=== PATIENT | female | born 1965 | race Caucasian/White ===

== ENCOUNTER 2019-10-21 19:45 | Inpatient (IN) ==
[2019-10-21] MEDS ORDERED: ALBUT/IPRATROP 3MG/0.5MG NEB 3 ML VIAL NEB STA (19:54)
[2019-10-21] MEDS ORDERED: methylPREDNISolone 125 MG/2 ML VIAL IV STA (19:54)
--- NOTE | 2019-10-21 20:11 | XRay Report ---
XR chest 1V portable CLINICAL HISTORY: Hypoxia. COMPARISON STUDY: Chest CT October 17, 2018. Chest radiograph September 09, 2019. FINDINGS: There is no pneumothorax or definite pleural effusion. Cardiomediastinal silhouette is stab le. No consolidation is identified. Interstitial thickening has resolved since chest radiograph of No vember 2018. IMPRESSION: No acute cardiopulmonary findings. ACT 112: Negative or not required by law. Electronically signed by: Sung Santana M.D. 10/21/2019 8:09 PM
[2019-10-21 20:16] LABS: Basophils # (auto) 0.04 K/uL (0-0.2); Basophils % (auto) 0.3 %; Eosinophils # (auto) 0.19 K/uL (0-0.5); Eosinophils % (auto) 1.5 %; Hematocrit (blood only) 48.1 % (37-47); Immature Granulocytes # (auto) 0.04 K/uL (0.00-0.02); Immature Granulocytes % (auto) 0.3 %; Lymphocytes # (auto) 2.77 K/uL (1.2-3.4); Lymphocytes % (auto) 21.7 %; Mean Corpuscular Hemoglobin 30.2 pg (25-34); Mean Corpuscular Hgb Conc 31.2 g/dL (32-36); Mean Platelet Volume 10.9 fL (7.4-10.4); Monocytes # (auto) 0.76 K/uL (0.11-0.59); Neutrophils # (auto) 8.95 K/uL (1.4-6.5); Neutrophils % (auto) 70.2 %; Platelet Count 173 K/uL (130-400); RDW Coefficient of Variation 13.9 % (11.5-14.5); Red Blood Count 4.96 M/uL (4.2-5.4); White Blood Count 12.75 K/uL (4.8-10.8)
[2019-10-21 20:18] LABS: Base Excess VBG 5.3 mEq/L; Oxygen Saturation VBG 66.5 %; pH VBG 7.34 (7.36-7.41)
[2019-10-21] MEDS ORDERED: ALBUT/IPRATROP 3MG/0.5MG NEB 3 ML VIAL NEB ONE (20:26)
[2019-10-21 20:31] LABS: Partial Thromboplastin Time 25.9 Seconds (21.0-31.0); Prothrombin Time 10.2 Seconds (9.0-12.0)
[2019-10-21 20:34] LABS: Alanine Aminotransferase 18 U/L (12-78); Albumin Level 3.1 gm/dl (3.4-5.0); Aspartate Aminotransferase 13 U/L (15-37); BUN Creatinine Ratio 18.7 (10-20); Bilirubin Direct < 0.1 mg/dl (0-0.2); Blood Urea Nitrogen 11 mg/dl (7-18); Calcium 8.9 mg/dl (8.5-10.1); Carbon Dioxide 40 mmol/L (21-32); Chloride 97 mmol/L (98-107); Creatinine Clr Calc Pharmacy 131.2 ml/min; Est GFR (African American) 120.8; Est GFR (Non-African American) 104.2; Glucose 97 mg/dl (70-99); Magnesium 1.9 mg/dl (1.8-2.4); Potassium 3.7 mmol/L (3.5-5.1); Sodium 140 mmol/L (136-145)
[2019-10-21 20:36] LABS: Influenza A virus by PCR Neg for Influ A (Neg); Influenza B virus by PCR Neg for Influ B (Neg)
[2019-10-21 20:39] LABS: Alkaline Phosphatase 96 U/L (45-117); Bilirubin,Total 0.2 mg/dl (0.2-1); NT Pro B Type Natriuretic Pept 64 pg/ml (0-900); Total Protein 6.9 gm/dl (6.4-8.2); Troponin I < 0.015 ng/ml (0-0.045)
[2019-10-21 21:01] LABS: Appearance Urine Clear (Clear); Bacteria Urine Automated 2+ (Negative); Bilirubin Urine Negative (Negative); Blood Urine Negative (Negative); Color Urine Dark Yellow; Epithelial Cell Urine Auto >30 /lpf (0-5); Glucose Urine UA Negative (Negative); Ketones Urine Trace (Negative); Leukocyte Esterase Urine Trace (Negative); Nitrite Urine Negative (Negative); Protein Urine Negative (Negative); Specific Gravity Urine 1.021 (1.000-1.030); Urobilinogen Urine Negative (Negative)
[2019-10-21] MEDS ORDERED: ACETAMINOPHEN 325 MG TAB PO PRN (22:03)
[2019-10-21] MEDS ORDERED: ONDANSETRON INJ 2 MG/ML 2 ML VIAL IV PRN (22:03)
[2019-10-21] MEDS ORDERED: FUROSEMIDE 40 MG/4 ML VIAL IV STA (22:03)
[2019-10-21] MEDS ORDERED: ALBUTEROL 0.5% NEB SOLN 2.5 MG/0.5 ML VIAL NEB PRN (22:03)
[2019-10-21] MEDS ORDERED: ENOXAPARIN INJ 40 MG/0.4 ML SYR SQ SCH (22:30)
[2019-10-21] MEDS ORDERED: MAGNESIUM SULFATE / D5W 1 GM/100 ML BAG IV ONE (22:30)
[2019-10-21] MEDS: CIPROFLOXACIN 250 MG TAB PO SCH (22:39)
[2019-10-21] MEDS ORDERED: ACETAMINOPHEN 500 MG TAB PO PRN (22:52)
--- NOTE | 2019-10-21 23:21 | History & Physical Report ---
Date of Service October 21, 2019 Assessment & Plan (1) Acute respiratory failure with hypoxia and hypercapnia: Patient with acute hypoxic respiratory failure most likely secondary to asthma and underlying COPD. Acutely hypoxic with saturations of 50% on arrival. VBG = 7.34/60 2. Rescue BiPAP placed in ER, nebs administered with improvement in patient's respiratory status. She is now speaking in complete sentences requesting that the BiPAP mask be removed Admit to PCU Maintain BiPAP as needed, wean to baseline 3 L nasal cannula as tolerated with goal saturation of 88 to 92% DuoNebs every 4 hours Albuterol every 2 hours as needed -Continue Advair Solu-Medrol 30 mg IV every 8 Magnesium x1 g Present on Admission?: Yes (2) UTI (urinary tract infection): Patient with complaint of dysuria. UA with trace leuk esterase and 10-30 RBCs, contaminated specimen with greater than 30 epithelial cells, 2+ bacteria. Patient has multiple allergies to include penicillin, sulfa, doxycycline. She is afebrile, hemodynamically stable, nontoxic in appearance We will treat with Cipro 250 mg twice daily Present on Admission?: Yes (3) COPD (chronic obstructive pulmonary disease): Patient with COPD. Continues to smoke approximately half a pack a day. Treatment as above with nebs and steroids BiPAP and wean to nasal cannula as tolerated Would ideally administer azithromycin given severity of exacerbation however, patient is allergic to azithromycin. No evidence of pneumonia or infectious process Smoking cessation counseling. Patient does not wish to have a nicotine patch placed at this time (4) Asthma: With acute exacerbation. Treatment with duo nebs and albuterol as above Continue Advair Solu-Medrol as above Magnesium sulfate x1 g Present on Admission?: Yes (5) Chronic diastolic CHF (congestive heart failure): Patient with grade 2 diastolic dysfunction noted on echo in 2018. She does not appear to be acutely volume overloaded at present. She does admit to missing her Lasix dose this morning. We will administer single dose of IV Lasix, 40 mg Continue Lasix 40 mg p.o. every morning and 20 mg p.o. q. afternoon to start tomorrow -Follow electrolytes and renal function Present on Admission?: Yes (6) FLAKO (obstructive sleep apnea): Chronic. Stable. Patient does not wear CPAP at home Encourage home CPAP use F/E/N-Hep-Lock. Monitor electrolytes and replete as needed, heart healthy diet as tolerated ProphylaxisLovenox 40 mg subcu daily Codefull per discussion with patient Dispositionadmit to PCU Present on Admission?: Yes History of Present Illness Chief Complaint: Shortness of breath Primary Care Provider: Mono Chapmanjorge l Poe is a 54-year-old female with history of oxygen dependent asthma/COPD on 3 L of continuous O2 at home presenting with shortness of breath and acute hypoxic respiratory failure. Patient states that she was in her usual state of health this morning when she woke up. She went out and did some shopping. Around 1630 she became acutely short of breath with chest tightness, dry cough. She has some mild chest pain associated with coughing and deep inspiration. Otherwise denies fever/chills/weakness/fatigue. Denies palpitations/abdominal pain/nausea/vomiting/constipation/diarrhea. She has chronic edema in her bilateral lower extremities for at least the last 6 months which has been slowly progressive. She is stable/unchanged orthopnea for years. Denies weight gain. She does admit to some dysuria and increased urinary frequency. Denies recent illness/sick contacts/recent travel On arrival to the ER she was in respiratory distress with a respiratory rate of 26, saturating 50% on 3 L by nasal cannula. Mild perioral cyanosis was noted. She was placed on BiPAP and administered albuterol neb utilizer treatments and Solu-Medrol with improvement in her clinical status. Presently she still complaining of chest tightness and feeling short of breath but feels that she has improved since coming to the ER. No additional complaints at this time ER course: Albuterol 3 mL neb, albuterol 12 mL neb, Solu-Medrol 125 mg IV Allergies Allergy/AdvReac Type Severity Reaction Status Date / Time azithromycin Allergy Severe respiratory Verified 10/21/19 21:23 distress cefaclor Allergy Severe RESPIRATORY Verified 10/21/19 21:23 DISTRESS erythromycin base Allergy Severe RESPIRATORY Verified 10/21/19 21:23 DISTRESS ibuprofen Allergy Severe RESPIRATORY Verified 10/21/19 21:23 DISTRESS Penicillins Allergy Severe RESPIRATORY Verified 10/21/19 21:23 DISTRESS Sulfa (Sulfonamide Allergy Severe RESPIRATORY Verified 10/21/19 21:23 Antibiotics) DISTRESS, RASH doxycycline AdvReac Severe Difficulty Verified 10/21/19 21:23 Breathing morphine AdvReac Intermediate N/V Verified 10/21/19 21:23 Home Medications Home Medications Medication Instructions Recorded Confirmed Type Advair HFA 1 puff INHALATION Q12H 10/09/18 10/21/19 History Spiriva Respimat 2 puff INHALATION DAILY 10/09/18 10/21/19 History albuterol sulfate 2 puff INHALATION Q4 PRN 10/09/18 10/21/19 History furosemide [Lasix] See Rx Instructions .ROUTE .COMPLEX 09/09/19 10/21/19 History acetaminophen [Tylenol Extra 1,000 mg PO Q6H PRN 10/21/19 10/21/19 History Strength] albuterol sulfate 2.5 mg INHALATION DIRECTED PRN 10/21/19 10/21/19 History fluticasone propionate [Flonase 2 spray INTRANASAL DAILY 10/21/19 10/21/19 History Allergy Relief] ibuprofen [Advil] 400 mg PO DIRECTED PRN 10/21/19 10/21/19 History Past Med/Surg History Medical History (Updated 10/21/19 @ 23:19 by Hazel Burt DO) Chronic diastolic CHF (congestive heart failure) Per echocardiogram 10/10/2018. Normal LV function with EF =55 to 60%, no regional wall motion abnormalities, mild concentric LVH with grade 2 diastolic dysfunction COPD (chronic obstructive pulmonary disease) On 3 L of oxygen continuous Morbid obesity Orthopnea TIA (transient ischemic attack) Surgical History (Updated 10/21/19 @ 23:05 by Hazel Burt DO) History of hysterectomy Hx of cholecystectomy Family History (Updated 10/21/19 @ 23:05 by Hazel Burt DO) Other Heart disease Social History Preferred Language: Azeri Communication Ability: Effective Facility Attendant Required: No Beliefs That Will Affect Care: None Current Living Situation: Alone Feels Safe at Home: Yes Smoking Status: Current every day smoker Tobacco Type: cigarettes ; Cigarettes Per Day: 10 ; Second Hand Exposure: Yes ; Tobacco Cessation Education Requested by Patient: No Hx Alcohol Use: No Hx Substance Use: No Review of Systems Review of Systems: All systems reviewed & are unremarkable except as noted in HPI & below Physical Exam Physical Exam: General: patient sitting upright in bed, BiPAP in place, appears comfortable, NAD, non-toxic in appearance, AA&O x 4 Skin: warm, dry, intact, no rashes or lesions HEENT: NC/AT, PERRL, EOMI, anicteric sclera, conjunctiva without injection, external ear normal to inspection and nontender, nares patent, dry mucus membranes, poor dentition, no oropharyngeal lesions, neck supple, trachea midline, no LAD, no thyromegaly, no JVD (exam limited by body habitus) Heart: +S1/S2, regular, no m/r/g Lungs: Markedly diminished breath sounds bilaterally, no rales/rhonchi, soft inspiratory and expiratory wheezing throughout Abd: +BS, soft, NT/ND, no masses/organomegaly/ascites Ext: warm, 2+ pulses in UE/LE bilaterally, no clubbing/cyanosis, + bilateral lower extremity edema 2+ with chronic skin changes/thickening with mild dermatitis on right lower extremity Neuro: nonfocal, patient AA&O x 4, speech intact, no facial droop, moving all extremities on command with equal strength 5/5 Results & Data Vital Signs (Past 12 Hours) Vital Signs Temp Pulse Pulse Resp BP BP Pulse Ox 10/21/19 22:02 82 19 93 10/21/19 21:01 82 108/54 L 93 10/21/19 20:47 82 18 98 10/21/19 20:31 80 112/94 99 10/21/19 20:22 81 21 99 10/21/19 20:15 82 20 99/74 L 97 10/21/19 20:04 99 10/21/19 19:55 99 10/21/19 19:48 36.7 C 97 H 26 H 139/75 50 L Laboratory Results Lab Results 10/21/19 10/21/19 10/21/19 Range/Units 20:00 20:07 20:07 WBC 12.75 H (4.8-10.8) K/uL RBC 4.96 (4.2-5.4) M/uL Hgb 15.0 (12.0-16.0) g/dL Hct 48.1 H (37-47) % MCV 97.0 (80-100) fL MCH 30.2 (25-34) pg MCHC 31.2 L (32-36) g/dL RDW Std Deviation 49.0 H (36.4-46.3) fL RDW Coeff of Darius 13.9 (11.5-14.5) % Plt Count 173 (130-400) K/uL MPV 10.9 H (7.4-10.4) fL Immature Gran % (Auto) 0.3 % Neut % (Auto) 70.2 % Lymph % (Auto) 21.7 % Power % (Auto) 6.0 % Eos % (Auto) 1.5 % Baso % (Auto) 0.3 % Immature Gran # (Auto) 0.04 H (0.00-0.02) K/uL Neut # (Auto) 8.95 H (1.4-6.5) K/uL Lymph # (Auto) 2.77 (1.2-3.4) K/uL Power # (Auto) 0.76 H (0.11-0.59) K/uL Eos # (Auto) 0.19 (0-0.5) K/uL Baso # (Auto) 0.04 (0-0.2) K/uL PT 10.2 (9.0-12.0) Seconds INR 1.0 (0.9-1.1) APTT 25.9 (21.0-31.0) Seconds PTT Ratio 1.0 VBG pH (7.36-7.41) VBG pCO2 (38-50) mmHg VBG pO2 mmHg VBG HCO3 mmol/L VBG O2 Saturation % VBG Base Excess mEq/L Barometric Pressure mm/Hg Sodium (136-145) mmol/L Potassium (3.5-5.1) mmol/L Chloride (98-107) mmol/L Carbon Dioxide (21-32) mmol/L Anion Gap (3-11) BUN (7-18) mg/dl Creatinine (0.6-1.2) mg/dl Est Cr Clr Drug Dosing ml/min Est GFR ( Amer) Est GFR (Non-Af Amer) BUN/Creatinine Ratio (10-20) Glucose (70-99) mg/dl Calcium (8.5-10.1) mg/dl Phosphorus (2.5-4.9) mg/dl Magnesium (1.8-2.4) mg/dl Total Bilirubin (0.2-1) mg/dl Direct Bilirubin (0-0.2) mg/dl AST (15-37) U/L ALT (12-78) U/L Alkaline Phosphatase (45-117) U/L Troponin I (0-0.045) ng/ml NT-Pro-B Natriuret Pep (0-900) pg/ml Total Protein (6.4-8.2) gm/dl Albumin (3.4-5.0) gm/dl Urine Color Urine Appearance (Clear) Urine pH (4.5-7.5) Ur Specific [place] (1.000-1.030) Urine Protein (Negative) Urine Glucose (UA) (Negative) Urine Ketones (Negative) Urine Blood (Negative) Urine Nitrite (Negative) Urine Bilirubin (Negative) Urine Urobilinogen (Negative) Ur Leukocyte Esterase (Negative) Urine WBC (Auto) (0-5) /hpf Urine RBC (Auto) (0-4) /hpf U Hyaline Cast (Auto) (0-5) /lpf U Epithel Cells (Auto) (0-5) /lpf Urine Bacteria (Auto) (Negative) Influenza Type A (PCR) Neg for Influ A (Neg) Influenza Type B (PCR) Neg for Influ B (Neg) 10/21/19 10/21/19 10/21/19 Range/Units 20:07 20:07 20:48 WBC (4.8-10.8) K/uL RBC (4.2-5.4) M/uL Hgb (12.0-16.0) g/dL Hct (37-47) % MCV (80-100) fL MCH (25-34) pg MCHC (32-36) g/dL RDW Std Deviation (36.4-46.3) fL RDW Coeff of Darius (11.5-14.5) % Plt Count (130-400) K/uL MPV (7.4-10.4) fL Immature Gran % (Auto) % Neut % (Auto) % Lymph % (Auto) % Power % (Auto) % Eos % (Auto) % Baso % (Auto) % Immature Gran # (Auto) (0.00-0.02) K/uL Neut # (Auto) (1.4-6.5) K/uL Lymph # (Auto) (1.2-3.4) K/uL Power # (Auto) (0.11-0.59) K/uL Eos # (Auto) (0-0.5) K/uL Baso # (Auto) (0-0.2) K/uL PT (9.0-12.0) Seconds INR (0.9-1.1) APTT (21.0-31.0) Seconds PTT Ratio VBG pH 7.34 L (7.36-7.41) VBG pCO2 62 H (38-50) mmHg VBG pO2 33 mmHg VBG HCO3 33 mmol/L VBG O2 Saturation 66.5 % VBG Base Excess 5.3 mEq/L Barometric Pressure 737.6 mm/Hg Sodium 140 (136-145) mmol/L Potassium 3.7 (3.5-5.1) mmol/L Chloride 97 L (98-107) mmol/L Carbon Dioxide 40 H (21-32) mmol/L Anion Gap 3.0 (3-11) BUN 11 (7-18) mg/dl Creatinine 0.56 L (0.6-1.2) mg/dl Est Cr Clr Drug Dosing 131.2 ml/min Est GFR ( Amer) 120.8 Est GFR (Non-Af Amer) 104.2 BUN/Creatinine Ratio 18.7 (10-20) Glucose 97 (70-99) mg/dl Calcium 8.9 (8.5-10.1) mg/dl Phosphorus 3.0 (2.5-4.9) mg/dl Magnesium 1.9 (1.8-2.4) mg/dl Total Bilirubin 0.2 (0.2-1) mg/dl Direct Bilirubin < 0.1 (0-0.2) mg/dl AST 13 L (15-37) U/L ALT 18 (12-78) U/L Alkaline Phosphatase 96 (45-117) U/L Troponin I < 0.015 (0-0.045) ng/ml NT-Pro-B Natriuret Pep 64 (0-900) pg/ml Total Protein 6.9 (6.4-8.2) gm/dl Albumin 3.1 L (3.4-5.0) gm/dl Urine Color Dark Yellow Urine Appearance Clear (Clear) Urine pH 7.0 (4.5-7.5) Ur Specific [place] 1.021 (1.000-1.030) Urine Protein Negative (Negative) Urine Glucose (UA) Negative (Negative) Urine Ketones Trace H (Negative) Urine Blood Negative (Negative) Urine Nitrite Negative (Negative) Urine Bilirubin Negative (Negative) Urine Urobilinogen Negative (Negative) Ur Leukocyte Esterase Trace H (Negative) Urine WBC (Auto) 1-5 (0-5) /hpf Urine RBC (Auto) 10-30 H (0-4) /hpf U Hyaline Cast (Auto) 1-5 (0-5) /lpf U Epithel Cells (Auto) >30 H (0-5) /lpf Urine Bacteria (Auto) 2+ H (Negative) Influenza Type A (PCR) (Neg) Influenza Type B (PCR) (Neg) Diagnostic Findings XR chest 1V portable CLINICAL HISTORY: Hypoxia. COMPARISON STUDY: Chest CT October 17, 2018. Chest radiograph September 09, 2019. FINDINGS: There is no pneumothorax or definite pleural effusion. Cardiomediastinal silhouette is stable. No consolidation is identified. Interstitial thickening has resolved since chest radiograph of September 09, 2019. IMPRESSION: No acute cardiopulmonary findings. ACT 112: Negative or not required by law. Electronically signed by: Sung Santana M.D. 10/21/2019 8:09 PM Dictated: 10/21/192007 Transcribed: 10/21/192007 ECG Additional Comments: This study shows normal sinus rhythm at 82 bpm, normal axis, [place] = 158 QRS = 98, QTc = 441, no acute ischemic changes Code Status & VTE Plan Code Status Full code VTE Prophylaxis Plan VTE Prophylaxis will be ordered: Yes PG Care Time/CCT Total # of Minutes Spent Total Time Spent with Patient: Total time spent is greater than 50% in coordination of care (as documented) at patient's floor/unit and/or counseling patient: (1) COPD (chronic obstructive pulmonary disease) COPD type: unspecified COPD Qualified Code(s): J44.9 - Chronic obstructive pulmonary disease, unspecified (2) Asthma Asthma severity: unspecified severity Asthma complication type: unspecified Asthma persistence: unspecified Qualified Code(s): J45.909 - Unspecified asthma, uncomplicated (3) UTI (urinary tract infection) Urinary tract infection type: acute cystitis Hematuria presence: with hematuria Qualified Code(s): N30.01 - Acute cystitis with hematuria
--- NOTE | 2019-10-21 23:26 | Emergency Department Note ---
Entered by Catherine Singer acting as a scribe for Arturo Nielsen History of Present Illness General Chief complaint: Shortness of Breath/Dyspnea Stated complaint: TROUBLE BREATHING Time Seen by Provider: 10/21/19 19:54 Source: patient History of Present Illness Onset (ago): hour(s) (today ) Location: chest (SOB) Pain Consistency: + constant Maximum Pain Intensity: 5 Associated symptoms: + denies other symptoms (recent weight gain) and + other (baseline leg swelling); no fever/chills The patient is a 54 year old female with a history of COPD, CHF, chronic respiratory failure, previous intubation (most recent was 10/09/18) and obesity who presents to the Emergency Room with complaints of shortness of breath. The patient began experiencing SOB today and presents with baseline swelling in her bilateral lower extremities which she states that she has everyday. She denies fever and recent weight again. Home Medications Home Medications Medication Instructions Recorded Confirmed Type Advair HFA 1 puff INHALATION Q12H 10/09/18 10/21/19 History Spiriva Respimat 2 puff INHALATION DAILY 10/09/18 10/21/19 History albuterol sulfate 2 puff INHALATION Q4 PRN 10/09/18 10/21/19 History furosemide [Lasix] See Rx Instructions .ROUTE .COMPLEX 09/09/19 10/21/19 History acetaminophen [Tylenol Extra 1,000 mg PO Q6H PRN 10/21/19 10/21/19 History Strength] albuterol sulfate 2.5 mg INHALATION DIRECTED PRN 10/21/19 10/21/19 History fluticasone propionate [Flonase 2 spray INTRANASAL DAILY 10/21/19 10/21/19 History Allergy Relief] ibuprofen [Advil] 400 mg PO DIRECTED PRN 10/21/19 10/21/19 History Allergies Allergy/AdvReac Type Severity Reaction Status Date / Time azithromycin Allergy Severe respiratory Verified 10/21/19 21:23 distress cefaclor Allergy Severe RESPIRATORY Verified 10/21/19 21:23 DISTRESS erythromycin base Allergy Severe RESPIRATORY Verified 10/21/19 21:23 DISTRESS ibuprofen Allergy Severe RESPIRATORY Verified 10/21/19 21:23 DISTRESS Penicillins Allergy Severe RESPIRATORY Verified 10/21/19 21:23 DISTRESS Sulfa (Sulfonamide Allergy Severe RESPIRATORY Verified 10/21/19 21:23 Antibiotics) DISTRESS, RASH doxycycline AdvReac Severe Difficulty Verified 10/21/19 21:23 Breathing morphine AdvReac Intermediate N/V Verified 10/21/19 21:23 Past Med/Surg History Medical History (Updated 10/21/19 @ 23:19 by Hazel Burt DO) Chronic diastolic CHF (congestive heart failure) Per echocardiogram 10/10/2018. Normal LV function with EF =55 to 60%, no re gional wall motion abnormalities, mild concentric LVH with grade 2 diastolic dysfunction COPD (chronic obstructive pulmonary disease) On 3 L of oxygen continuous Morbid obesity Orthopnea TIA (transient ischemic attack) Surgical History (Updated 10/21/19 @ 23:05 by Hazel Burt DO) History of hysterectomy Hx of cholecystectomy Family History (Updated 10/21/19 @ 23:05 by Hazel Burt DO) Other Heart disease Social History Preferred Language: [place] Communication Ability: Effective Web Software Engineer Required: No Beliefs That Will Affect Care: None Current Living Situation: Alone Feels Safe at Home: Yes Smoking Status: Current every day smoker Tobacco Type: cigarettes ; Cigarettes Per Day: 10 ; Second Hand Exposure: Yes ; Tobacco Cessation Education Requested by Patient: No Hx Alcohol Use: No Hx Substance Use: No Review of Systems Unable to obtain due to patient's respiratory distress. Physical Exam Vital Signs Vital Signs - 24 hr 10/21/19 19:48 10/21/19 19:55 10/21/19 20:04 Temperature 36.7 C Temperature Source Oral Pulse Rate 97 H Pulse Rate [Apical] Pulse Rate from SpO2 Sensor Respiratory Rate 26 H Respiratory Effort / Characteristics Respiratory Depth Respiratory Pattern Blood Pressure 139/75 Blood Pressure [Left Arm] Blood Pressure Mean 96 Blood Pressure Mean [Left Arm] Blood Pressure Position Sitting Blood Pressure Position [Left Arm] Pulse Oximetry 50 L 99 99 Oxygen Delivery Method Nasal Cannula Non-rebreather Non-rebreather Oxygen Flow Rate 3 15 15 Fraction of Inspired Oxygen Sepsis Recent Fever Within 48 Hours No Sepsis New/Unexplained Change in Mental Status No Sepsis Action Taken by Nursing No Action Required 10/21/19 20:15 10/21/19 20:22 10/21/19 20:31 Temperature Temperature Source Pulse Rate 81 80 Pulse Rate [Apical] 82 Pulse Rate from SpO2 Sensor 80 Respiratory Rate 20 21 Respiratory Effort / Characteristics Non-Labored Spontaneous Spontaneous Labored Short of Breath SOB on Exertion Respiratory Depth Normal Shallow Respiratory Pattern Tachypnea Blood Pressure 112/94 Blood Pressure [Left Arm] 99/74 L Blood Pressure Mean 97 Blood Pressure Mean [Left Arm] 82 Blood Pressure Position Blood Pressure Position [Left Arm] Sitting Pulse Oximetry 97 99 99 Oxygen Delivery Method BiPAP BiPAP Oxygen Flow Rate Fraction of Inspired Oxygen 40 40 Sepsis Recent Fever Within 48 Hours Sepsis New/Unexplained Change in Mental Status Sepsis Action Taken by Nursing 10/21/19 20:47 10/21/19 21:01 Temperature Temperature Source Pulse Rate 82 82 Pulse Rate [Apical] Pulse Rate from SpO2 Sensor 82 Respiratory Rate 18 Respiratory Effort / Characteristics Non-Labored Spontaneous Respiratory Depth Normal Respiratory Pattern Regular Blood Pressure 108/54 L Blood Pressure [Left Arm] Blood Pressure Mean 61 Blood Pressure Mean [Left Arm] Blood Pressure Position Blood Pressure Position [Left Arm] Pulse Oximetry 98 93 Oxygen Delivery Method BiPAP Oxygen Flow Rate Fraction of Inspired Oxygen 40 40 Sepsis Recent Fever Within 48 Hours Sepsis New/Unexplained Change in Mental Status Sepsis Action Taken by Nursing GENERAL: Patient should not in obvious respiratory distress. Patient is ashen and cyanotic. -Head: Normocephalic and atraumatic. -Right Ear: External ear normal. No mastoid tenderness. -Left Ear: External ear normal. No mastoid tenderness. -Mouth/Throat: The oropharynx is clear and moist. No trismus in the jaw. No dental abscesses or uvula swelling. No oropharyngeal exudate or tonsillar abscesses. EYES: Conjunctivae and EOM are normal. Pupils are equal, round, and reactive to light. Right eye exhibits no discharge. Left eye exhibits no discharge. No scleral icterus. NECK: Normal range of motion. Neck supple. No JVD present. No spinous process tenderness present. No carotid bruit present. No rigidity. No tracheal deviation and normal range of motion present. No Brudzinski's sign and no Kernig's sign noted. CV: Normal rate, regular rhythm, normal heart sounds and intact distal pulses. 2+ pitting edema in bilateral lower extremities. Palpable radial pulses bue. PULM/CHEST: respiratory distress. No stridor. Inspiratory rales and expiratory wheezes bilaterally. Chest Wall: She exhibits no tenderness. ABD: The abdomen is soft. Bowel sounds are normal. She has no distension. No mass is present. There is no tenderness. There is no rebound, no guarding, no Ryan's sign and no tenderness at McBurney's point. Rovsig negative MUSC/SKEL: Normal range of motion. There is no tenderness or deformity. 2+ pitting edema in bilateral lower extremities. LYMPH: No cervical adenopathy. NEURO: Motor and sensation grossly intact. SKIN: Ashen and cyanotic Course Course 1952: Past medical records reviewed. The patient was evaluated in room A01. A complete history and physical exam was performed. The patient is hypoxic at baseline with 3L of O2 50%. Large bor IV access was immediately obtained and the patient was placed on a acid wash operator. She is currently on a [id number] and quickly transitioned to Bipap 10/04. She will receive a 1 hour duoneb treatment though bipap. 2002: Patient's oxygen saturation is improved on BiPAP, her pallor has also improved. Cyanosis has resolved. 2016: I reassessed the patient and she is breathing more comfortable on bipap. She is getting a continuous duoneb treatment. 2050:The patient's vitals are stable and she continues bipap. Her leukocytosis is 12.7 on labs. Negative flu swab, negative troponin, pro BNP is 64. Her chest x-ray shows no pneumonia. She is admitted to medicine. I spoke to Dr. Dulce Burt who accepts the patient for admission. Administered Medications Ciprofloxacin (Cipro) 250 mg PO BID TIERA Stop: 10/26/19 22:29 Last Admin: 10/21/19 22:39 Dose: 250 mg Documented by: [id number] Enoxaparin Sodium (Lovenox) 40 mg SQ HS TIERA Stop: 11/20/19 22:29 Last Admin: 10/21/19 22:40 Dose: 40 mg Documented by: [id number] Magnesium Sulfate/Dextrose (Magnesium Sulfate / D5w) 1 gm in 100 mls @ 100 mls/hr IV ONE ONE Stop: 10/21/19 23:29 Last Admin: 10/21/19 22:39 Dose: 100 mls/hr Documented by: [id number] Discontinued Medications Albuterol (Duoneb) 3 ml NEB NOW STA Stop: 10/21/19 19:55 Last Admin: 10/21/19 20:27 Dose: Not Given Documented by: [id number] Albuterol (Duoneb) 12 ml NEB ONE ONE Stop: 12/22/19 20:27 Last Admin: 10/21/19 20:31 Dose: 12 ml Documented by: [id number] Furosemide (Lasix) 40 mg IV NOW STA Stop: 10/21/19 22:04 Last Admin: 10/21/19 23:10 Dose: 40 mg Documented by: [id number] Methylprednisolone (Solumedrol) 125 mg IV NOW STA Stop: 10/21/19 19:55 Last Admin: 10/21/19 20:08 Dose: 125 mg Documented by: [id number] Critical Care Time Critical Care Time: Yes Total Critical Care Time: 56 I have personally spent 56 minutes of critical care time in the direct management of this patient. This includes bedside care, interpretation of diagnostic studies, and testing, discussion with consultants, patient, and family members, and other required patient management activities. This 56 minutes is in excess of all separately billable procedures. Medical Decision Making Medical Records Attestation: I reviewed the patient's medical records. Home Medications Current Medication List: was personally reviewed by me Laboratory Data Attestation: I reviewed the patient's lab results. Result diagrams: 10/21/19 20:07 10/21/19 20:07 Lab Results 10/21/19 10/21/19 10/21/19 Range/Units 20:00 20:07 20:07 WBC 12.75 H (4.8-10.8) K/uL RBC 4.96 (4.2-5.4) M/uL Hgb 15.0 (12.0-16.0) g/dL Hct 48.1 H (37-47) % MCV 97.0 (80-100) fL MCH 30.2 (25-34) pg MCHC 31.2 L (32-36) g/dL RDW Std Deviation 49.0 H (36.4-46.3) fL RDW Coeff of Darius 13.9 (11.5-14.5) % Plt Count 173 (130-400) K/uL MPV 10.9 H (7.4-10.4) fL Immature Gran % (Auto) 0.3 % Neut % (Auto) 70.2 % Lymph % (Auto) 21.7 % [place] % (Auto) 6.0 % Eos % (Auto) 1.5 % Baso % (Auto) 0.3 % Immature Gran # (Auto) 0.04 H (0.00-0.02) K/uL Neut # (Auto) 8.95 H (1.4-6.5) K/uL Lymph # (Auto) 2.77 (1.2-3.4) K/uL [place] # (Auto) 0.76 H (0.11-0.59) K/uL Eos # (Auto) 0.19 (0-0.5) K/uL Baso # (Auto) 0.04 (0-0.2) K/uL PT 10.2 (9.0-12.0) Seconds INR 1.0 (0.9-1.1) APTT 25.9 (21.0-31.0) Seconds PTT Ratio 1.0 VBG pH (7.36-7.41) VBG pCO2 (38-50) mmHg VBG pO2 mmHg VBG HCO3 mmol/L VBG O2 Saturation % VBG Base Excess mEq/L Barometric Pressure mm/Hg Sodium (136-145) mmol/L Potassium (3.5-5.1) mmol/L Chloride (98-107) mmol/L Carbon Dioxide (21-32) mmol/L Anion Gap (3-11) BUN (7-18) mg/dl Creatinine (0.6-1.2) mg/dl Est Cr Clr Drug Dosing ml/min Est GFR ( Amer) Est GFR (Non-Af Amer) BUN/Creatinine Ratio (10-20) Glucose (70-99) mg/dl Calcium (8.5-10.1) mg/dl Phosphorus (2.5-4.9) mg/dl Magnesium (1.8-2.4) mg/dl Total Bilirubin (0.2-1) mg/dl Direct Bilirubin (0-0.2) mg/dl AST (15-37) U/L ALT (12-78) U/L Alkaline Phosphatase (45-117) U/L Troponin I (0-0.045) ng/ml NT-Pro-B Natriuret Pep (0-900) pg/ml Total Protein (6.4-8.2) gm/dl Albumin (3.4-5.0) gm/dl Urine Color Urine Appearance (Clear) Urine pH (4.5-7.5) Ur Specific [place] (1.000-1.030) Urine Protein (Negative) Urine Glucose (UA) (Negative) Urine Ketones (Negative) Urine Blood (Negative) Urine Nitrite (Negative) Urine Bilirubin (Negative) Urine Urobilinogen (Negative) Ur Leukocyte Esterase (Negative) Urine WBC (Auto) (0-5) /hpf Urine RBC (Auto) (0-4) /hpf U Hyaline Cast (Auto) (0-5) /lpf U Epithel Cells (Auto) (0-5) /lpf Urine Bacteria (Auto) (Negative) Influenza Type A (PCR) Neg for Influ A (Neg) Influenza Type B (PCR) Neg for Influ B (Neg) 10/21/19 10/21/19 10/21/19 Range/Units 20:07 20:07 20:48 WBC (4.8-10.8) K/uL RBC (4.2-5.4) M/uL Hgb (12.0-16.0) g/dL Hct (37-47) % MCV (80-100) fL MCH (25-34) pg MCHC (32-36) g/dL RDW Std Deviation (36.4-46.3) fL RDW Coeff of Darius (11.5-14.5) % Plt Count (130-400) K/uL MPV (7.4-10.4) fL Immature Gran % (Auto) % Neut % (Auto) % Lymph % (Auto) % [place] % (Auto) % Eos % (Auto) % Baso % (Auto) % Immature Gran # (Auto) (0.00-0.02) K/uL Neut # (Auto) (1.4-6.5) K/uL Lymph # (Auto) (1.2-3.4) K/uL [place] # (Auto) (0.11-0.59) K/uL Eos # (Auto) (0-0.5) K/uL Baso # (Auto) (0-0.2) K/uL PT (9.0-12.0) Seconds INR (0.9-1.1) APTT (21.0-31.0) Seconds PTT Ratio VBG pH 7.34 L (7.36-7.41) VBG pCO2 62 H (38-50) mmHg VBG pO2 33 mmHg VBG HCO3 33 mmol/L VBG O2 Saturation 66.5 % VBG Base Excess 5.3 mEq/L Barometric Pressure 737.6 mm/Hg Sodium 140 (136-145) mmol/L Potassium 3.7 (3.5-5.1) mmol/L Chloride 97 L (98-107) mmol/L Carbon Dioxide 40 H (21-32) mmol/L Anion Gap 3.0 (3-11) BUN 11 (7-18) mg/dl Creatinine 0.56 L (0.6-1.2) mg/dl Est Cr Clr Drug Dosing 131.2 ml/min Est GFR ( Amer) 120.8 Est GFR (Non-Af Amer) 104.2 BUN/Creatinine Ratio 18.7 (10-20) Glucose 97 (70-99) mg/dl Calcium 8.9 (8.5-10.1) mg/dl Phosphorus 3.0 (2.5-4.9) mg/dl Magnesium 1.9 (1.8-2.4) mg/dl Total Bilirubin 0.2 (0.2-1) mg/dl Direct Bilirubin < 0.1 (0-0.2) mg/dl AST 13 L (15-37) U/L ALT 18 (12-78) U/L Alkaline Phosphatase 96 (45-117) U/L Troponin I < 0.015 (0-0.045) ng/ml NT-Pro-B Natriuret Pep 64 (0-900) pg/ml Total Protein 6.9 (6.4-8.2) gm/dl Albumin 3.1 L (3.4-5.0) gm/dl Urine Color Dark Yellow Urine Appearance Clear (Clear) Urine pH 7.0 (4.5-7.5) Ur Specific [place] 1.021 (1.000-1.030) Urine Protein Negative (Negative) Urine Glucose (UA) Negative (Negative) Urine Ketones Trace H (Negative) Urine Blood Negative (Negative) Urine Nitrite Negative (Negative) Urine Bilirubin Negative (Negative) Urine Urobilinogen Negative (Negative) Ur Leukocyte Esterase Trace H (Negative) Urine WBC (Auto) 1-5 (0-5) /hpf Urine RBC (Auto) 10-30 H (0-4) /hpf U Hyaline Cast (Auto) 1-5 (0-5) /lpf U Epithel Cells (Auto) >30 H (0-5) /lpf Urine Bacteria (Auto) 2+ H (Negative) Influenza Type A (PCR) (Neg) Influenza Type B (PCR) (Neg) Imaging Data Attestation: I personally reviewed and interpreted this imaging study as follows: My Impression: CHEST X-RAY Interpreted by me * No pneumothorax * No cardiomegaly * No encephalization Radiologist's Impression: Radiology results as stated below per my review and the radiologist's interpretation: XR chest 1V portable CLINICAL HISTORY: Hypoxia. COMPARISON STUDY: Chest CT October 17, 2018. Chest radiograph September 09, 2019. FINDINGS: There is no pneumothorax or definite pleural effusion. Cardiomediastinal silhouette is stable. No consolidation is identified. Interstitial thickening has resolved since chest radiograph of September 09, 2019. IMPRESSION: No acute cardiopulmonary findings. ACT 112: Negative or not required by law. Electronically signed by: Sung Santana M.D. 10/21/2019 8:09 PM ECG Data Attestation: I personally reviewed and interpreted this ECG as follows: Indication: + SOB/dyspnea Rate (beats per minute): 82 Rhythm: + sinus rhythm ECG Intervals/blocks: + Normal QRS, + Normal WA and + Normal QT-c ECG ST segments: no ST depression and no ST elevation Blood Pressure Blood Pressure Findings: Low blood pressure Blood Pressure Disposition: further management by hospitalist MICHELLE Hummel 1954: Past medical records reviewed. The patient was evaluated in room A01. A complete history and physical exam was performed. The patient is hypoxic at baseline with 3L of O2 50%. Large bor IV access was immediately obtained and the patient was placed on a acid wash operator. She is currently on a [id number] and quickly transitioned to Bipap 10/04. She will receive a 1 hour duoneb treat ment though bipap. 2002: Patient's oxygen saturation is improved on BiPAP, her pallor has also imp roved. Cyanosis has resolved. 2016: I reassessed the patient and she is breathing more comfortable on bipap. She is getting a continuous duoneb treatment. 2050:The patient's vitals are stable and she continues bipap. Her leukocytosis is 12.7 on labs. Negative flu swab, negative troponin, pro BNP is 64. Her chest x-ray shows no pneumonia. She is admitted to medicine. I spoke to Dr. Dulce Burt who accepts the patient for admission. Impression & Plan Hypoxia, Status asthmaticus Discharge Plan Visit Data *Final* Discharge Date/Time: 10/21/19 21:44 Chief Complaint: Shortness of Breath/Dyspnea Stated Complaint: TROUBLE BREATHING ED Provider: Arturo Nielsen Discharge Problem: Hypoxia, Status asthmaticus Patient Disposition: Admitted As Inpatient Discharge Instructions Interventions: ED Discharge Assessment Last Done: 10/21/19 21:44 Discharge Problem: Status asthmaticus Qualifiers: Asthma severity: unspecified severity Asthma persistence: unspecified Qualified Code(s): J45.902 - Unspecified asthma with status asthmaticus The scribe's documentation has been prepared under my direction and personally reviewed by me in its entirety. I confirm that the note above accurately re flects all work, treatment, procedures, and medical decision making performed by me.
[2019-10-21] MEDS: ALBUT/IPRATROP 3MG/0.5MG NEB 3 ML VIAL NEB SCH (23:38)
[2019-10-21] MEDS: ADVAIR~ORDER AWAITING ACTION SCH (23:58)
[2019-10-22] MEDS: ALBUT/IPRATROP 3MG/0.5MG NEB 3 ML VIAL NEB SCH ×3 (03:26→11:04)
[2019-10-22] MEDS: methylPREDNISolone 30 MG in SYRINGE 0 ML IV SCH ×2 (03:39→11:44)
[2019-10-22 05:44] LABS: Hematocrit (blood only) 46.1 % (37-47); Hemoglobin 14.5 g/dL (12.0-16.0); Immature Granulocytes # (auto) 0.03 K/uL (0.00-0.02); Immature Granulocytes % (auto) 0.4 %; Lymphocytes # (auto) 0.65 K/uL (1.2-3.4); Lymphocytes % (auto) 9.3 %; Mean Corpuscular Hgb Conc 31.5 g/dL (32-36); Mean Corpuscular Volume 95.2 fL (80-100); Mean Platelet Volume 11.4 fL (7.4-10.4); Monocytes # (auto) 0.01 K/uL (0.11-0.59); Monocytes % (auto) 0.1 %; Neutrophils # (auto) 6.32 K/uL (1.4-6.5); Neutrophils % (auto) 90.2 %; Platelet Count 155 K/uL (130-400); RDW Coefficient of Variation 13.8 % (11.5-14.5); RDW Standard Deviation 48.3 fL (36.4-46.3); Red Blood Count 4.84 M/uL (4.2-5.4); White Blood Count 7.01 K/uL (4.8-10.8)
[2019-10-22 06:18] LABS: BUN Creatinine Ratio 24.3 (10-20); Calcium 8.6 mg/dl (8.5-10.1); Creatinine Clr Calc Pharmacy 136.4 ml/min; Est GFR (Non-African American) 106.1; Potassium 4.2 mmol/L (3.5-5.1)
[2019-10-22] MEDS: ADVAIR~ORDER AWAITING ACTION SCH (08:27)
[2019-10-22] MEDS: CIPROFLOXACIN 250 MG TAB PO SCH (08:27)
[2019-10-22] MEDS ORDERED: FUROSEMIDE 40 MG TAB PO SCH (09:00)
[2019-10-22] MEDS ORDERED: FLUTICASONE PROPIONATE NA SPR 16 GM BTL SCH (09:00)
[2019-10-22 10:59] VITALS: BP 95/60; TEMP 97.7
[2019-10-22 11:05] VITALS: PULSE 79; O2SAT 89
--- NOTE | 2019-10-22 11:12 | Discharge Summary ---
Date of Service October 22, 2019 Admission HPI Per Admitting Provider Gabriela Poe is a 54-year-old female with history of oxygen dependent asthma/COPD on 3 L of continuous O2 at home presenting with shortness of breath and acute hypoxic respiratory failure. Patient states that she was in her usual state of health this morning when she woke up. She went out and did some shopping. Around 1630 she became acutely short of breath with chest tightness, dry cough. She has some mild chest pain associated with coughing and deep inspiration. Otherwise denies fever/chills/weakness/fatigue. Denies palpitations/abdominal pain/nausea/vomiting/constipation/diarrhea. She has c hronic edema in her bilateral lower extremities for at least the last 6 months which has been slowly progressive. She is stable/unchanged orthopnea for years. Denies weight gain. She does admit to some dysuria and increased urinary frequency. Denies recent illness/sick contacts/recent travel On arrival to the ER she was in respiratory distress with a respiratory rate of 26, saturating 50% on 3 L by nasal cannula. Mild perioral cyanosis was noted. She was placed on BiPAP and administered albuterol neb utilizer treatments and Solu-Medrol with improvement in her clinical status. Presently she still complaining of chest tightness and feeling short of breath but feels that she has improved since coming to the ER. No additional complaints at this time ER course: Albuterol 3 mL neb, albuterol 12 mL neb, Solu-Medrol 125 mg IV Principal Diagnosis COPD exacerbation Discharge Exam Constitutional WD/WN, vitals as above Respiratory normal respiratory effort; no respiratory distress and no labored breathing Auscultation: + diminished lung sounds Cardiovascular RRR, no murmur, no edema Gastrointestinal (Abdomen) Inspection/Auscultation: abdomen normal to inspection and normal bowel sounds; abdomen not distended Percussion/Palpation: abdomen soft; abdomen nontender Musculoskeletal no cyanosis or clubbing, extremities motor strength 5/5 Skin no rashes, warm and dry Neurologic moves all extremities and awake Psychiatric A+Ox3, euthymic affect Discharge Data Allergies Allergy/AdvReac Type Severity Reaction Status Date / Time azithromycin Allergy Severe respiratory Verified 10/21/19 21:23 distress cefaclor Allergy Severe RESPIRATORY Verified 10/21/19 21:23 DISTRESS erythromycin base Allergy Severe RESPIRATORY Verified 10/21/19 21:23 DISTRESS ibuprofen Allergy Severe RESPIRATORY Verified 10/21/19 21:23 DISTRESS Penicillins Allergy Severe RESPIRATORY Verified 10/21/19 21:23 DISTRESS Sulfa (Sulfonamide Allergy Severe RESPIRATORY Verified 10/21/19 21:23 Antibiotics) DISTRESS, RASH doxycycline AdvReac Severe Difficulty Verified 10/21/19 21:23 Breathing morphine AdvReac Intermediate N/V Verified 10/21/19 21:23 Consultations 10/21/19 20:46 ED Decision to Admit Stat Hospital Course (1) Acute respiratory failure with hypoxia and hypercapnia: Patient with acute hypoxic respiratory failure most likely secondary to asthma and underlying COPD. Acutely hypoxic with saturations of 50% on arrival. VBG = 7.34/60 . Rescue BiPAP placed in ER, nebs administered with improvement in patient's respiratory status. She is now speaking in complete sentences requesting that the BiPAP mask be removed Weaned to 4L NC DuoNebs every 4 hours provided - will continue home inhalers at discharge and steroid taper - I did discuss with patient that she is not optimized and I would recommend she stay tonight. Unfortunately, her brother this morning and she feels she has to go home and does not intend to stay in the hospital tonight. She also thinks she's about at her baseline. We discussed when to return to the ED and that she needs to see her pcp later this week. (2) UTI (urinary tract infection): Patient with complaint of dysuria. UA with trace leuk esterase and 10-30 RBCs, contaminated specimen with greater than 30 epithelial cells, 2+ bacteria. Patient has multiple allergies to include penicillin, sulfa, doxycycline. She is afebrile, hemodynamically stable, nontoxic in appearance We will treat with Cipro 250 mg twice daily x 3 days - UC pending (3) COPD (chronic obstructive pulmonary disease): Patient with COPD. Continues to smoke approximately half a pack a day. Would ideally administer azithromycin given severity of exacerbation however, patient is allergic to azithromycin. No evidence of pneumonia or infectious process Smoking cessation counseling - patient has decreased her cigarette intake from 3 packs to 0.5 daily (4) Asthma: With acute exacerbation. as above (5) Chronic diastolic CHF (congestive heart failure): Patient with grade 2 diastolic dysfunction noted on echo in 2018. She does not appear to be acutely volume overloaded at present. She feels her lower extremity edema is improved single dose of IV Lasix, 40 mg on admission Continue Lasix 40 mg p.o. every morning and 20 mg p.o. q. afternoon (6) FLAKO (obstructive sleep apnea): Chronic. Stable. Patient does not wear CPAP at home Encourage home CPAP use Total Time Total Time Spent Total Time Spent (In Minutes): greater than 30 minutes Discharge Plan Discharge Items Patient Disposition: Home - Self-Care Reason For Visit: HYPOXIC RESPIRATORY FAILURE Discharge Diagnosis: COPD exacerbation Activity: Resume your previous activity Activity Comment: gradually as tolerated Non-emergency contact: Primary Care Provider Call non-emergency contact if: you have any medication questions, your symptoms worsen and you have a fever Follow-up/Referrals: Mono Edmonds [Primary Care Provider] - Diet: Carb Consistent or DM2 Addtl Attending Provider Instructions: Please follow up with your primary care provider later this week. (1) Acute respiratory failure, COPD exacerbation: -Continue Advair, Spiriva, home oxygen and rescue inhaler you will continue oral steroids for home in the following taper: 40mg x 2days, 30mg x 2days, 20mg x 2days, 10mg x 2days (2) UTI (urinary tract infection): 250 mg twice daily x 3 days - urine culture is still pending. We will call you if the culture reveals that a different antibiotic should be used (2) Chronic diastolic CHF (congestive heart failure): - your Lasix has been increased to 40 mg daily - please follow up with your primary care provider concerning any follow up lab work he may want to do. Pending Studies at Discharge: No Stand-Alone Forms: My [employer], Smoking Cessation Medications and DC Order Prescriptions: New prednisone 10 mg tablet 10 mg PO DAILY Qty: 20 RF: 0 furosemide 40 mg Tablet 40 mg PO DAILY Qty: 30 RF: 0 ciprofloxacin HCl 250 mg Tablet 250 mg PO BID Qty: 4 RF: 0 furosemide 20 mg Tablet 20 mg PO DAILY@1600 Qty: 30 RF: 0 Continued albuterol sulfate 90 mcg/actuation Hfa Aerosol Inhaler 2 puff INHALATION Q4 PRN (Reason: Shortness Of Breath Or Wheezing) RF: 0 Advair HFA 230-21 mcg/actuation Hfa Aerosol Inhaler 1 puff INHALATION Q12H RF: 0 Spiriva Respimat 2.5 mcg/actuation Mist 2 puff INHALATION DAILY RF: 0 albuterol sulfate 2.5 mg /3 mL (0.083 %) Solution For Nebulization 2.5 mg INHALATION DIRECTED PRN (Reason: Shortness Of Breath Or Wheezing) RF: 0 acetaminophen [Tylenol Extra Strength] 500 mg Tablet 1,000 mg PO Q6H PRN (Reason: Pain) RF: 0 fluticasone propionate [Flonase Allergy Relief] 50 mcg/actuation [place],Suspension 2 spray INTRANASAL DAILY RF: 0 Discontinued furosemide [Lasix] 20 mg Tablet See Rx Instructions .ROUTE .COMPLEX RF: 0 ibuprofen [Advil] 200 mg Tablet 400 mg PO DIRECTED PRN (Reason: Pain) RF: 0 Discharge Orders: Discharge Order (Routine); Ordered 10/22/19 Ordered By: Amarilis Orr Admission Data Admit Date/Time: 10/21/19 21:25 Attending Provider: Shin Vogel Admit Provider: Hazel Burt Primary Care Provider: oMno Edmonds Other Providers: Shin Vogel
[2019-10-22] MEDS ORDERED: FUROSEMIDE 20 MG TAB PO SCH (16:00)
== END 2019-10-22 13:42 | disposition home or self-care (01) | DRG 189 ==
LOC: ED 19:45 → 2E 21:25 → SUATTDRO 21:25 → 2E 21:44

== ENCOUNTER 2021-07-07 20:41 | Inpatient (IN) ==
[2021-07-07 23:05] LABS: Partial Thromboplastin Time 27.2 Seconds (21.0-31.0); Prothrombin Time 9.8 Seconds (9.0-12.0)
[2021-07-07 23:15] LABS: Basophils # (auto) 0.02 K/uL (0-0.2); Basophils % (auto) 0.2 %; Eosinophils # (auto) 0.36 K/uL (0-0.5); Eosinophils % (auto) 3.5 %; Hematocrit (blood only) 45.5 % (37-47); Hemoglobin 14.2 g/dL (12.0-16.0); Immature Granulocytes # (auto) 0.02 K/uL (0.00-0.02); Immature Granulocytes % (auto) 0.2 %; Lymphocytes # (auto) 2.79 K/uL (1.2-3.4); Lymphocytes % (auto) 26.8 %; Mean Corpuscular Hgb Conc 31.2 g/dL (32-36); Mean Corpuscular Volume 96.2 fL (80-100); Mean Platelet Volume 11.8 fL (7.4-10.4); Monocytes # (auto) 0.57 K/uL (0.11-0.59); Monocytes % (auto) 5.5 %; Neutrophils # (auto) 6.64 K/uL (1.4-6.5); Neutrophils % (auto) 63.8 %; Platelet Count 170 K/uL (130-400); RDW Coefficient of Variation 13.4 % (11.5-14.5); RDW Standard Deviation 47.6 fL (36.4-46.3); Red Blood Count 4.73 M/uL (4.2-5.4)
[2021-07-07 23:36] LABS: Alanine Aminotransferase 12 U/L (12-78); Albumin Globulin Ratio 0.8 (0.9-2); Albumin Level 3.1 gm/dl (3.4-5.0); Alkaline Phosphatase 81 U/L (45-117); Aspartate Aminotransferase 12 U/L (15-37); BUN Creatinine Ratio 28.9 (10-20); Bilirubin,Total 0.2 mg/dl (0.2-1); Blood Urea Nitrogen 15 mg/dl (7-18); Calcium 8.8 mg/dl (8.5-10.1); Carbon Dioxide 38 mmol/L (21-32); Chloride 99 mmol/L (98-107); Creatinine Clr Calc Pharmacy 124.8 ml/min; Est GFR (African American) 122.1 ml/min; Est GFR (Non-African American) 105.3 ml/min; Globulin 3.8 gm/dl (2.5-4.0); Glucose 98 mg/dl (70-99); Magnesium 1.9 mg/dl (1.8-2.4); Potassium 4.3 mmol/L (3.5-5.1); Sodium 140 mmol/L (136-145); Total Protein 6.9 gm/dl (6.4-8.2); Troponin I < 0.015 ng/ml (0-0.045)
[2021-07-08 00:25] LABS: NT Pro B Type Natriuretic Pept 33 pg/ml (0-900)
[2021-07-08] MEDS: SODIUM CHLORIDE 0.9% 500 ML IV SCH ×2 (00:42→10:16)
[2021-07-08] MEDS ORDERED: ALBUT/IPRATROP 3MG/0.5MG NEB 3 ML VIAL NEB STA (01:11)
--- NOTE | 2021-07-08 02:09 | Emergency Department Note ---
History of Present Illness General Chief complaint: Shortness of Breath/Dyspnea Stated complaint: Shortness of Breath Time Seen by Provider: 07/07/21 23:42 Source: patient Mode of arrival: ambulatory Limitations: no limitations History of Present Illness Provider complaint: Shortness of breath, chest pain Onset (ago): day(s) Location: chest Radiation: non-radiation Severity: moderate Pain Consistency: + constant Exacerbated By: + none Associated symptoms: + cough and + shortness of breath; no chest pain, no fever/chills or no nausea/vomiting Treatments prior to arrival: none This is a 48-year-old female presents emergency department complaining of shortness of breath and chest pain. Patient states she does have a history of COPD and is on home oxygen chronically at 3 L/min. Patient states she does use inhalers. Patient states that she is felt slightly more short of breath than usual and had accompanying left-sided chest pain. Patient does have a history of congestive heart failure and takes diuretics daily, she also noticed today that she had increased lower extremity edema. Patient denies fevers, chills, or recent URI symptoms. No known sick contacts. Patient states she is vaccinated against coronavirus. Patient states she has previously been admitted for shortness of breath. Patient states she does have a history of pneumonia, although is not convinced that her symptoms this evening are related to evolving pneumonia. No other recent change in medications. Patient denies any nausea, vomiting, lightheadedness, change in bowel or bladder function. No recent trauma or change in activity. Nursing staff noted pt at 89% on her usual 3 lpm, pt increased to 4 lpm. Pt seen during a time of high acuity and national emergency pandemic while wearing PPE. Home Medications Medication Instructions Recorded Confirmed Type albuterol sulfate 90 mcg/actuation 2 puff INHALATION Q6H PRN 10/09/18 07/07/21 History aerosol inhaler fluticasone propionate 230 1 puff INHALATION Q12H 10/09/18 07/07/21 History mcg-salmeterol 21 mcg/actuation HFA inhaler (Advair HFA) tiotropium bromide 2.5 2 puff INHALATION [facility]HS 10/09/18 07/07/21 History mcg/actuation mist for inhalation (Spiriva Respimat) acetaminophen 500 mg tablet 1,000 mg PO Q6H PRN 10/21/19 07/07/21 History (Tylenol Extra Strength) albuterol sulfate 2.5 mg INHALATION Q4H PRN 10/21/19 07/07/21 History fluticasone propionate 50 2 spray INTRANASAL BID 10/21/19 07/07/21 History mcg/actuation nasal spray,suspension (Flonase Allergy Relief) potassium chloride 20 mEq 20 meq PO QAM 11/09/20 07/07/21 History tablet,extended release(part/cryst) (Klor-Con M) furosemide 40 mg tablet 40 mg PO BID 07/07/21 07/07/21 History Allergies Allergy/AdvReac Type Severity Reaction Status Date / Time azithromycin Allergy Severe respiratory Verified 07/07/21 21:40 distress cefaclor Allergy Severe RESPIRATORY Verified 07/07/21 21:40 DISTRESS erythromycin base Allergy Severe RESPIRATORY Verified 07/07/21 21:40 DISTRESS ibuprofen Allergy Severe RESPIRATORY Verified 07/07/21 21:40 DISTRESS Penicillins Allergy Severe RESPIRATORY Verified 07/07/21 21:40 DISTRESS Sulfa (Sulfonamide Allergy Severe RESPIRATORY Verified 07/07/21 21:40 Antibiotics) DISTRESS, RASH doxycycline AdvReac Severe Difficulty Verified 07/07/21 21:40 Breathing morphine AdvReac Intermediate N/V Verified 07/07/21 21:40 Past Med/Surg History Medical History (Updated 07/09/21 @ 07:35 by Abbi Pacheco DO) Chest pain COPD (chronic obstructive pulmonary disease) On 3 L of oxygen continuous Morbid obesity Orthopnea Status asthmaticus TIA (transient ischemic attack) Surgical History History of hysterectomy Hx of cholecystectomy Family History Other Heart disease Social History Smoking Status: Current every day smoker Tobacco Type: Cigarettes Cigarettes Per Day: 10; Second Hand Exposure: No; Do You Dip or Chew Tobacco: No; Tobacco Cessation Education Requested by Patient: No Hx Alcohol Use: No Hx Substance Use: No Preferred Language: [place] Communication Ability: Effective Administrative Services Coordinator Required: No Beliefs That Will Affect Care: None Current Living Situation: Family Other Information That Helps Us Care for You: No Feels Safe at Home: Yes Safety Concerns: Feels Safe At This Time Assistive Devices: Glasses and Oxygen - Continuous Review of Systems A total of 10 systems reviewed and were otherwise negative All systems reviewed & are unremarkable except as noted in HPI & below Physical Exam Vital Signs Vital Signs - 24 hr 07/07/21 20:52 07/07/21 21:10 07/07/21 22:27 Temperature 37 C Temperature Source Oral Pulse Rate 76 Pulse Rate [Right Finger] Pulse Rhythm Regular Pulse Strength Normal Respiratory Rate 20 Respiratory Effort / Characteristics Non-Labored Respiratory Depth Normal Respiratory Pattern Regular Blood Pressure 145/51 H Blood Pressure [Right Arm] Blood Pressure Mean 82 Blood Pressure Mean [Right Arm] Blood Pressure Position Sitting Pulse Oximetry 97 94 91 Oxygen Delivery Method Nasal Cannula Nasal Cannula Nasal Cannula Oxygen Flow Rate 3 3 3 Sepsis Recent Fever Within 48 Hours No Sepsis New/Unexplained Change in Mental Status No Sepsis Action Taken by Nursing No Action Required 07/07/21 22:28 07/08/21 00:00 07/08/21 01:34 Temperature Temperature Source Pulse Rate Pulse Rate [Right Finger] 76 78 Pulse Rhythm Pulse Strength Respiratory Rate 22 18 Respiratory Effort / Characteristics Non-Labored Spontaneous SOB on Exertion Respiratory Depth Respiratory Pattern Blood Pressure Blood Pressure [Right Arm] 145/51 H Blood Pressure Mean Blood Pressure Mean [Right Arm] 82 Blood Pressure Position Pulse Oximetry 98 94 Oxygen Delivery Method Nasal Cannula Nasal Cannula Oxygen Flow Rate 3 4 Sepsis Recent Fever Within 48 Hours Sepsis New/Unexplained Change in Mental Status Sepsis Action Taken by Nursing 07/08/21 02:00 07/08/21 04:00 07/08/21 04:33 Temperature Temperature Source Pulse Rate Pulse Rate [Right Finger] 86 88 95 H Pulse Rhythm Pulse Strength Respiratory Rate 20 22 22 Respiratory Effort / Characteristics Non-Labored Non-Labored Non-Labored Respiratory Depth Normal Normal Normal Respiratory Pattern Blood Pressure Blood Pressure [Right Arm] 138/42 L 91/61 L 123/61 Blood Pressure Mean Blood Pressure Mean [Right Arm] 74 71 81 Blood Pressure Position Pulse Oximetry 98 94 96 Oxygen Delivery Method Nasal Cannula Nasal Cannula Nasal Cannula Oxygen Flow Rate 4 4 4 Sepsis Recent Fever Within 48 Hours Sepsis New/Unexplained Change in Mental Status Sepsis Action Taken by Nursing GENERAL: alert, well appearing, well nourished, no distress, non-toxic, nasal cannula in place EYE EXAM: normal conjunctiva, PERRL and EOM's grossly intact OROPHARYNX: no exudate, no erythema, lips, buccal mucosa, and tongue normal and mucous membranes are moist NECK: supple, no nuchal rigidity, no adenopathy, non-tender LUNGS: Diminished bilaterally to auscultation. Normal chest wall mechanics, no w/r/r HEART: no murmurs, S1 normal and S2 normal, no reproducible chest wall tenderness ABDOMEN: abdomen soft, non-tender, normo-active bowel sounds, no masses, no rebound or guarding. BACK: Back is symmetrical on inspection and there is no deformity, no midline tenderness, no CVA tenderness. SKIN: no rashes and no bruising UPPER EXTREMITIES: upper extremities are grossly normal. FROM, nml pulses b/l. LOWER EXTREMITIES: No pitting edema. FROM, nml pulses b/l. NEURO EXAM: Normal sensorium, cranial nerves II-XII grossly intact, normal speech, no gross weakness of arms, no gross weakness of legs. Gross sensation intact. Course Administered Medications Acetaminophen (Acetaminophen 325 Mg Tab) 650 mg PO Q4H PRN PRN Reason: Pain or Fever Stop: 08/07/21 08:21 Last Admin: 07/08/21 22:29 Dose: 650 mg Documented by: [id number] Albuterol (Albut/Ipratrop 3mg/0.5mg Neb 3 Ml Vial) 3 ml NEB Q4R [facility] Stop: 08/07/21 10:59 Last Admin: 07/09/21 07:19 Dose: 3 ml Documented by: [id number] Admin: 07/09/21 04:54 Dose: Not Given Documented by: [id number] Admin: 07/08/21 22:58 Dose: Not Given Documented by: [id number] Admin: 07/08/21 19:10 Dose: 3 ml Documented by: [id number] Admin: 07/08/21 15:36 Dose: 3 ml Documented by: [id number] Admin: 07/08/21 10:43 Dose: 3 ml Documented by: [id number] Albuterol (Albut/Ipratrop 3mg/0.5mg Neb 3 Ml Vial) 3 ml NEB Q2H PRN PRN Reason: shortness of breath Stop: 08/07/21 08:21 Last Admin: 07/08/21 13:15 Dose: 3 ml Documented by: [id number] Diclofenac Sodium (Diclofenac Sod 1% Gel 100 Gm Tube) 4 gm EXT QID TIERA Stop: 08/07/21 12:59 Last Admin: 07/08/21 20:10 Dose: Not Given Documented by: [id number] Admin: 07/08/21 17:06 Dose: Not Given Documented by: [id number] Admin: 07/08/21 13:29 Dose: 4 gm Documented by: [id number] Enoxaparin Sodium (Enoxaparin Inj 60 Mg/0.6 Ml Syr) 50 mg SQ DAILY TIERA Stop: 08/07/21 08:59 Last Admin: 07/08/21 10:19 Dose: 50 mg Documented by: [id number] Fluticasone/Vilanterol (Fluticasone/Vilanterol 100/25mcg 14 Puffs/Inhaler) 1 puffs INH DAILY TIERA Stop: 08/07/21 09:29 Last Admin: 07/08/21 10:20 Dose: 1 puffs Documented by: [id number] Furosemide (Furosemide 40 Mg Tab) 40 mg PO [id number] TIERA Stop: 08/07/21 08:59 Last Admin: 07/08/21 10:18 Dose: 40 mg Documented by: [id number] Guaifenesin (Guaifenesin 600 Mg Tabcr) 1,200 mg PO Q12 TIERA Stop: 08/07/21 08:59 Last Admin: 07/08/21 20:09 Dose: Not Given Documented by: [id number] Admin: 07/08/21 10:18 Dose: 1,200 mg Documented by: [id number] Methylprednisolone 40 mg/ (Syringe) 0.64 mls @ 1.5 mls/min IV Q6H TIERA Stop: 08/07/21 17:59 Last Admin: 07/09/21 05:43 Dose: 1.5 mls/min Documented by: [id number] Admin: 07/08/21 23:07 Dose: 1.5 mls/min Documented by: [id number] Admin: 07/08/21 17:06 Dose: 1.5 mls/min Documented by: [id number] Umeclidinium [place] (Umeclidinium [place] 62.5mcg/Blister 7 Puffs/Inhaler) 1 puffs INH DAILY TIERA Stop: 08/07/21 08:59 Last Admin: 07/08/21 10:19 Dose: 1 puffs Documented by: [id number] Discontinued Medications Albuterol (Albut/Ipratrop 3mg/0.5mg Neb 3 Ml Vial) 3 ml NEB NOW STA Stop: 07/08/21 01:12 Last Admin: 07/08/21 01:34 Dose: 3 ml Documented by: [id number] Albuterol (Albut/Ipratrop 3mg/0.5mg Neb 3 Ml Vial) 12 ml NEB ONE ONE Stop: 07/08/21 06:10 Last Admin: 07/08/21 06:29 Dose: 12 ml Documented by: [id number] Albuterol (Albut/Ipratrop 3mg/0.5mg Neb 3 Ml Vial) Confirm Administered Dose 12 ml .ROUTE .STK-MED ONE Stop: 07/08/21 06:22 Last Admin: 07/08/21 08:22 Dose: Not Given Documented by: [id number] Famotidine (Famotidine 20mg/5ml Iv Push) 20 mg IV ONE STA Stop: 07/08/21 04:19 Last Admin: 07/08/21 04:58 Dose: 20 mg Documented by: [id number] Sodium Chloride (Nss) 500 mls @ 80 mls/hr IV .Q6H15M TIERA Stop: 08/07/21 00:14 Last Admin: 07/08/21 10:16 Dose: Not Given Documented by: [id number] Infusion: 07/08/21 10:15 Dose: 0 mls/hr Documented by: [id number] Admin: 07/08/21 00:42 Dose: 80 mls/hr Documented by: [id number] Acetaminophen (Ofirmev) 1,000 mg in 100 mls @ 400 mls/hr IV NOW STA Stop: 07/08/21 04:32 Last Infusion: 07/08/21 05:33 Dose: 400 mls/hr Documented by: [id number] Admin: 07/08/21 04:56 Dose: 400 mls/hr Documented by: [id number] Sodium Chloride (Nss) 500 mls @ 999 mls/hr IV .Q31M ONE Stop: 07/08/21 04:48 Last Admin: 07/08/21 05:06 Dose: Not Given Documented by: [id number] Methylprednisolone 60 mg/ (Syringe) 0.96 mls @ 1.5 mls/min IV Q4 TIERA Stop: 08/07/21 11:59 Last Admin: 07/08/21 11:50 Dose: 1.5 mls/min Documented by: [id number] Furosemide 40 mg/ Syringe 4 mls @ 4 mls/min IV ONE ONE Stop: 07/08/21 12:35 Last Admin: 07/08/21 13:29 Dose: 4 mls/min Documented by: [id number] Ioversol (Optiray 320 125ml) 125 ml IV ONCE ONE Stop: 07/08/21 02:18 Last Admin: 07/08/21 02:18 Dose: 101 ml Documented by: [id number] Methylprednisolone (Methylprednisolone 125 Mg/2 Ml Vial) 60 mg IV NOW STA Stop: 07/08/21 05:16 Last Admin: 07/08/21 05:29 Dose: 60 mg Documented by: [id number] Methylprednisolone (Methylprednisolone 125 Mg/2 Ml Vial) 60 mg IV Q4H TIERA Stop: 08/07/21 06:16 Last Admin: 07/08/21 06:39 Dose: Not Given Documented by: [id number] Medical Decision Making Differential Diagnosis Differential diagnoses includes but is not limited to pneumonia, bronchitis, COPD/Asthma exacerbation, pneumothorax, pulmonary embolism, congestive heart failure, acute coronary syndrome Medical Records Attestation: I reviewed the patient's medical records. Home Medications Current Medication List: was personally reviewed by me Laboratory Data Attestation: I reviewed the patient's lab results. Result diagrams: 07/08/21 08:54 07/08/21 08:54 Lab Results 07/07/21 07/07/21 07/07/21 Range/Units 22:23 22:40 22:40 WBC 10.40 (4.8-10.8) K/uL RBC 4.73 (4.2-5.4) M/uL Hgb 14.2 (12.0-16.0) g/dL Hct 45.5 (37-47) % MCV 96.2 (80-100) fL MCH 30.0 (25-34) pg MCHC 31.2 L (32-36) g/dL RDW Std Deviation 47.6 H (36.4-46.3) fL RDW Coeff of Darius 13.4 (11.5-14.5) % Plt Count 170 (130-400) K/uL MPV 11.8 H (7.4-10.4) fL Immature Gran % (Auto) 0.2 % Neut % (Auto) 63.8 % Lymph % (Auto) 26.8 % Gar[place] % (Auto) 5.5 % Eos % (Auto) 3.5 % Baso % (Auto) 0.2 % Neut # (Auto) 6.64 H (1.4-6.5) K/uL Lymph # (Auto) 2.79 (1.2-3.4) K/uL [place] # (Auto) 0.57 (0.11-0.59) K/uL Eos # (Auto) 0.36 (0-0.5) K/uL Baso # (Auto) 0.02 (0-0.2) K/uL Immature Gran # (Auto) 0.02 (0.00-0.02) K/uL PT 9.8 (9.0-12.0) Seconds INR 1.0 (0.9-1.1) APTT 27.2 (21.0-31.0) Seconds PTT Ratio 1.0 Sodium 140 (136-145) mmol/L Potassium 4.3 (3.5-5.1) mmol/L Chloride 99 (98-107) mmol/L Carbon Dioxide 38 H (21-32) mmol/L Anion Gap 4.0 (3-11) BUN 15 (7-18) mg/dl Creatinine 0.52 L (0.6-1.2) mg/dl Est Cr Clr Drug Dosing 124.8 ml/min Est GFR ( Amer) 122.1 ml/min Est GFR (Non-Af Amer) 105.3 ml/min BUN/Creatinine Ratio 28.9 H (10-20) Glucose 98 (70-99) mg/dl Calcium 8.8 (8.5-10.1) mg/dl Magnesium 1.9 (1.8-2.4) mg/dl Total Bilirubin 0.2 (0.2-1) mg/dl AST 12 L (15-37) U/L ALT 12 (12-78) U/L Alkaline Phosphatase 81 (45-117) U/L Troponin I < 0.015 (0-0.045) ng/ml NT-Pro-B Natriuret Pep 33 (0-900) pg/ml Total Protein 6.9 (6.4-8.2) gm/dl Albumin 3.1 L (3.4-5.0) gm/dl Globulin 3.8 (2.5-4.0) gm/dl Albumin/Globulin Ratio 0.8 L (0.9-2) COVID-19 Eval Order SARS-CoV-2 (PCR) (Negative) 07/08/21 07/08/21 Range/Units 05:30 05:30 WBC (4.8-10.8) K/uL RBC (4.2-5.4) M/uL Hgb (12.0-16.0) g/dL Hct (37-47) % MCV (80-100) fL MCH (25-34) pg MCHC (32-36) g/dL RDW Std Deviation (36.4-46.3) fL RDW Coeff of Darius (11.5-14.5) % Plt Count (130-400) K/uL MPV (7.4-10.4) fL Immature Gran % (Auto) % Neut % (Auto) % Lymph % (Auto) % [place] % (Auto) % Eos % (Auto) % Baso % (Auto) % Neut # (Auto) (1.4-6.5) K/uL Lymph # (Auto) (1.2-3.4) K/uL [place] # (Auto) (0.11-0.59) K/uL Eos # (Auto) (0-0.5) K/uL Baso # (Auto) (0-0.2) K/uL Immature Gran # (Auto) (0.00-0.02) K/uL PT (9.0-12.0) Seconds INR (0.9-1.1) APTT (21.0-31.0) Seconds PTT Ratio Sodium (136-145) mmol/L Potassium (3.5-5.1) mmol/L Chloride (98-107) mmol/L Carbon Dioxide (21-32) mmol/L Anion Gap (3-11) BUN (7-18) mg/dl Creatinine (0.6-1.2) mg/dl Est Cr Clr Drug Dosing ml/min Est GFR ( Amer) ml/min Est GFR (Non-Af Amer) ml/min BUN/Creatinine Ratio (10-20) Glucose (70-99) mg/dl Calcium (8.5-10.1) mg/dl Magnesium (1.8-2.4) mg/dl Total Bilirubin (0.2-1) mg/dl AST (15-37) U/L ALT (12-78) U/L Alkaline Phosphatase (45-117) U/L Troponin I (0-0.045) ng/ml NT-Pro-B Natriuret Pep (0-900) pg/ml Total Protein (6.4-8.2) gm/dl Albumin (3.4-5.0) gm/dl Globulin (2.5-4.0) gm/dl Albumin/Globulin Ratio (0.9-2) COVID-19 Eval Order Covid19 at [facility] SARS-CoV-2 (PCR) NEGATIVE (Negative) Imaging Data Radiologist's Impression: CTA chest: Moderate emphysematous changes. Mild lingular atelectatic changes and mild right lung scarring. No infiltrate, effusion or pneumothorax. The mediastinum is intact. The heart is moderately enlarged. Aorta normal caliber. Atherosclerosis including coronary artery calcifications. No dissection. No PE. No acute findings in the upper abdomen. DJD. Impression: No PE. Radiologist: You Mathew MD ECG Data Attestation: I personally reviewed and interpreted this ECG as follows: Indication: + chest pain Rate (beats per minute): 76 Rhythm: + normal sinus ECG Intervals/blocks: + Normal QRS and + Normal QT ECG [place]: + Normal ECG ST segments: + Normal ST segments MDM Narrative This is a 56-year-old female with multiple chronic comorbidities who presents due to concern for chest pain and increased shortness of breath. Patient does chronically wear oxygen and felt the need to turn it up at home. On arrival here she was still 89% on her usual 3 L and was bumped up to 4 L with improvement in her symptoms. Patient did complain of shortness of breath, for greater than 6 hours. Patient did have a negative troponin although had ongoing symptoms. Given patient's risk factors and history patient was sent for CT angiography. No PE, pneumonia, CHF, pleural effusion, pericardial effusion, thoracic aneurysm was noted. I have a lower suspicion for evolving ACS. Patient does note increased lower extremity edema although does not otherwise examine like CHF or volume overload. Patient was given a DuoNeb treatment here, was given a dose of Solu-Medrol for possible COPD exacerbation. Patient had no fever or leukocytosis. No change in her sputum production and no known sick contacts. I deferred addition of antibiotics to the hospitalist team as Covid test was pending. If Covid positive, could likely explain patient symptoms in addition. An order was placed for continuous cardiac monitoring. The monitor shows a rate of _78__ with __normal sinus__ rhythm. Impression & Plan Chest pain, COPD (chronic obstructive pulmonary disease), Obesity, Dyspnea Discharge Plan Visit Data Chief Complaint: Shortness of Breath/Dyspnea Stated Complaint: Shortness of Breath ED Provider: Abbi Pacheco Discharge Problem: Chest pain, COPD (chronic obstructive pulmonary disease), Obesity, Dyspnea Patient Disposition: Admitted As Inpatient Condition: Good Discharge Instructions Interventions: ED Discharge Assessment Last Done: 07/08/21 07:40 Discharge Problem: Chest pain Qualifiers: Chest pain type: unspecified Qualified Code(s): R07.9 - Chest pain, unspecified COPD (chronic obstructive pulmonary disease) Qualifiers: COPD type: unspecified COPD Qualified Code(s): J44.9 - Chronic obstructive pulmonary disease, unspecified Obesity Qualifiers: Obesity type: unspecified obesity type Obesity classification: unspecified obesity classification Serious obesity comorbidity presence: unspecified whether serious comorbidity present Qualified Code(s): E66.9 - Obesity, unspecified Dyspnea Qualifiers: Dyspnea type: shortness of breath Qualified Code(s): R06.02 - Shortness of breath
[2021-07-08] MEDS ORDERED: OPTIRAY 320 125ml IV ONE (02:17)
[2021-07-08] MEDS ORDERED: SODIUM CHLORIDE 0.9% 500 ML IV ONE (04:18)
[2021-07-08] MEDS ORDERED: ACETAMINOPHEN 1,000 MG/100 ML VIAL IV STA (04:18)
[2021-07-08] MEDS ORDERED: FAMOTIDINE 20MG/5ML IV PUSH IV STA (04:18)
[2021-07-08] MEDS ORDERED: methylPREDNISolone 125 MG/2 ML VIAL IV STA (05:15)
[2021-07-08] MEDS ORDERED: ALBUT/IPRATROP 3MG/0.5MG NEB 3 ML VIAL NEB ONE (06:09)
[2021-07-08] MEDS ORDERED: methylPREDNISolone 125 MG/2 ML VIAL IV SCH (06:17)
[2021-07-08] MEDS ORDERED: ALBUT/IPRATROP 3MG/0.5MG NEB 3 ML VIAL ONE (06:21)
--- NOTE | 2021-07-08 06:31 | History & Physical Report ---
Date of Service July 08, 2021 Assessment & Plan (1) COPD exacerbation: Plan: Patient s a 56 year old female with PMHx COPD, CHF, FLAKO who presents with worsening dyspnea requiring increased titration of her oxygen from 3L at baseline in addition to chest pain that started the day prior which is somewhat sharp and stems from the lower left sternum to lower L chest wall. COPD Exacerbation -Patient presenting with suspected COPD exacerbation -CTA chest stat read without PE, infiltrate, or effusions -BNP not elevated and crackles not present on current physical exam -Will give a duoneb treatment now due to wheezing on exam -Received Methylpred 60 in ED, will continue Methylpred 60mg q6h IV -Will hold on any antibiotics - dyspnea, but no change in sputum amount or purulency -Duoneb q4h sched and q2h PRN -Mucinex BID -Continue home Advair -Continue home Spiriva -PRN O2 titrate to 89-92% Hx CHF -Does not appear to be in overload at this time -Continue home Lasix 40mg PO -monitor i/o's -daily weights FLAKO -CPAP qhs Dispo: FEN: HH, Low salt diet DVT: Lovenox Code: Full History of Present Illness Chief Complaint: SOB Primary Care Provider: Crystal Vasquez Patient s a 56 year old female with PMHx COPD, CHF, FLAKO who presents with worsening dyspnea requiring increased titration of her oxygen from 3L at baseline in addition to chest pain that started the day prior which is somewhat sharp and stems from the lower left sternum to lower L chest wall. Patient notes that she has been having increased shortness of breath while at home in addition to feeling as tough her legs have been swelling more. She note that it does not feel like her typical pneumonia. She also states that she was having on and off L sided and lower sternum chest pain that will last a few minutes of a time. She notes the chest pain comes on while she is sitting there and does not seem to worsen with activity. She notes that she has been watching her diet intake to keep from eating to much salt in addition to utilizing her medications as prescribed. She does note she still smokes 1/2 PPD. Denies any fever, chills, current chest pain, abdominal pain, dysuria, hematuria. Does note shortness of breath and is requesting a neb treatment. Med Hx: COPD, CHF, FLAKO Surg Hx: Hysterectomy, Appendectomy Soc Hx: Smokes 1/2 PPD, denies current alcohol use, denies illicit drug use Allergies Allergy/AdvReac Type Severity Reaction Status Date / Time azithromycin Allergy Severe respiratory Verified 07/07/21 21:40 distress cefaclor Allergy Severe RESPIRATORY Verified 07/07/21 21:40 DISTRESS erythromycin base Allergy Severe RESPIRATORY Verified 07/07/21 21:40 DISTRESS ibuprofen Allergy Severe RESPIRATORY Verified 07/07/21 21:40 DISTRESS Penicillins Allergy Severe RESPIRATORY Verified 07/07/21 21:40 DISTRESS Sulfa (Sulfonamide Allergy Severe RESPIRATORY Verified 07/07/21 21:40 Antibiotics) DISTRESS, RASH doxycycline AdvReac Severe Difficulty Verified 07/07/21 21:40 Breathing morphine AdvReac Intermediate N/V Verified 07/07/21 21:40 Home Medications Medication Instructions Recorded Confirmed Type albuterol sulfate 90 mcg/actuation 2 puff INHALATION Q6H PRN 10/09/18 07/07/21 History aerosol inhaler fluticasone propionate 230 1 puff INHALATION Q12H 10/09/18 07/07/21 History mcg-salmeterol 21 mcg/actuation HFA inhaler (Advair HFA) tiotropium bromide 2.5 2 puff INHALATION AMHS 10/09/18 07/07/21 History mcg/actuation mist for inhalation (Spiriva Respimat) acetaminophen 500 mg tablet 1,000 mg PO Q6H PRN 10/21/19 07/07/21 History (Tylenol Extra Strength) albuterol sulfate 2.5 mg INHALATION Q4H PRN 10/21/19 07/07/21 History fluticasone propionate 50 2 spray INTRANASAL BID 10/21/19 07/07/21 History mcg/actuation nasal spray,suspension (Flonase Allergy Relief) potassium chloride 20 mEq 20 meq PO QAM 11/09/20 07/07/21 History tablet,extended release(part/cryst) (Klor-Con M) furosemide 40 mg tablet 40 mg PO BID 07/07/21 07/07/21 History Past Med/Surg History Medical History Chest pain COPD (chronic obstructive pulmonary disease) On 3 L of oxygen continuous Morbid obesity Orthopnea Status asthmaticus TIA (transient ischemic attack) Surgical History History of hysterectomy Hx of cholecystectomy Family History Other Heart disease Social History Smoking Status: Current every day smoker Tobacco Type: Cigarettes Cigarettes Per Day: 10; Second Hand Exposure: No; Do You Dip or Chew Tobacco: No; Tobacco Cessation Education Requested by Patient: No Hx Alcohol Use: No Hx Substance Use: No Preferred Language: Faroese Communication Ability: Effective Insurance Sales Representative Required: No Beliefs That Will Affect Care: None Current Living Situation: Family Other Information That Helps Us Care for You: No Feels Safe at Home: Yes Safety Concerns: Feels Safe At This Time Assistive Devices: Glasses and Oxygen - Continuous Review of Systems Review of Systems: All systems reviewed & are unremarkable except as noted in Subjective Physical Exam Constitutional: well developed and well nourished; no acute distress and not diaphoretic Eyes: PERRL, conjunctivae normal, anicteric sclerae ENMT: external ear and nose normal, oropharynx normal Mallampati Class: III Neck: trachea midline, no thyromegaly Respiratory: normal respiratory effort; no respiratory distress and no labored breathing Auscultation: + diminished lung sounds and + wheezes (b/l, worse in the R upper lobes); no crackles and no rales Moderate air movement in lungs Cardiovascular: Rate/Rhythm: regular rate and regular rhythm Heart Sounds: normal S1 and normal S2; no murmur Extremities: + edema (1-2+ to the mid tibia ); no calf tenderness Gastrointestinal (Abdomen): normal bowel sounds, soft, nontender, no hepatosplenomegaly Musculoskeletal: no cyanosis or clubbing, extremities motor strength 5/5 Skin: no rashes, warm and dry Neurologic: PERRL, EOMI, accommodation nl, no face palsy, no dysarthria Psychiatric: A+Ox3, euthymic affect Results & Data Results & Data ([facility]) Vital Signs (Past 12 Hours) Vital Signs Temp Pulse Pulse Resp BP BP Pulse Ox 07/08/21 06:28 83 20 92 07/08/21 06:00 85 22 127/58 L 92 07/08/21 04:33 95 H 22 123/61 96 07/08/21 04:00 88 22 91/61 L 94 07/08/21 02:00 86 20 138/42 L 98 07/08/21 01:34 78 18 94 07/08/21 00:00 76 22 145/51 H 98 07/07/21 22:27 91 07/07/21 21:10 94 07/07/21 20:52 37 C 76 20 145/51 H 97 Laboratory Results Laboratory Results - last 24 hr 07/07/21 07/07/21 07/07/21 22:23 22:40 22:40 WBC 10.40 RBC 4.73 Hgb 14.2 Hct 45.5 MCV 96.2 MCH 30.0 MCHC 31.2 L RDW Std Deviation 47.6 H RDW Coeff of Darius 13.4 Plt Count 170 MPV 11.8 H Immature Gran % (Auto) 0.2 Neut % (Auto) 63.8 Lymph % (Auto) 26.8 Wilcox % (Auto) 5.5 Eos % (Auto) 3.5 Baso % (Auto) 0.2 Neut # (Auto) 6.64 H Lymph # (Auto) 2.79 Wilcox # (Auto) 0.57 Eos # (Auto) 0.36 Baso # (Auto) 0.02 Immature Gran # (Auto) 0.02 PT 9.8 INR 1.0 APTT 27.2 PTT Ratio 1.0 Sodium 140 Potassium 4.3 Chloride 99 Carbon Dioxide 38 H Anion Gap 4.0 BUN 15 Creatinine 0.52 L Est Cr Clr Drug Dosing 124.8 Est GFR ( Amer) 122.1 Est GFR (Non-Af Amer) 105.3 BUN/Creatinine Ratio 28.9 H Glucose 98 Calcium 8.8 Magnesium 1.9 Total Bilirubin 0.2 AST 12 L ALT 12 Alkaline Phosphatase 81 Troponin I < 0.015 NT-Pro-B Natriuret Pep 33 Total Protein 6.9 Albumin 3.1 L Globulin 3.8 Albumin/Globulin Ratio 0.8 L COVID-19 Eval Order SARS-CoV-2 (PCR) 07/08/21 07/08/21 05:30 05:30 WBC RBC Hgb Hct MCV MCH MCHC RDW Std Deviation RDW Coeff of Darius Plt Count MPV Immature Gran % (Auto) Neut % (Auto) Lymph % (Auto) Wilcox % (Auto) Eos % (Auto) Baso % (Auto) Neut # (Auto) Lymph # (Auto) Wilcox # (Auto) Eos # (Auto) Baso # (Auto) Immature Gran # (Auto) PT INR APTT PTT Ratio Sodium Potassium Chloride Carbon Dioxide Anion Gap BUN Creatinine Est Cr Clr Drug Dosing Est GFR ( Amer) Est GFR (Non-Af Amer) BUN/Creatinine Ratio Glucose Calcium Magnesium Total Bilirubin AST ALT Alkaline Phosphatase Troponin I NT-Pro-B Natriuret Pep Total Protein Albumin Globulin Albumin/Globulin Ratio COVID-19 Eval Order Covid19 at [facility] SARS-CoV-2 (PCR) Pending Diagnostic Findings CTA CHEST: Moderate emphysematous changes. Mild lingular atelectatic changes and mild right lung scarring. No infiltrate, effusion or pneumothorax. The mediastinum is intact. The heart is moderately enlarged. Aorta normal caliber. Atherosclerosis including coronary artery calcifications. No dissection. No PE. No acute findings in the upper abdomen. DJD. Impression: No PE. Radiologist: You Mathew M.D. Study ready at 02:24 and initial results transmitted at 03:25 Code Status & VTE Plan VTE Prophylaxis Plan VTE Prophylaxis will be ordered: Yes Resident Activity Tracking Resident Involvement: Resident Care Provided Care Provided: Adult Hospital Medicine
--- NOTE | 2021-07-08 08:06 | CT Scan Report ---
CT ANGIOGRAM OF THE CHEST CLINICAL HISTORY: Dyspnea. COMPARISON STUDY: Chest x-ray dated 07/07/2021. Chest CT dated 11/10/2020. TECHNIQUE: Following the IV administration of 101 cc of Optiray 320, CT angiogram of the chest was pe rformed from the upper abdomen to the thoracic inlet utilizing the pulmonary embolus protocol. Images are reviewed in the axial, sagittal, and coronal planes. 3-D MIPS images are created and assessed. I V contrast was administered without complication. A dose lowering technique was utilized adhering to the principles of ALARA. The examination is compromised by motion artifact. CT DOSE: 650.47 mGy.cm FINDINGS: Thyroid: Imaged portions of the thyroid gland are normal in size and attenuation. Thoracic aorta: There is atherosclerotic calcification of the thoracic aorta, which is normal in demetri aiden and demonstrates standard 3-vessel arch anatomy. No dissection is seen. There is at least moderat e stenosis of the left subclavian artery below the thoracic outlet is seen on image #242. Pulmonary vasculature: The pulmonary trunk is dilated, measuring 4 cm diameter. This suggests pulmona ry artery hypertension. There are no filling defects identified in main, lobar, or proximal segmental pulmonary branches to suggest pulmonary embolus. Evaluation of the peripheral branches is compromise d by motion artifact. Heart: The heart is enlarged and without pericardial effusion. Lungs and pleural spaces: Evaluation of the lung parenchyma is compromised by motion artifact. Emphys ematous change is identified. The trachea and central airways appear clear. Diffuse peribronchial thi ckening is observed. There is no lobar consolidation or pleural effusion. There is bibasilar scarring /atelectasis. There are numerous groundglass/cystic pulmonary lesions. A 2 cm lesion in the right low er lobe seen on image #148 shows an increasing solid/nodular component as seen on image #142. An ill- defined 2.3 cm lesion is again seen in the right upper lobe on image #185. This is unchanged from pre vious. Additional ill-defined right upper lobe lesions are seen on image #188 and #194. A similar-aguilar earing subcentimeter lesion in the left lower lobe is suggested on image #133. There is mild diffuse intralobular septal thickening. Mediastinum: There is no mediastinal lymphadenopathy. Jazmin: Mildly enlarged hilar nodes measure up to 13 mm in short axis. Axillae: There is no axillary lymphadenopathy. Upper abdomen: Partially visualized upper abdominal viscera is within normal limits. Skeletal structures: The skeletal structures are osteopenic. Degenerative change and kyphoscoliosis i s noted in the thoracic spine. No lytic or blastic bony lesions are seen. IMPRESSION: 1. Motion compromised examination. 2. There is no evidence of pulmonary embolus in the main, lobar, or proximal segmental pulmonary femi alfredo. Evaluation of the peripheral branches is degraded by motion artifact. 3. Cardiomegaly and emphysema with evidence of pulmonary artery hypertension. 4. There is no lobar consolidation or pleural effusion. 5. Again seen are numerous ill-defined groundglass/cystic pulmonary lesions as detailed above. A lesi on in the right lower lobe shows an increasing solid/nodular component as compared to 11/10/2020, and these lesions are suspicious for low-grade pulmonary neoplasms. Pulmonology follow-up is recommended. 6. Mildly enlarged hilar lymph nodes are nonspecific. 7. Intralobular septal thickening is nonspecific and could represent acute versus chronic congestive change. Correlate clinically. 8. Mild diffuse peribronchial thickening suggests bronchitis/active air disease. ACT 112: Positive. There are findings on this exam that require communication between the performing entity and the patient following Patient Test Result Information Act ([place] Act 112) guidelines. Electronically signed by: Lupillo Bond M.D. 07/08/2021 8:05 AM
[2021-07-08] MEDS ORDERED: ENOXAPARIN 0.5 MG/KG SQ SCH (08:22)
[2021-07-08] MEDS ORDERED: ALBUT/IPRATROP 3MG/0.5MG NEB 3 ML VIAL NEB PRN (08:22)
[2021-07-08] MEDS ORDERED: FUROSEMIDE 40 MG TAB PO SCH (09:00)
[2021-07-08 09:03] LABS: Basophils # (auto) 0.01 K/uL (0-0.2); Basophils % (auto) 0.1 %; Eosinophils # (auto) 0.01 K/uL (0-0.5); Eosinophils % (auto) 0.1 %; Hemoglobin 14.1 g/dL (12.0-16.0); Immature Granulocytes # (auto) 0.01 K/uL (0.00-0.02); Immature Granulocytes % (auto) 0.1 %; Lymphocytes # (auto) 0.62 K/uL (1.2-3.4); Lymphocytes % (auto) 6.4 %; Mean Corpuscular Hemoglobin 29.3 pg (25-34); Mean Corpuscular Volume 97.7 fL (80-100); Mean Platelet Volume 11.3 fL (7.4-10.4); Neutrophils # (auto) 8.99 K/uL (1.4-6.5); Neutrophils % (auto) 92.3 %; Platelet Count 153 K/uL (130-400); RDW Coefficient of Variation 13.4 % (11.5-14.5); Red Blood Count 4.81 M/uL (4.2-5.4); White Blood Count 9.74 K/uL (4.8-10.8)
--- NOTE | 2021-07-08 09:07 | XRay Report ---
XR chest 1V portable HISTORY: Shortness of breath. COMPARISON: Chest 11/09/2020. FINDINGS: No pneumothorax. No pleural effusions. The heart is top normal in size. There is mild diffu se interstitial thickening, unchanged. This is likely chronic. Bibasilar linear densities favor subse gmental atelectasis. IMPRESSION: Bibasilar linear densities favor subsegmental atelectasis. ACT 112: Negative or not required by law. Electronically signed by: Siva Perez M.D. 07/08/2021 9:06 AM
[2021-07-08 09:22] LABS: Albumin Level 3.2 gm/dl (3.4-5.0); BUN Creatinine Ratio 18.4 (10-20); Calcium 8.5 mg/dl (8.5-10.1); Creatinine Clr Calc Pharmacy 113.9 ml/min; Est GFR (African American) 118.4 ml/min; Est GFR (Non-African American) 102.2 ml/min; Potassium 4.3 mmol/L (3.5-5.1)
[2021-07-08 09:25] LABS: Albumin Globulin Ratio 0.9 (0.9-2); Bilirubin,Total 0.2 mg/dl (0.2-1); Globulin 3.7 gm/dl (2.5-4.0); Total Protein 6.9 gm/dl (6.4-8.2)
[2021-07-08] MEDS: guaiFENesin 600 MG TABCR PO SCH ×2 (10:18→20:09)
[2021-07-08] MEDS: ENOXAPARIN INJ 60 MG/0.6 ML SYR SQ SCH (10:19)
[2021-07-08] MEDS: UMECLIDINIUM BROMIDE 62.5MCG/BLISTER 7 PUFFS/INHALER INH SCH (10:19)
[2021-07-08] MEDS: FLUTICASONE/VILANTEROL 100/25MCG 14 PUFFS/INHALER INH SCH (10:20)
[2021-07-08] MEDS: ALBUT/IPRATROP 3MG/0.5MG NEB 3 ML VIAL NEB SCH ×4 (10:43→22:58)
[2021-07-08] MEDS ORDERED: methylPREDNISolone 60 MG in SYRINGE 0 ML IV SCH (12:00)
[2021-07-08] MEDS ORDERED: FUROSEMIDE 40 MG in SYRINGE 0 ML IV ONE (12:34)
--- NOTE | 2021-07-08 12:38 | Communication Note ---
Date of Service: July 08, 2021 Called urgently by nursing staff that patient was having lower sternal pain that radiated to underneath the left costal margin. EKG obtained. Patient had been on CPAP most of the morning but requested its removal. Now on 6 L NC O2 to maintain O2 sats 88-90%. Patient denies cough. Denies left breast pain or substernal pain. Taking deep breaths provokes the chest / upper abdominal discomforts. She also c/o pain in her left ear. No prior h/o CAD. She does feel she is retaining fluid in her legs. I reviewed the pt's EKG - NSR, no ST changes; unchanged from prior EKG. Exam - gen - no increased work of breathing, able to speak in full sentences; morbid obesity mouth - MMM neck - no obvious JVD heart - RRR, s1 s2 lungs - decreased BS bases, wheezes b/l, faint rales bases abd - soft NT ND BS+ chest - mildly reproducible chest wall pain lower sternal region and left costal margin ext - 1-2+ edema b/l skin - stasis changes b/l legs A/P: acute/chronic hypoxic respiratory failure COPD exacerbation ?acute/chronic diastolic CHF pulmonary lesions on CTA chest concerning for possible malignancy chest pain/subcostal pain - favor musculoskeletal etiology lasix 40mg IV x 1 now serial trops procal crp voltaren gel 4gm QID to chest wall for chest wall pain lower steroids to 40mg IV q6h cont nebs keep O2 sats 88-92% Francis Buckner MD
[2021-07-08] MEDS: DICLOFENAC SOD 1% GEL 100 GM TUBE EXT SCH ×3 (13:29→20:10)
[2021-07-08 13:32] LABS: C Reactive Protein 1.34 mg/dl (0-0.29); Troponin I < 0.015 ng/ml (0-0.045)
[2021-07-08] MEDS: methylPREDNISolone 40 MG in SYRINGE 0 ML IV SCH ×2 (17:06→23:07)
--- NOTE | 2021-07-08 19:01 | Electrocardiogram Report ---
Test Reason : Blood Pressure : / mmHG Vent. Rate : 076 BPM Atrial Rate : 076 BPM P-R Int : 162 ms QRS Dur : 086 ms QT Int : 382 ms P-R-T Axes : 056 047 048 degrees QTc Int : 429 ms Normal sinus rhythm Normal ECG When compared with ECG of 09-NOV-2020 22:31, No significant change was found Confirmed by Francisco Denise ([id number]) on 07/08/2021 7:00:50 PM Referred By: REFERRED SELF Confirmed By:Denis Denise
--- NOTE | 2021-07-08 19:03 | Electrocardiogram Report ---
Test Reason : Blood Pressure : / mmHG Vent. Rate : 084 BPM Atrial Rate : 084 BPM P-R Int : 160 ms QRS Dur : 092 ms QT Int : 358 ms P-R-T Axes : 049 022 041 degrees QTc Int : 423 ms Normal sinus rhythm Normal ECG When compared with ECG of 07-JUL-2021 23:24, (unconfirmed) No significant change was found Confirmed by Francisco Denise ([id number]) on 07/08/2021 7:02:50 PM Referred By: REFERRED SELF Confirmed By:Denis Denise
[2021-07-08] MEDS: ACETAMINOPHEN 325 MG TAB PO PRN (22:29)
--- NOTE | 2021-07-09 04:20 | Billing Data ---
Date of Service July 09, 2021 Coding Level of Care Code 60534 Initial Inpt Care Lvl 2
[2021-07-09] MEDS: ALBUT/IPRATROP 3MG/0.5MG NEB 3 ML VIAL NEB SCH ×6 (04:54→23:36)
[2021-07-09] MEDS: methylPREDNISolone 40 MG in SYRINGE 0 ML IV SCH ×3 (05:43→20:25)
[2021-07-09] MEDS: guaiFENesin 600 MG TABCR PO SCH ×2 (08:01→20:25)
[2021-07-09] MEDS: PANTOprazole 40 MG TAB PO SCH (08:01)
[2021-07-09] MEDS: ENOXAPARIN INJ 60 MG/0.6 ML SYR SQ SCH (08:02)
[2021-07-09] MEDS: UMECLIDINIUM BROMIDE 62.5MCG/BLISTER 7 PUFFS/INHALER INH SCH (08:02)
[2021-07-09] MEDS: FLUTICASONE/VILANTEROL 100/25MCG 14 PUFFS/INHALER INH SCH (08:02)
[2021-07-09] MEDS: DICLOFENAC SOD 1% GEL 100 GM TUBE EXT SCH ×4 (08:03→20:25)
[2021-07-09 08:34] LABS: Calcium 8.9 mg/dl (8.5-10.1); Creatinine Clr Calc Pharmacy 144.1 ml/min; Est GFR (Non-African American) 111.3 ml/min; Potassium 4.4 mmol/L (3.5-5.1)
[2021-07-09] MEDS ORDERED: FLUTICASONE/VILANTEROL 100/25MCG 14 PUFFS/INHALER INH SCH (09:00)
[2021-07-09] MEDS ORDERED: FEXOFENADINE 60 MG TAB PO ONE (12:35)
[2021-07-09] MEDS ORDERED: SODIUM CHLORIDE 0.65% NA SOLN 45 ML (OCEAN) PRN (12:35)
--- NOTE | 2021-07-09 12:39 | Hospitalist Progress Note ---
Date of Service July 09, 2021 Assessment & Plan (1) Acute on chronic respiratory failure with hypoxia and hypercapnia: Plan: likely combination of decompensated diastolic CHF and COPD exacerbation. both improved today. O2 requirement is less than yesterday. continue to wean back to her usual amount of 3L NC O2 continuously. (2) Acute on chronic diastolic (congestive) heart failure: Plan: improved. copious UOP overnight with stable BMP. patient reports she previously took 40mg BID of lasix. dose reduced to 20mg BID several months ago. may need to increase lasix back to prior dosing. in meantime continue IV lasix. daily labs. daily weights. (3) COPD exacerbation: Plan: improved. wean IV steroids. cont bronchodilators. pulmonary toilet. wean NC O2. (4) Chest pain: Plan: musculoskeletal. improved w/ voltaren. trops neg. EKG w/o ischemic changes. (5) Tobacco use disorder: Plan: encouraged to quit (6) Pulmonary hypertension: Plan: 2nd COPD likely contributes to chronic hypoxia (7) Morbid obesity: Plan: BMI about 40 (8) FLAKO (obstructive sleep apnea): Plan: CPAP (9) Eustachian tube dysfunction: Plan: ear complaints likely due to such start antihistamine start flonase nasal spray (she takes this at home) nasal saline discussed with patient what causes this, Rx, etc (10) TMJ crepitus: Plan: ear pain could also be from TMJ syndrome crepitus of b/l TMJs is significant (11) DVT prophylaxis: Plan: lovenox Plan: updated pt's son by phone this evening Admission and Anticipated Discharge Date Admission Date: July 08, 2021 Subjective patient reports feeling better today less dyspnea less ALEX no cough pain lower sternal region and left costal margin improved with voltaren gel good UOP with IV lasix eating well c/o left ear pain/left jaw (angle) pain feels "full" in the left ear no right ear issues tele overnight wnl Review of Systems Review of Systems: gen - no fevers or chills CV - pain better; see HPI ENT - nasal congestion Pulm - improving dyspnea and wheezing GI - no N/V Physical Exam Physical Exam: gen - obese, NAD, no respiratory distress HEENT - b/l TMJs with crepitus/clunking with active opening/closing of jaw; b/l TMs with normal landmarks but TMs retracted; nose - swollen turbinates mouth - MMM, no thrush Heart - RRR, s1 s2 lungs - wheezes b/l improved today; no rales; decreased BS bases but airation improved today abd - soft NT BS+ ext - improved edema, now <1+ b/l; pulses 2+ b/l skin - stasis changes b/l shins chest - no reproducible chest wall tenderness today Results & Data Results & Data ([facility]) Vital Signs (Past 12 Hours) Vital Signs Temp Pulse Pulse Resp BP Pulse Ox 07/09/21 12:09 86 18 91 07/09/21 10:41 36.5 C 80 22 106/66 93 07/09/21 07:23 80 18 98 07/09/21 07:00 36.2 C L 82 20 108/52 L 98 07/09/21 03:00 36.1 C L 76 20 103/53 L 98 07/09/21 02:10 75 20 96 07/09/21 01:10 79 19 93 Laboratory Results Laboratory Results - last 24 hr 07/08/21 07/08/21 07/09/21 12:52 12:52 07:37 Sodium 136 Potassium 4.4 Chloride 97 L Carbon Dioxide 38 H Anion Gap 1.0 L BUN 17 D Creatinine 0.44 L Est Cr Clr Drug Dosing 144.1 Est GFR ( Amer) 129.0 Est GFR (Non-Af Amer) 111.3 BUN/Creatinine Ratio 38.0 H Glucose 119 H Calcium 8.9 Troponin I < 0.015 C-Reactive Protein 1.34 H Procalcitonin < 0.05 PG Care Time/CCT Total # of Minutes Spent Total Time Spent with Patient: Total time spent is greater than 50% in coordination of care (as documented) at patient's floor/unit and/or counseling patient: Coding Level of Care Code 91671 Subseq Hosp Care Lvl 3 Diagnoses Acute on chronic respiratory failure with hypoxia and hypercapnia J96.21; J96.22 Chest pain R07.9 Chest pain type: unspecified Tobacco use disorder F17.200 COPD exacerbation J44.1 Pulmonary hypertension I27.20 Morbid obesity E66.01 FLAKO (obstructive sleep apnea) G47.33 Eustachian tube dysfunction H69.80 TMJ crepitus M26.69 Acute on chronic diastolic (congestive) heart failure I50.33 DVT prophylaxis Z29.9 (1) Chest pain Chest pain type: unspecified Qualified Code(s): R07.9 - Chest pain, unspecified
[2021-07-09] MEDS ORDERED: FUROSEMIDE 40 MG in SYRINGE 0 ML IV ONE (13:00)
[2021-07-09] MEDS: FLUTICASONE PROPIONATE NA SPR 16 GM BTL SCH (13:14)
[2021-07-09] MEDS: FEXOFENADINE 60 MG TAB PO SCH (20:24)
[2021-07-09] MEDS: ACETAMINOPHEN 325 MG TAB PO PRN (23:31)
[2021-07-10] MEDS: ALBUT/IPRATROP 3MG/0.5MG NEB 3 ML VIAL NEB SCH ×4 (02:48→15:21)
[2021-07-10] MEDS: guaiFENesin 600 MG TABCR PO SCH (08:07)
[2021-07-10] MEDS: UMECLIDINIUM BROMIDE 62.5MCG/BLISTER 7 PUFFS/INHALER INH SCH (08:07)
[2021-07-10] MEDS: PANTOprazole 40 MG TAB PO SCH (08:07)
[2021-07-10] MEDS: ENOXAPARIN INJ 60 MG/0.6 ML SYR SQ SCH (08:08)
[2021-07-10] MEDS: FEXOFENADINE 60 MG TAB PO SCH (08:08)
[2021-07-10] MEDS: methylPREDNISolone 40 MG in SYRINGE 0 ML IV SCH (08:09)
[2021-07-10] MEDS: FLUTICASONE PROPIONATE NA SPR 16 GM BTL SCH (08:10)
[2021-07-10] MEDS: FLUTICASONE/VILANTEROL 100/25MCG 14 PUFFS/INHALER INH SCH (08:10)
[2021-07-10] MEDS: DICLOFENAC SOD 1% GEL 100 GM TUBE EXT SCH ×3 (08:10→16:12)
[2021-07-10 08:56] LABS: BUN Creatinine Ratio 39.8 (10-20); Creatinine Clr Calc Pharmacy 108.8 ml/min; Est GFR (African American) 117.8 ml/min; Est GFR (Non-African American) 101.6 ml/min; Magnesium 2.4 mg/dl (1.8-2.4); Potassium 4.9 mmol/L (3.5-5.1)
[2021-07-10] MEDS ORDERED: FUROSEMIDE 40 MG in SYRINGE 0 ML IV ONE (10:30)
[2021-07-10] MEDS: ACETAMINOPHEN 325 MG TAB PO PRN (14:05)
--- NOTE | 2021-07-10 15:45 | Discharge Summary ---
Date of Service July 10, 2021 Admission HPI Per Admitting Provider Patient s a 56 year old female with PMHx COPD, CHF, FLAKO who presents with worsening dyspnea requiring increased titration of her oxygen from 3L at baseline in addition to chest pain that started the day prior which is somewhat sharp and stems from the lower left sternum to lower L chest wall. Patient notes that she has been having increased shortness of breath while at home in addition to feeling as tough her legs have been swelling more. She note that it does not feel like her typical pneumonia. She also states that she was having on and off L sided and lower sternum chest pain that will last a few minutes of a time. She notes the chest pain comes on while she is sitting there and does not seem to worsen with activity. She notes that she has been watching her diet intake to keep from eating to much salt in addition to utilizing her medications as prescribed. She does note she still smokes 1/2 PPD. Denies any fever, chills, current chest pain, abdominal pain, dysuria, hematuria. Does note shortness of breath and is requesting a neb treatment. Med Hx: COPD, CHF, FLAKO Surg Hx: Hysterectomy, Appendectomy Soc Hx: Smokes 1/2 PPD, denies current alcohol use, denies illicit drug use Discharge Data Allergies Allergy/AdvReac Type Severity Reaction Status Date / Time azithromycin Allergy Severe respiratory Verified 07/07/21 21:40 distress cefaclor Allergy Severe RESPIRATORY Verified 07/07/21 21:40 DISTRESS erythromycin base Allergy Severe RESPIRATORY Verified 07/07/21 21:40 DISTRESS ibuprofen Allergy Severe RESPIRATORY Verified 07/07/21 21:40 DISTRESS Penicillins Allergy Severe RESPIRATORY Verified 07/07/21 21:40 DISTRESS Sulfa (Sulfonamide Allergy Severe RESPIRATORY Verified 07/07/21 21:40 Antibiotics) DISTRESS, RASH doxycycline AdvReac Severe Difficulty Verified 07/07/21 21:40 Breathing morphine AdvReac Intermediate N/V Verified 07/07/21 21:40 Consultations 07/08/21 05:54 ED Decision to Admit Stat Ordered Studies 07/08/21 00:03 CT angio chest PE protocol Urgent Home Health Attestation I certify that this patient is under my care and that I, or a physicians captain's assistant working with me, had a face to-face encounter that meets the [id number] encounter requirements with this patient. The encounter with the patient was in whole, or in part, for the following medical condition, which is the primary reason for home health care (list medical condition): COPD I certify that, based on my findings, the following services are medically necessary home health services: My clinical findings support the need for the above services because: OT Assess ADL Status and Restore Function w ADLs PT Gait and Balance Training, Strengthening and Safety Further, I certify that my clinical findings support that this patient is homebound (i.e. absences from home require considerable and taxing effort and are for medical reasons or jehovah's witness services or infrequently or of short duration when for other reasons) because: Poor Endurance; SOB Minimal Exertion Transportation Assistance/Unable to Leave Home Unassisted Certification for Home Health Services: Based on the above findings, I certify that this patient is confined to the home and needs intermittent group home care, physical therapy and/or speech therapy or continues to need occupational therapy. The patient is under my care, and I have initiated the establishment of the plan of care. This patient will be followed by a physician who will periodically review the plan of care. Discharge Plan Discharge Items Patient Disposition: Home - Home Health Services Reason For Visit: COPD EXACERBATION Discharge Diagnosis: 1. COPD exacerbation - improving 2. Water retention in the lungs from a form of congestive heart failure - much improved Condition on Discharge: Good Activity: As commented below Activity Comment: gradually increase your activities over the next week Non-emergency contact: Primary Care Provider Call non-emergency contact if: you have any medication questions, your symptoms worsen and you have a fever Follow-up/Referrals: Crystal Vasquez PA-C [Primary Care Provider] - (see Ms Vasquez on 07/20 as scheduled) Diet: Heart Healthy Fluids: 1800ml (7 cups) Ambulatory Orders: Basic Metabolic Panel (Routine) Timeframe: 3 Days Location: Determined by Patient Ordered By: Francis Buckner Magnesium (Routine) Timeframe: 3 Days Location: Determined by Patient Ordered By: Francis Buckner Addtl Attending Provider Instructions: Mrs Poe, You were admitted to [facility] due to shortness of breath and chest discomfort. The shortness of breath was likely due to a combination of your COPD and a form of congestive heart failure leading to water retention. You lost a significant amount of fluid weight while at [facility] with diuretics. Your type of congestive heart failure is due to your COPD. Your COPD was treated with steroids and nebulizer treatments. The chest discomfort seemed to be musculoskeletal. Your blood work for the heart was normal; thus, no heart attack. The chest pain improved with voltaren (diclofenac) gel. Recommendations - 1. For COPD - take prednisone x 6 days; start TOMORROW; take with food. 2. For fluid retention/congestive heart failure take lasix (furosemide) as follows - RESTART your furosemide TOMORROW morning - * 40mg every morning * 20mg every afternoon * check your weight EVERY morning - see instructions below * you may need the afternoon dose increased if water retention continues to be a problem 3. Please limit total fluid intake each day to about 1800cc. 4. Please use your albuterol nebulizer treatments 3-4x's each day for the next 5-7 days for your breathing, then go back to using as needed. 5. May use the diclofenac gel - 4 grams up to 4x's each day to a joint such as the knee or shoulder, or it can be applied to the chest wall where your discomforts have been. 6. Continue your oxygen as previous. 7. In the next 4-6 weeks please try to get a flu shot. 8. Please have a blood draw early this coming week to ensure your kidney function and electrolytes are normal. I have printed 2 lab scripts for you. You can go to Ms Vasquez's office to have these labs done. Follow-up - See Crystal Vasquez within the next 1-2 weeks in [place] Return to [facility] if - * you have fevers over 100 degrees * you have worsening shortness of breath despite your breathing treatments, etc * you have to increase your oxygen to gain relief of your symptoms * any other concerns Continue to feel better! -Dr Dudley Matostl Plate Washer Provider Instructions: Congestive heart failure instructions -- Call 911 and go to the Emergency Room if: * You have tightness or pain in your chest that does not go away with rest or Nitroglycerin * You are very short of breath even with rest Call your doctor if any of the following symptoms or problems start or get worse: * Shortness of breath or difficulty breathing * Wake up at night short of breath * Chest pain * Cough * Swelling of your hands, fee, or legs * More fatigued or tired with your normal activity * Palpitations - sudden fast heart beats WEIGHT * Weigh yourself every morning after using the bathroom. * Use the same scale. * Wear the same amount of clothing. * Write your weight down on your chart. * Call your doctor if you gain more than 2-3 pounds in 1-2 days. This is typically a sign of fluid weight gain. Do not wait; call your doctor right away. MEDICATIONS * Use this discharge instruction sheet for instructions. * Take your medications at the time your doctor ordered. * Do not skip a dose of your medicines. * If you miss a dose of medicine, take as soon as possible, but DO NOT DOUBLE A DOSE. * Read your medicine information when you get home. * Know all of the side effects of your medicine. * Call your doctor's office if you have any side effects. * Be sure all of your doctors know what medicine and herbs you take (including cold, flu, and herbal medicine). * Pain Medicine: If you do not get relief from your pain, please call your doctor for help. Take the following with you to your follow-up doctor appointments: * Weight Chart * Medication List * List of questions Do not drink excessive alcohol, beer or wine. Pending Studies at Discharge: No Stand-Alone Forms: My [facility] [employer], Smoking Cessation Medications and DC Order Prescriptions: New diclofenac sodium [Voltaren Arthritis Pain] 1 % Gel 4 g EXT QID Qty: 100 RF: 0 prednisone 10 mg tablet 10 mg PO .daily as directed Qty: 12 RF: 0 (DME) Oxygen Home Liters Per Minute See Rx Instructions .ROUTE .MEDSUPPLY Qty: 1 RF: 0 Continued potassium chloride [Klor-Con M20] 20 mEq tablet,ER particles/crystals 20 meq PO QAM RF: 0 albuterol sulfate 90 mcg/actuation Hfa Aerosol Inhaler 2 puff INHALATION Q6H PRN (Reason: Shortness Of Breath Or Wheezing) RF: 0 Advair HFA 230-21 mcg/actuation Hfa Aerosol Inhaler 1 puff INHALATION Q12H RF: 0 Spiriva Respimat 2.5 mcg/actuation Mist 2 puff INHALATION AMHS RF: 0 albuterol sulfate 2.5 mg /3 mL (0.083 %) Solution For Nebulization 2.5 mg INHALATION Q4H PRN (Reason: Shortness Of Breath Or Wheezing) RF: 0 acetaminophen [Tylenol Extra Strength] 500 mg Tablet 1,000 mg PO Q6H PRN (Reason: Pain) RF: 0 fluticasone propionate [Flonase Allergy Relief] 50 mcg/actuation [place],Suspension 2 spray INTRANASAL BID RF: 0 Changed furosemide 40 mg tablet 40 mg PO DIRECTED Qty: 0 RF: 0 Discharge Orders: Discharge Order (Routine); Ordered 07/10/21 Ordered By: Francis Buckner Admission Data Admit Date/Time: 07/08/21 06:17 Attending Provider: Francis Buckner Admit Provider: Mario Ellis Primary Care Provider: Crystal Vasquez Other Providers: Hazel Burt
== END 2021-07-10 16:55 | disposition home health service (06) | DRG 190 ==
LOC: ED 20:41 → 2W 07-08 06:17 → SUATTDRO 07-08 06:17 → 2W 07-08 07:40

== ENCOUNTER 2021-08-03 14:17 | Inpatient (IN) ==
[2021-08-03] MEDS ORDERED: methylPREDNISolone 125 MG/2 ML VIAL IV STA (14:26)
[2021-08-03] MEDS ORDERED: ALBUT/IPRATROP 3MG/0.5MG NEB 3 ML VIAL INH STA (14:26)
--- NOTE | 2021-08-03 14:26 | Emergency Department Note ---
Impression & Plan Acute and chronic respiratory failure, Acute exacerbation of chronic obstructive pulmonary disease (COPD) ED Provider Note NAME: HUMPHREY COLUNGA AGE: 56 SEX: F : 1965 ARRIVES VIA: Ambulance INFORMANT: Patient, ED PROVIDER(S): Howard Aguilar MD Chief Complaint: Shortness of breath HPI: Patient does present with acute on chronic shortness of breath. The patient does have some chronic shortness of breath COPD is a smoker unvaccinated for COVID-19 who presents with worsening shortness of breath that began yesterday but did not improve by today. The patient has been using her inhalers without relief. The patient denies productive cough. The patient does have exertional dyspnea and is on chronic 3 L nasal cannula at all times. The patient does have some lower extremity edema which she believes is relatively unchanged. No recent changes in medications or diet. The patient states that she is compliant with her medications. Patient has any fevers or chills. Patient denies any abdominal pain chest pain nausea or vomiting. ROS: See HPI for pertinent positives and negatives. A total of 10 systems were reviewed and otherwise negative. Past medical history: See below Surgical history: See below Social history: See below Physical Exam: GENERAL: Chronically ill in appearance, wearing glasses. Cannula in place. EYE EXAM: Normal conjunctiva. PERRL, no anisocoria and EOM's grossly intact w/o pain. OROPHARYNX: Dry mucus membranes. Edentulous. NECK: Supple, no nuchal rigidity, no adenopathy, non-tender. No signs of meningismus. LUNGS: Decreased breath sounds throughout. Normal chest wall mechanics. HEART: NSR, no MRG. ABDOMEN: Abdomen soft, non-tender, normo-active bowel sounds, no masses, no rebound or guarding. BACK: No CVA TTP. SKIN: No rashes and no bruising. UPPER EXTREMITIES: Upper extremities are grossly normal. LOWER EXTREMITIES: Grossly normal without obvious deformity. Scant edema noted. NEURO EXAM: A&O x3, cranial nerves II-XII grossly intact, normal speech, moves all 4 extremities on command w/o issue. Differential diagnoses: Reactive airway disease, pneumonia, pneumothorax, COPD, CHF, infections, cardiac ischemia, pulmonary embolism, musculoskeletal, nanci rointestinal, as well as other pathologies. Course: Patient was seen and evaluated the bedside. Full history physical exam was performed. EKG interpreted by me Normal sinus rhythm, rate of 79, normal intervals, normal axis, no ST changes, T wave inversion in V2. No significant change from comparison EKG July 08, 2021. Imaging Studies: See Below Cardiac monitoring: An order was placed for continuous cardiac monitoring. The monitor shows a rate of 88 with sinus rhythm. MDM: Patient did present with shortness of breath and was treated with steroids duo nebs was placed on BiPAP. Patient did have softer blood pressure and was given a small fluid below bolus and taken off the BiPAP. Patient was requiring initially 6 L but improved to 3 L after being taken off the BiPAP. The patient does have pleural effusions seen on her chest x-ray. The patient seem to improve with regard to the patient's oxygen use with the patient was requiring 4 to 5 L. She was satting in the high 80s. I did speak the on-call hospitalist MICHAEL Back. We will continue to monitor but patient team does not want high flow nasal cannula or BiPAP at this time. Patient was admitted by Dr. Serrano. Critical Care: I have personally spent 47 minutes of critical care time in direct management of this patient. This includes bedside care, interpretation of diagnostic studies, and testing, discussion with consultants, patient, and family members, and other require inpatient management activities. This 47 minutes is in excess of all separately billable procedures. Past Med/Surg History Medical History (Updated 08/04/21 @ 08:50 by Howard Aguilar MD) Chest pain COPD (chronic obstructive pulmonary disease) On 3 L of oxygen continuous Morbid obesity Orthopnea Status asthmaticus TIA (transient ischemic attack) Surgical History History of hysterectomy Hx of cholecystectomy Family History Other Heart disease Social History Smoking Status: Current every day smoker Tobacco Type: Cigarettes Cigarettes Per Day: 10; Second Hand Exposure: No; Do You Dip or Chew Tobacco: No; Hx Alcohol Use: No Hx Substance Use: No Preferred Language: Divehi Communication Ability: Effective Electric Distribution Checker Required: No Beliefs That Will Affect Care: None marital status: Current Living Situation: Family Current Living Situation Comment: lives in mobile home with son Other Information That Helps Us Care for You: No Feels Safe at Home: Yes Safety Concerns: Feels Safe At This Time Assistive Devices: Oxygen - Continuous Allergies Allergies Allergy/AdvReac Type Severity Reaction Status Date / Time azithromycin Allergy Severe respiratory Verified 08/03/21 16:15 distress cefaclor Allergy Severe RESPIRATORY Verified 08/03/21 16:15 DISTRESS erythromycin base Allergy Severe RESPIRATORY Verified 08/03/21 16:15 DISTRESS ibuprofen Allergy Severe RESPIRATORY Verified 08/03/21 16:15 DISTRESS Penicillins Allergy Severe RESPIRATORY Verified 08/03/21 16:15 DISTRESS Sulfa (Sulfonamide Allergy Severe RESPIRATORY Verified 08/03/21 16:15 Antibiotics) DISTRESS, RASH doxycycline AdvReac Severe Difficulty Verified 08/03/21 16:15 Breathing morphine AdvReac Intermediate N/V Verified 08/03/21 16:15 Home Meds Home Medications Medication Instructions Recorded Confirmed albuterol sulfate 90 mcg/actuation 2 puff INHALATION Q6H PRN 10/09/18 08/03/21 aerosol inhaler fluticasone propionate 230 1 puff INHALATION Q12H 10/09/18 08/03/21 mcg-salmeterol 21 mcg/actuation HFA inhaler (Advair HFA) tiotropium bromide 2.5 2 puff INHALATION AMHS 10/09/18 08/03/21 mcg/actuation mist for inhalation (Spiriva Respimat) acetaminophen 500 mg tablet 1,000 mg PO Q6H PRN 10/21/19 08/03/21 (Tylenol Extra Strength) albuterol sulfate 2.5 mg INHALATION Q4H PRN 10/21/19 08/03/21 fluticasone propionate 50 2 spray INTRANASAL BID 10/21/19 08/03/21 mcg/actuation nasal spray,suspension (Flonase Allergy Relief) potassium chloride 20 mEq 20 meq PO QAM 11/09/20 08/03/21 tablet,extended release(part/cryst) (Klor-Con M) diclofenac sodium 1 % topical gel 4 g EXT QID PRN 08/03/21 08/03/21 (Voltaren Arthritis Pain) Previous Rx's Medication Instructions Recorded Oxygen Home #1 ea 07/10/21 furosemide 40 mg tablet 40 mg PO DIRECTED #0 tab 07/10/21 Results & Data (ED) Vital Signs Vital Signs - 24 hr 08/03/21 14:10 08/03/21 14:27 08/03/21 14:47 Temperature 36.7 C Temperature Source Oral Pulse Rate 88 80 Pulse Rate [Right Radial] Pulse Rate from SpO2 Sensor Pulse Rhythm Regular Pulse Strength Normal Respiratory Rate 24 20 Respiratory Effort / Characteristics Labored Respiratory Depth Deep Blood Pressure 90/66 L Blood Pressure Mean 74 Blood Pressure Position Sitting Pulse Oximetry 90 100 95 Oxygen Delivery Method Nasal Cannula BiPAP Oxygen Flow Rate 6 Fraction of Inspired Oxygen 45 Sepsis Recent Fever Within 48 Hours No Sepsis New/Unexplained Change in Mental Status No Sepsis Action Taken by Nursing No Action Required 08/03/21 14:48 08/03/21 15:00 08/03/21 15:16 Temperature Temperature Source Pulse Rate 71 72 Pulse Rate [Right Radial] 87 Pulse Rate from SpO2 Sensor 72 71 Pulse Rhythm Pulse Strength Respiratory Rate 20 14 17 Respiratory Effort / Characteristics Spontaneous Respiratory Depth Blood Pressure 86/63 L 92/61 L Blood Pressure Mean 70 71 Blood Pressure Position Pulse Oximetry 95 100 99 Oxygen Delivery Method BiPAP Oxygen Flow Rate Fraction of Inspired Oxygen 45 Sepsis Recent Fever Within 48 Hours Sepsis New/Unexplained Change in Mental Status Sepsis Action Taken by Nursing 08/03/21 15:30 08/03/21 16:20 08/03/21 16:22 Temperature Temperature Source Pulse Rate 73 82 Pulse Rate [Right Radial] Pulse Rate from SpO2 Sensor 73 81 Pulse Rhythm Pulse Strength Respiratory Rate 17 13 Respiratory Effort / Characteristics Respiratory Depth Blood Pressure 87/55 L 88/56 L Blood Pressure Mean 65 66 Blood Pressure Position Pulse Oximetry 98 91 91 Oxygen Delivery Method Nasal Cannula Room Air Oxygen Flow Rate 4 4 Fraction of Inspired Oxygen Sepsis Recent Fever Within 48 Hours Sepsis New/Unexplained Change in Mental Status Sepsis Action Taken by Nursing 08/03/21 16:31 Temperature Temperature Source Pulse Rate 75 Pulse Rate [Right Radial] Pulse Rate from SpO2 Sensor 74 Pulse Rhythm Pulse Strength Respiratory Rate 19 Respiratory Effort / Characteristics Respiratory Depth Blood Pressure 99/54 L Blood Pressure Mean 69 Blood Pressure Position Pulse Oximetry 93 Oxygen Delivery Method Nasal Cannula Oxygen Flow Rate 4 Fraction of Inspired Oxygen Sepsis Recent Fever Within 48 Hours Sepsis New/Unexplained Change in Mental Status Sepsis Action Taken by Care Home Medications Current Medication List: was personally reviewed by me Laboratory Data Attestation: I reviewed the patient's lab results. Result diagrams: 08/04/21 05:33 08/04/21 05:33 Lab Results 08/03/21 08/03/21 08/03/21 Range/Units 14:28 14:28 14:42 WBC (4.8-10.8) K/uL RBC (4.2-5.4) M/uL Hgb (12.0-16.0) g/dL Hct (37-47) % MCV (80-100) fL MCH (25-34) pg MCHC (32-36) g/dL RDW Std Deviation (36.4-46.3) fL RDW Coeff of Darius (11.5-14.5) % Plt Count (130-400) K/uL MPV (7.4-10.4) fL Immature Gran % (Auto) % Neut % (Auto) % Lymph % (Auto) % [place] % (Auto) % Eos % (Auto) % Baso % (Auto) % Neut # (Auto) (1.4-6.5) K/uL Lymph # (Auto) (1.2-3.4) K/uL [place] # (Auto) (0.11-0.59) K/uL Eos # (Auto) (0-0.5) K/uL Baso # (Auto) (0-0.2) K/uL Immature Gran # (Auto) (0.00-0.02) K/uL VBG pH (7.36-7.41) VBG pCO2 (38-50) mmHg VBG pO2 mmHg VBG HCO3 mmol/L VBG O2 Saturation % VBG Base Excess mEq/L Barometric Pressure mm/Hg Sodium 141 (136-145) mmol/L Potassium 4.2 (3.5-5.1) mmol/L Chloride 99 (98-107) mmol/L Carbon Dioxide 36 H (21-32) mmol/L Anion Gap 6.0 (3-11) BUN 10 (7-18) mg/dl Creatinine 0.49 L (0.6-1.2) mg/dl Est Cr Clr Drug Dosing 129.8 ml/min Est GFR ( Amer) 124.5 ml/min Est GFR (Non-Af Amer) 107.4 ml/min BUN/Creatinine Ratio 20.5 H (10-20) Glucose 90 (70-99) mg/dl Calcium 9.5 (8.5-10.1) mg/dl Magnesium 2.0 (1.8-2.4) mg/dl Total Bilirubin 0.4 (0.2-1) mg/dl AST 15 (15-37) U/L ALT 13 (12-78) U/L Alkaline Phosphatase 82 (45-117) U/L Troponin I < 0.015 (0-0.045) ng/ml NT-Pro-B Natriuret Pep 40 (0-900) pg/ml Total Protein 7.0 (6.4-8.2) gm/dl Albumin 3.0 L (3.4-5.0) gm/dl Globulin 4.0 (2.5-4.0) gm/dl Albumin/Globulin Ratio 0.7 L (0.9-2) COVID-19 Eval Order Covid19 at [facility] SARS-CoV-2 (PCR) NEGATIVE (Negative) 08/03/21 08/03/21 Range/Units 14:42 14:59 WBC 8.53 (4.8-10.8) K/uL RBC 4.97 (4.2-5.4) M/uL Hgb 14.6 (12.0-16.0) g/dL Hct 46.5 (37-47) % MCV 93.6 (80-100) fL MCH 29.4 (25-34) pg MCHC 31.4 L (32-36) g/dL RDW Std Deviation 47.4 H (36.4-46.3) fL RDW Coeff of Darius 13.9 (11.5-14.5) % Plt Count 154 (130-400) K/uL MPV 11.6 H (7.4-10.4) fL Immature Gran % (Auto) 0.1 % Neut % (Auto) 66.3 % Lymph % (Auto) 26.0 % [place] % (Auto) 4.8 % Eos % (Auto) 2.3 % Baso % (Auto) 0.5 % Neut # (Auto) 5.65 (1.4-6.5) K/uL Lymph # (Auto) 2.22 (1.2-3.4) K/uL [place] # (Auto) 0.41 (0.11-0.59) K/uL Eos # (Auto) 0.20 (0-0.5) K/uL Baso # (Auto) 0.04 (0-0.2) K/uL Immature Gran # (Auto) 0.01 (0.00-0.02) K/uL VBG pH 7.31 L (7.36-7.41) VBG pCO2 81 H (38-50) mmHg VBG pO2 26 mmHg VBG HCO3 39 mmol/L VBG O2 Saturation < 60.0 % VBG Base Excess 9.7 mEq/L Barometric Pressure 730.7 mm/Hg Sodium (136-145) mmol/L Potassium (3.5-5.1) mmol/L Chloride (98-107) mmol/L Carbon Dioxide (21-32) mmol/L Anion Gap (3-11) BUN (7-18) mg/dl Creatinine (0.6-1.2) mg/dl Est Cr Clr Drug Dosing ml/min Est GFR ( Amer) ml/min Est GFR (Non-Af Amer) ml/min BUN/Creatinine Ratio (10-20) Glucose (70-99) mg/dl Calcium (8.5-10.1) mg/dl Magnesium (1.8-2.4) mg/dl Total Bilirubin (0.2-1) mg/dl AST (15-37) U/L ALT (12-78) U/L Alkaline Phosphatase (45-117) U/L Troponin I (0-0.045) ng/ml NT-Pro-B Natriuret Pep (0-900) pg/ml Total Protein (6.4-8.2) gm/dl Albumin (3.4-5.0) gm/dl Globulin (2.5-4.0) gm/dl Albumin/Globulin Ratio (0.9-2) COVID-19 Eval Order SARS-CoV-2 (PCR) (Negative) Administered Medications Albuterol (Albut/Ipratrop 3mg/0.5mg Neb 3 Ml Vial) 3 ml INH Q6R TIERA Stop: 09/02/21 20:17 Last Admin: 08/04/21 07:42 Dose: 3 ml Documented by: [id number] Admin: 08/04/21 00:03 Dose: 3 ml Documented by: [id number] Admin: 08/03/21 20:48 Dose: 3 ml Documented by: [id number] Fluticasone/Vilanterol (Fluticasone/Vilanterol 100/25mcg 14 Puffs/Inhaler) 1 puffs INH DAILY TIERA Stop: 09/03/21 08:59 Last Admin: 08/04/21 08:03 Dose: 1 puffs Documented by: [id number] Furosemide (Furosemide 40 Mg Tab) 40 mg PO QAM TIERA Stop: 09/03/21 08:59 Last Admin: 08/04/21 08:03 Dose: 40 mg Documented by: [id number] Guaifenesin (Guaifenesin 600 Mg Tabcr) 1,200 mg PO BID TIERA Stop: 09/02/21 20:59 Last Admin: 08/04/21 08:03 Dose: 600 mg Documented by: [id number] Admin: 08/03/21 21:44 Dose: 600 mg Documented by: [id number] Methylprednisolone 40 mg/ (Syringe) 0.64 mls @ 1.5 mls/min IV Q8H TIERA Stop: 09/02/21 21:59 Last Admin: 08/04/21 06:05 Dose: 1.5 mls/min Documented by: [id number] Admin: 08/03/21 21:43 Dose: 1.5 mls/min Documented by: [id number] Discontinued Medications Albuterol (Albut/Ipratrop 3mg/0.5mg Neb 3 Ml Vial) 6 ml INH NOW STA Stop: 08/03/21 14:27 Last Admin: 08/03/21 14:46 Dose: 6 ml Documented by: [id number] Heparin Sodium (Porcine) (Heparin 100 Unit/Ml 5ml Flush) Confirm Administered Dose 5 ml .ROUTE .STK-MED ONE Stop: 08/03/21 19:34 Last Admin: 08/03/21 21:44 Dose: Not Given Documented by: [id number] Magnesium Sulfate/Dextrose (Magnesium Sulfate / D5w) 1 gm in 100 mls @ 100 mls/hr IV Q1H TIERA Stop: 08/03/21 16:29 Last Infusion: 08/03/21 17:26 Dose: 0 mls/hr Documented by: [id number] Admin: 08/03/21 16:16 Dose: 100 mls/hr Documented by: [id number] Infusion: 08/03/21 16:10 Dose: 100 mls/hr Documented by: [id number] Admin: 08/03/21 15:10 Dose: 100 mls/hr Documented by: [id number] Sodium Chloride (Nss) 250 mls @ 999 mls/hr IV .Q16M ONE Stop: 08/03/21 15:40 Last Infusion: 08/03/21 16:09 Dose: 0 mls/hr Documented by: [id number] Admin: 08/03/21 15:52 Dose: 999 mls/hr Documented by: [id number] Ioversol (Optiray 320 100ml) 91 ml IV ONCE ONE Stop: 08/03/21 22:08 Last Admin: 08/03/21 22:08 Dose: 91 ml Documented by: [id number] Methylprednisolone (Methylprednisolone 125 Mg/2 Ml Vial) 60 mg IV NOW STA Stop: 08/03/21 14:27 Last Admin: 08/03/21 15:10 Dose: 60 mg Documented by: [id number] Imaging Data Radiologist's Impression: Chest X-Ray 08/03/21 14:27 XR chest 1V portable INDICATION: MN ^Y ^Dyspnea . TECHNIQUE: Single frontal radiograph of the chest was obtained. Comparison: Comparison is made to chest one view 07/07/2021 FINDINGS: No lines and tubes are seen. The cardiomediastinal silhouette is stable. Calcified aortic knob is again seen. No evidence of pneumothorax. Possible bilateral pleural effusions. Airspace opacity is seen in the left lower lung. IMPRESSION: Possible bilateral pleural effusions. Airspace opacity at the left lung base may represent aspiration, atelectasis, and/or pneumonia. ACT 112: Negative or not required by law. Electronically signed by: Joss Hollins M.D. 08/03/2021 2:48 PM Discharge Plan Visit Data Chief Complaint: Respiratory Distress ED Provider: Howard Aguilar Discharge Problem: Acute and chronic respiratory failure, Acute exacerbation of chronic obstructive pulmonary disease (COPD) Patient Disposition: Admitted As Inpatient Discharge Instructions Interventions: ED Discharge Assessment Last Done: 08/03/21 19:20
--- NOTE | 2021-08-03 14:49 | XRay Report ---
XR chest 1V portable INDICATION: MN ^Y ^Dyspnea . TECHNIQUE: Single frontal radiograph of the chest was obtained. Comparison: Comparison is made to chest one view 07/07/2021 FINDINGS: No lines and tubes are seen. The cardiomediastinal silhouette is stable. Calcified aortic knob is aga in seen. No evidence of pneumothorax. Possible bilateral pleural effusions. Airspace opacity is seen in the left lower lung. IMPRESSION: Possible bilateral pleural effusions. Airspace opacity at the left lung base may represent aspiration , atelectasis, and/or pneumonia. ACT 112: Negative or not required by law. Electronically signed by: Joss Hollins M.D. 08/03/2021 2:48 PM
[2021-08-03 14:53] LABS: Basophils # (auto) 0.04 K/uL (0-0.2); Basophils % (auto) 0.5 %; Eosinophils % (auto) 2.3 %; Hematocrit (blood only) 46.5 % (37-47); Hemoglobin 14.6 g/dL (12.0-16.0); Immature Granulocytes # (auto) 0.01 K/uL (0.00-0.02); Immature Granulocytes % (auto) 0.1 %; Lymphocytes # (auto) 2.22 K/uL (1.2-3.4); Mean Corpuscular Hemoglobin 29.4 pg (25-34); Mean Corpuscular Hgb Conc 31.4 g/dL (32-36); Mean Corpuscular Volume 93.6 fL (80-100); Mean Platelet Volume 11.6 fL (7.4-10.4); Monocytes # (auto) 0.41 K/uL (0.11-0.59); Monocytes % (auto) 4.8 %; Neutrophils # (auto) 5.65 K/uL (1.4-6.5); Neutrophils % (auto) 66.3 %; Platelet Count 154 K/uL (130-400); RDW Coefficient of Variation 13.9 % (11.5-14.5); RDW Standard Deviation 47.4 fL (36.4-46.3); Red Blood Count 4.97 M/uL (4.2-5.4); White Blood Count 8.53 K/uL (4.8-10.8)
[2021-08-03 15:07] LABS: Base Excess VBG 9.7 mEq/L; HCO3 VBG 39 mmol/L; Oxygen Saturation VBG < 60.0 %; PCO2 VBG 81 mmHg (38-50); PO2 VBG 26 mmHg; pH VBG 7.31 (7.36-7.41)
[2021-08-03] MEDS: MAGNESIUM SULFATE / D5W 1 GM/100 ML BAG IV SCH ×2 (15:10→16:16)
[2021-08-03 15:12] LABS: Alanine Aminotransferase 13 U/L (12-78); Aspartate Aminotransferase 15 U/L (15-37); BUN Creatinine Ratio 20.5 (10-20); Blood Urea Nitrogen 10 mg/dl (7-18); Calcium 9.5 mg/dl (8.5-10.1); Carbon Dioxide 36 mmol/L (21-32); Chloride 99 mmol/L (98-107); Creatinine Clr Calc Pharmacy 129.8 ml/min; Est GFR (African American) 124.5 ml/min; Est GFR (Non-African American) 107.4 ml/min; Glucose 90 mg/dl (70-99); Potassium 4.2 mmol/L (3.5-5.1); Sodium 141 mmol/L (136-145)
[2021-08-03 15:17] LABS: Albumin Globulin Ratio 0.7 (0.9-2); Alkaline Phosphatase 82 U/L (45-117); Bilirubin,Total 0.4 mg/dl (0.2-1); NT Pro B Type Natriuretic Pept 40 pg/ml (0-900); Troponin I < 0.015 ng/ml (0-0.045)
[2021-08-03] MEDS ORDERED: SODIUM CHLORIDE 0.9% 250 ML IV ONE (15:25)
--- NOTE | 2021-08-03 17:45 | History & Physical Report ---
Date of Service August 03, 2021 Assessment & Plan (1) Dyspnea: Plan: Patient is a 56 year old female with PMHx HFpEF, CHF, FLAKO who presents with worsening dyspnea overnight despite increase in her oxygen from 3L to 4L and use of her nebulizer, and albuterol inhaler. COPD Exacerbation -Patient compliant with home meds, suspect due to environmental irritations and continued tobacco use -Received duoneb, 2g magnesium, 60mg methylpred IV, and 250L nss in the ED -Will schedule patient for Duoneb q6h in addition to Duoneb q2h PRN worsening SOB/wheeze -Hold Spiriva with scheduled duoneb -Continue home Advair BID -Methylprednisolone 40mg IV q8h -Mucinex BID -Incentive Spirometry and Flutter valve -Titrate O2 PRN for 89% Pulmonary Nodules -On prior CT 07/08/21 noting numerous ill-defined groundglass/cystic pulmonary lesions in addition to lesion in the RLL with increasing solid/nodular component suspicious for low-grade pulmonary neoplasms. -Patient has not had outpatient follow up with pulmonology at this time - will consult at this time while in house -Will repeat CT scan today HFpEF -Last echo 11/10/20 with EF 55-60% -At this time suspect patient is euvolemic -Continue home Lasix dosing 40mg in AM and 20mg in PM -Strict I/O -Daily weights -BNP on admission at 40 FLAKO -CPAP qHS Nicotine Use -Patient smokes 1/2 PPD -If needed, consider nicotine patch/gum Dispo: Med/Surg Telemetry for close cardiac monitoring and symptomatic management FEN: HH diet DVT: SCDs Code: Full (2) COPD exacerbation: (3) Pulmonary nodules: (4) FLAKO (obstructive sleep apnea): (5) (HFpEF) heart failure with preserved ejection fraction: History of Present Illness Chief Complaint: Shortness of breath Primary Care Provider: Crystal Vasquez Patient is a 56 year old female with PMHx HFpEF, CHF, FLAKO who presents with worsening dyspnea overnight despite increase in her oxygen from 3L to 4L and use of her nebulizer, and albuterol inhaler. Patient notes that since her discharge on 07/10/21 for similar shortness of breath she does not feel as though much has changed in way of her medical history. She states that the only changes that could have worsened her breathing include work being done on her kitchen where she is getting new linoleum and countertops, to which she feels the adhesive they are using irritates her breathing. She notes that last night she was having worsening SOB and required increasing her O2 from 3L to 4L and using her albuterol inhalers and nebulizers to no improvement. She went to sleep hoping that her breathing would improve in the morning to no avail. She states that she has not had a chance to follow up with pulmonology yet in regards to her pulmona ry nodules noted on her CT chest scan at last visit. She currently notes that her breathing has improved after treatments in the ED. She denies any fever, chills, chest pain, chest pressure, abdominal pain, nausea, vomiting, diarrhea, headache, visual changes, worsening LE edema. Med Hx: HFpEF, CHF, FLAKO Surg Hx: Hysterectomy, Appendectomy Soc Hx: Smokes 1/2 PPD, denies current alcohol use, denies illicit drug use Fam Hx: Maternal aunt and grandmother diabetes Allergies Allergy/AdvReac Type Severity Reaction Status Date / Time azithromycin Allergy Severe respiratory Verified 08/03/21 16:15 distress cefaclor Allergy Severe RESPIRATORY Verified 08/03/21 16:15 DISTRESS erythromycin base Allergy Severe RESPIRATORY Verified 08/03/21 16:15 DISTRESS ibuprofen Allergy Severe RESPIRATORY Verified 08/03/21 16:15 DISTRESS Penicillins Allergy Severe RESPIRATORY Verified 08/03/21 16:15 DISTRESS Sulfa (Sulfonamide Allergy Severe RESPIRATORY Verified 08/03/21 16:15 Antibiotics) DISTRESS, RASH doxycycline AdvReac Severe Difficulty Verified 08/03/21 16:15 Breathing morphine AdvReac Intermediate N/V Verified 08/03/21 16:15 Home Medications Medication Instructions Recorded Confirmed Type albuterol sulfate 90 mcg/actuation 2 puff INHALATION Q6H PRN 10/09/18 08/03/21 History aerosol inhaler fluticasone propionate 230 1 puff INHALATION Q12H 10/09/18 08/03/21 History mcg-salmeterol 21 mcg/actuation HFA inhaler (Advair HFA) tiotropium bromide 2.5 2 puff INHALATION AMHS 10/09/18 08/03/21 History mcg/actuation mist for inhalation (Spiriva Respimat) acetaminophen 500 mg tablet 1,000 mg PO Q6H PRN 10/21/19 08/03/21 History (Tylenol Extra Strength) albuterol sulfate 2.5 mg INHALATION Q4H PRN 10/21/19 08/03/21 History fluticasone propionate 50 2 spray INTRANASAL BID 10/21/19 08/03/21 History mcg/actuation nasal spray,suspension (Flonase Allergy Relief) potassium chloride 20 mEq 20 meq PO QAM 11/09/20 08/03/21 History tablet,extended release(part/cryst) (Klor-Con M) Oxygen Home #1 ea 07/10/21 08/03/21 Rx furosemide 40 mg tablet 40 mg PO DIRECTED #0 tab 07/10/21 08/03/21 Rx diclofenac sodium 1 % topical gel 4 g EXT QID PRN 08/03/21 08/03/21 History (Voltaren Arthritis Pain) Past Med/Surg History Medical History (Updated 08/03/21 @ 18:09 by Mario Ellis DO) Chest pain COPD (chronic obstructive pulmonary disease) On 3 L of oxygen continuous Morbid obesity Orthopnea Status asthmaticus TIA (transient ischemic attack) Surgical History History of hysterectomy Hx of cholecystectomy Family History Other Heart disease Social History Smoking Status: Current every day smoker Tobacco Type: Cigarettes Cigarettes Per Day: 10; Second Hand Exposure: No; Hx Alcohol Use: No Hx Substance Use: No Preferred Language: Yakut Communication Ability: Effective Cloth Framer Required: No Beliefs That Will Affect Care: None marital status: Current Living Situation: Family Feels Safe at Home: Yes Assistive Devices: Oxygen - Continuous Review of Systems Review of Systems: All systems reviewed & are unremarkable except as noted in Subjective Physical Exam Constitutional: well developed and well nourished; no acute distress Eyes: PERRL, conjunctivae normal, anicteric sclerae ENMT: external ear and nose normal, oropharynx normal Neck: trachea midline, no thyromegaly Respiratory: normal respiratory effort; no respiratory distress, no labored breathing, does not use accessory muscles, no nasal flaring and no stridor Auscultation: + diminished lung sounds (distant throughout ) and + wheezes (b/l, worse in upper lobes ); no crackles, no rales and no rhonchi Cardiovascular: Rate/Rhythm: regular rate and regular rhythm Heart Sounds: normal S1 and normal S2; no murmur Vessels: no JVD Extremities: + edema (+1 to mid navarrete ); no calf tenderness Gastrointestinal (Abdomen): normal bowel sounds, soft, nontender, no hepatosplenomegaly Musculoskeletal: Head/Neck/Chest: normocephalic and head atraumatic Skin: no rashes, warm and dry Neurologic: PERRL, EOMI, accommodation nl, no face palsy, no dysarthria Psychiatric: A+Ox3, euthymic affect Results & Data Results & Data ([facility]) Vital Signs (Past 12 Hours) Vital Signs Temp Pulse Pulse Resp BP Pulse Ox 08/03/21 16:31 75 19 99/54 L 93 08/03/21 16:22 91 08/03/21 16:20 82 13 88/56 L 91 08/03/21 15:30 73 17 87/55 L 98 08/03/21 15:16 72 17 92/61 L 99 08/03/21 15:00 71 14 86/63 L 100 08/03/21 14:48 87 20 95 08/03/21 14:47 80 20 95 08/03/21 14:27 100 08/03/21 14:10 36.7 C 88 24 90/66 L 90 Code Status & VTE Plan VTE Prophylaxis Plan VTE Prophylaxis will be ordered: Yes Supervising Physician Co-Signing Physician Notes Attending attestation Pt seen and examined in concert with Dr. Ellis. In agreement with the documented findings as noted in the resident documentation with any exceptions or additions as noted here. Resting comfortably in bed with improved SOB on 4LNC (over 2LNC baseline) following duonebs. Reports this feels similar to her last COPD exacerbation, including SOB, wheezing, no increased cough or sputum production, and the persistence of pleuritic appearing chest pain (central, lower chest radiating to the left with inspiration) without improvement on increased O2 or home management. Still smoking 1/2 PPD, now also exposed to glue/solvent while her floors are being done. On examination, S1/S2 nl RRR no MCG. Diffusely decreased breath sounds with scattered wheeze. Abd NT/ND BS+ve Acute on chronic hypoxic respiratory failure in the setting of COPD - O2 per protocol, continue erin ingram. Add methylprednisolone 40mg q8h. HRrEF - stable, without apparent acute exacerbation. Fluids with caution, contiue home diuresis. Pulmonary nodules - pulmonology consultation, imaging as noted Tobacco use disorder - still 10 PPD "I will know what it will take to get me to quit when I see it". I reviewed that this is the second smoking connected admission in as many months and she will consider decreasing from 10 to 8 cig/day Else see resident documentation as noted. Resident Activity Tracking Resident Involvement: Resident Care Provided Care Provided: Adult Hospital Medicine (1) Dyspnea Dyspnea type: shortness of breath Qualified Code(s): R06.02 - Shortness of breath
[2021-08-03] MEDS ORDERED: HEPARIN 100 UNIT/ML 5ML FLUSH ONE (19:33)
[2021-08-03] MEDS ORDERED: ALBUT/IPRATROP 3MG/0.5MG NEB 3 ML VIAL NEB PRN (20:18)
[2021-08-03] MEDS ORDERED: ONDANSETRON INJ 2 MG/ML 2 ML VIAL IV PRN (20:18)
[2021-08-03] MEDS: ALBUT/IPRATROP 3MG/0.5MG NEB 3 ML VIAL INH SCH (20:48)
--- NOTE | 2021-08-03 21:29 | XRay Report ---
XR chest 2V PA/lateral INDICATION: MN ^COPD EXACERBATION ^CALLED TO BRING DOWN AT 21:05. TECHNIQUE: AP and lateral frontal radiograph of the chest was obtained. Comparison: Comparison is made to chest one view 08/03/2021 at 1436 hours FINDINGS: No lines and tubes are seen. The cardiomediastinal silhouette is normal. Emphysematous changes are se en in the lungs. Compared to prior exam, there is increased opacity in the bilateral lower lungs. No evidence of pleural effusion or pneumothorax. IMPRESSION: 1. Increased opacities in the bilateral lower lungs which may reflect atelectasis, pneumonia, and/or aspiration. 2. Emphysema and flattening of the diaphragms in this patient with history of COPD. ACT 112: Negative or not required by law. Electronically signed by: Joss Hollins M.D. 08/03/2021 9:28 PM
[2021-08-03] MEDS: methylPREDNISolone 40 MG in SYRINGE 0 ML IV SCH (21:43)
[2021-08-03] MEDS: guaiFENesin 600 MG TABCR PO SCH (21:44)
[2021-08-03] MEDS ORDERED: OPTIRAY 320 100ml IV ONE (22:07)
--- NOTE | 2021-08-03 22:17 | CT Scan Report ---
CT chest diagnostic w con INDICATION: MN ^B2 CTR ^copd exac, pulmonary lesions RLL. TECHNIQUE: Multidetector row helical CT of the chest was performed. Coronal and sagittal reformations were obtained. Automated dose lowering techniques and/or adjustment according to patient size were u tilized for this exam. Comparison: None available at the time of this dictation. FINDINGS: Lungs and pleura: Multiple cystic lesions are again seen, largest in the right lower lobe measuring 1 9 mm in diameter. Additional lesions are seen in the right upper lobe. No significant increase in thi ckness or nodularity is seen. Diffuse emphysematous changes are seen in the lungs. Heart and pericardium: Heart size is normal. No pericardial effusion. Vessels: Moderate atherosclerotic changes in the aorta and coronary arteries. The pulmonary trunk is dilated measuring 39 mm. Mediastinum and reema: Enlarged mediastinal lymph nodes are seen measuring up to 12 mm in the left low er paratracheal station. Chest wall and lower neck: Unremarkable. Abdomen: Unremarkable. Bones: Degenerative changes in the thoracic spine. IMPRESSION: 1. Multiple cystic lesions in the bilateral lungs. These are essentially unchanged from the prior ex am, and in particular no nodular thickening is noted. 2. Redemonstration of emphysematous changes and pulmonary hypertension. 3. Stable mediastinal lymphadenopathy. ACT 112: Negative or not required by law. Electronically signed by: Joss Hollins M.D. 08/03/2021 10:16 PM
[2021-08-04] MEDS: ALBUT/IPRATROP 3MG/0.5MG NEB 3 ML VIAL INH SCH ×4 (00:03→20:06)
[2021-08-04] MEDS: methylPREDNISolone 40 MG in SYRINGE 0 ML IV SCH ×3 (06:05→21:37)
[2021-08-04 06:24] LABS: Hematocrit (blood only) 43.6 % (37-47); Immature Granulocytes # (auto) 0.01 K/uL (0.00-0.02); Immature Granulocytes % (auto) 0.2 %; Lymphocytes # (auto) 0.81 K/uL (1.2-3.4); Lymphocytes % (auto) 14.5 %; Mean Corpuscular Hemoglobin 29.4 pg (25-34); Mean Corpuscular Hgb Conc 32.1 g/dL (32-36); Mean Corpuscular Volume 91.6 fL (80-100); Mean Platelet Volume 11.7 fL (7.4-10.4); Monocytes # (auto) 0.04 K/uL (0.11-0.59); Monocytes % (auto) 0.7 %; Neutrophils # (auto) 4.71 K/uL (1.4-6.5); Neutrophils % (auto) 84.6 %; Platelet Count 157 K/uL (130-400); RDW Coefficient of Variation 13.5 % (11.5-14.5); RDW Standard Deviation 45.5 fL (36.4-46.3); Red Blood Count 4.76 M/uL (4.2-5.4); White Blood Count 5.57 K/uL (4.8-10.8)
[2021-08-04 07:09] LABS: Calcium 9.1 mg/dl (8.5-10.1); Creatinine Clr Calc Pharmacy 155.1 ml/min; Est GFR (Non-African American) 113.9 ml/min; Potassium 4.7 mmol/L (3.5-5.1)
[2021-08-04] MEDS: FUROSEMIDE 40 MG TAB PO SCH (08:03)
[2021-08-04] MEDS: FLUTICASONE/VILANTEROL 100/25MCG 14 PUFFS/INHALER INH SCH (08:03)
[2021-08-04] MEDS: guaiFENesin 600 MG TABCR PO SCH ×2 (08:03→20:33)
--- NOTE | 2021-08-04 08:41 | Electrocardiogram Report ---
Test Reason : Blood Pressure : / mmHG Vent. Rate : 079 BPM Atrial Rate : 079 BPM P-R Int : 152 ms QRS Dur : 096 ms QT Int : 366 ms P-R-T Axes : 047 052 049 degrees QTc Int : 419 ms Normal sinus rhythm Normal ECG When compared with ECG of 08-JUL-2021 11:31, No significant change was found Confirmed by Francisco Denise ([id number]) on 08/04/2021 8:40:32 AM Referred By: REFERRED SELF Confirmed By:Denis Denise
[2021-08-04] MEDS: UMECLIDINIUM BROMIDE 62.5MCG/BLISTER 7 PUFFS/INHALER INH SCH (09:52)
--- NOTE | 2021-08-04 10:05 | Pulmonary Consultation ---
Date of Consultation August 04, 2021 Assessment & Plan (1) Acute and chronic respiratory failure: Respiratory failure complication: hypoxia and hypercapnia Qualified Code(s): J96.21 - Acute and chronic respiratory failure with hypoxia; J96.22 - Acute and chronic respiratory failure with hypercapnia (2) Acute exacerbation of chronic obstructive pulmonary disease (COPD): (3) Pulmonary nodules: (4) Tobacco use disorder: 56-year-old female with a history of COPD, chronic hypoxemic respiratory failure and obstructive sleep apnea presenting to the hospital due to an acute COPD exacerbation. Acute COPD exacerbation: Recommend decreasing her Solu-Medrol to prednisone tomorrow. She could be on 40 mg of prednisone which can be continued for 7 days total. I have added Incruse Ellipta to her inpatient regimen of Breo Ellipta. She can be discharged home on her Advair and Spiriva when she is ready. There are no signs of infection at this time. Unfortunately, she has allergies to both azithromycin and doxycycline which apparently cause difficulty with her breathing. She has frequent hospital readmissions and would be a good candidate for trilogy noninvasive ventilator. She is chronically on CPAP. Trilogy can be arranged by her outpatient police inspector in [facility]. She would also benefit from updated PFTs. Tobacco abuse disorder: I strongly encourage complete smoking cessation. She notes that she is not ready to quit smoking. She continues to smoke half a pack per day. Multifocal groundglass nodules: Etiology of these findings are unclear and may be related to smoking-related lung disease, multifocal adenocarcinoma in situ versus other. Recommend follow-up CT in 3 to 6 months. Biopsying these lesions would prove very difficult at this time given the location and morphology. Thank you for the consult. Pulmonary will continue to follow along with you. History of Present Illness Reason for Consultation: COPD exacerbation and chronic lung nodules Attending Physician: Jurgen Kramer MD History of Present Illness 56-year-old female with a longstanding history of chronic hypoxemic respiratory failure, COPD, FLAKO and CHF presenting to the hospital due to increasing shortness of breath since Tuesday. She uses 2 to 3 L of oxygen at baseline. She noted chest pain on the left chest wall. She does have chronic shoulder pain. She continues to smoke half a pack per day. She has smoked for over 40 years. She notes that she smoked 2 to 3 packs a day for 15 to 20 years. She has frequent hospitalizations for COPD exacerbations. She is currently on a Medrol 40 mg 3 times a day as ordered by the hospitalist service. Of she is normally on Advair and Spiriva at home. She follows with [facility] pulmonology group. She notes that she had PFTs many years ago but was told that she has had COPD for the past 15 years. Her mobility is limited/due to hypoxemia. She notes that she rarely leaves her house due to concerns of getting exposed to infection. She has not vaccinated against the flu or Covid 19. Allergies Allergy/AdvReac Type Severity Reaction Status Date / Time azithromycin Allergy Severe respiratory Verified 08/03/21 16:15 distress cefaclor Allergy Severe RESPIRATORY Verified 08/03/21 16:15 DISTRESS erythromycin base Allergy Severe RESPIRATORY Verified 08/03/21 16:15 DISTRESS ibuprofen Allergy Severe RESPIRATORY Verified 08/03/21 16:15 DISTRESS Penicillins Allergy Severe RESPIRATORY Verified 08/03/21 16:15 DISTRESS Sulfa (Sulfonamide Allergy Severe RESPIRATORY Verified 08/03/21 16:15 Antibiotics) DISTRESS, RASH doxycycline AdvReac Severe Difficulty Verified 08/03/21 16:15 Breathing morphine AdvReac Intermediate N/V Verified 08/03/21 16:15 Home Medications Medication Instructions Recorded Confirmed Type albuterol sulfate 90 mcg/actuation 2 puff INHALATION Q6H PRN 10/09/18 08/03/21 History aerosol inhaler fluticasone propionate 230 1 puff INHALATION Q12H 10/09/18 08/03/21 History mcg-salmeterol 21 mcg/actuation HFA inhaler (Advair HFA) tiotropium bromide 2.5 2 puff INHALATION AMHS 10/09/18 08/03/21 History mcg/actuation mist for inhalation (Spiriva Respimat) acetaminophen 500 mg tablet 1,000 mg PO Q6H PRN 10/21/19 08/03/21 History (Tylenol Extra Strength) albuterol sulfate 2.5 mg INHALATION Q4H PRN 10/21/19 08/03/21 History fluticasone propionate 50 2 spray INTRANASAL BID 10/21/19 08/03/21 History mcg/actuation nasal spray,suspension (Flonase Allergy Relief) potassium chloride 20 mEq 20 meq PO QAM 11/09/20 08/03/21 History tablet,extended release(part/cryst) (Klor-Con M) Oxygen Home #1 ea 07/10/21 08/03/21 Rx furosemide 40 mg tablet 40 mg PO DIRECTED #0 tab 07/10/21 08/03/21 Rx diclofenac sodium 1 % topical gel 4 g EXT QID PRN 08/03/21 08/03/21 History (Voltaren Arthritis Pain) Patient History Medical History (Updated 08/04/21 @ 08:50 by Howard Aguilar MD) Chest pain COPD (chronic obstructive pulmonary disease) On 3 L of oxygen continuous Morbid obesity Orthopnea Status asthmaticus TIA (transient ischemic attack) Surgical History History of hysterectomy Hx of cholecystectomy Family History Other Heart disease Social History Smoking Status: Current every day smoker Tobacco Type: Cigarettes Cigarettes Per Day: 10; Second Hand Exposure: No; Do You Dip or Chew Tobacco: No; Hx Alcohol Use: No Hx Substance Use: No Preferred Language: Mongolian Communication Ability: Effective Nutrition Coordinator Required: No Beliefs That Will Affect Care: None marital status: Current Living Situation: Family Current Living Situation Comment: lives in mobile home with son Other Information That Helps Us Care for You: No Feels Safe at Home: Yes Safety Concerns: Feels Safe At This Time Assistive Devices: Oxygen - Continuous Review of Systems Review of Systems: All systems reviewed & are unremarkable except as noted in HPI & below Physical Exam Physical Exam: Constitutional: Chronically ill-appearing female in no apparent distress. She is sitting up in bed. Nasal cannula is in place. Eyes: Pupils are equal round and reactive to light. Conjunctivae are normal. Anicteric sclera. Ears nose, mouth and throat: No obvious facial deformities. Neck: Trachea is midline. Visual inspection is normal. Respiratory: Diminished bilaterally with prolonged phase of exhalation. No wheeze. Cardiovascular: Regular rate and rhythm. No murmurs. 1+ pitting edema in the lower extremities bilaterally. Gastrointestinal: Normal bowel sounds, soft, nontender and nondistended. No hepatosplenomegaly noted. Musculoskeletal: No cyanosis. Patient is able to move all extremities. Strength is 5 out of 5 in the upper and lower extremities. Skin: No rashes, warm dry and intact. Neurologic: No obvious focal neurological deficits seen. Psychiatric: Alert and oriented x3 with a euthymic affect. Results & Data Results & Data ([facility]) Vital Signs (Past 12 Hours) Vital Signs Temp Pulse Pulse Pulse Resp BP BP 08/04/21 07:35 97.7 F 83 20 97/62 L 08/04/21 03:18 80 20 106/66 08/04/21 02:49 85 21 08/04/21 01:08 96 H 08/04/21 00:09 91 H 24 08/04/21 00:05 91 H 24 08/03/21 23:25 97.9 F 69 20 92/63 L 08/03/21 22:40 92 H 08/03/21 22:27 98.2 F 93 H 20 126/66 Pulse Ox 08/04/21 07:35 88 L 08/04/21 03:18 91 08/04/21 02:49 91 08/04/21 01:08 08/04/21 00:09 90 08/04/21 00:05 90 08/03/21 23:25 98 08/03/21 22:40 08/03/21 22:27 89 L Laboratory Results Chest CT personally reviewed and completed yesterday. Multiple cystic lesions were noted bilaterally in her lungs. Largest lesion is measuring 1.9 cm in the right lower lobe with a small subsolid component. PG Care Time/CCT Total # of Minutes Spent Total Time Spent with Patient: Total time spent is greater than 50% in coordination of care (as documented) at patient's floor/unit and/or counseling patient: Coding Level of Care Code 97885 Inpt Consult Level 4 Diagnoses Acute and chronic respiratory failure J96.21; J96.22 Respiratory failure complication: hypoxia and hypercapnia Acute exacerbation of chronic obstructive pulmonary disease (COPD) J44.1 Pulmonary nodules R91.8 Tobacco use disorder F17.200
--- NOTE | 2021-08-04 11:14 | Hospitalist Progress Note ---
Date of Service August 04, 2021 Assessment & Plan (1) Dyspnea: Plan: Patient is a 56 year old female with PMHx HFpEF, CHF, FLAKO who presents with worsening dyspnea overnight despite increase in her oxygen from 3L to 4L and use of her nebulizer, and albuterol inhaler. COPD Exacerbation -Patient compliant with home meds, suspect due to environmental irritations and continued tobacco use -Received duoneb, 2g magnesium, 60mg methylpred IV, and 250L nss in the ED -Now on scheduled Duoneb q6h in addition to Duoneb q2h PRN worsening SOB/wheeze -Hold Spiriva with scheduled duoneb -Continue home Advair BID -Methylprednisolone 40mg IV q8h --> will switch to prednisone 40mg PO daily x7 days beginning tomorrow -Mucinex BID -Incentive Spirometry and Flutter valve -Titrate O2 PRN for 89% -Pulm consulted: advised switch from methylprednisone to prednisone PO, +incruse ellipta to inpatient regimen of breo ellipta, on discharge can go back on advair and spiriva; also recommends she f/u outpatient pulm to get updated PFTs and discuss possibility of getting trilogu noninvasive ventilator due to her frequent hospitilizations -she has a outpatient pulm appt scheduled on 09/15. Pulmonary Nodules -On prior CT 07/08/21 noting numerous ill-defined groundglass/cystic pulmonary lesions in addition to lesion in the RLL with increasing solid/nodular component suspicious for low-grade pulmonary neoplasms. -Repeat CT showed no changes from previous CT. -Recommend f/u imaging in 3-6 months. HFpEF -Last echo 11/10/20 with EF 55-60% -At this time suspect patient is euvolemic -Continue home Lasix dosing 40mg in AM and 20mg in PM -Strict I/O -Daily weights -BNP on admission at 40 FLAKO -CPAP qHS Nicotine Use -Patient smokes 1/2 PPD -If needed, consider nicotine patch/gum Dispo: Med/Surg Telemetry for close cardiac monitoring and symptomatic management FEN: HH diet DVT: SCDs Code: Full Admission and Anticipated Discharge Date Admission Date: August 03, 2021 Supervising Physician Co-Signing Physician Notes Attending attestation Pt seen and examined in concert with Dr. Thacker. In agreement with the documented findings as noted in the resident documentation with any exceptions or additions as noted here. Improvement in SOB on current therapy, still short of baseline per patient. h/o pt reported hypoxia on BIPAP units in the past On examination, diffusely decreased breath sounds throughout without wheezing at present. S1/S2 nl RRR no MCG. Abd NT/ND bs+. Trace b/l LE edema Acute on chronic hypoxic respiratory failure with COPD with exacerbation - pulmonology consultation - agree w/ taper to PO pred in the AM with continued improvement. Add Incruse for respiratory support. Consider Trelegy after discharge. d/w respiratory re: BIPAP settings to support qHS use HFpEF - without exacerbation, fluid with caution, continue baseline diuretic use, low sodium diet Pulmonary nodules - has outpt f/u with pulm in 2 wks, pulm c/s here rec'd repeat CT in 3-6 months for stability as bx would be difficult based on these images. 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 Else see resident documentation as noted. Subjective Doing much better this morning than yesterday. Says she is no longer wheezing. She is now coughing which is good she says. Mentioned her O2 saturation does not do well on bipap. Review of Systems Review of Systems: All systems reviewed & are unremarkable except as noted in HPI & below Constitutional: no fever, no chills and no fatigue Respiratory: + cough; no dyspnea Cardiovascular: no chest pain and no palpitations Gastrointestinal: no abdominal pain, no nausea and no vomiting Physical Exam Constitutional: well developed and well nourished; no acute distress Eyes: PERRL, conjunctivae normal, anicteric sclerae ENMT: external ear and nose normal, oropharynx normal Neck: trachea midline, no thyromegaly Respiratory: normal respiratory effort; no respiratory distress, no labored breathing, does not use accessory muscles, no nasal flaring and no stridor Auscultation: + diminished lung sounds (distant throughout ); no crackles, no rales, no rhonchi and no wheezes (b/l, worse in upper lobes ) Cardiovascular: Rate/Rhythm: regular rate and regular rhythm Heart Sounds: normal S1 and normal S2; no murmur Vessels: no JVD Extremities: + edema (+1 to mid navarrete ); no calf tenderness Gastrointestinal (Abdomen): normal bowel sounds, soft, nontender, no hepatosplenomegaly Musculoskeletal: Head/Neck/Chest: normocephalic and head atraumatic Skin: no rashes, warm and dry Neurologic: PERRL, EOMI, accommodation nl, no face palsy, no dysarthria Psychiatric: A+Ox3, euthymic affect Results & Data Results & Data ([facility]) Vital Signs (Past 12 Hours) Vital Signs Temp Pulse Pulse Resp BP BP Pulse Ox 08/04/21 07:35 36.5 C 83 20 97/62 L 88 L 08/04/21 03:18 80 20 106/66 91 08/04/21 02:49 85 21 91 08/04/21 01:08 96 H 08/04/21 00:09 91 H 24 90 08/04/21 00:05 91 H 24 90 08/03/21 23:25 36.6 C 69 20 92/63 L 98 Resident Activity Tracking Resident Involvement: Resident Care Provided Care Provided: Adult Hospital Medicine (1) Dyspnea Dyspnea type: shortness of breath Qualified Code(s): R06.02 - Shortness of breath
[2021-08-04] MEDS ORDERED: FUROSEMIDE 20 MG TAB PO SCH (14:00)
[2021-08-04] MEDS: ACETAMINOPHEN 325 MG TAB PO PRN (20:37)
[2021-08-05] MEDS: ALBUT/IPRATROP 3MG/0.5MG NEB 3 ML VIAL INH SCH ×3 (00:28→13:14)
[2021-08-05] MEDS: ACETAMINOPHEN 325 MG TAB PO PRN (03:05)
[2021-08-05] MEDS: UMECLIDINIUM BROMIDE 62.5MCG/BLISTER 7 PUFFS/INHALER INH SCH (08:14)
[2021-08-05] MEDS: FLUTICASONE/VILANTEROL 100/25MCG 14 PUFFS/INHALER INH SCH (08:15)
[2021-08-05] MEDS: guaiFENesin 600 MG TABCR PO SCH (08:16)
[2021-08-05] MEDS: FUROSEMIDE 40 MG TAB PO SCH (08:16)
[2021-08-05] MEDS ORDERED: predniSONE 20 MG TAB PO SCH (09:00)
--- NOTE | 2021-08-05 12:10 | Discharge Summary ---
Date of Service August 05, 2021 Admission HPI Per Admitting Provider Patient is a 56 year old female with PMHx HFpEF, CHF, FLAKO who presents with worsening dyspnea overnight despite increase in her oxygen from 3L to 4L and use of her nebulizer, and albuterol inhaler. Patient notes that since her discharge on 07/10/21 for similar shortness of breath she does not feel as though much has changed in way of her medical history. She states that the only changes that could have worsened her breathing include work being done on her kitchen where she is getting new linoleum and countertops, to which she feels the adhesive they are using irritates her breathing. She notes that last night she was having worsening SOB and required increasing her O2 from 3L to 4L and using her albuterol inhalers and nebulizers to no improvement. She went to sleep hoping that her breathing would improve in the morning to no avail. She states that she has not had a chance to follow up with pulmonology yet in regards to her pulmonary nodules noted on her CT chest scan at last visit. She currently notes that her breathing has improved after treatments in the ED. She denies any fever, chills, chest pain, chest pressure, abdominal pain, nausea, vomiting, diarrhea, headache, visual changes, worsening LE edema. Med Hx: HFpEF, CHF, FLAKO Surg Hx: Hysterectomy, Appendectomy Soc Hx: Smokes 1/2 PPD, denies current alcohol use, denies illicit drug use Fam Hx: Maternal aunt and grandmother diabetes Principal Diagnosis COPD Exacerbation Discharge Exam Constitutional well developed and well nourished; no acute distress Eyes PERRL, conjunctivae normal, anicteric sclerae ENMT external ear and nose normal, oropharynx normal Neck trachea midline, no thyromegaly Respiratory normal respiratory effort; no respiratory distress, no labored breathing, does not use accessory muscles, no nasal flaring and no stridor Auscultation: + diminished lung sounds (distant throughout ); no crackles, no rales, no rhonchi and no wheezes (b/l, worse in upper lobes ) Cardiovascular Rate/Rhythm: regular rate and regular rhythm Heart Sounds: normal S1 and normal S2; no murmur Vessels: no JVD Extremities: + edema (+1 to mid navarrete ); no calf tenderness Gastrointestinal (Abdomen) normal bowel sounds, soft, nontender, no hepatosplenomegaly Musculoskeletal Head/Neck/Chest: normocephalic and head atraumatic Skin no rashes, warm and dry Neurologic PERRL, EOMI, accommodation nl, no face palsy, no dysarthria Psychiatric A+Ox3, euthymic affect Discharge Data Allergies Allergy/AdvReac Type Severity Reaction Status Date / Time azithromycin Allergy Severe respiratory Verified 08/03/21 16:15 distress cefaclor Allergy Severe RESPIRATORY Verified 08/03/21 16:15 DISTRESS erythromycin base Allergy Severe RESPIRATORY Verified 08/03/21 16:15 DISTRESS ibuprofen Allergy Severe RESPIRATORY Verified 08/03/21 16:15 DISTRESS Penicillins Allergy Severe RESPIRATORY Verified 08/03/21 16:15 DISTRESS Sulfa (Sulfonamide Allergy Severe RESPIRATORY Verified 08/03/21 16:15 Antibiotics) DISTRESS, RASH doxycycline AdvReac Severe Difficulty Verified 08/03/21 16:15 Breathing morphine AdvReac Intermediate N/V Verified 08/03/21 16:15 Consultations 08/03/21 16:13 ED Decision to Admit Stat 08/03/21 20:18 Consult Pulmonology Routine Ordered Studies 08/03/21 17:44 CT chest diagnostic w con Urgent Hospital Course (1) Dyspnea: Patient is a 56 year old female with PMHx HFpEF, CHF, FLAKO who presents with worsening dyspnea overnight despite increase in her oxygen from 3L to 4L and use of her nebulizer, and albuterol inhaler. 1. Acute on Chronic COPD Exacerbation -Patient compliant with home meds, suspect due to environmental irritations and continued tobacco use -Received duoneb, 2g magnesium, 60mg methylpred IV, and 250L nss in the ED -Now on scheduled Duoneb q6h in addition to Duoneb q2h PRN worsening SOB/wheeze -Hold Spiriva with scheduled duoneb -Continue home Advair BID -Methylprednisolone 40mg IV q8h --> will switch to prednisone 40mg PO daily x7 days beginning tomorrow -Mucinex BID -Incentive Spirometry and Flutter valve -Titrate O2 PRN for 89% -Pulm consulted: advised switch from methylprednisone to prednisone PO, +incruse ellipta to inpatient regimen of breo ellipta, on discharge can go back on advair and spiriva; also recommends she f/u outpatient pulm to get updated PFTs and discuss possibility of getting trilogu noninvasive ventilator due to her frequent hospitilizations -She has a outpatient pulm appt scheduled on 09/15. -Patient doing well and ready to go home. Will send home on Prednisone taper and mucinex. Continue home meds. -F/u with pulmonology outpatient. Update PFTs. Discuss trilogy noninvasive ventilator, as she will be a good candidate for this treatment. 2. Pulmonary Nodules -On prior CT 07/08/21 noting numerous ill-defined groundglass/cystic pulmonary lesions in addition to lesion in the RLL with increasing solid/nodular component suspicious for low-grade pulmonary neoplasms. -Repeat CT showed no changes from previous CT. -Recommend f/u imaging in 3-6 months. 3. HFpEF -Last echo 11/10/20 with EF 55-60% -At this time suspect patient is euvolemic -Continued home Lasix dosing 40mg in AM and 20mg in PM -Strict I/Om Daily weights 4. FLAKO -CPAP qHS 5. Nicotine Use -Patient smokes 1/2 PPD -If needed, considered nicotine patch/gum -Discussed smoking cessation with patient Total Time Total Time Spent Total Time Spent (In Minutes): 30 Discharge Plan Discharge Items Patient Disposition: Home - Home Health Services Reason For Visit: COPD EXACERBATION Discharge Diagnosis: COPD Exacrbation Activity: Per Instructions section Non-emergency contact: Primary Care Provider Call non-emergency contact if: you have any medication questions, your symptoms worsen and you have a fever Follow-up/Referrals: Crystal Vasquez PA-C [Primary Care Provider] - 08/10/21 8:00 am () Diet: Heart Healthy Addtl Attending Provider Instructions: Gabriela Poe, you were admitted to the hospital for an acute COPD exacerbation episode. We managed your symptoms with oxygen, steroids, inhalers, and mucinex which provided you relief and stabilized your breathing. While in the hospital we also got a repeat CT imaging of your chest because your previous CT showed pulmonary nodules that were not followed up on. Our CT scan showed no new changes to these nodules. We recommend you get repeat imaging for this in 3- 6months. As for your COPD, continue your home medications. Please make attempts to stop smoking. Also continue to use incentive spirometer. Medications: -Continue home medications -Prescribed mucinex 600mg to take 2x/day daily -Prescribed steroids to be taken as follows: 40mg x3 days, then 30mg x3 days, then 20mg x2days, then 10mg x1day. In the outpatient setting, please follow up with your senior software qa analyst. Things to discuss: -Updated pulmonary function testing -trilogy noninvasive ventilator which you would be a good candidate for Pending Studies at Discharge: No Stand-Alone Forms: My [facility], Smoking Cessation Medications and DC Order Prescriptions: New prednisone 20 mg Tablet 10 mg PO QAM 12 Days Qty: 30 RF: 0 guaifenesin [Mucinex] 600 mg tablet extended release 12hr 600 mg PO BID Qty: 60 RF: 0 Continued potassium chloride [Klor-Con M20] 20 mEq tablet,ER particles/crystals 20 meq PO QAM RF: 0 albuterol sulfate 90 mcg/actuation Hfa Aerosol Inhaler 2 puff INHALATION Q6H PRN (Reason: Shortness Of Breath Or Wheezing) RF: 0 Advair HFA 230-21 mcg/actuation Hfa Aerosol Inhaler 1 puff INHALATION Q12H RF: 0 Spiriva Respimat 2.5 mcg/actuation Mist 2 puff INHALATION AMHS RF: 0 albuterol sulfate 2.5 mg /3 mL (0.083 %) Solution For Nebulization 2.5 mg INHALATION Q4H PRN (Reason: Shortness Of Breath Or Wheezing) RF: 0 acetaminophen [Tylenol Extra Strength] 500 mg Tablet 1,000 mg PO Q6H PRN (Reason: Pain) RF: 0 fluticasone propionate [Flonase Allergy Relief] 50 mcg/actuation [place],Suspension 2 spray INTRANASAL BID RF: 0 furosemide 40 mg tablet 40 mg PO DIRECTED Qty: 0 RF: 0 (DME) Oxygen Home Liters Per Minute See Rx Instructions .ROUTE .MEDSUPPLY Qty: 1 RF: 0 diclofenac sodium [Voltaren Arthritis Pain] 1 % gel 4 g EXT QID PRN (Reason: Pain) RF: 0 Discharge Orders: Discharge Order (Routine); Ordered 08/05/21 Ordered By: Leo Thacker Admission Data Admit Date/Time: 08/03/21 17:44 Attending Provider: Jurgen Kramer Admit Provider: Mario Ellis Primary Care Provider: Crystal Vasquez Other Providers: Roberto Serrano Vyacheslav Other Interventions: Discharge Summary Assessment (RN) Last Done: 08/05/21 13:29 Supervising Physician Co-Signing Physician Notes Attending attestation Pt seen and examined in concert with Dr. Thacker. In agreement with the documented findings as noted in the resident documentation with any exceptions or additions as noted here. SOB continues to improve, tolerating 3LNC, essentially at baseline. On examination, diffusely decreased breath sounds throughout with faint wheezing at present. S1/S2 nl RRR no MCG. Abd NT/ND bs+. Trace b/l LE edema Acute on chronic hypoxic respiratory failure with COPD with exacerbation - pulmonology consultation - resume home medication regimen. Prednisone taper from 40mg after discharge. HFpEF - without exacerbation - low sodium diet, home diuretics Pulmonary nodules - has outpt f/u with pulm in 2 wks, pulm c/s here rec'd repeat CT in 3-6 months for stability as bx would be difficult based on these images. Tobacco use disorder - revisited, periprecontemplative re: further cessation, continue to senior vice president & general counsel. Else see resident documentation as noted. Total attending time spent on this case on the day of discharge: 45 minutes. Resident Activity Tracking Resident Involvement: Resident Care Provided Care Provided: Adult Hospital Medicine
== END 2021-08-05 15:17 | disposition home health service (06) | DRG 190 ==
LOC: ED 14:17 → 2N 17:44

== ENCOUNTER 2021-09-10 22:26 | Inpatient (IN) ==
[2021-09-10] MEDS ORDERED: ALBUT/IPRATROP 3MG/0.5MG NEB 3 ML VIAL INH STA (22:41)
[2021-09-10] MEDS ORDERED: SODIUM CHLORIDE 0.9% 500 ML IV STA (22:41)
[2021-09-10] MEDS ORDERED: MAGNESIUM SULFATE / D5W 1 GM/100 ML BAG IV STA (22:41)
[2021-09-10] MEDS ORDERED: methylPREDNISolone 125 MG/2 ML VIAL IV STA (22:41)
--- NOTE | 2021-09-10 22:42 | Emergency Department Note ---
Impression & Plan Acute exacerbation of chronic obstructive pulmonary disease (COPD), Shortness of breath, Hypercarbia ED Provider Note NAME: HUMPHREY COLUNGA AGE: 56 SEX: F : 1965 ARRIVES VIA: Ambulance INFORMANT: Patient, ED PROVIDER(S): Howard Aguilar MD Chief Complaint: Shortness of breath HPI: Patient does present with shortness of breath which is been ongoing for several days but acutely worse within the last 12 hours or so. The patient does have a dog at home but states that she typically does not have issues. The patient does wear chronic oxygen at all times does have a known history of COPD. The patient is not vaccinated for COVID-19 and does smoke. The patient denies any fevers or chills. The patient also does complain of some mild lower abdominal discomfort but denies any recent falls or trauma. Patient is not had any nausea or vomiting. The patient did use a nebulizer breathing treatment at home but without significant improvement in symptoms. The patient states that she went when she was walking with a typical 3 L of oxygen the patient would desat to the low 70s. ROS: See HPI for pertinent positives and negatives. A total of 10 systems were reviewed and otherwise negative. Past medical history: See below Surgical history: See below Social history: See below Physical Exam: GENERAL: Chronically ill in appearance, wearing glasses. Nasal cannula in place. EYE EXAM: Normal conjunctiva. PERRL, no anisocoria and EOM's grossly intact w/o pain. OROPHARYNX: Edentulous. NECK: Supple, no nuchal rigidity, no adenopathy, non-tender. No signs of meningismus. LUNGS: Decreased breath sounds throughout. Occasional wheezes. HEART: NSR, no MRG. ABDOMEN: Abdomen soft, mild suprapubic discomfort without peritonitis, no pain to be deep palpation, normo-active bowel sounds, no masses, no rebound or guarding. BACK: No CVA TTP. SKIN: No rashes and no bruising. UPPER EXTREMITIES: Upper extremities are grossly normal. LOWER EXTREMITIES: Grossly normal, no edema. NEURO EXAM: A&O x3, cranial nerves II-XII grossly intact, normal speech, moves all 4 extremities on command w/o issue. Differential diagnoses: Reactive airway disease, pneumonia, pneumothorax, COPD, CHF, infections, cardiac ischemia, pulmonary embolism, musculoskeletal, gastrointestinal, as well as other pathologies. Course: Patient was seen and evaluated the bedside. Full history physical exam was performed. EKG interpreted by me Imaging Studies: 1 view chest x-ray Blunting of bilateral costophrenic angles with no obvious consolidation or pneumothorax. Cardiac monitoring: An order was placed for continuous cardiac monitoring. The monitor shows a rate of 88 with sinus rhythm. MDM: Patient did present with concern for shortness of breath. Blood work was obtained along with a VBG chest x-ray. Chest x-ray by my read shows slight blunting of the costophrenic angles. Patient is a white count of 12. Patient has a relatively normal hemoglobin. Patient does have elevated bicarb troponin and BNP are not elevated. The patient was ordered breathing treatments. Urinalysis is pending at the time of admission. I did speak with Dr. Smith and the patient was to be admitted. I did do the VBG results which showed that the patient had a PCO2 of 96 with a pH of 7.25. Patient was ordered BiPAP with minimal FiO2. Patient did complain of some abdominal discomfort but the patient does not have pain or a surgical abdomen. Patient did relate that it does feel similar to when she had a prior UTI. Urinalysis was pending at the time of admission. Do not believe she requires advanced imaging of the abdomen pelvis at this time. Critical Care: I have personally spent 35 minutes of critical care time in direct management of this patient. This includes bedside care, interpretation of diagnostic studies, and testing, discussion with consultants, patient, and family members, and other require inpatient management activities. This 35 minutes is in excess of all separately billable procedures. 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 Beliefs That Will Affect Care: None marital status: Current Living Situation: Family Current Living Situation Comment: lives in mobile home with son Feels Safe at Home: Yes Assistive Devices: Glasses Allergies Allergies Allergy/AdvReac Type Severity Reaction Status Date / Time azithromycin Allergy Severe respiratory Verified 09/10/21 23:40 distress cefaclor Allergy Severe RESPIRATORY Verified 09/10/21 23:40 DISTRESS erythromycin base Allergy Severe RESPIRATORY Verified 09/10/21 23:40 DISTRESS ibuprofen Allergy Severe RESPIRATORY Verified 09/10/21 23:40 DISTRESS Penicillins Allergy Severe RESPIRATORY Verified 09/10/21 23:40 DISTRESS Sulfa (Sulfonamide Allergy Severe RESPIRATORY Verified 09/10/21 23:40 Antibiotics) DISTRESS, RASH doxycycline AdvReac Severe Difficulty Verified 09/10/21 23:40 Breathing morphine AdvReac Intermediate N/V Verified 09/10/21 23:40 Home Meds Home Medications Medication Instructions Recorded Confirmed albuterol sulfate 90 mcg/actuation 2 puff INHALATION Q6H PRN 10/09/18 09/10/21 aerosol inhaler fluticasone propionate 230 1 puff INHALATION Q12H 10/09/18 09/10/21 mcg-salmeterol 21 mcg/actuation HFA inhaler (Advair HFA) tiotropium bromide 2.5 2 puff INHALATION AMHS 10/09/18 09/10/21 mcg/actuation mist for inhalation (Spiriva Respimat) acetaminophen 500 mg tablet 1,000 mg PO Q6H PRN 10/21/19 09/10/21 (Tylenol Extra Strength) albuterol sulfate 2.5 mg INHALATION Q4H PRN 10/21/19 09/10/21 fluticasone propionate 50 2 spray INTRANASAL BID 10/21/19 09/10/21 mcg/actuation nasal spray,suspension (Flonase Allergy Relief) potassium chloride 20 mEq 20 meq PO QAM 11/09/20 09/10/21 tablet,extended release(part/cryst) (Klor-Con M) diclofenac sodium 1 % topical gel 4 g EXT QID PRN 08/03/21 09/10/21 (Voltaren Arthritis Pain) furosemide 40 mg tablet See Rx Instructions .ROUTE .COMPLEX 09/10/21 09/10/21 Previous Rx's Medication Instructions Recorded Oxygen Home #1 ea 07/10/21 Results & Data (ED) Vital Signs Vital Signs - 24 hr 09/10/21 22:38 09/10/21 22:54 09/10/21 23:17 Temperature 37.0 C Temperature Source Oral Pulse Rate 100 H 90 Pulse Rate [Apical] 90 85 Pulse Rhythm Regular Pulse Rhythm [Apical] Regular Pulse Strength Normal Pulse Strength [Apical] Normal Respiratory Rate 22 14 20 Respiratory Effort / Characteristics Non-Labored Spontaneous Pursed Lip Short of Breath Respiratory Depth Normal Respiratory Pattern Regular Blood Pressure 115/60 Blood Pressure [Right Arm] 88/59 L Blood Pressure Mean 78 Blood Pressure Mean [Right Arm] 68 Blood Pressure Position Lying Blood Pressure Position [Right Arm] Lying Pulse Oximetry 91 91 94 Oxygen Delivery Method Nasal Cannula Nasal Cannula Nasal Cannula Oxygen Flow Rate 4 4 4 Sepsis New/Unexplained Change in Mental Status No Sepsis Action Taken by Nursing No Action Required Home Medications Current Medication List: was personally reviewed by me Laboratory Data Attestation: I reviewed the patient's lab results. Result diagrams: 09/10/21 22:43 09/10/21 22:43 Lab Results 09/10/21 09/10/21 09/10/21 Range/Units 22:43 22:43 23:16 WBC 12.87 H (4.8-10.8) K/uL RBC 5.05 (4.2-5.4) M/uL Hgb 15.1 (12.0-16.0) g/dL Hct 48.2 H (37-47) % MCV 95.4 (80-100) fL MCH 29.9 (25-34) pg MCHC 31.3 L (32-36) g/dL RDW Std Deviation 50.1 H (36.4-46.3) fL RDW Coeff of Darius 14.2 (11.5-14.5) % Plt Count 190 (130-400) K/uL MPV 11.7 H (7.4-10.4) fL Immature Gran % (Auto) 0.4 % Neut % (Auto) 79.4 % Lymph % (Auto) 13.8 % [place]alf[place] % (Auto) 5.0 % Eos % (Auto) 1.2 % Baso % (Auto) 0.2 % Neut # (Auto) 10.23 H (1.4-6.5) K/uL Lymph # (Auto) 1.77 (1.2-3.4) K/uL [place] # (Auto) 0.64 H (0.11-0.59) K/uL Eos # (Auto) 0.15 (0-0.5) K/uL Baso # (Auto) 0.03 (0-0.2) K/uL Immature Gran # (Auto) 0.05 H (0.00-0.02) K/uL VBG pH 7.25 L (7.36-7.41) VBG pCO2 96 H (38-50) mmHg VBG pO2 28 mmHg VBG HCO3 41 mmol/L VBG O2 Saturation < 60.0 % VBG Base Excess 9.4 mEq/L Barometric Pressure 730.0 mm/Hg Sodium 139 (136-145) mmol/L Potassium 4.3 (3.5-5.1) mmol/L Chloride 99 (98-107) mmol/L Carbon Dioxide 36 H (21-32) mmol/L Anion Gap 3.0 (3-11) BUN 11 (7-18) mg/dl Creatinine 0.49 L (0.6-1.2) mg/dl Est Cr Clr Drug Dosing 131.0 ml/min Est GFR ( Amer) 124.5 ml/min Est GFR (Non-Af Amer) 107.4 ml/min BUN/Creatinine Ratio 21.6 H (10-20) Glucose 124 H (70-99) mg/dl Calcium 8.9 (8.5-10.1) mg/dl Total Bilirubin 0.2 (0.2-1) mg/dl AST 11 L (15-37) U/L ALT 18 (12-78) U/L Alkaline Phosphatase 100 (45-117) U/L Troponin I < 0.015 (0-0.045) ng/ml NT-Pro-B Natriuret Pep 32 (0-900) pg/ml Total Protein 7.5 (6.4-8.2) gm/dl Albumin 3.1 L (3.4-5.0) gm/dl Globulin 4.4 H (2.5-4.0) gm/dl Albumin/Globulin Ratio 0.7 L (0.9-2) Urine Color Urine Appearance (Clear) Urine pH (4.5-7.5) Ur Specific [place] (1.000-1.030) Urine Protein (Negative) Urine Glucose (UA) (Negative) Urine Ketones (Negative) Urine Blood (Negative) Urine Nitrite (Negative) Urine Bilirubin (Negative) Urine Urobilinogen (Negative) Ur Leukocyte Esterase (Negative) Urine WBC (Auto) (0-5) /hpf Urine RBC (Auto) (0-4) /hpf U Hyaline Cast (Auto) (0-5) /lpf U Epithel Cells (Auto) (0-5) /lpf Urine Bacteria (Auto) (Negative) Urine Yeast COVID-19 Eval Order SARS-CoV-2 (PCR) (Negative) 09/10/21 09/10/21 09/11/21 Range/Units 23:53 23:53 00:15 WBC (4.8-10.8) K/uL RBC (4.2-5.4) M/uL Hgb (12.0-16.0) g/dL Hct (37-47) % MCV (80-100) fL MCH (25-34) pg MCHC (32-36) g/dL RDW Std Deviation (36.4-46.3) fL RDW Coeff of Darius (11.5-14.5) % Plt Count (130-400) K/uL MPV (7.4-10.4) fL Immature Gran % (Auto) % Neut % (Auto) % Lymph % (Auto) % [place] % (Auto) % Eos % (Auto) % Baso % (Auto) % Neut # (Auto) (1.4-6.5) K/uL Lymph # (Auto) (1.2-3.4) K/uL [place] # (Auto) (0.11-0.59) K/uL Eos # (Auto) (0-0.5) K/uL Baso # (Auto) (0-0.2) K/uL Immature Gran # (Auto) (0.00-0.02) K/uL VBG pH (7.36-7.41) VBG pCO2 (38-50) mmHg VBG pO2 mmHg VBG HCO3 mmol/L VBG O2 Saturation % VBG Base Excess mEq/L Barometric Pressure mm/Hg Sodium (136-145) mmol/L Potassium (3.5-5.1) mmol/L Chloride (98-107) mmol/L Carbon Dioxide (21-32) mmol/L Anion Gap (3-11) BUN (7-18) mg/dl Creatinine (0.6-1.2) mg/dl Est Cr Clr Drug Dosing ml/min Est GFR ( Amer) ml/min Est GFR (Non-Af Amer) ml/min BUN/Creatinine Ratio (10-20) Glucose (70-99) mg/dl Calcium (8.5-10.1) mg/dl Total Bilirubin (0.2-1) mg/dl AST (15-37) U/L ALT (12-78) U/L Alkaline Phosphatase (45-117) U/L Troponin I (0-0.045) ng/ml NT-Pro-B Natriuret Pep (0-900) pg/ml Total Protein (6.4-8.2) gm/dl Albumin (3.4-5.0) gm/dl Globulin (2.5-4.0) gm/dl Albumin/Globulin Ratio (0.9-2) Urine Color Yellow Urine Appearance Clear (Clear) Urine pH 5.0 (4.5-7.5) Ur Specific [place] 1.013 (1.000-1.030) Urine Protein Negative (Negative) Urine Glucose (UA) Negative (Negative) Urine Ketones Negative (Negative) Urine Blood Trace H (Negative) Urine Nitrite Negative (Negative) Urine Bilirubin Negative (Negative) Urine Urobilinogen Negative (Negative) Ur Leukocyte Esterase Negative (Negative) Urine WBC (Auto) 1-5 (0-5) /hpf Urine RBC (Auto) 0-4 (0-4) /hpf U Hyaline Cast (Auto) 1-5 (0-5) /lpf U Epithel Cells (Auto) >30 H (0-5) /lpf Urine Bacteria (Auto) 1+ H (Negative) Urine Yeast Not Reportable COVID-19 Eval Order Covid19 at [facility] SARS-CoV-2 (PCR) NEGATIVE (Negative) Administered Medications Discontinued Medications Albuterol (Albut/Ipratrop 3mg/0.5mg Neb 3 Ml Vial) 6 ml INH NOW STA Stop: 09/10/21 22:42 Last Admin: 09/10/21 22:54 Dose: 6 ml Documented by: [id number] Sodium Chloride (Nss) 500 mls @ 999 mls/hr IV .Q31M STA Stop: 09/10/21 23:11 Last Admin: 09/10/21 23:38 Dose: 999 mls/hr Documented by: [id number] Magnesium Sulfate/Dextrose (Magnesium Sulfate / D5w) 1 gm in 100 mls @ 100 mls/hr IV NOW STA Stop: 09/10/21 23:40 Last Admin: 09/10/21 23:35 Dose: 100 mls/hr Documented by: [id number] Methylprednisolone (Methylprednisolone 125 Mg/2 Ml Vial) 60 mg IV NOW STA Stop: 09/10/21 22:42 Last Admin: 09/10/21 23:35 Dose: 60 mg Documented by: [id number] Discharge Plan Visit Data Chief Complaint: Shortness of Breath/Dyspnea Stated Complaint: SOB ED Provider: Howard Aguilar Discharge Problem: Acute exacerbation of chronic obstructive pulmonary disease (COPD), Shortness of breath, Hypercarbia Patient Disposition: Admitted As Inpatient Forms Stand Alone Forms: [facility] Prescriptions Prescriptions: No Action potassium chloride [Klor-Con M20] 20 mEq tablet,ER particles/crystals 20 meq PO QAM RF: 0 albuterol sulfate 90 mcg/actuation Hfa Aerosol Inhaler 2 puff INHALATION Q6H PRN (Reason: Shortness Of Breath Or Wheezing) RF: 0 Advair HFA 230-21 mcg/actuation Hfa Aerosol Inhaler 1 puff INHALATION Q12H RF: 0 Spiriva Respimat 2.5 mcg/actuation Mist 2 puff INHALATION AMHS RF: 0 albuterol sulfate 2.5 mg /3 mL (0.083 %) Solution For Nebulization 2.5 mg INHALATION Q4H PRN (Reason: Shortness Of Breath Or Wheezing) RF: 0 acetaminophen [Tylenol Extra Strength] 500 mg Tablet 1,000 mg PO Q6H PRN (Reason: Pain) RF: 0 fluticasone propionate [Flonase Allergy Relief] 50 mcg/actuation [place],Suspension 2 spray INTRANASAL BID RF: 0 (DME) Oxygen Home Liters Per Minute See Rx Instructions .ROUTE .MEDSUPPLY Qty: 1 RF: 0 furosemide 40 mg tablet See Rx Instructions .ROUTE .COMPLEX RF: 0 diclofenac sodium [Voltaren Arthritis Pain] 1 % gel 4 g EXT QID PRN (Reason: Pain) RF: 0 Referrals Referrals: Crystal Vasquez PA-C [Primary Care Provider] -
[2021-09-10 22:52] LABS: Basophils # (auto) 0.03 K/uL (0-0.2); Basophils % (auto) 0.2 %; Eosinophils # (auto) 0.15 K/uL (0-0.5); Eosinophils % (auto) 1.2 %; Hematocrit (blood only) 48.2 % (37-47); Hemoglobin 15.1 g/dL (12.0-16.0); Immature Granulocytes # (auto) 0.05 K/uL (0.00-0.02); Immature Granulocytes % (auto) 0.4 %; Lymphocytes # (auto) 1.77 K/uL (1.2-3.4); Lymphocytes % (auto) 13.8 %; Mean Corpuscular Hemoglobin 29.9 pg (25-34); Mean Corpuscular Hgb Conc 31.3 g/dL (32-36); Mean Corpuscular Volume 95.4 fL (80-100); Mean Platelet Volume 11.7 fL (7.4-10.4); Monocytes # (auto) 0.64 K/uL (0.11-0.59); Neutrophils # (auto) 10.23 K/uL (1.4-6.5); Neutrophils % (auto) 79.4 %; Platelet Count 190 K/uL (130-400); RDW Coefficient of Variation 14.2 % (11.5-14.5); RDW Standard Deviation 50.1 fL (36.4-46.3); Red Blood Count 5.05 M/uL (4.2-5.4); White Blood Count 12.87 K/uL (4.8-10.8)
[2021-09-10 23:11] LABS: Albumin Level 3.1 gm/dl (3.4-5.0); BUN Creatinine Ratio 21.6 (10-20); Blood Urea Nitrogen 11 mg/dl (7-18); Calcium 8.9 mg/dl (8.5-10.1); Carbon Dioxide 36 mmol/L (21-32); Chloride 99 mmol/L (98-107); Est GFR (African American) 124.5 ml/min; Est GFR (Non-African American) 107.4 ml/min; Glucose 124 mg/dl (70-99); Potassium 4.3 mmol/L (3.5-5.1); Sodium 139 mmol/L (136-145)
[2021-09-10 23:17] LABS: Alanine Aminotransferase 18 U/L (12-78); Albumin Globulin Ratio 0.7 (0.9-2); Alkaline Phosphatase 100 U/L (45-117); Aspartate Aminotransferase 11 U/L (15-37); Bilirubin,Total 0.2 mg/dl (0.2-1); Globulin 4.4 gm/dl (2.5-4.0); NT Pro B Type Natriuretic Pept 32 pg/ml (0-900); Total Protein 7.5 gm/dl (6.4-8.2); Troponin I < 0.015 ng/ml (0-0.045)
[2021-09-10 23:33] LABS: Base Excess VBG 9.4 mEq/L; HCO3 VBG 41 mmol/L; PCO2 VBG 96 mmHg (38-50); PO2 VBG 28 mmHg; pH VBG 7.25 (7.36-7.41)
[2021-09-10 23:46] LABS: Oxygen Saturation VBG < 60.0 %
--- NOTE | 2021-09-11 00:01 | History & Physical Report ---
Date of Service September 11, 2021 Assessment & Plan (1) Acute on chronic respiratory failure with hypoxia and hypercapnia: Plan: Acute on chronic respiratory failure with hypoxia and hypercapnia/COPD exacerbation/CHF- Patient was COVID-19 negative in the ED She did receive methylprednisolone 60 mg IV in the ED Methylprednisolone 40 mg IV every 8 hours Duonebs every 4 hours while awake and every 2 hours when necessary. Guaifenesin extended release 1200 mg p.o. twice daily Levofloxacin 500 mg IV daily (2) Acute exacerbation of chronic obstructive pulmonary disease (COPD): Plan: Hold Advair, albuterol sulfate HFA and Spiriva for now (3) (HFpEF) heart failure with preserved ejection fraction: Plan: Presently on Lasix 40 in the morning 20 in the evening, which will be increased to 40 mg twice daily Continue potassium chloride 20 mEq daily (4) Tobacco use disorder: Plan: Tobacco cessation counseling (5) FLAKO (obstructive sleep apnea): Plan: CPAP at bedtime as needed History of Present Illness Chief Complaint: The patient presents to the emergency department with complaint of shortness of breath and dyspnea on exertion that began earlier in the day today. Primary Care Provider: Crystal Vasquez The patient is a 56-year-old female with a past medical history including chronic respiratory failure, COPD, HFpEF, pulmonary nodules, CHF, tobacco use disorder, pulmonary hypertension, morbid obesity, obesity, glucose intolerance and osteoarthritis. The patient presents with symptoms as noted above, similar to symptoms that precipitated her previous admissions from 07/08-07/10, and 08/03- 08/05. The patient is chronically on 3 L nasal cannula oxygen at home. Allergies Allergy/AdvReac Type Severity Reaction Status Date / Time azithromycin Allergy Severe respiratory Verified 09/10/21 23:40 distress cefaclor Allergy Severe RESPIRATORY Verified 09/10/21 23:40 DISTRESS erythromycin base Allergy Severe RESPIRATORY Verified 09/10/21 23:40 DISTRESS ibuprofen Allergy Severe RESPIRATORY Verified 09/10/21 23:40 DISTRESS Penicillins Allergy Severe RESPIRATORY Verified 09/10/21 23:40 DISTRESS Sulfa (Sulfonamide Allergy Severe RESPIRATORY Verified 09/10/21 23:40 Antibiotics) DISTRESS, RASH doxycycline AdvReac Severe Difficulty Verified 09/10/21 23:40 Breathing morphine AdvReac Intermediate N/V Verified 09/10/21 23:40 Home Medications Medication Instructions Recorded Confirmed Type albuterol sulfate 90 mcg/actuation 2 puff INHALATION Q6H PRN 10/09/18 09/10/21 History aerosol inhaler fluticasone propionate 230 1 puff INHALATION Q12H 10/09/18 09/10/21 History mcg-salmeterol 21 mcg/actuation HFA inhaler (Advair HFA) tiotropium bromide 2.5 2 puff INHALATION AMHS 10/09/18 09/10/21 History mcg/actuation mist for inhalation (Spiriva Respimat) acetaminophen 500 mg tablet 1,000 mg PO Q6H PRN 10/21/19 09/10/21 History (Tylenol Extra Strength) albuterol sulfate 2.5 mg INHALATION Q4H PRN 10/21/19 09/10/21 History fluticasone propionate 50 2 spray INTRANASAL BID 10/21/19 09/10/21 History mcg/actuation nasal spray,suspension (Flonase Allergy Relief) potassium chloride 20 mEq 20 meq PO QAM 11/09/20 09/10/21 History tablet,extended release(part/cryst) (Klor-Con M) Oxygen Home #1 ea 07/10/21 08/03/21 Rx diclofenac sodium 1 % topical gel 4 g EXT QID PRN 08/03/21 09/10/21 History (Voltaren Arthritis Pain) furosemide 40 mg tablet See Rx Instructions .ROUTE .COMPLEX 09/10/21 09/10/21 History Past Med/Surg History Medical History (Updated 08/10/21 @ 00:08 by Dana Wylie) Chest pain COPD (chronic obstructive pulmonary disease) On 3 L of oxygen continuous Dyspnea Morbid obesity Orthopnea Status asthmaticus TIA (transient ischemic attack) Surgical History History of hysterectomy Hx of cholecystectomy Family History Other Heart disease Social History Smoking Status: Current every day smoker Tobacco Type: Cigarettes Cigarettes Per Day: 10; Second Hand Exposure: No; Hx Alcohol Use: No Hx Substance Use: No Preferred Language: Divehi Communication Ability: Effective Finisher [employer] Required: No Beliefs That Will Affect Care: None marital status: Current Living Situation: Family Current Living Situation Comment: lives in mobile home with son Feels Safe at Home: Yes Assistive Devices: Glasses Review of Systems Review of Systems: The patient denies chest pain, palpitations, cough, lower extremity swelling, sore throat, fevers, chills, sweats, nausea, vomiting, diarrhea , constipation, abdominal pain, pelvic pain, blood in urine or stool, dysuria, urinary frequency or urgency, lightheadedness, dizziness, headache, memory loss, loss of consciousness, rash, abnormal bruising or bleeding, imbalance, focal weakness, numbness or tingling in arms or legs, generalized arthralgias or myalgias, back or neck pain, or night sweats. The review of systems is otherwise negative other than for that already noted above, and at least 10 systems have been reviewed. Physical Exam Physical Exam: The patient is awake, alert and oriented 3, well developed and well nourished, normocephalic and atraumatic, lying in bed and in no acute distress. HEENT--PERRL, EOMI, mucous membranes and oropharynx normal. Neck--supple. No JVD. No bruits. Thyroid normal, trachea midline, no adenopathy. Heart--normal S1 and S2. No murmurs, rubs or gallops. Lungs--significantly decreased breath sounds throughout. Mild respiratory distress, no accessory muscle use. Abdomen--normal bowel sounds and soft. Nontender. Nondistended. Morbidly obese Extremities--no cyanosis or clubbing. 1+ bilateral pretibial pitting edema Dermatologic--normal skin turgor, normal color, no abnormal lymph nodes, no rash. Neurologic--cranial nerves II through XII grossly intact. Rheumatologic--limited range of motion due to body habitus Psychiatric--normal affect. Results & Data Results & Data ([facility]) Vital Signs (Past 12 Hours) Vital Signs Temp Pulse Pulse Resp BP Pulse Ox 09/10/21 23:17 90 20 94 09/10/21 22:54 85 14 91 09/10/21 22:38 98.6 F 100 H 20 115/60 90 Laboratory Results Laboratory Results WBC 12.87 K/uL (4.8-10.8) H 09/10/21 22:43 RBC 5.05 M/uL (4.2-5.4) 09/10/21 22:43 Hgb 15.1 g/dL (12.0-16.0) 09/10/21 22:43 Hct 48.2 % (37-47) H 09/10/21 22:43 MCV 95.4 fL (80-100) 09/10/21 22:43 MCH 29.9 pg (25-34) 09/10/21 22:43 MCHC 31.3 g/dL (32-36) L 09/10/21 22:43 RDW Std Deviation 50.1 fL (36.4-46.3) H 09/10/21 22:43 RDW Coeff of Darius 14.2 % (11.5-14.5) 09/10/21 22:43 Plt Count 190 K/uL (130-400) 09/10/21 22:43 MPV 11.7 fL (7.4-10.4) H 09/10/21 22:43 Immature Gran % (Auto) 0.4 % 09/10/21 22:43 Neut % (Auto) 79.4 % 09/10/21 22:43 Lymph % (Auto) 13.8 % 09/10/21 22:43 [place] % (Auto) 5.0 % 09/10/21 22:43 Eos % (Auto) 1.2 % 09/10/21 22:43 Baso % (Auto) 0.2 % 09/10/21 22:43 Neut # (Auto) 10.23 K/uL (1.4-6.5) H 09/10/21 22:43 Lymph # (Auto) 1.77 K/uL (1.2-3.4) 09/10/21 22:43 [place] # (Auto) 0.64 K/uL (0.11-0.59) H 09/10/21 22:43 Eos # (Auto) 0.15 K/uL (0-0.5) 09/10/21 22:43 Baso # (Auto) 0.03 K/uL (0-0.2) 09/10/21 22:43 Immature Gran # (Auto) 0.05 K/uL (0.00-0.02) H 09/10/21 22:43 VBG pH 7.25 (7.36-7.41) L 09/10/21 23:16 VBG pCO2 96 mmHg (38-50) H 09/10/21 23:16 VBG pO2 28 mmHg 09/10/21 23:16 VBG HCO3 41 mmol/L 09/10/21 23:16 VBG O2 Saturation < 60.0 % 09/10/21 23:16 VBG Base Excess 9.4 mEq/L 09/10/21 23:16 Barometric Pressure 730.0 mm/Hg 09/10/21 23:16 Sodium 139 mmol/L (136-145) 09/10/21 22:43 Potassium 4.3 mmol/L (3.5-5.1) 09/10/21 22:43 Chloride 99 mmol/L (98-107) 09/10/21 22:43 Carbon Dioxide 36 mmol/L (21-32) H 09/10/21 22:43 Anion Gap 3.0 (3-11) 09/10/21 22:43 BUN 11 mg/dl (7-18) 09/10/21 22:43 Creatinine 0.49 mg/dl (0.6-1.2) L 09/10/21 22:43 Est Cr Clr Drug Dosing 131.0 ml/min 09/10/21 22:43 Est GFR ( Amer) 124.5 ml/min 09/10/21 22:43 Est GFR (Non-Af Amer) 107.4 ml/min 09/10/21 22:43 BUN/Creatinine Ratio 21.6 (10-20) H 09/10/21 22:43 Glucose 124 mg/dl (70-99) H 09/10/21 22:43 Calcium 8.9 mg/dl (8.5-10.1) 09/10/21 22:43 Total Bilirubin 0.2 mg/dl (0.2-1) 09/10/21 22:43 AST 11 U/L (15-37) L 09/10/21 22:43 ALT 18 U/L (12-78) 09/10/21 22:43 Alkaline Phosphatase 100 U/L (45-117) 09/10/21 22:43 Troponin I < 0.015 ng/ml (0-0.045) 09/10/21 22:43 NT-Pro-B Natriuret Pep 32 pg/ml (0-900) 09/10/21 22:43 Total Protein 7.5 gm/dl (6.4-8.2) 09/10/21 22:43 Albumin 3.1 gm/dl (3.4-5.0) L 09/10/21 22:43 Globulin 4.4 gm/dl (2.5-4.0) H 09/10/21 22:43 Albumin/Globulin Ratio 0.7 (0.9-2) L 09/10/21 22:43 Urine Color Yellow 09/11/21 00:15 Urine Appearance Clear (Clear) 09/11/21 00:15 Urine pH 5.0 (4.5-7.5) 09/11/21 00:15 Ur Specific [place] 1.013 (1.000-1.030) 09/11/21 00:15 Urine Protein Negative (Negative) 09/11/21 00:15 Urine Glucose (UA) Negative (Negative) 09/11/21 00:15 Urine Ketones Negative (Negative) 09/11/21 00:15 Urine Blood Trace (Negative) H 09/11/21 00:15 Urine Nitrite Negative (Negative) 09/11/21 00:15 Urine Bilirubin Negative (Negative) 09/11/21 00:15 Urine Urobilinogen Negative (Negative) 09/11/21 00:15 Ur Leukocyte Esterase Negative (Negative) 09/11/21 00:15 COVID-19 Eval [address]19 at [facility] 09/10/21 23:53 SARS-CoV-2 (PCR) NEGATIVE (Negative) 09/10/21 23:53 Code Status & VTE Plan Code Status Full code VTE Prophylaxis Plan VTE Prophylaxis will be ordered: Yes PG Care Time/CCT Total # of Minutes Spent Total Time Spent with Patient: Total time spent is greater than 50% in coordination of care (as documented) at patient's floor/unit and/or counseling patient: Coding Level of Care Code 76558 Initial Inpt Care Lvl 3 Diagnoses Acute exacerbation of chronic obstructive pulmonary disease (COPD) J44.1 (HFpEF) heart failure with preserved ejection fraction I50.30 Acute on chronic respiratory failure with hypoxia and hypercapnia J96.21; J96.22 Tobacco use disorder F17.200 FLAKO (obstructive sleep apnea) G47.33
[2021-09-11 00:38] LABS: Appearance Urine Clear (Clear); Bacteria Urine Automated 1+ (Negative); Bilirubin Urine Negative (Negative); Blood Urine Trace (Negative); Color Urine Yellow; Epithelial Cell Urine Auto >30 /lpf (0-5); Glucose Urine UA Negative (Negative); Ketones Urine Negative (Negative); Leukocyte Esterase Urine Negative (Negative); Nitrite Urine Negative (Negative); Protein Urine Negative (Negative); Specific Gravity Urine 1.013 (1.000-1.030); Urobilinogen Urine Negative (Negative)
[2021-09-11 01:14] LABS: RBC Urine Automated 0-4 /hpf (0-4)
[2021-09-11] MEDS ORDERED: levoFLOXacin/D5W 500 MG/100 ML BAG IV SCH ×2 (02:00→12:00)
[2021-09-11] MEDS ORDERED: ONDANSETRON INJ 2 MG/ML 2 ML VIAL IV PRN (02:53)
[2021-09-11] MEDS ORDERED: ALBUTEROL 0.083% NEBU SOLN 3 ML VIAL INH PRN (02:53)
[2021-09-11] MEDS ORDERED: ACETAMINOPHEN 325 MG TAB PO PRN (02:53)
[2021-09-11] MEDS: FUROSEMIDE 40 MG TAB PO SCH ×3 (04:29→09:39)
--- NOTE | 2021-09-11 06:38 | XRay Report ---
XR chest 1V portable HISTORY: 56 years-old Female Dyspnea acute shortness of breath COMPARISON: Chest CT and chest radiographs 08/03/2021 TECHNIQUE: Portable AP view of the chest FINDINGS: Cardiac silhouette is enlarged. Calcified plaque of the thoracic aorta. Emphysema with chronic inters titial coarsening. No pneumothorax, large pleural effusion or overt pulmonary edema. Unchanged mild l inear bibasilar scarring/atelectasis. Degenerative changes of the shoulders and spine. IMPRESSION: Emphysema without acute process. ACT 112: Negative or not required by law. The above report was generated using voice recognition software. It may contain grammatical, syntax o r spelling errors. Electronically signed by: Scottie Cabrera M.D. 09/11/2021 6:37 AM
[2021-09-11] MEDS: ALBUT/IPRATROP 3MG/0.5MG NEB 3 ML VIAL NEB SCH ×5 (08:02→22:38)
--- NOTE | 2021-09-11 08:19 | Hospitalist Progress Note ---
Date of Service September 11, 2021 Assessment & Plan (1) COPD exacerbation: Plan: 56yo unvaccinated smoker with COPD and frequent readmission for COPD exacerbations presents a few-day history of worsening SOB. COPD exacerbation Few days of worsening SOB, desaturations at home to the 70s with exertion On admission, hemodynamically stable, hypoxic, with mild leukocytosis (12.9) Of note, patient is unvaccinated for covid-19 (PCR on admission negative) and is an active smoker Received solumedrol 60mg IV in ED, continue with solumedrol 40mg IV q8h Duonebs q4h while awake, q2h prn Continue home spiriva and advair Continue levofloxacin Discontinue mucinex Titrate supplemental oxygen to maintain SpO2>88%, wean as tolerated HFpEF Changed lasix from 40mg bid back to patient's home dose of 40mg in AM, 20mg in PM Continue potassium chloride 20 mEq daily FLAKO CPAP qhs Nicotine dependence Nicotine patch 7mg qd ordered Encourage cessation, PCP follow-up FEN: heart-healthy diet Code status: full code DVT ppx: lovenox PT/OT: ordered Dispo: med/surg telemetry Admission and Anticipated Discharge Date Admission Date: September 11, 2021 Supervising Physician Co-Signing Physician Notes I personally examined the patient and verified all mar points of history and e xam, discussed case, and agree with decision making with Dr Elizalde Feeling better and breathing better. Notes that she thought the Levaquin made her feel a bit itchy. Tried to review her prior allergiesbut there were too many confounding factors in her memory to really be able to totally recall what happened with what, and when. We also had a lengthy discussion about flu vaccine and Covid vaccine, she was under the false impression that you could get flu from the flu virus injected as part of the flu vaccine, and was mostly concerned about the population health effects of asymptomatic shedding if 1 had Covid after getting the vaccine. Vitals noted, in general she is awake and alert pleasant no distress. HEENT normocephalic atraumatic mucous membranes are moist. Breathing unlabored no accessory muscle use good effortlungs are markedly diminished throughout but no rales rhonchi or wheeze with good effort. Skin shows no rashes no pallor or icterus. Neuro without focal deficits. COPD exacerbationdue to allergies to Zithromax and doxy, Levaquin was initiated for atypical coverage/pulmonary anti-inflammatory effectunfortunately she noted this caused her to be itchy as welland would like it to be discontinued. Fortunately she is improving with steroids, pulmonary toilet, and supportive care. Therefore we can continue "as is". Severe COPDchronic hypoxic and hypercapnic respiratory failure (probably with an acute hypoxic and hypercapnic exacerbation at this time)continue chronic O2. Agree with prior pulmonary assessment that she would likely benefit from some form of noninvasive ventilation at homewe will recommend ongoing outpatient pulmonary follow-up for this at discharge. Extensive discussion on vaccinesafter our discussion she was more amenableparticularly as it relates to Covid. I believe she did say she had a pneumonia vaccine. Multiple allergieswe discussed that it was not really clear what her reactions were, and in the context of somebody with COPD, being able to institute atypical coverage would be quite beneficial. To that end, given her reactions were not entirely clearwe agreed it would be quite reasonable to see allergy after discharge for evaluation. DVT prophylaxisLovenox Otherwise as above Subjective Patient seen and evaluated at bedside this morning. Patient reports her breathing is far better than when she came in, but not quite back to baseline. Leg swelling has improved. Mild abdominal discomfort persists. No CP, nausea, vomiting, dizziness, lightheadedness, syncope, or other symptoms. Review of Systems Review of Systems: See HPI Physical Exam Physical Exam: Constitutional: well-appearing, no acute distress, sitting at the edge of her bad CV: regular rhythm, no murmur appreciated, extremities well-perfused, no LE edema Resp: lung sounds diminished in all dash anteriorly and posteriorly GI: soft, nondistended, minimally tender Neuro: AOx4, no focal neurological deficits appreciated Results & Data Results & Data ([facility]) Vital Signs (Past 12 Hours) Vital Signs Temp Pulse Pulse Resp BP BP Pulse Ox 09/11/21 08:03 83 16 88 L 09/11/21 04:01 75 21 109/56 L 91 09/11/21 03:31 82 22 92 09/11/21 02:54 83 16 92 09/11/21 02:53 09/11/21 02:39 94 H 22 104/69 90 09/11/21 01:56 80 22 90 09/11/21 01:48 80 20 95 09/11/21 01:19 82 21 91 09/10/21 23:17 90 20 94 09/10/21 22:54 85 14 91 09/10/21 22:38 37.0 C 100 H 90 22 115/60 88/59 L 91 Pulse Ox 09/11/21 08:03 09/11/21 04:01 09/11/21 03:31 09/11/21 02:54 09/11/21 02:53 92 09/11/21 02:39 09/11/21 01:56 09/11/21 01:48 09/11/21 01:19 09/10/21 23:17 09/10/21 22:54 09/10/21 22:38 Resident Activity Tracking Resident Involvement: Resident Care Provided Care Provided: Adult Hospital Medicine
[2021-09-11] MEDS ORDERED: guaiFENesin 600 MG TABCR PO SCH (09:00)
[2021-09-11] MEDS: methylPREDNISolone 40 MG in SYRINGE 0 ML IV SCH ×2 (09:08→16:04)
[2021-09-11] MEDS: ENOXAPARIN INJ 40 MG/0.4 ML SYR SQ SCH (09:08)
[2021-09-11] MEDS: POTASSIUM CHLORIDE CRTAB 20 MEQ TABCR PO SCH (09:09)
[2021-09-11] MEDS: FLUTICASONE/VILANTEROL 100/25MCG 14 PUFFS/INHALER INH SCH (11:50)
[2021-09-11] MEDS: UMECLIDINIUM BROMIDE 62.5MCG/BLISTER 7 PUFFS/INHALER INH SCH (11:50)
[2021-09-11] MEDS: NICOTINE 7 MG/24 HR TDSY TD SCH (13:40)
--- NOTE | 2021-09-11 13:42 | Electrocardiogram Report ---
Test Reason : Blood Pressure : / mmHG Vent. Rate : 098 BPM Atrial Rate : 098 BPM P-R Int : 152 ms QRS Dur : 096 ms QT Int : 346 ms P-R-T Axes : 071 071 050 degrees QTc Int : 441 ms Poor data quality, interpretation may be adversely affected Normal sinus rhythm Normal ECG When compared with ECG of 03-AUG-2021 14:27, No significant change was found Confirmed by Robbin Zavala ([id number]) on 09/11/2021 1:42:09 PM Referred By: REFERRED SELF Confirmed By:Robbin Zavala
[2021-09-11] MEDS ORDERED: FUROSEMIDE 20 MG TAB PO SCH (17:00)
[2021-09-12] MEDS: methylPREDNISolone 40 MG in SYRINGE 0 ML IV SCH ×2 (00:38→08:42)
[2021-09-12] MEDS ORDERED: levoFLOXacin/D5W 500 MG/100 ML BAG IV SCH (04:44)
[2021-09-12 06:12] LABS: Hematocrit (blood only) 42.3 % (37-47); Hemoglobin 13.5 g/dL (12.0-16.0); Immature Granulocytes # (auto) 0.05 K/uL (0.00-0.02); Immature Granulocytes % (auto) 0.6 %; Lymphocytes # (auto) 1.04 K/uL (1.2-3.4); Lymphocytes % (auto) 11.5 %; Mean Corpuscular Hemoglobin 29.6 pg (25-34); Mean Corpuscular Hgb Conc 31.9 g/dL (32-36); Mean Corpuscular Volume 92.8 fL (80-100); Mean Platelet Volume 11.8 fL (7.4-10.4); Monocytes # (auto) 0.23 K/uL (0.11-0.59); Monocytes % (auto) 2.5 %; Neutrophils # (auto) 7.73 K/uL (1.4-6.5); Neutrophils % (auto) 85.4 %; Platelet Count 181 K/uL (130-400); RDW Coefficient of Variation 13.5 % (11.5-14.5); RDW Standard Deviation 46.2 fL (36.4-46.3); Red Blood Count 4.56 M/uL (4.2-5.4); White Blood Count 9.05 K/uL (4.8-10.8)
[2021-09-12 06:44] LABS: Albumin Level 2.5 gm/dl (3.4-5.0); Calcium 8.6 mg/dl (8.5-10.1); Creatinine Clr Calc Pharmacy 142.5 ml/min; Est GFR (Non-African American) 111.3 ml/min; Potassium 4.7 mmol/L (3.5-5.1)
--- NOTE | 2021-09-12 06:54 | Hospitalist Progress Note ---
Date of Service September 12, 2021 Assessment & Plan (1) COPD exacerbation: Plan: 56yo unvaccinated smoker with COPD and frequent readmission for COPD exacerbations presents a few-day history of worsening SOB. COPD exacerbation Few days of worsening SOB, desaturations at home to the 70s with exertion On admission, hemodynamically stable, hypoxic, with mild leukocytosis (12.9) Of note, patient is unvaccinated for covid-19 (PCR on admission negative) and is an active smoker Received solumedrol 60mg IV in ED, continue with solumedrol 40mg IV q8h Duonebs q4h while awake, q2h prn Continue home spiriva and advair Continue levofloxacin Discontinue mucinex Titrate supplemental oxygen to maintain SpO2>88%, wean as tolerated HFpEF Changed lasix from 40mg bid back to patient's home dose of 40mg in AM, 20mg in PM Continue potassium chloride 20 mEq daily FLAKO CPAP qhs Nicotine dependence Nicotine patch 7mg qd ordered Encourage cessation, PCP follow-up FEN: heart-healthy diet Code status: full code DVT ppx: lovenox PT/OT: ordered Dispo: med/surg telemetry Admission and Anticipated Discharge Date Admission Date: September 11, 2021 Results & Data Results & Data ([facility]) Vital Signs (Past 12 Hours) Vital Signs Temp Pulse Pulse Resp BP Pulse Ox 09/12/21 04:26 36.5 C 74 18 113/57 L 93 09/11/21 23:57 88 09/11/21 23:00 36.6 C 87 16 103/68 93 09/11/21 22:38 87 18 93
[2021-09-12 07:02] LABS: Albumin Globulin Ratio 0.7 (0.9-2); Bilirubin,Total 0.3 mg/dl (0.2-1); Globulin 3.5 gm/dl (2.5-4.0)
[2021-09-12] MEDS: ALBUT/IPRATROP 3MG/0.5MG NEB 3 ML VIAL NEB SCH ×2 (07:12→11:21)
[2021-09-12] MEDS: POTASSIUM CHLORIDE CRTAB 20 MEQ TABCR PO SCH (08:41)
[2021-09-12] MEDS: ENOXAPARIN INJ 40 MG/0.4 ML SYR SQ SCH (08:42)
[2021-09-12] MEDS: NICOTINE 7 MG/24 HR TDSY TD SCH (08:43)
[2021-09-12] MEDS: UMECLIDINIUM BROMIDE 62.5MCG/BLISTER 7 PUFFS/INHALER INH SCH (08:43)
[2021-09-12] MEDS: FLUTICASONE/VILANTEROL 100/25MCG 14 PUFFS/INHALER INH SCH (08:45)
[2021-09-12] MEDS ORDERED: FUROSEMIDE 40 MG TAB PO SCH (09:00)
--- NOTE | 2021-09-12 13:17 | Discharge Summary ---
Date of Service September 12, 2021 Admission HPI Per Admitting Provider The patient is a 56-year-old female with a past medical history including chronic respiratory failure, COPD, HFpEF, pulmonary nodules, CHF, tobacco use disorder, pulmonary hypertension, morbid obesity, obesity, glucose intolerance and osteoarthritis. The patient presents with symptoms as noted above, similar to symptoms that precipitated her previous admissions from 07/08-07/10, and 08/03- 08/05. The patient is chronically on 3 L nasal cannula oxygen at home. Admission Exam Per Admitting Provider The patient is awake, alert and oriented 3, well developed and well nourished, normocephalic and atraumatic, lying in bed and in no acute distress. HEENT--PERRL, EOMI, mucous membranes and oropharynx normal. Neck--supple. No JVD. No bruits. Thyroid normal, trachea midline, no adenopathy. Heart--normal S1 and S2. No murmurs, rubs or gallops. Lungs--significantly decreased breath sounds throughout. Mild respiratory distress, no accessory muscle use. Abdomen--normal bowel sounds and soft. Nontender. Nondistended. Morbidly obese Extremities--no cyanosis or clubbing. 1+ bilateral pretibial pitting edema Dermatologic--normal skin turgor, normal color, no abnormal lymph nodes, no rash. Neurologic--cranial nerves II through XII grossly intact. Rheumatologic--limited range of motion due to body habitus Psychiatric--normal affect. Principal Diagnosis COPD exacerbation Discharge Exam Constitutional: well-appearing, no acute distress, sitting at the edge of her bad CV: regular rhythm, no murmur appreciated, extremities well-perfused, no LE edema Resp: lung sounds diminished in all dash anteriorly and posteriorly GI: soft, nondistended, minimally tender Neuro: AOx4, no focal neurological deficits appreciated Discharge Data Allergies Allergy/AdvReac Type Severity Reaction Status Date / Time azithromycin Allergy Severe respiratory Verified 09/10/21 23:40 distress cefaclor Allergy Severe RESPIRATORY Verified 09/10/21 23:40 DISTRESS erythromycin base Allergy Severe RESPIRATORY Verified 09/10/21 23:40 DISTRESS ibuprofen Allergy Severe RESPIRATORY Verified 09/10/21 23:40 DISTRESS Penicillins Allergy Severe RESPIRATORY Verified 09/10/21 23:40 DISTRESS Sulfa (Sulfonamide Allergy Severe RESPIRATORY Verified 09/10/21 23:40 Antibiotics) DISTRESS, RASH doxycycline AdvReac Severe Difficulty Verified 09/10/21 23:40 Breathing morphine AdvReac Intermediate N/V Verified 09/10/21 23:40 Consultations 09/10/21 23:37 ED Decision to Admit Stat Hospital Course (1) COPD exacerbation: COPD exacerbation On arrival, patient was hemodynamically stable, hypoxic, with mild leukocytosis. Patient received IV steroids in the ED which were continued on admission. Patient initially required BiPAP to maintain adequate oxygenation, but this quickly improved. Patient was started on levofloxacin, but this was discontinued after patient developed pruritis. Patient's home inhaler regimen was continued, and patient received scheduled duonebs. By hospital day two, patient's oxygen requirement had returned to patient's baseline of 3L. Patient was felt stable enough for discharge on hospital day three, and was discharged with a 14-day prednisone taper. PCP follow-up was recommended, as was covid/flu vaccination and smoking cessation. Multiple allergies Patient was noted on admission with numerous allergies including many antibiotic allergies, which severely limited options for treating patient's frequent hospitalizations for pulmonary disease. Patient was encouraged to meet with shot peening operator (Dr. Jackson) to discuss potential testing, as patient's reported reactions seemed inconsistent with allergic reactions. Outpatient follow-up with Dr. Jackson was requested prior to discharge. Nicotine dependence Patient was noted to be an active smoker on admission. Smoking cessation was encouraged, and patient was encouraged to discuss this with her PCP. Total Time Total Time Spent Total Time Spent (In Minutes): <30 Discharge Plan Discharge Items Patient Disposition: Home - Self-Care Reason For Visit: COPD EX Discharge Diagnosis: COPD exacerbation Activity: Resume your previous activity Non-emergency contact: Primary Care Provider Call non-emergency contact if: your symptoms worsen Follow-up/Referrals: Crystal Vasquez PA-C [Primary Care Provider] - Lacey Jackson MD [Physician] - (patient with multiple questionable allergies, frequent COPD exacerbations, few antibiotic options) Diet: Heart Healthy Addtl Attending Provider Instructions: You were admitted to the hospital for COPD exacerbation. You were treated with steroids, antibiotics, and breathing treatments. Your symptoms have improved, and we feel it is safe for you to return home. A discharge summary will be sent to your primary care physician to ensure continuity of care. Please bring this discharge summary with you to your next office appointment so that your provider can review it at that time. Follow-up appointments: Make a follow-up appointment with your PCP within the next week. It is very important that you follow up with them shortly after discharge from the hospital. Keep all your follow-up appointments as already scheduled. If you cannot make an appointment, notify your provider. Medications: Your medication list has been reviewed and reconciled upon discharge to ensure accuracy and continuity of care. An updated list of all your medications is included with your hospital discharge paperwork. Please review this list closely, and make note of any changes. * We have sent prednisone (a steroid) to your pharmacy. Your dose of prednisone will decrease over time. * On September 13 and , take prednisone (10mg) six tablets once daily. * On September 15 and , take prednisone (10mg) five tablets once daily. * On September 17 and , take prednisone (10mg) four tablets once daily. * On September 19 and , take prednisone (10mg) three tablets once daily. * On September 21 and , take prednisone (10mg) two tablets once daily. * On September 23 and , take prednisone (10mg) one tablets once daily. Take your medications as instructed; do not skip a dose of your medicines. Make sure all of your doctors know every medicine you are taking (including [id number] medicines, vitamins, and supplements). Call your primary care provider before taking any new medicines (including xisg-eiw-[id number] medicines, vitamins, and supplements), because some of these may interact with your current medications, or may make your symptoms worse. Tell your primary care provider if you cannot afford your medications. CONTACT YOUR PRIMARY CARE PROVIDER if you experience any of the following: Increase in your oxygen requirement Fever, chills, cough Difficulty following your treatment plan, or difficulty taking medications CALL 911 OR GO TO THE EMERGENCY DEPARTMENT if you experience any of the following: Sudden, severe abdominal pain or nausea/vomiting Severe chest pain, or chest pain that radiates (moves) to your jaw or arm Sudden, severe shortness of breath or difficulty breathing Thank you for allowing us to participate in your care. Pending Studies at Discharge: No Stand-Alone Forms: [facility], Sm[facility] Cessation Medications and DC Order Prescriptions: New prednisone 10 mg tablet See Rx Instructions .ROUTE .COMPLEX Qty: 42 RF: 0 Continued potassium chloride [Klor-Con M20] 20 mEq tablet,ER particles/crystals 20 meq PO QAM RF: 0 albuterol sulfate 90 mcg/actuation Hfa Aerosol Inhaler 2 puff INHALATION Q6H PRN (Reason: Shortness Of Breath Or Wheezing) RF: 0 Advair HFA 230-21 mcg/actuation Hfa Aerosol Inhaler 1 puff INHALATION Q12H RF: 0 Spiriva Respimat 2.5 mcg/actuation Mist 2 puff INHALATION AMHS RF: 0 albuterol sulfate 2.5 mg /3 mL (0.083 %) Solution For Nebulization 2.5 mg INHALATION Q4H PRN (Reason: Shortness Of Breath Or Wheezing) RF: 0 acetaminophen [Tylenol Extra Strength] 500 mg Tablet 1,000 mg PO Q6H PRN (Reason: Pain) RF: 0 fluticasone propionate [Flonase Allergy Relief] 50 mcg/actuation [place],Suspension 2 spray INTRANASAL BID RF: 0 (DME) Oxygen Home Liters Per Minute See Rx Instructions .ROUTE .MEDSUPPLY Qty: 1 RF: 0 furosemide 40 mg tablet See Rx Instructions .ROUTE .COMPLEX RF: 0 diclofenac sodium [Voltaren Arthritis Pain] 1 % gel 4 g EXT QID PRN (Reason: Pain) RF: 0 Discharge Orders: Discharge Order (Routine); Ordered 09/12/21 Ordered By: Howard Elizalde Admission Data Admit Date/Time: 09/11/21 00:00 Attending Provider: Giancarlo Aceves Admit Provider: Hood Rodney Primary Care Provider: Crystal Vasquez Other Providers: Hood Rodney Other Interventions: Discharge Summary Assessment (RN) Last Done: 09/12/21 12:26 Supervising Physician Co-Signing Physician Notes I personally examined the patient and verified all mar points of history and exam, discussed case, and agree with decision making with Dr Elizalde Feeling better and would like to go home. no new complaints COPD exacerbationdue to allergies to Zithromax and doxy, Levaquin was initiated for atypical coverage/pulmonary anti-inflammatory effectunfortunately she noted this caused her to be itchy as welland would like it to be discontinued. Fortunately she is improving with steroids, pulmonary toilet, and supportive care. -->stable for home Severe COPDchronic hypoxic and hypercapnic respiratory failure (probably with an acute hypoxic and hypercapnic exacerbation at this time)continue chronic O2. Agree with prior pulmonary assessment that she would likely benefit from some form of noninvasive ventilation at homewe will recommend ongoing outpatient pulmonary follow-up for this at discharge. Extensive discussion on vaccines yesterdayafter our discussion she was more amenableparticularly as it relates to Covid. I believe she did say she had a pneumonia vaccine. Multiple allergieswe discussed that it was not really clear what her reactions were, and in the context of somebody with COPD, being able to institute atypical coverage would be quite beneficial. To that end, given her reactions were not entirely clearwe agreed it would be quite reasonable to see allergy after discharge for evaluation. DVT prophylaxisLovenox Otherwise as above Resident Activity Tracking Resident Involvement: Resident Care Provided Care Provided: Adult [facility]
--- NOTE | 2021-09-12 18:02 | Billing Data ---
Date of Service September 12, 2021 Coding Level of Care Code D/C DAY MANAGEMENT <30 MINS
== END 2021-09-12 15:19 | disposition home or self-care (01) | DRG 190 ==
LOC: ED 22:26 → SUATTDRO 09-11 → EDINP 09-11 → 2W 09-11 02:39

== ENCOUNTER 2021-10-28 08:42 | Inpatient (IN) ==
[2021-10-28] MEDS ORDERED: ACETAMINOPHEN 500 MG TAB PO STA (09:25)
[2021-10-28] MEDS ORDERED: dexAMETHasone**PF** 10 MG/ML VIAL IV ONE (09:25)
--- NOTE | 2021-10-28 09:52 | Emergency Department Note ---
Impression & Plan Respiratory failure, COPD (chronic obstructive pulmonary disease), Tobacco use disorder, 2019 novel coronavirus-infected pneumonia (NCIP) ED Provider Note Provider: Emerson Price MD DATE OF SERVICE: 10/28/2021 CHIEF COMPLAINT: Shortness of breath, fatigue HISTORY OF PRESENT ILLNESS: Patient is a 56-year-old female history of chronic respiratory failure on 3 L of oxygen at home with COPD, pulmonary hypertension, CHF, who is unvaccinated for Covid with recent exposure to her who tested positive presenting here today via ambulance from her home with worsening shortness of breath and fatigue overnight. Patient states she began to feel more ill yesterday for little better in the evening got worse overnight. Patient denies significant chest pain. She reports she has used some Tylenol last night to help with aches and pains. Did recently complete a course of doxycycline and steroids yesterday. Patient denies trauma or falls. REVIEW OF SYSTEMS: A total of 10 review of systems was obtained and negative except as stated above in the HPI. PAST MEDICAL HISTORY: As noted above MEDICATIONS: Reviewed home medication list includes chronic home oxygen 3 L SOCIAL HISTORY: Smoker, lives at home with PHYSICAL EXAM: GENERAL: alert and oriented seated on the stretcher appears fatigued. Head: normocephalic and atraumatic EYES: No injection, discharge or icterus. NECK: Trachea midline. ENT: Mucous membranes pink and moist. LUNGS: Airway patent. No retractions. Breath sounds coarse with scattered wheeze. HEART: Regular rate and rhythm. No chest wall tenderness ABDOMEN: Soft and non-tender, without guarding or rebound. SKIN: Acyanotic, warm, dry, without rashes EXTREMITIES: Without swelling, tenderness or deformity NEUROLOGICAL: No focal deficits. No aphasia. No facial droop or slurred speech. EK bpm normal sinus rhythm. No PVC or PAC. No acute ST segment elevation noted with some artifact. QTC 388. CONTINUOUS CARDIAC MONITORING: was ordered and showed a heart rate of 80s to 100sbpm in normal sinus rhythm to sinus tachycardia Patient's laboratory studies and imaging reviewed. Differential includes Infection, dehydration, metabolic abnormality, hypo/hyperglycemia, electrolyte disturbance, anemia, hypoxia, cardiac sources, intracerebral event, toxicologic, neurologic, as well as other pathologies. IMPRESSION/MEDICAL DECISION MAKING: Patient recent Covid exposure unvaccinated with chronic respiratory failure. Now on increased oxygen. Given steroids. Covid positive. X-ray with emphysema changes but no hayden pulmonary edema or consolidative pneumonia noted. Blood work without significant leukocytosis or anemia. Mild hypercarbia and acidosis noted. No significant renal dysfunction noted. CRP moderately elevated 4.5. Troponins not elevated and there is no acute ischemic STEMI on EKG and doubt this represents ACS. Procalcitonin undetectably low. Influenza testing is negative. Believe likely Covid on top of her COPD is worsening her respiratory status. Patient agreeable with plan for further care here at the hospital. She is not acutely altered in discussion with the patient will hold off on BiPAP at this time. Hospitalist team contacted. DIAGNOSIS: COVID-19 pneumonia, hypoxia, acute on chronic respiratory failure DISPOSITION: Hospitalist will evaluate Patient was agreeable with this plan. Past Med/Surg History Medical History (Updated 10/28/21 @ 15:01 by Emerson Price M.D.) Chest pain COPD (chronic obstructive pulmonary disease) On 3 L of oxygen continuous Dyspnea Morbid obesity Orthopnea Status asthmaticus TIA (transient ischemic attack) Surgical History History of hysterectomy Hx of cholecystectomy Family History Other Heart disease Social History Smoking Status: Current every day smoker Tobacco Type: Cigarettes Cigarettes Per Day: 10; Second Hand Exposure: No; Hx Alcohol Use: No Hx Substance Use: No Preferred Language: [place] Communication Ability: Effective 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 Beliefs That Will Affect Care: None marital status: Current Living Situation: Family Current Living Situation Comment: lives in mobile home with son Feels Safe at Home: Yes Assistive Devices: CPAP and Oxygen - Continuous Allergies Allergies Allergy/AdvReac Type Severity Reaction Status Date / Time azithromycin Allergy Severe respiratory Verified 09/10/21 23:40 distress cefaclor Allergy Severe RESPIRATORY Verified 09/10/21 23:40 DISTRESS erythromycin base Allergy Severe RESPIRATORY Verified 09/10/21 23:40 DISTRESS ibuprofen Allergy Severe RESPIRATORY Verified 09/10/21 23:40 DISTRESS Penicillins Allergy Severe RESPIRATORY Verified 09/10/21 23:40 DISTRESS Sulfa (Sulfonamide Allergy Severe RESPIRATORY Verified 09/10/21 23:40 Antibiotics) DISTRESS, RASH doxycycline AdvReac Severe Difficulty Verified 09/10/21 23:40 Breathing morphine AdvReac Intermediate N/V Verified 09/10/21 23:40 Home Meds Home Medications Medication Instructions Recorded Confirmed albuterol sulfate 90 mcg/actuation 2 puff INHALATION Q6H PRN 10/09/18 09/10/21 aerosol inhaler fluticasone propionate 230 1 puff INHALATION Q12H 10/09/18 09/10/21 mcg-salmeterol 21 mcg/actuation HFA inhaler (Advair HFA) tiotropium bromide 2.5 2 puff INHALATION AMHS 10/09/18 09/10/21 mcg/actuation mist for inhalation (Spiriva Respimat) acetaminophen 500 mg tablet 1,000 mg PO Q6H PRN 10/21/19 09/10/21 (Tylenol Extra Strength) albuterol sulfate 2.5 mg INHALATION Q4H PRN 10/21/19 09/10/21 fluticasone propionate 50 2 spray INTRANASAL BID 10/21/19 09/10/21 mcg/actuation nasal spray,suspension (Flonase Allergy Relief) potassium chloride 20 mEq 20 meq PO QAM 11/09/20 09/10/21 tablet,extended release(part/cryst) (Klor-Con M) diclofenac sodium 1 % topical gel 4 g EXT QID PRN 08/03/21 09/10/21 (Voltaren Arthritis Pain) furosemide 40 mg tablet See Rx Instructions .ROUTE .COMPLEX 09/10/21 09/10/21 Previous Rx's Medication Instructions Recorded Oxygen Home #1 ea 07/10/21 prednisone 10 mg tablet See Rx Instructions .ROUTE 09/12/21 .COMPLEX #42 tab Results & Data (ED) Vital Signs Vital Signs - 24 hr 10/28/21 08:45 10/28/21 09:01 10/28/21 10:38 Temperature 39.2 C H Temperature Source Oral Pulse Rate 104 H Pulse Rate [Apical] 92 H Respiratory Rate 22 20 Respiratory Effort / Characteristics Respiratory Depth Respiratory Pattern Blood Pressure 142/59 H Blood Pressure [Right Arm] 126/56 L Blood Pressure Mean 86 Blood Pressure Mean [Right Arm] 79 Pulse Oximetry 96 88 L Oxygen Delivery Method Nasal Cannula Nasal Cannula Nasal Cannula Oxygen Flow Rate 3 3 4 Sepsis Recent Fever Within 48 Hours Yes Sepsis New/Unexplained Change in Mental Status No Sepsis Action Taken by Nursing Physician Notified 10/28/21 11:12 Temperature Temperature Source Pulse Rate 79 Pulse Rate [Apical] Respiratory Rate 17 Respiratory Effort / Characteristics Non-Labored Spontaneous Respiratory Depth Normal Respiratory Pattern Regular Blood Pressure Blood Pressure [Right Arm] Blood Pressure Mean Blood Pressure Mean [Right Arm] Pulse Oximetry 95 Oxygen Delivery Method Oxygen Flow Rate 6 Sepsis Recent Fever Within 48 Hours Sepsis New/Unexplained Change in Mental Status Sepsis Action Taken by Nursing Laboratory Data Result diagrams: 10/28/21 09:44 10/28/21 09:44 Lab Results 10/28/21 10/28/21 10/28/21 Range/Units 09:44 09:44 09:44 WBC 6.87 (4.8-10.8) K/uL RBC 4.85 (4.2-5.4) M/uL Hgb 14.6 (12.0-16.0) g/dL Hct 47.1 H (37-47) % MCV 97.1 (80-100) fL MCH 30.1 (25-34) pg MCHC 31.0 L (32-36) g/dL RDW Std Deviation 52.6 H (36.4-46.3) fL RDW Coeff of Darius 14.7 H (11.5-14.5) % Plt Count 139 (130-400) K/uL MPV 11.6 H (7.4-10.4) fL Immature Gran % (Auto) 0.3 % Neut % (Auto) 78.9 % Lymph % (Auto) 9.3 % [place] % (Auto) 11.4 % Eos % (Auto) 0.1 % Baso % (Auto) 0.0 % Neut # (Auto) 5.42 (1.4-6.5) K/uL Lymph # (Auto) 0.64 L (1.2-3.4) K/uL [place] # (Auto) 0.78 H (0.11-0.59) K/uL Eos # (Auto) 0.01 (0-0.5) K/uL Baso # (Auto) 0.00 (0-0.2) K/uL Immature Gran # (Auto) 0.02 (0.00-0.02) K/uL Fibrinogen (184-400) mg/dl VBG pH (7.36-7.41) VBG pCO2 (38-50) mmHg VBG pO2 mmHg VBG HCO3 mmol/L VBG O2 Saturation % VBG Base Excess mEq/L Barometric Pressure mm/Hg Sodium 139 (136-145) mmol/L Potassium 3.4 L (3.5-5.1) mmol/L Chloride 98 (98-107) mmol/L Carbon Dioxide 40 H (21-32) mmol/L Anion Gap 1.0 L (3-11) BUN 12 (7-18) mg/dl Creatinine 0.53 L (0.6-1.2) mg/dl Est Cr Clr Drug Dosing 121.3 ml/min Est GFR ( Amer) 121.3 ml/min Est GFR (Non-Af Amer) 104.7 ml/min BUN/Creatinine Ratio 22.8 H (10-20) Glucose 85 (70-99) mg/dl Lactate 0.7 (0.4-2.0) mmol/L Calcium 8.9 (8.5-10.1) mg/dl Ferritin (8-388) ng/ml Total Bilirubin 0.2 (0.2-1) mg/dl AST 20 (15-37) U/L ALT 23 (12-78) Alkaline Phosphatase 70 (45-117) U/L Lactate Dehydrogenase Troponin I < 0.015 (0-0.045) ng/ml C-Reactive Protein 4.51 H (0-0.29) mg/dl NT-Pro-B Natriuret Pep 72 (0-900) pg/ml Total Protein 6.4 (6.4-8.2) gm/dl Albumin 3.0 L (3.4-5.0) gm/dl Globulin 3.4 (2.5-4.0) gm/dl Albumin/Globulin Ratio 0.9 (0.9-2) Procalcitonin (0-0.5) ng/ml SARS-CoV-2 (PCR) (Negative) Influenza Type A (PCR) (Neg) Influenza Type B (PCR) (Neg) RSV (RT-PCR) (Neg) 10/28/21 10/28/21 10/28/21 Range/Units 09:44 09:44 09:44 WBC (4.8-10.8) K/uL RBC (4.2-5.4) M/uL Hgb (12.0-16.0) g/dL Hct (37-47) % MCV (80-100) fL MCH (25-34) pg MCHC (32-36) g/dL RDW Std Deviation (36.4-46.3) fL RDW Coeff of Darius (11.5-14.5) % Plt Count (130-400) K/uL MPV (7.4-10.4) fL Immature Gran % (Auto) % Neut % (Auto) % Lymph % (Auto) % [place] % (Auto) % Eos % (Auto) % Baso % (Auto) % Neut # (Auto) (1.4-6.5) K/uL Lymph # (Auto) (1.2-3.4) K/uL [place] # (Auto) (0.11-0.59) K/uL Eos # (Auto) (0-0.5) K/uL Baso # (Auto) (0-0.2) K/uL Immature Gran # (Auto) (0.00-0.02) K/uL Fibrinogen (184-400) mg/dl VBG pH (7.36-7.41) VBG pCO2 (38-50) mmHg VBG pO2 mmHg VBG HCO3 mmol/L VBG O2 Saturation % VBG Base Excess mEq/L Barometric Pressure mm/Hg Sodium (136-145) mmol/L Potassium (3.5-5.1) mmol/L Chloride (98-107) mmol/L Carbon Dioxide (21-32) mmol/L Anion Gap (3-11) BUN (7-18) mg/dl Creatinine (0.6-1.2) mg/dl Est Cr Clr Drug Dosing ml/min Est GFR ( Amer) ml/min Est GFR (Non-Af Amer) ml/min BUN/Creatinine Ratio (10-20) Glucose (70-99) mg/dl Lactate (0.4-2.0) mmol/L Calcium (8.5-10.1) mg/dl Ferritin 117.4 (8-388) ng/ml Total Bilirubin (0.2-1) mg/dl AST (15-37) U/L ALT (12-78) Alkaline Phosphatase (45-117) U/L Lactate Dehydrogenase Cancelled Troponin I (0-0.045) ng/ml C-Reactive Protein (0-0.29) mg/dl NT-Pro-B Natriuret Pep (0-900) pg/ml Total Protein (6.4-8.2) gm/dl Albumin (3.4-5.0) gm/dl Globulin (2.5-4.0) gm/dl Albumin/Globulin Ratio (0.9-2) Procalcitonin < 0.05 (0-0.5) ng/ml SARS-CoV-2 (PCR) (Negative) Influenza Type A (PCR) (Neg) Influenza Type B (PCR) (Neg) RSV (RT-PCR) (Neg) 10/28/21 10/28/21 10/28/21 Range/Units 09:45 09:56 10:45 WBC (4.8-10.8) K/uL RBC (4.2-5.4) M/uL Hgb (12.0-16.0) g/dL Hct (37-47) % MCV (80-100) fL MCH (25-34) pg MCHC (32-36) g/dL RDW Std Deviation (36.4-46.3) fL RDW Coeff of Darius (11.5-14.5) % Plt Count (130-400) K/uL MPV (7.4-10.4) fL Immature Gran % (Auto) % Neut % (Auto) % Lymph % (Auto) % [place] % (Auto) % Eos % (Auto) % Baso % (Auto) % Neut # (Auto) (1.4-6.5) K/uL Lymph # (Auto) (1.2-3.4) K/uL [place] # (Auto) (0.11-0.59) K/uL Eos # (Auto) (0-0.5) K/uL Baso # (Auto) (0-0.2) K/uL Immature Gran # (Auto) (0.00-0.02) K/uL Fibrinogen 370 (184-400) mg/dl VBG pH 7.32 L (7.36-7.41) VBG pCO2 82 H (38-50) mmHg VBG pO2 42 mmHg VBG HCO3 41 mmol/L VBG O2 Saturation 71.0 % VBG Base Excess 11.0 mEq/L Barometric Pressure 728.4 mm/Hg Sodium (136-145) mmol/L Potassium (3.5-5.1) mmol/L Chloride (98-107) mmol/L Carbon Dioxide (21-32) mmol/L Anion Gap (3-11) BUN (7-18) mg/dl Creatinine (0.6-1.2) mg/dl Est Cr Clr Drug Dosing ml/min Est GFR ( Amer) ml/min Est GFR (Non-Af Amer) ml/min BUN/Creatinine Ratio (10-20) Glucose (70-99) mg/dl Lactate (0.4-2.0) mmol/L Calcium (8.5-10.1) mg/dl Ferritin (8-388) ng/ml Total Bilirubin (0.2-1) mg/dl AST (15-37) U/L ALT (12-78) Alkaline Phosphatase (45-117) U/L Lactate Dehydrogenase Troponin I (0-0.045) ng/ml C-Reactive Protein (0-0.29) mg/dl NT-Pro-B Natriuret Pep (0-900) pg/ml Total Protein (6.4-8.2) gm/dl Albumin (3.4-5.0) gm/dl Globulin (2.5-4.0) gm/dl Albumin/Globulin Ratio (0.9-2) Procalcitonin (0-0.5) ng/ml SARS-CoV-2 (PCR) POSITIVE A* (Negative) Influenza Type A (PCR) Negative (Neg) Influenza Type B (PCR) Negative (Neg) RSV (RT-PCR) Negative (Neg) Administered Medications Albuterol (Albuterol Hfa 8 Gm Inhaler) 2 puffs INH Q6R [facility] Stop: 11/27/21 13:07 Last Admin: 10/28/21 14:01 Dose: Not Given Documented by: [id number] Discontinued Medications Acetaminophen (Acetaminophen 500 Mg Tab) 1,000 mg PO NOW STA Stop: 10/28/21 09:26 Last Admin: 10/28/21 10:09 Dose: 1,000 mg Documented by: [id number] Dexamethasone Sodium Phosphate (DexamethasonePf 10 Mg/Ml Vial) 6 mg IV NOW ONE Stop: 10/28/21 09:26 Last Admin: 10/28/21 10:09 Dose: 6 mg Documented by: [id number] Remdesivir 200 mg/ Sodium (Chloride) 250 mls @ 125 mls/hr IV 1230 ONE; Protocol Stop: 10/28/21 14:29 Last Admin: 10/28/21 12:40 Dose: 125 mls/hr Documented by: [id number] Potassium Chloride (Potassium Chloride Crtab 20 Meq Tabcr) 40 meq PO NOW STA Stop: 10/28/21 11:18 Last Admin: 10/28/21 12:38 Dose: 40 meq Documented by: [id number] Imaging Data Radiologist's Impression: Chest X-Ray 10/28/21 09:01 SINGLE VIEW CHEST CLINICAL HISTORY: Dyspnea. FINDINGS: An AP, portable, upright chest radiograph is compared to study dated 09/10/2021 and correlated with chest CT dated 08/03/2021. The examination is degraded by portable technique, apical lordotic positioning, and patient rotation. The cardiomediastinal silhouette is unremarkable noting atherosclerotic calcification of the thoracic aorta. Emphysema and chronic interstitial thickening is similar to previous. Foci of scarring/atelectasis are seen throughout both lungs. No airspace consolidation or large pleural effusion is identified. No pneumothorax is seen. The skeletal structures are osteopenic. The bony thorax is grossly intact. IMPRESSION: Emphysematous change with no acute cardiopulmonary abnormality. ACT 112: Negative or not required by law. Electronically signed by: Lupillo Bond M.D. 10/28/2021 10:05 AM Discharge Plan Visit Data Chief Complaint: Shortness of Breath/Dyspnea Stated Complaint: SOB ED Provider: Emerson Price Discharge Problem: Respiratory failure, COPD (chronic obstructive pulmonary disease), Tobacco use disorder, 2019 novel coronavirus-infected pneumonia (NCIP) Patient Disposition: Admitted As Inpatient Discharge Instructions Interventions: ED Discharge Assessment Last Done: 10/28/21 13:08
[2021-10-28 10:06] LABS: Eosinophils # (auto) 0.01 K/uL (0-0.5); Eosinophils % (auto) 0.1 %; Hematocrit (blood only) 47.1 % (37-47); Hemoglobin 14.6 g/dL (12.0-16.0); Immature Granulocytes # (auto) 0.02 K/uL (0.00-0.02); Immature Granulocytes % (auto) 0.3 %; Lymphocytes # (auto) 0.64 K/uL (1.2-3.4); Lymphocytes % (auto) 9.3 %; Mean Corpuscular Hemoglobin 30.1 pg (25-34); Mean Corpuscular Volume 97.1 fL (80-100); Mean Platelet Volume 11.6 fL (7.4-10.4); Monocytes # (auto) 0.78 K/uL (0.11-0.59); Monocytes % (auto) 11.4 %; Neutrophils # (auto) 5.42 K/uL (1.4-6.5); Neutrophils % (auto) 78.9 %; Platelet Count 139 K/uL (130-400); RDW Coefficient of Variation 14.7 % (11.5-14.5); RDW Standard Deviation 52.6 fL (36.4-46.3); Red Blood Count 4.85 M/uL (4.2-5.4); White Blood Count 6.87 K/uL (4.8-10.8)
--- NOTE | 2021-10-28 10:06 | XRay Report ---
SINGLE VIEW CHEST CLINICAL HISTORY: Dyspnea. FINDINGS: An AP, portable, upright chest radiograph is compared to study dated 09/10/2021 and correla stella with chest CT dated 08/03/2021. The examination is degraded by portable technique, apical lordotic positioning, and patient rotation. The cardiomediastinal silhouette is unremarkable noting atheroscl erotic calcification of the thoracic aorta. Emphysema and chronic interstitial thickening is similar to previous. Foci of scarring/atelectasis are seen throughout both lungs. No airspace consolidation o r large pleural effusion is identified. No pneumothorax is seen. The skeletal structures are osteopen ic. The bony thorax is grossly intact. IMPRESSION: Emphysematous change with no acute cardiopulmonary abnormality. ACT 112: Negative or not required by law. Electronically signed by: Lupillo Bond M.D. 10/28/2021 10:05 AM
[2021-10-28 10:26] LABS: Alanine Aminotransferase 23 (12-78); Aspartate Aminotransferase 20 U/L (15-37); BUN Creatinine Ratio 22.8 (10-20); Blood Urea Nitrogen 12 mg/dl (7-18); Calcium 8.9 mg/dl (8.5-10.1); Carbon Dioxide 40 mmol/L (21-32); Chloride 98 mmol/L (98-107); Creatinine Clr Calc Pharmacy 121.3 ml/min; Est GFR (African American) 121.3 ml/min; Est GFR (Non-African American) 104.7 ml/min; Glucose 85 mg/dl (70-99); Potassium 3.4 mmol/L (3.5-5.1); Sodium 139 mmol/L (136-145)
[2021-10-28 10:31] LABS: Albumin Globulin Ratio 0.9 (0.9-2); Alkaline Phosphatase 70 U/L (45-117); Bilirubin,Total 0.2 mg/dl (0.2-1); C Reactive Protein 4.51 mg/dl (0-0.29); Globulin 3.4 gm/dl (2.5-4.0); NT Pro B Type Natriuretic Pept 72 pg/ml (0-900); Total Protein 6.4 gm/dl (6.4-8.2); Troponin I < 0.015 ng/ml (0-0.045)
[2021-10-28 10:46] LABS: Influenza A virus by PCR Negative (Neg); Influenza B virus by PCR Negative (Neg); RSV by PCR Negative (Neg)
[2021-10-28 10:52] LABS: SARS CoV2 RNA(COVID-19) InHosp POSITIVE (Negative)
[2021-10-28 10:57] LABS: pH VBG 7.32 (7.36-7.41)
[2021-10-28] MEDS ORDERED: POTASSIUM CHLORIDE CRTAB 20 MEQ TABCR PO STA (11:17)
--- NOTE | 2021-10-28 11:22 | Electrocardiogram Report ---
Test Reason : Blood Pressure : / mmHG Vent. Rate : 097 BPM Atrial Rate : 097 BPM P-R Int : 148 ms QRS Dur : 082 ms QT Int : 306 ms P-R-T Axes : 004 -23 -08 degrees QTc Int : 388 ms Poor data quality, interpretation may be adversely affected Normal sinus rhythm Low voltage QRS Borderline ECG When compared with ECG of 10-SEP-2021 22:34, Questionable change in QRS axis T wave inversion now evident in Inferior leads QT has shortened Confirmed by Francisco Denise ([id number]) on 10/28/2021 11:22:45 AM Referred By: REFERRED SELF Confirmed By:Denis Denise
--- NOTE | 2021-10-28 12:03 | History & Physical Report ---
Date of Service October 28, 2021 Assessment & Plan (1) COVID: Plan: Unsure of day of illness approx day #9- unvaccinated current smoker - Remdisivir x5 days - Decadron daily 6mg - Will hold on ABX as pct <0.05 and she just finished a course of doxycyline - Continue current inhalers- will schedule Albuterol HFA - CRP 4 - Fibrinogen-pending - BNP 72 - Continue oxygen support- NC/Oxymask/HFNC/BIPAP/CPAP/INTUBATION - place on BiPAP now to lower co2 (2) Hypoxia: Plan: As above acute on chronic hypoxia without respiratory failure at this time - As above (3) COPD (chronic obstructive pulmonary disease): Plan: As above - BiPAP/HFNC/NC (4) Obesity: Plan: Increasing current mortality and nursing home CVD risks (5) Chronic respiratory failure: Plan: Secondary to COPD and continued smoking (6) FLAKO (obstructive sleep apnea): Plan: As above- CPAP/BiPAP (7) Tobacco use disorder: Plan: 1/2ppd smoker - nicotine patch daily (8) Pulmonary nodules: Plan: CT 07/08/21 noting numerous ill-defined groundglass/cystic pulmonary lesions in addition to lesion in the RLL with increasing solid/nodular component suspicious for low-grade pulmonary neoplasms.- has not had outpatient follow up for this t hat I can see. CT scan was repeated in - no acute needs (9) (HFpEF) heart failure with preserved ejection fraction: Plan: BNP 72 will hold her daily PO lasix and give bolus dosing daily as needed - start tomorrow if desired - will aim to keep her fluid volume status negative History of Present Illness Primary Care Provider: Crystal Vasquez 56 YOF with past medical history: COPD (on home oxygen 3L), current smoker 1/2 ppd, pulmonary nodules, HFpEF, FLAKO, morbid obesity. Patient comes to the EMD today for complaints of increased shortness of breath. Patient COVID test is positive on admission and she is unvaccinated. The patient is also home with COVID since OCT 20, Patient feels that she just started feeling more ill about 3 days, although she did start feeling more short of breath with increase in her cough last week. She was placed on steroid taper and Doxycycline for this and just finished this yesterday. She notes increase in her cough without change in her sputum amount or color. She was noted to be 86-88 on 3LNC and is now on 4L with oxymask. In the EMD she had routine labs drawn to include VBG, PCT, CRP. Patient CO2 82 she is normally in the 70s. Will place her on BiPAP 08/04 and assist in ventilating and recruiting her. Will continue her nebulizers and Decadron 6mg IV daily. She does wish to have remdisivir. She did get very dyspneic and hypoxic with use of the BSC and her SPo2 did increase back to 92% with getting back in bed. Will place gaona catheter. We did discuss self rotation and proning therapy as well as deep breathing and coughing. Patient has multiple risk factors for severe disease and high mortality. She understands this. Patient is not vaccinated and her COVID test on admission is: POSITIVE Allergies Allergy/AdvReac Type Severity Reaction Status Date / Time azithromycin Allergy Severe respiratory Verified 09/10/21 23:40 distress cefaclor Allergy Severe RESPIRATORY Verified 09/10/21 23:40 DISTRESS erythromycin base Allergy Severe RESPIRATORY Verified 09/10/21 23:40 DISTRESS ibuprofen Allergy Severe RESPIRATORY Verified 09/10/21 23:40 DISTRESS Penicillins Allergy Severe RESPIRATORY Verified 09/10/21 23:40 DISTRESS Sulfa (Sulfonamide Allergy Severe RESPIRATORY Verified 09/10/21 23:40 Antibiotics) DISTRESS, RASH doxycycline AdvReac Severe Difficulty Verified 09/10/21 23:40 Breathing morphine AdvReac Intermediate N/V Verified 09/10/21 23:40 Home Medications Medication Instructions Recorded Confirmed Type albuterol sulfate 90 mcg/actuation 2 puff INHALATION Q6H PRN 10/09/18 09/10/21 History aerosol inhaler fluticasone propionate 230 1 puff INHALATION Q12H 10/09/18 09/10/21 History mcg-salmeterol 21 mcg/actuation HFA inhaler (Advair HFA) tiotropium bromide 2.5 2 puff INHALATION AMHS 10/09/18 09/10/21 History mcg/actuation mist for inhalation (Spiriva Respimat) acetaminophen 500 mg tablet 1,000 mg PO Q6H PRN 10/21/19 09/10/21 History (Tylenol Extra Strength) albuterol sulfate 2.5 mg INHALATION Q4H PRN 10/21/19 09/10/21 History fluticasone propionate 50 2 spray INTRANASAL BID 10/21/19 09/10/21 History mcg/actuation nasal spray,suspension (Flonase Allergy Relief) potassium chloride 20 mEq 20 meq PO QAM 11/09/20 09/10/21 History tablet,extended release(part/cryst) (Klor-Con M) Oxygen Home #1 ea 07/10/21 08/03/21 Rx diclofenac sodium 1 % topical gel 4 g EXT QID PRN 08/03/21 09/10/21 History (Voltaren Arthritis Pain) furosemide 40 mg tablet See Rx Instructions .ROUTE .COMPLEX 09/10/21 09/10/21 History prednisone 10 mg tablet See Rx Instructions .ROUTE 09/12/21 Rx .COMPLEX #42 tab Past Med/Surg History Medical History (Updated 10/28/21 @ 11:56 by MICHAEL Rodriguez) Chest pain COPD (chronic obstructive pulmonary disease) On 3 L of oxygen continuous Dyspnea Morbid obesity Orthopnea Status asthmaticus TIA (transient ischemic attack) Surgical History History of hysterectomy Hx of cholecystectomy Family History Other Heart disease Social History Smoking Status: Current every day smoker Tobacco Type: Cigarettes Cigarettes Per Day: 10; Second Hand Exposure: No; Hx Alcohol Use: No Hx Substance Use: No Preferred Language: Spanish Communication Ability: Effective 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 Required: No Beliefs That Will Affect Care: None marital status: Current Living Situation: Family Current Living Situation Comment: lives in mobile home with son Feels Safe at Home: Yes Assistive Devices: CPAP and Oxygen - Continuous Review of Systems Review of Systems: REVIEW OF SYSTEMS: Constitutional: No fever, sweats or chills Eyes: No diplopia, no worsening or blurred vision ENT: normal hearing, no trouble swallowing Respiratory: (+) cough, sputum, dyspnea at rest or on exertion Cardiovascular: No chest pain, tightness or palpitations Abdomen: No pain, nausea, vomiting, diarrhea or constipation Musculoskeletal: (+) arthritic joint pain knees and shoulders, No calf pain, swelling Neurologic: No weakness, numbness/tingling, or balance problems Psychiatric: No anxiety or depression Skin: No rash or itch Physical Exam Physical Exam: PHYSICAL EXAM: General: awake, alert, tachypneic Head: Normocephalic, atraumatic ENT: PERRL, EOMI, no pharyngeal exudate, mucous membranes moist Neuro: AAO x 3, speech clear and appropriate, strength intact bilaterally 5/5, sensation intact and equal all extremities and dermatomes, no pronator drift Chest: equal rise and fall of the chest, no accessory muscle use, inspiratory and expiratory wheeze bilaterally with scattered rhonchi, secretions are thick and cream colored, she reports this is her normal sputum Cardiac: Regular rate and rhythm, telelmetry reviewed, skin warm dry, cap r efill <3 seconds, peripheral pusles +2 no JVD, no murmur, no JVD, no edema GI: NABS x 4 quadrants, soft, nontender to palpation, no rebound, guarding or tenderness : Spontaneously voiding, no pain, no CVA tenderness,- will place gaona Extremities: Normal inspection, no peripheral edema or erythema, calfs nontender to palpation Psych: Normal mood and affect Skin: no rash or erythema Results & Data Results & Data ([facility]) Vital Signs (Past 12 Hours) Vital Signs Temp Pulse Pulse Resp BP BP Pulse Ox 10/28/21 10:38 92 H 20 126/56 L 88 L 10/28/21 08:45 39.2 C H 104 H 22 142/59 H 96 Laboratory Results Abnormal lab results 10/28/21 10/28/21 10/28/21 Range/Units 09:44 09:44 09:45 Hct 47.1 H (37-47) % MCHC 31.0 L (32-36) g/dL RDW Std Deviation 52.6 H (36.4-46.3) fL RDW Coeff of Darius 14.7 H (11.5-14.5) % MPV 11.6 H (7.4-10.4) fL Lymph # (Auto) 0.64 L (1.2-3.4) K/uL [place] # (Auto) 0.78 H (0.11-0.59) K/uL VBG pH (7.36-7.41) VBG pCO2 (38-50) mmHg Potassium 3.4 L (3.5-5.1) mmol/L Carbon Dioxide 40 H (21-32) mmol/L Anion Gap 1.0 L (3-11) Creatinine 0.53 L (0.6-1.2) mg/dl BUN/Creatinine Ratio 22.8 H (10-20) C-Reactive Protein 4.51 H (0-0.29) mg/dl Albumin 3.0 L (3.4-5.0) gm/dl SARS-CoV-2 (PCR) POSITIVE A* (Negative) 10/28/21 Range/Units 10:45 Hct (37-47) % MCHC (32-36) g/dL RDW Std Deviation (36.4-46.3) fL RDW Coeff of Darius (11.5-14.5) % MPV (7.4-10.4) fL Lymph # (Auto) (1.2-3.4) K/uL [place] # (Auto) (0.11-0.59) K/uL VBG pH 7.32 L (7.36-7.41) VBG pCO2 82 H (38-50) mmHg Potassium (3.5-5.1) mmol/L Carbon Dioxide (21-32) mmol/L Anion Gap (3-11) Creatinine (0.6-1.2) mg/dl BUN/Creatinine Ratio (10-20) C-Reactive Protein (0-0.29) mg/dl Albumin (3.4-5.0) gm/dl SARS-CoV-2 (PCR) (Negative) Diagnostic Findings Chest X-Ray 10/28/21 09:01 SINGLE VIEW CHEST CLINICAL HISTORY: Dyspnea. FINDINGS: An AP, portable, upright chest radiograph is compared to study dated 09/10/2021 and correlated with chest CT dated 08/03/2021. The examination is degraded by portable technique, apical lordotic positioning, and patient rotation. The cardiomediastinal silhouette is unremarkable noting atherosclerotic calcification of the thoracic aorta. Emphysema and chronic interstitial thickening is similar to previous. Foci of scarring/atelectasis are seen throughout both lungs. No airspace consolidation or large pleural effusion is identified. No pneumothorax is seen. The skeletal structures are osteopenic. The bony thorax is grossly intact. IMPRESSION: Emphysematous change with no acute cardiopulmonary abnormality. ACT 112: Negative or not required by law. Electronically signed by: Lupillo Bond M.D. 10/28/2021 10:05 AM Medications Administered Discontinued Medications Acetaminophen (Acetaminophen 500 Mg Tab) 1,000 mg PO NOW STA Stop: 10/28/21 09:26 Last Admin: 10/28/21 10:09 Dose: 1,000 mg Documented by: [id number] Dexamethasone Sodium Phosphate (DexamethasonePf 10 Mg/Ml Vial) 6 mg IV NOW ONE Stop: 10/28/21 09:26 Last Admin: 10/28/21 10:09 Dose: 6 mg Documented by: [id number] Home Medications albuterol sulfate 90 mcg/actuation aerosol inhaler 2 puff INHALATION Q6H PRN 10/09/18 [History Confirmed 09/10/21] fluticasone propionate 230 mcg-salmeterol 21 mcg/actuation HFA inhaler (Advair HFA) 1 puff INHALATION Q12H 10/09/18 [History Confirmed 09/10/21] tiotropium bromide 2.5 mcg/actuation mist for inhalation (Spiriva Respimat) 2 puff INHALATION AMHS 10/09/18 [History Confirmed 09/10/21] acetaminophen 500 mg tablet (Tylenol Extra Strength) 1,000 mg PO Q6H PRN 10/21/19 [History Confirmed 09/10/21] albuterol sulfate 2.5 mg INHALATION Q4H PRN 10/21/19 [History Confirmed 09/10/21] fluticasone propionate 50 mcg/actuation nasal spray,suspension (Flonase Allergy Relief) 2 spray INTRANASAL BID 10/21/19 [History Confirmed 09/10/21] potassium chloride 20 mEq tablet,extended release(part/cryst) (Klor-Con M) 20 meq PO QAM 11/09/20 [History Confirmed 09/10/21] Oxygen Home #1 ea 07/10/21 [Rx Confirmed 08/03/21] diclofenac sodium 1 % topical gel (Voltaren Arthritis Pain) 4 g EXT QID PRN 08/03/21 [History Confirmed 09/10/21] furosemide 40 mg tablet See Rx Instructions .ROUTE .COMPLEX 09/10/21 [History Confirmed 09/10/21] prednisone 10 mg tablet See Rx Instructions .ROUTE .COMPLEX #42 tab 09/12/21 [Rx] Active Medications Remdesivir 200 mg/ Sodium (Chloride) 250 mls @ 125 mls/hr IV ONE STA; Protocol Stop: 10/28/21 13:41 Remdesivir 100 mg/ Sodium (Chloride) 250 mls @ 250 mls/hr IV Q24H TIERA; Protocol Stop: 11/01/21 12:44 Sodium Chloride (Sodium Chloride 0.9% 10ml Flush) 30 ml IV Q24H TIERA Stop: 11/01/21 11:46 ECG Additional Comments: Vent. Rate : 097 BPM Atrial Rate : 097 BPM P-R Int : 148 ms QRS Dur : 082 ms QT Int : 306 ms P-R-T Axes : 004 -23 -08 degrees QTc Int : 388 ms Poor data quality, interpretation may be adversely affected Normal sinus rhythm Low voltage QRS Borderline ECG When compared with ECG of 10-SEP-2021 22:34, Questionable change in QRS axis T wave inversion now evident in Inferior leads QT has shortened Confirmed by Francisco Denise ([id number]) on 10/28/2021 11:22:45 AM Code Status & VTE Plan Code Status CODE: FULL VTE: SCDs, Lovenox 40mg SUBQ bid VTE Prophylaxis Plan VTE Prophylaxis will be ordered: Yes Supervising Physician Co-Signing Physician Notes Patient seen and examined, chart reviewed, case discussed with Valente Saenz and I agree with the assessment and plan as above except as otherwise noted 56-year-old female who presents with Covid, unvaccinated General: A&Ox3. NAD. Cooperative. Appears tired, no acute distress HEENT: Atraumatic, normocephalic. Visual acuity and hearing grossly intact Pulm: Diminished, scattered expiratory wheezes with some rhonchi symmetrical chest rise. No respiratory distress. Cardiac: RRR, -mrg. Radial pulses intact and symmetrical. Abdominal: Nontender, nondistended, soft. BS present. Extremities, bilateral lower extremity edema. Sensation intact. Moves all extremities equally with intact light bulb tester strength in ankle dorsiflexion/plantar flexion, but tires easily and with increased hypoxia when ambulating from bathroom back into bed. labs and images reviewed 56-year-old female with past medical history of FLAKO, COPD who presents with worsened hypoxia and Covid positive. Her day 1 of illness is unclear, worsened 2 days ago but potentially with symptoms of Covid versus COPD 1 week ago. Patient has multiple comorbidities. Covid labs as above. We will continue with remdesivir and steroid treatment. CRP 4.5, does not meet criteria for baricitinib at this time. Continue oxygen support as needed. Patient confirms full code and would want intubation for declining respiratory status. No coverage for bacterial pneumonia indicated at this time. Covid dosed DVT prophylaxis with Lovenox. PG Care Time/CCT Total # of Minutes Spent Total Time Spent with Patient: Total time spent is greater than 50% in coordination of care (as documented) at patient's floor/unit and/or counseling patient: Coding Level of Care Code 73602 Initial Inpt Care Lvl 3 Diagnoses COVID U07.1 Hypoxia R09.02 COPD (chronic obstructive pulmonary disease) J44.9 COPD type: unspecified COPD Obesity E66.9 Obesity classification: unspecified obesity classification Obesity type: unspecified obesity type Serious obesity comorbidity presence: unspecified whether serious comorbidity present Chronic respiratory failure J96.10 FLAKO (obstructive sleep apnea) G47.33 Tobacco use disorder F17.200 Pulmonary nodules R91.8 (HFpEF) heart failure with preserved ejection fraction I50.30 (1) COPD (chronic obstructive pulmonary disease) COPD type: unspecified COPD Qualified Code(s): J44.9 - Chronic obstructive pulmonary disease, unspecified (2) Obesity Obesity classification: unspecified obesity classification Obesity type: unspecified obesity type Serious obesity comorbidity presence: unspecified whether serious comorbidity present Qualified Code(s): E66.9 - Obesity, unspecified
[2021-10-28 12:05] LABS: Fibrinogen 370 mg/dl (184-400)
[2021-10-28] MEDS ORDERED: REMDESIVIR 200 MG in SODIUM CHLORIDE 0.9% 210 ML IV ONE (12:30)
[2021-10-28 12:47] LABS: Appearance Urine Clear (Clear); Bacteria Urine Automated Negative (Negative); Blood Urine Negative (Negative); Color Urine Dark Yellow; Epithelial Cell Urine Auto >30 /lpf (0-5); Glucose Urine UA Negative (Negative); Ketones Urine Trace (Negative); Leukocyte Esterase Urine Negative (Negative); Nitrite Urine Negative (Negative); Protein Urine 1+ (Negative); Specific Gravity Urine 1.031 (1.000-1.030); Urobilinogen Urine Negative (Negative); pH Urine 5.5 (4.5-7.5)
[2021-10-28 12:58] LABS: Bilirubin Urine 1+ (Negative)
[2021-10-28] MEDS ORDERED: ONDANSETRON INJ 2 MG/ML 2 ML VIAL IV PRN (13:08)
[2021-10-28] MEDS ORDERED: POLYETHYLENE (MIRALAX) 17 GM PACK PO PRN (13:08)
[2021-10-28] MEDS: ALBUTEROL HFA 8 GM INHALER INH SCH ×2 (14:01→21:02)
[2021-10-28] MEDS ORDERED: SODIUM CHLORIDE 0.9% 10ML FLUSH IV SCH (14:30)
[2021-10-28] MEDS: NICOTINE 14 MG/24 HR PATCH TD SCH (16:26)
[2021-10-28] MEDS: FLUTICASONE/VILANTEROL 100/25MCG 14 PUFFS/INHALER INH SCH (18:09)
[2021-10-28] MEDS: ALBUTEROL 0.083% NEBU SOLN 3 ML VIAL INH PRN (20:13)
[2021-10-28] MEDS: UMECLIDINIUM BROMIDE 62.5MCG/BLISTER 7 PUFFS/INHALER INH SCH (21:48)
[2021-10-28] MEDS: FLUTICASONE PROPIONATE NA SPR 16 GM BTL SCH (21:48)
[2021-10-28] MEDS: ENOXAPARIN INJ 40 MG/0.4 ML SYR SQ SCH (21:49)
[2021-10-29] MEDS: ALBUTEROL HFA 8 GM INHALER INH SCH ×3 (00:30→12:08)
[2021-10-29] MEDS: ACETAMINOPHEN 325 MG TAB PO PRN ×2 (03:32→18:47)
[2021-10-29 06:07] LABS: Hematocrit (blood only) 42.1 % (37-47); Hemoglobin 12.8 g/dL (12.0-16.0); Immature Granulocytes # (auto) 0.02 K/uL (0.00-0.02); Immature Granulocytes % (auto) 0.5 %; Lymphocytes # (auto) 1.32 K/uL (1.2-3.4); Mean Corpuscular Hemoglobin 29.5 pg (25-34); Mean Corpuscular Hgb Conc 30.4 g/dL (32-36); Mean Platelet Volume 11.3 fL (7.4-10.4); Monocytes # (auto) 0.59 K/uL (0.11-0.59); Monocytes % (auto) 14.8 %; Neutrophils # (auto) 2.07 K/uL (1.4-6.5); Neutrophils % (auto) 51.7 %; Platelet Count 103 K/uL (130-400); RDW Coefficient of Variation 14.5 % (11.5-14.5); RDW Standard Deviation 51.9 fL (36.4-46.3); Red Blood Count 4.34 M/uL (4.2-5.4)
[2021-10-29 06:42] LABS: BUN Creatinine Ratio 40.4 (10-20); C Reactive Protein 5.35 mg/dl (0-0.29); Calcium 8.2 mg/dl (8.5-10.1); Creatinine Clr Calc Pharmacy 162.2 ml/min; Est GFR (African American) 134.2 ml/min; Est GFR (Non-African American) 115.8 ml/min; Magnesium 2.2 mg/dl (1.8-2.4)
[2021-10-29] MEDS: UMECLIDINIUM BROMIDE 62.5MCG/BLISTER 7 PUFFS/INHALER INH SCH ×2 (10:03→20:06)
[2021-10-29] MEDS: dexAMETHasone 6 MG in SYRINGE 0 ML IV SCH (10:03)
[2021-10-29] MEDS: NICOTINE 14 MG/24 HR PATCH TD SCH (10:04)
[2021-10-29] MEDS: ENOXAPARIN INJ 40 MG/0.4 ML SYR SQ SCH ×2 (10:29→18:48)
[2021-10-29] MEDS: FLUTICASONE PROPIONATE NA SPR 16 GM BTL SCH ×2 (10:29→20:06)
[2021-10-29] MEDS: FLUTICASONE/VILANTEROL 100/25MCG 14 PUFFS/INHALER INH SCH (10:30)
[2021-10-29] MEDS: REMDESIVIR 100 MG in SODIUM CHLORIDE 0.9% 230 ML IV SCH (12:41)
[2021-10-29] MEDS: SODIUM CHLORIDE 0.9% 10ML FLUSH IV SCH (14:32)
[2021-10-29] MEDS: ALBUTEROL 0.083% NEBU SOLN 3 ML VIAL INH PRN (16:45)
--- NOTE | 2021-10-29 16:46 | Hospitalist Progress Note ---
Date of Service October 29, 2021 Assessment & Plan (1) COVID: Plan: Unsure of day of illness approx day #10- unvaccinated current smoker high risk for decompensation - Remdisivir x5 days given risk of decompensation - Decadron daily 6mg -Hold off on antibiotics, has multiple allergies, no clear bacterial pneumonia -Continue inhalerschange HFA to neb -Oxygen and supportive care. Hypercapnic respiratory failure seems to have improved, acute on chronic hypoxic respiratory failure surprisingly improving. (2) Hypoxia: Plan: As above acute on chronic hypoxia surprisingly improving - As above (3) COPD (chronic obstructive pulmonary disease): Plan: As above (4) Obesity: Plan: Increasing current mortality and longterm CVD risks (5) Chronic respiratory failure: Plan: Secondary to COPD and continued smoking (6) FLAKO (obstructive sleep apnea): Plan: As above- CPAP/BiPAP (7) Tobacco use disorder: Plan: 1/2ppd smoker - nicotine patch daily (8) Pulmonary nodules: Plan: CT 07/08/21 noting numerous ill-defined groundglass/cystic pulmonary lesions in addition to lesion in the RLL with increasing solid/nodular component suspicious for low-grade pulmonary neoplasms.- has not had outpatient follow up for this that I can see. CT scan was repeated in - no acute needs (9) (HFpEF) heart failure with preserved ejection fraction: Plan: Currently examines euvolemic to slightly dry (10) DVT prophylaxis: Plan: Lovenox Plan: Remains acutely ill, although stable on her current status. Goal would be to get her home once her oxygen needs are closer to her baseline/within the ability to support with her home equipment. Admission and Anticipated Discharge Date Admission Date: October 28, 2021 Subjective Short of breath but feeling better than yesterday. Notes that she does not really feel much benefit from albuterol inhalerusually uses nebulizers at home. That is actually her main complaint. Oxygen was able to be turned down to 5 L earlier. No other acute complaints at this time Review of Systems Review of Systems: All systems reviewed & are unremarkable except as noted in HPI & below Physical Exam Physical Exam: In general she is awake and alert pleasant surprisingly no distress. HEENT normocephalic atraumatic mucous membranes moist. Lungs are markedly diminished throughout but no focal findings no rales rhonchi or wheezes good effort. Skin shows no rashes no pallor or icterus. Neuro without focal deficits. Results & Data Results & Data ([facility]) Vital Signs (Past 12 Hours) Vital Signs Temp Pulse Pulse Resp BP Pulse Ox 10/29/21 14:58 98.1 F 68 20 97/58 L 90 10/29/21 13:00 88 L 10/29/21 12:08 73 20 89 L 10/29/21 11:00 98.1 F 72 22 116/67 94 10/29/21 07:41 64 18 90 10/29/21 07:30 57 L 10/29/21 07:00 98.4 F 60 20 88/43 L 96 PG Care Time/CCT Total # of Minutes Spent Total Time Spent with Patient: Total time spent is greater than 50% in coordination of care (as documented) at patient's floor/unit and/or counseling patient: Coding Level of Care Code 10368 Subseq Hosp Care Lvl 3 Diagnoses COVID U07.1 Hypoxia R09.02 COPD (chronic obstructive pulmonary disease) J44.9 Obesity E66.9 Obesity classification: unspecified obesity classification Obesity type: unspecified obesity type Serious obesity comorbidity presence: unspecified whether serious comorbidity present Chronic respiratory failure J96.10 FLAKO (obstructive sleep apnea) G47.33 Tobacco use disorder F17.200 Pulmonary nodules R91.8 (HFpEF) heart failure with preserved ejection fraction I50.30 DVT prophylaxis Z29.9 (1) Obesity Obesity classification: unspecified obesity classification Obesity type: unspecified obesity type Serious obesity comorbidity presence: unspecified whether serious comorbidity present Qualified Code(s): E66.9 - Obesity, unspecified
[2021-10-29] MEDS ORDERED: ALBUTEROL 0.083% NEBU SOLN 3 ML VIAL NEB SCH (17:00)
[2021-10-29] MEDS: ALBUTEROL 0.083% NEBU SOLN 3 ML VIAL NEB SCH (19:26)
[2021-10-30] MEDS: ALBUTEROL 0.083% NEBU SOLN 3 ML VIAL INH PRN (03:39)
[2021-10-30] MEDS: ENOXAPARIN INJ 40 MG/0.4 ML SYR SQ SCH (06:01)
[2021-10-30 07:11] LABS: Eosinophils # (auto) 0.01 K/uL (0-0.5); Eosinophils % (auto) 0.2 %; Hematocrit (blood only) 42.6 % (37-47); Hemoglobin 13.1 g/dL (12.0-16.0); Immature Granulocytes # (auto) 0.01 K/uL (0.00-0.02); Immature Granulocytes % (auto) 0.2 %; Lymphocytes # (auto) 1.37 K/uL (1.2-3.4); Lymphocytes % (auto) 31.1 %; Mean Corpuscular Hemoglobin 29.2 pg (25-34); Mean Corpuscular Hgb Conc 30.8 g/dL (32-36); Mean Corpuscular Volume 95.1 fL (80-100); Mean Platelet Volume 11.5 fL (7.4-10.4); Monocytes # (auto) 0.55 K/uL (0.11-0.59); Monocytes % (auto) 12.5 %; Neutrophils # (auto) 2.46 K/uL (1.4-6.5); Platelet Count 105 K/uL (130-400); RDW Coefficient of Variation 14.3 % (11.5-14.5); RDW Standard Deviation 49.9 fL (36.4-46.3); Red Blood Count 4.48 M/uL (4.2-5.4)
[2021-10-30 07:44] LABS: BUN Creatinine Ratio 40.5 (10-20); C Reactive Protein 2.92 mg/dl (0-0.29); Calcium 8.3 mg/dl (8.5-10.1); Creatinine Clr Calc Pharmacy 144.3 ml/min; Est GFR (Non-African American) 111.3 ml/min; Potassium 3.8 mmol/L (3.5-5.1)
[2021-10-30] MEDS: NICOTINE 14 MG/24 HR PATCH TD SCH (08:05)
[2021-10-30] MEDS: FLUTICASONE PROPIONATE NA SPR 16 GM BTL SCH (08:06)
[2021-10-30] MEDS: FLUTICASONE/VILANTEROL 100/25MCG 14 PUFFS/INHALER INH SCH (08:06)
[2021-10-30] MEDS: UMECLIDINIUM BROMIDE 62.5MCG/BLISTER 7 PUFFS/INHALER INH SCH (08:06)
[2021-10-30] MEDS: dexAMETHasone 6 MG in SYRINGE 0 ML IV SCH (08:06)
[2021-10-30] MEDS: ALBUTEROL 0.083% NEBU SOLN 3 ML VIAL NEB SCH ×2 (08:34→12:51)
[2021-10-30] MEDS: REMDESIVIR 100 MG in SODIUM CHLORIDE 0.9% 230 ML IV SCH (11:36)
[2021-10-30] MEDS: SODIUM CHLORIDE 0.9% 10ML FLUSH IV SCH (12:44)
[2021-10-30 15:28] VITALS: BP 107/67; TEMP 98.1
[2021-10-30 16:18] VITALS: PULSE 58; O2SAT 91
--- NOTE | 2021-10-30 19:04 | Discharge Summary ---
Date of Service October 30, 2021 Admission HPI Per Admitting Provider 56 YOF with past medical history: COPD (on home oxygen 3L), current smoker 1/2 ppd, pulmonary nodules, HFpEF, FLAKO, morbid obesity. Patient comes to the EMD today for complaints of increased shortness of breath. Patient COVID test is positive on admission and she is unvaccinated. The patient is also home with COVID since OCT 20, Patient feels that she just started feeling more ill about 3 days, although she did start feeling more short of breath with increase in her cough last week. She was placed on steroid taper and Doxycycline for this and just finished this yesterday. She notes increase in her cough without change in her sputum amount or color. She was noted to be 86-88 on 3LNC and is now on 4L with oxymask. In the EMD she had routine labs drawn to include VBG, PCT, CRP. Patient CO2 82 she is normally in the 70s. Will place her on BiPAP 10/5 and assist in ventilating and recruiting her. Will continue her nebulizers and Decadron 6mg IV daily. She does wish to have remdisivir. She did get very dyspneic and hypoxic with use of the BSC and her SPo2 did increase back to 92% with getting back in bed. Will place gaona catheter. We did discuss self rotation and proning therapy as well as deep breathing and coughing. Patient has multiple risk factors for severe disease and high mortality. She understands this. Patient is not vaccinated and her COVID test on admission is: POSITIVE Principal Diagnosis COPD exacerbation caused by Covid Discharge Exam In general she is awake and alert pleasant no distress. HEENT normocephalic atraumatic mucous membranes moist. Lungs are clear to auscultation bilaterally markedly diminishedbut no adventitious sounds no rales rhonchi or wheezes good effort no accessory muscle use no conversational dyspnea, no new exertional dyspnea. Discharge Data Allergies Allergy/AdvReac Type Severity Reaction Status Date / Time azithromycin Allergy Severe respiratory Verified 09/10/21 23:40 distress cefaclor Allergy Severe RESPIRATORY Verified 09/10/21 23:40 DISTRESS erythromycin base Allergy Severe RESPIRATORY Verified 09/10/21 23:40 DISTRESS ibuprofen Allergy Severe RESPIRATORY Verified 09/10/21 23:40 DISTRESS Penicillins Allergy Severe RESPIRATORY Verified 09/10/21 23:40 DISTRESS Sulfa (Sulfonamide Allergy Severe RESPIRATORY Verified 09/10/21 23:40 Antibiotics) DISTRESS, RASH doxycycline AdvReac Severe Difficulty Verified 09/10/21 23:40 Breathing morphine AdvReac Intermediate N/V Verified 09/10/21 23:40 Consultations 10/28/21 11:10 ED Decision to Admit Stat Hospital Course (1) COVID: Admitted, surprisingly was not nearly as sick as one would expect given the severity of her chronic lung disease and having Covid. Did reasonably wellstill needs more oxygen than she normally does, but feels very well and is very strongly desirous to go home. Appears to be safe within the range of what her home oxygen is able to be titrated to, and is well versed on following her pulse ox. Knows to take it easy until she fully recovers. To return to the hospital if she has any significant dyspnea that does not quickly recover with rest, or any hypoxia below 88% that does not quickly recover with rest. Finish out a course of Decadron. Outpatient follow-up. 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 CT scan was repeated in - no acute needs (9) (HFpEF) heart failure with preserved ejection fraction: No decompensation (10) DVT prophylaxis: Lovenox utilized during her stay Home as above Total Time Total Time Spent Total Time Spent (In Minutes): <30 Discharge Plan Discharge Items Patient Disposition: Home - Self-Care Reason For Visit: COVID, COPD, HYPOXIA Discharge Diagnosis: Covid, COPD exacerbation because of Covid Activity: Per Instructions section Activity Comment: You will need to take it very easy until your breathing returns to baseline Non-emergency contact: Primary Care Provider and Paper Sorter Call non-emergency contact if: you have any medication questions, your symptoms worsen and you have a fever Follow-up/Referrals: Crystal Vasquez PA-C [Primary Care Provider] - (PLEASE CALL YOUR PRIMARY CARE PROVIDER TO SCHEDULE A DISCHARGE FOLLOW-UP APPOINTMENT WITHIN 7-10 DAYS.) Diet: Regular Addtl Attending Provider Instructions: Covid -Given how far into the course of illness you are, it is highly unlikely that things would worsen (and less you were to get ill from something like a secondary bacterial pneumoniahence why I agree with you that going home is probably safer than remaining hospitalized at this point). -Certainly you are still fairly far from your baseline, but at this point I think you can view it much like any other COPD exacerbation that you have had -We will finish out a course of steroids with dexamethasone daily for 8 more daysnext dose tomorrow morning -because this is all viral, you haven't needed an antibiotic this time -Use your nebulizers at home at least 4 times a day, additionally as needed for shortness of breath/wheezing -Continue your Spiriva and Advair as usual -You are needing oxygen at higher settings then you normally doas we discussed, it appears safe for you to go home as long as you take it easy. Keep your pulse ox with you at all timesand monitor your levels. If you are doing anything that has you drop below 88, stop and rest. I expect your oxygen numbers to rebound within a few minutes. If you cannot get your numbers above 88 within a few minutes, or you are feeling significant shortness of breath regardless of your pulse ox reading, then it would be time to come back to the hospital OPAL. At the same time, if your numbers rebounded fairly quickly/you are not feeling very short of breath, then I would recommend that you simply keep your oxygen at a setting to keep your pulse ox 88% or higher. -We are typically seeing things take quite a while to get better after Covid, so it would not surprise me if this exacerbation takes longer than a typical one. If you are getting close to the end of the course of steroids and not feeling back to your normal/still requiring a lot of additional oxygen, I want you to check in with your PCP or partnership manager about possibly extending the course of steroids -If you have any worsening, if you develop new fevers, if your cough gets worse/etc.I definitely want you back here right away. You have improved enough that going home is safe and reasonable, but certainly it will take a while until you recover back to your normal. Please take it easy during that time/do not push or overexert. It is critically important that you not smoke. Pending Studies at Discharge: No Stand-Alone Forms: My [facility], Smoking Cessation Medications and DC Order Prescriptions: New dexamethasone 6 mg tablet 6 mg PO DAILY Qty: 8 RF: 0 Continued potassium chloride [Klor-Con M20] 20 mEq tablet,ER particles/crystals 20 meq PO QAM RF: 0 albuterol sulfate 90 mcg/actuation Hfa Aerosol Inhaler 2 puff INHALATION Q6H PRN (Reason: Shortness Of Breath Or Wheezing) RF: 0 Advair HFA 230-21 mcg/actuation Hfa Aerosol Inhaler 1 puff INHALATION Q12H RF: 0 Spiriva Respimat 2.5 mcg/actuation Mist 2 puff INHALATION AMHS RF: 0 albuterol sulfate 2.5 mg /3 mL (0.083 %) Solution For Nebulization 2.5 mg INHALATION Q4H PRN (Reason: Shortness Of Breath Or Wheezing) RF: 0 acetaminophen [Tylenol Extra Strength] 500 mg Tablet 1,000 mg PO Q6H PRN (Reason: Pain) RF: 0 fluticasone propionate [Flonase Allergy Relief] 50 mcg/actuation [place],Suspension 2 spray INTRANASAL BID RF: 0 (DME) Oxygen Home Liters Per Minute See Rx Instructions .ROUTE .MEDSUPPLY Qty: 1 RF: 0 furosemide 40 mg tablet See Rx Instructions .ROUTE .COMPLEX RF: 0 diclofenac sodium [Voltaren Arthritis Pain] 1 % gel 4 g EXT QID PRN (Reason: Pain) RF: 0 Discontinued prednisone 10 mg tablet See Rx Instructions .ROUTE .COMPLEX Qty: 42 RF: 0 Discharge Orders: Discharge Order (Routine); Ordered 10/30/21 Ordered By: Giancarlo Aceves Admission Data Admit Date/Time: 10/28/21 11:22 Attending Provider: Giancarlo Aceves Admit Provider: Shashank Zavala Primary Care Provider: Crystal Vasquez Other Providers: Shashank Zavala Other Interventions: Discharge Summary Assessment (RN) Last Done: 10/30/21 16:00 Coding Level of Care Code D/C DAY MANAGEMENT <30 MINS Diagnoses COVID U07.1 Hypoxia R09.02 COPD (chronic obstructive pulmonary disease) J44.9 Obesity E66.9 Obesity classification: unspecified obesity classification Obesity type: unspecified obesity type Serious obesity comorbidity presence: unspecified whether serious comorbidity present Chronic respiratory failure J96.10 FLAKO (obstructive sleep apnea) G47.33 Tobacco use disorder F17.200 Pulmonary nodules R91.8 (HFpEF) heart failure with preserved ejection fraction I50.30 DVT prophylaxis Z29.9
== END 2021-10-30 16:30 | disposition home or self-care (01) | DRG 177 ==
LOC: ED 08:42 → SUATTDRO 11:22 → EDINP 11:22 → 2W 13:08

== ENCOUNTER 2021-11-02 16:53 | Inpatient (IN) ==
[2021-11-02] MEDS ORDERED: dexAMETHasone**PF** 10 MG/ML VIAL IV ONE (17:00)
[2021-11-02 17:24] LABS: Base Excess VBG 10.3 mEq/L; HCO3 VBG 43 mmol/L; PCO2 VBG 101 mmHg (38-50); PO2 VBG 32 mmHg; pH VBG 7.24 (7.36-7.41)
[2021-11-02 17:25] LABS: Oxygen Saturation VBG < 60.0 %
--- NOTE | 2021-11-02 17:32 | Emergency Department Note ---
Impression & Plan Acute respiratory failure with hypoxia and hypercapnia, COPD (chronic obstructive pulmonary disease), Lab test positive for detection of COVID-19 virus, 2019 novel coronavirus-infected pneumonia (NCIP), Acute respiratory acidosis ED Provider Note NAME: HUMPHREY COLUNGA AGE: 56 SEX: F : 1965 ARRIVES VIA: Ambulance INFORMANT: Patient, EMS ED PROVIDER(S): Robbin Catalan DO CHIEF COMPLAINT: Shortness of breath HPI: The patient is a 56-year-old female who presented to emergency department for an evaluation of shortness of breath. The patient has had ongoing shortness of breath over the course the last week. She was admitted to our facility recently and only discharged 4 days ago. She was diagnosed with COVID-19. She was sent home on oxygen. She does have a history of COPD. She has been noticing worsening shortness of breath. The patient normally wears oxygen at home. She has had to increase her oxygen much higher than usual. She is noticed lower extremity swelling and significant coughing. The patient states that her symptoms became much worse and she called 911. She has been using her usual outpatient medication without relief. The patient denies having any hemoptysis. She is not seen her family doctor. ROS: See above HPI for pertinent positives & negatives. A total of 10 systems reviewed and were otherwise negative. PAST MEDICAL HISTORY: See Below PAST SURGICAL HISTORY: See Below FAMILY HISTORY: See Below SOCIAL HISTORY: See Below HOME MEDICATIONS: See Below ALLERGIES: See Below VITALS: See Below PHYSICAL EXAMINATION: GENERAL: The patient is awake and alert. The patient is very anxious EYES: The conjunctivae are clear. The pupils are round and reactive. EARS, NOSE, MOUTH AND THROAT: The nose is without any evidence of any deformity. NECK: The neck is nontender and supple. RESPIRATORY: Respiratory rate was increased. There was significant conversatio nal dyspnea. Diminished breath sounds are noted throughout. CARDIOVASCULAR: Regular rate and rhythm noted there no murmurs rubs or gallops normal S1 normal S2. GASTROINTESTINAL: The abdomen is soft. Abdomen is nontender. MUSCULOSKELETAL/EXTREMITIES: There is no evidence of gross deformity full range of motion is noted in the hips and shoulders. SKIN: The skin was warm and dry. Pedal edema was noted bilaterally. NEUROLOGIC: Patient is awake alert and oriented x3. MEDICAL DECISION MAKING: [Provider summary] Triage Nursing notes reviewed. [Prior medical records reviewed] Vital Signs: reviewed and remarkable for [no significant abnormalities] Differential diagnosis: Reactive airway disease, pneumonia, pneumothorax, COPD, CHF, infections, cardiac ischemia, pulmonary embolism, musculoskeletal, gastrointestinal, as well as other pathologies. ER treatment provided: See below Diagnostics interpreted by me: ECG: EKG was obtained in the emergency department. My interpretation is normal sinus rhythm at 89 bpm. There is no ectopy. There is no acute ST segment abnormalities noted. Cardiac Monitoring: An order was placed for continuous cardiac monitoring. The monitor shows a rate of [] with [] rhythm. Laboratory studies: [As stated above and show below.] Imaging studies: [See below] Consultation(s): [none] ED COURSE: [] Procedures: [none] [PDMP:reviewed and no issues] [Critical Care:] [None] Past Med/Surg History Medical History (Updated 11/02/21 @ 19:30 by Robbin Catalan DO) Chest pain COPD (chronic obstructive pulmonary disease) On 3 L of oxygen continuous Dyspnea Morbid obesity Orthopnea Status asthmaticus TIA (transient ischemic attack) Surgical History History of hysterectomy Hx of cholecystectomy Family History Other Heart disease Social History Smoking Status: Current every day smoker Tobacco Type: Cigarettes Cigarettes Per Day: 10; Second Hand Exposure: No; Hx Alcohol Use: No Hx Substance Use: No Preferred Language: Azerbaijani Communication Ability: Effective Director Consumer Required: No Beliefs That Will Affect Care: None marital status: Current Living Situation: Spouse Current Living Situation Comment: lives in mobile home with son Feels Safe at Home: Yes Assistive Devices: Glasses Allergies Allergies Allergy/AdvReac Type Severity Reaction Status Date / Time azithromycin Allergy Severe respiratory Verified 09/10/21 23:40 distress cefaclor Allergy Severe RESPIRATORY Verified 09/10/21 23:40 DISTRESS erythromycin base Allergy Severe RESPIRATORY Verified 09/10/21 23:40 DISTRESS ibuprofen Allergy Severe RESPIRATORY Verified 09/10/21 23:40 DISTRESS Penicillins Allergy Severe RESPIRATORY Verified 09/10/21 23:40 DISTRESS Sulfa (Sulfonamide Allergy Severe RESPIRATORY Verified 11/11/21 23:40 Antibiotics) DISTRESS, RASH doxycycline AdvReac Severe Difficulty Verified 09/10/21 23:40 Breathing morphine AdvReac Intermediate N/V Verified 09/10/21 23:40 Home Meds Home Medications Medication Instructions Recorded Confirmed albuterol sulfate 90 mcg/actuation 2 puff INHALATION Q6H PRN 10/09/18 11/02/21 aerosol inhaler fluticasone propionate 230 1 puff INHALATION Q12H 10/09/18 11/02/21 mcg-salmeterol 21 mcg/actuation HFA inhaler (Advair HFA) tiotropium bromide 2.5 2 puff INHALATION AMHS 10/09/18 11/02/21 mcg/actuation mist for inhalation (Spiriva Respimat) acetaminophen 500 mg tablet 1,000 mg PO Q6H PRN 10/21/19 11/02/21 (Tylenol Extra Strength) albuterol sulfate 2.5 mg INHALATION Q4H PRN 10/21/19 11/02/21 fluticasone propionate 50 2 spray INTRANASAL BID 10/21/19 11/02/21 mcg/actuation nasal spray,suspension (Flonase Allergy Relief) potassium chloride 20 mEq 20 meq PO QAM 11/09/20 11/02/21 tablet,extended release(part/cryst) (Klor-Con M) diclofenac sodium 1 % topical gel 4 g EXT QID PRN 08/03/21 11/02/21 (Voltaren Arthritis Pain) furosemide 40 mg tablet See Rx Instructions .ROUTE .COMPLEX 09/10/21 11/02/21 Previous Rx's Medication Instructions Recorded Oxygen Home #1 ea 07/10/21 dexamethasone 6 mg tablet 6 mg PO DAILY #8 tab 10/30/21 Results & Data (ED) Vital Signs Vital Signs - 24 hr 11/02/21 17:02 11/02/21 17:03 11/02/21 17:10 Temperature Temperature Source Pulse Rate 89 86 85 Pulse Rate [Right Apical] Pulse Rate from SpO2 Sensor 89 86 85 Pulse Rhythm [Right Apical] Pulse Strength [Right Apical] Respiratory Rate 20 22 Respiratory Effort / Characteristics Respiratory Depth Respiratory Pattern Blood Pressure 139/68 Blood Pressure [Left Arm] Blood Pressure Mean 91 Blood Pressure Mean [Left Arm] Blood Pressure Position [Left Arm] Pulse Oximetry 95 94 96 Oxygen Delivery Method Oxygen Flow Rate Fraction of Inspired Oxygen Sepsis Recent Fever Within 48 Hours Sepsis New/Unexplained Change in Mental Status Sepsis Action Taken by Nursing 11/02/21 17:14 11/02/21 17:20 11/02/21 17:30 Temperature Temperature Source Pulse Rate 86 86 91 H Pulse Rate [Right Apical] Pulse Rate from SpO2 Sensor 86 87 89 Pulse Rhythm [Right Apical] Pulse Strength [Right Apical] Respiratory Rate 18 16 24 Respiratory Effort / Characteristics Respiratory Depth Respiratory Pattern Blood Pressure 103/68 101/83 Blood Pressure [Left Arm] Blood Pressure Mean 79 89 Blood Pressure Mean [Left Arm] Blood Pressure Position [Left Arm] Pulse Oximetry 97 90 95 Oxygen Delivery Method Oxygen Flow Rate Fraction of Inspired Oxygen Sepsis Recent Fever Within 48 Hours Sepsis New/Unexplained Change in Mental Status Sepsis Action Taken by Nursing 11/02/21 17:40 11/02/21 17:50 11/02/21 17:54 Temperature 36.9 C 36.9 C Temperature Source Oral Oral Pulse Rate 87 86 87 Pulse Rate [Right Apical] 86 Pulse Rate from SpO2 Sensor 87 86 Pulse Rhythm [Right Apical] Pulse Strength [Right Apical] Respiratory Rate 18 20 26 H Respiratory Effort / Characteristics Spontaneous Respiratory Depth Respiratory Pattern Blood Pressure Blood Pressure [Left Arm] 101/83 Blood Pressure Mean Blood Pressure Mean [Left Arm] 89 Blood Pressure Position [Left Arm] Lying Pulse Oximetry 90 92 92 Oxygen Delivery Method Nasal Cannula Nasal Cannula Oxygen Flow Rate 6 6 Fraction of Inspired Oxygen Sepsis Recent Fever Within 48 Hours No Sepsis New/Unexplained Change in Mental Status N/A Sepsis Action Taken by Nursing No Action Required 11/02/21 18:00 11/02/21 18:10 11/02/21 18:20 Temperature Temperature Source Pulse Rate 83 77 80 Pulse Rate [Right Apical] Pulse Rate from SpO2 Sensor 82 78 79 Pulse Rhythm [Right Apical] Pulse Strength [Right Apical] Respiratory Rate 20 25 H 24 Respiratory Effort / Characteristics Respiratory Depth Respiratory Pattern Blood Pressure 81/59 L Blood Pressure [Left Arm] Blood Pressure Mean 66 Blood Pressure Mean [Left Arm] Blood Pressure Position [Left Arm] Pulse Oximetry 96 93 92 Oxygen Delivery Method Oxygen Flow Rate Fraction of Inspired Oxygen Sepsis Recent Fever Within 48 Hours Sepsis New/Unexplained Change in Mental Status Sepsis Action Taken by Nursing 11/02/21 18:30 11/02/21 18:31 11/02/21 18:40 Temperature Temperature Source Pulse Rate 80 83 84 Pulse Rate [Right Apical] Pulse Rate from SpO2 Sensor 80 83 83 Pulse Rhythm [Right Apical] Pulse Strength [Right Apical] Respiratory Rate 24 17 20 Respiratory Effort / Characteristics Respiratory Depth Respiratory Pattern Blood Pressure 109/64 Blood Pressure [Left Arm] Blood Pressure Mean 79 Blood Pressure Mean [Left Arm] Blood Pressure Position [Left Arm] Pulse Oximetry 91 91 87 L Oxygen Delivery Method Oxygen Flow Rate Fraction of Inspired Oxygen Sepsis Recent Fever Within 48 Hours Sepsis New/Unexplained Change in Mental Status Sepsis Action Taken by Nursing 11/02/21 18:43 11/02/21 18:50 11/02/21 19:00 Temperature Temperature Source Pulse Rate 101 H 78 76 Pulse Rate [Right Apical] Pulse Rate from SpO2 Sensor 78 76 Pulse Rhythm [Right Apical] Pulse Strength [Right Apical] Respiratory Rate 22 15 19 Respiratory Effort / Characteristics Spontaneous Respiratory Depth Normal Respiratory Pattern Regular Blood Pressure Blood Pressure [Left Arm] Blood Pressure Mean Blood Pressure Mean [Left Arm] Blood Pressure Position [Left Arm] Pulse Oximetry 90 95 97 Oxygen Delivery Method Oxygen Flow Rate Fraction of Inspired Oxygen 75 Sepsis Recent Fever Within 48 Hours Sepsis New/Unexplained Change in Mental Status Sepsis Action Taken by Nursing 11/02/21 19:22 Temperature Temperature Source Pulse Rate Pulse Rate [Right Apical] 74 Pulse Rate from SpO2 Sensor Pulse Rhythm [Right Apical] Regular Pulse Strength [Right Apical] Normal Respiratory Rate 16 Respiratory Effort / Characteristics Non-Labored Spontaneous Respiratory Depth Normal Respiratory Pattern Blood Pressure Blood Pressure [Left Arm] 93/52 L Blood Pressure Mean Blood Pressure Mean [Left Arm] 65 Blood Pressure Position [Left Arm] Sitting Pulse Oximetry 97 Oxygen Delivery Method BiPAP Oxygen Flow Rate 10 Fraction of Inspired Oxygen Sepsis Recent Fever Within 48 Hours Sepsis New/Unexplained Change in Mental Status Sepsis Action Taken by Nursing Laboratory Data Result diagrams: 11/02/21 17:09 11/02/21 17:09 Lab Results 11/02/21 11/02/21 11/02/21 Range/Units 17:09 17:09 17:09 WBC 6.52 (4.8-10.8) K/uL RBC 5.30 (4.2-5.4) M/uL Hgb 15.6 (12.0-16.0) g/dL Hct 52.1 H (37-47) % MCV 98.3 (80-100) fL MCH 29.4 (25-34) pg MCHC 29.9 L (32-36) g/dL RDW Std Deviation 54.7 H (36.4-46.3) fL RDW Coeff of Darius 15.0 H (11.5-14.5) % Plt Count 113 L (130-400) K/uL MPV 12.1 H (7.4-10.4) fL Immature Gran % (Auto) 1.8 % Neut % (Auto) 84.2 % Lymph % (Auto) 7.7 % Davie % (Auto) 5.8 % Eos % (Auto) 0.0 % Baso % (Auto) 0.5 % Neut # (Auto) 5.49 (1.4-6.5) K/uL Lymph # (Auto) 0.50 L (1.2-3.4) K/uL Davie # (Auto) 0.38 (0.11-0.59) K/uL Eos # (Auto) 0.00 (0-0.5) K/uL Baso # (Auto) 0.03 (0-0.2) K/uL Immature Gran # (Auto) 0.12 H (0.00-0.02) K/uL Platelet Estimate Decreased L (Normal) Giant Platelets 1+ PT 9.7 (9.0-12.0) Seconds INR 1.0 (0.9-1.1) APTT 26.8 (21.0-31.0) Seconds PTT Ratio 1.0 VBG pH (7.36-7.41) VBG pCO2 (38-50) mmHg VBG pO2 mmHg VBG HCO3 mmol/L VBG O2 Saturation % VBG Base Excess mEq/L Barometric Pressure mm/Hg Sodium 140 (136-145) mmol/L Potassium 4.9 (3.5-5.1) mmol/L Chloride 99 (98-107) mmol/L Carbon Dioxide 39 H (21-32) mmol/L Anion Gap 2.0 L (3-11) BUN 7 (7-18) mg/dl Creatinine 0.48 L (0.6-1.2) mg/dl Est Cr Clr Drug Dosing 129.1 ml/min Est GFR ( Amer) 125.3 ml/min Est GFR (Non-Af Amer) 108.1 ml/min BUN/Creatinine Ratio 13.7 (10-20) Glucose 114 H (70-99) mg/dl Calcium 9.0 (8.5-10.1) mg/dl Total Bilirubin 0.3 (0.2-1) mg/dl AST 39 H (15-37) U/L ALT 55 (12-78) Alkaline Phosphatase 75 (45-117) U/L Troponin I 0.019 (0-0.045) ng/ml NT-Pro-B Natriuret Pep 204 (0-900) pg/ml Total Protein 7.3 (6.4-8.2) gm/dl Albumin 3.2 L (3.4-5.0) gm/dl Globulin 4.1 H (2.5-4.0) gm/dl Albumin/Globulin Ratio 0.8 L (0.9-2) Specimen Hemolysis SARS-CoV-2 (PCR) (Negative) Influenza Type A (PCR) (Neg) Influenza Type B (PCR) (Neg) RSV (RT-PCR) (Neg) 11/02/21 11/02/21 Range/Units 17:11 17:44 WBC (4.8-10.8) K/uL RBC (4.2-5.4) M/uL Hgb (12.0-16.0) g/dL Hct (37-47) % MCV (80-100) fL MCH (25-34) pg MCHC (32-36) g/dL RDW Std Deviation (36.4-46.3) fL RDW Coeff of Darius (11.5-14.5) % Plt Count (130-400) K/uL MPV (7.4-10.4) fL Immature Gran % (Auto) % Neut % (Auto) % Lymph % (Auto) % Davie % (Auto) % Eos % (Auto) % Baso % (Auto) % Neut # (Auto) (1.4-6.5) K/uL Lymph # (Auto) (1.2-3.4) K/uL Davie # (Auto) (0.11-0.59) K/uL Eos # (Auto) (0-0.5) K/uL Baso # (Auto) (0-0.2) K/uL Immature Gran # (Auto) (0.00-0.02) K/uL Platelet Estimate (Normal) Giant Platelets PT (9.0-12.0) Seconds INR (0.9-1.1) APTT (21.0-31.0) Seconds PTT Ratio VBG pH 7.24 L (7.36-7.41) VBG pCO2 101 H (38-50) mmHg VBG pO2 32 mmHg VBG HCO3 43 mmol/L VBG O2 Saturation < 60.0 % VBG Base Excess 10.3 mEq/L Barometric Pressure 736.5 mm/Hg Sodium (136-145) mmol/L Potassium (3.5-5.1) mmol/L Chloride (98-107) mmol/L Carbon Dioxide (21-32) mmol/L Anion Gap (3-11) BUN (7-18) mg/dl Creatinine (0.6-1.2) mg/dl Est Cr Clr Drug Dosing ml/min Est GFR ( Amer) ml/min Est GFR (Non-Af Amer) ml/min BUN/Creatinine Ratio (10-20) Glucose (70-99) mg/dl Calcium (8.5-10.1) mg/dl Total Bilirubin (0.2-1) mg/dl AST (15-37) U/L ALT (12-78) Alkaline Phosphatase (45-117) U/L Troponin I (0-0.045) ng/ml NT-Pro-B Natriuret Pep (0-900) pg/ml Total Protein (6.4-8.2) gm/dl Albumin (3.4-5.0) gm/dl Globulin (2.5-4.0) gm/dl Albumin/Globulin Ratio (0.9-2) Specimen Hemolysis SARS-CoV-2 (PCR) POSITIVE A* (Negative) Influenza Type A (PCR) Negative (Neg) Influenza Type B (PCR) Negative (Neg) RSV (RT-PCR) Negative (Neg) Administered Medications Discontinued Medications Dexamethasone Sodium Phosphate (DexamethasonePf 10 Mg/Ml Vial) 10 mg IV NOW ONE Stop: 11/02/21 17:01 Last Admin: 11/02/21 17:49 Dose: 10 mg Documented by: [id number] Imaging Data Radiologist's Impression: Chest X-Ray 11/02/21 17:00 XR chest 1V portable HISTORY: Dyspnea COMPARISON: Chest 10/28/2021. FINDINGS: Mild interstitial pulmonary edema and small bilateral pleural effusions have slightly progressed. Patchy left basilar densities are also noted. The heart is mildly enlarged. No pneumothorax. Slightly rotated study. IMPRESSION: 1. Interval progression of the mild interstitial pulmonary edema and small bilateral pleural effusions. 2. Patchy left basilar densities are nonspecific but may represent atelectasis from the pleural effusion. ACT 112: Negative or not required by law. Electronically signed by: Siva Perez M.D. 11/02/2021 6:08 PM Discharge Plan Visit Data Chief Complaint: Shortness of Breath/Dyspnea Stated Complaint: SOB ED Provider: Robbin Catalan Discharge Problem: Acute respiratory failure with hypoxia and hypercapnia, COPD (chronic obstructive pulmonary disease), Lab test positive for detection of COVID-19 virus, 2019 novel coronavirus-infected pneumonia (NCIP), Acute respiratory acidosis Forms Stand Alone Forms: My [facility] [employer] [place] Prescriptions Prescriptions: No Action potassium chloride [Klor-Con M20] 20 mEq tablet,ER particles/crystals 20 meq PO QAM RF: 0 albuterol sulfate 90 mcg/actuation Hfa Aerosol Inhaler 2 puff INHALATION Q6H PRN (Reason: Shortness Of Breath Or Wheezing) RF: 0 Advair HFA 230-21 mcg/actuation Hfa Aerosol Inhaler 1 puff INHALATION Q12H RF: 0 Spiriva Respimat 2.5 mcg/actuation Mist 2 puff INHALATION AMHS RF: 0 albuterol sulfate 2.5 mg /3 mL (0.083 %) Solution For Nebulization 2.5 mg INHALATION Q4H PRN (Reason: Shortness Of Breath Or Wheezing) RF: 0 acetaminophen [Tylenol Extra Strength] 500 mg Tablet 1,000 mg PO Q6H PRN (Reason: Pain) RF: 0 fluticasone propionate [Flonase Allergy Relief] 50 mcg/actuation [place],Suspension 2 spray INTRANASAL BID RF: 0 (DME) Oxygen Home Liters Per Minute See Rx Instructions .ROUTE .MEDSUPPLY Qty: 1 RF: 0 furosemide 40 mg tablet See Rx Instructions .ROUTE .COMPLEX RF: 0 dexamethasone 6 mg tablet 6 mg PO DAILY Qty: 8 RF: 0 diclofenac sodium [Voltaren Arthritis Pain] 1 % gel 4 g EXT QID PRN (Reason: Pain) RF: 0 Referrals Referrals: Crystal Vasquez PA-C [Primary Care Provider] -
[2021-11-02 17:41] LABS: Partial Thromboplastin Time 26.8 Seconds (21.0-31.0); Prothrombin Time 9.7 Seconds (9.0-12.0)
[2021-11-02 18:05] LABS: Albumin Globulin Ratio 0.8 (0.9-2); Albumin Level 3.2 gm/dl (3.4-5.0); BUN Creatinine Ratio 13.7 (10-20); Bilirubin,Total 0.3 mg/dl (0.2-1); Creatinine Clr Calc Pharmacy 129.1 ml/min; Est GFR (African American) 125.3 ml/min; Est GFR (Non-African American) 108.1 ml/min; Globulin 4.1 gm/dl (2.5-4.0); Hematocrit (blood only) 52.1 % (37-47); Hemoglobin 15.6 g/dL (12.0-16.0); Mean Corpuscular Hemoglobin 29.4 pg (25-34); Mean Corpuscular Hgb Conc 29.9 g/dL (32-36); Mean Corpuscular Volume 98.3 fL (80-100); Mean Platelet Volume 12.1 fL (7.4-10.4); Platelet Count 113 K/uL (130-400); Potassium 4.9 mmol/L (3.5-5.1); RDW Standard Deviation 54.7 fL (36.4-46.3); Total Protein 7.3 gm/dl (6.4-8.2); Troponin I 0.019 ng/ml (0-0.045); White Blood Count 6.52 K/uL (4.8-10.8)
--- NOTE | 2021-11-02 18:09 | XRay Report ---
XR chest 1V portable HISTORY: Dyspnea COMPARISON: Chest 10/28/2021. FINDINGS: Mild interstitial pulmonary edema and small bilateral pleural effusions have slightly progr essed. Patchy left basilar densities are also noted. The heart is mildly enlarged. No pneumothorax. S lightly rotated study. IMPRESSION: 1. Interval progression of the mild interstitial pulmonary edema and small bilateral pleural effusion s. 2. Patchy left basilar densities are nonspecific but may represent atelectasis from the pleural effus ion. ACT 112: Negative or not required by law. Electronically signed by: Siva Perez M.D. 11/02/2021 6:08 PM
[2021-11-02 18:10] LABS: Basophils # (auto) 0.03 K/uL (0-0.2); Basophils % (auto) 0.5 %; Giant Platelets 1+; Immature Granulocytes # (auto) 0.12 K/uL (0.00-0.02); Immature Granulocytes % (auto) 1.8 %; Lymphocytes % (auto) 7.7 %; Monocytes # (auto) 0.38 K/uL (0.11-0.59); Monocytes % (auto) 5.8 %; Neutrophils # (auto) 5.49 K/uL (1.4-6.5); Neutrophils % (auto) 84.2 %; Platelet Estimate Decreased (Normal)
[2021-11-02 18:42] LABS: Influenza A virus by PCR Negative (Neg); Influenza B virus by PCR Negative (Neg); RSV by PCR Negative (Neg)
[2021-11-02 19:02] LABS: SARS CoV2 RNA(COVID-19) InHosp POSITIVE (Negative)
[2021-11-02] MEDS ORDERED: SODIUM CHLORIDE 0.9% 1000ML 500 ML IV ONE (19:28)
[2021-11-02 19:43] LABS: Appearance Urine Clear (Clear); Bilirubin Urine Negative (Negative); Blood Urine Negative (Negative); Color Urine Yellow; Glucose Urine UA Negative (Negative); Ketones Urine Trace (Negative); Leukocyte Esterase Urine Negative (Negative); Nitrite Urine Negative (Negative); Protein Urine Negative (Negative); Specific Gravity Urine 1.014 (1.000-1.030); Urobilinogen Urine Negative (Negative)
--- NOTE | 2021-11-02 20:47 | History & Physical Report ---
Date of Service November 02, 2021 Assessment & Plan (1) Acute hypercapnic respiratory failure: Plan: 56yo female with history of O2 dependent COPD presenting with acute hypercapnic respiratory failure. Patient was recently hospitalized with covid-19 PNA from 10/28/21 - 10/30/21 and was treated with Dexamethasone and Remdesivir x 2 doses. She was discharged home and has had progression of SOB and wheeze over the last several days. VBG on arrival with acute on chronic respiratory acidosis with initial pH of 7.26, CO2 of 101. She is comfortable on BiPAP, repeat gas with mild improvement. Presently on 15/04. Suspect acute exacerbation of COPD in conjunction with Covid-19 PNA. -Admit to medical -Continue BiPAP as tolerated. Repeat ABG. -Combivent q 4 hours -Albuterol HFA q 2 hours PRN -Will change to Solumedrol 30mg IV TID for management of suspected COPD exacerbation (90mg of Solumedrol roughly equivalent to 16.9mg of Dexamethasone per steroid converter) -Supplemental O2 as needed (2) COVID: Plan: Patient was recently hospitalized for Covid-19. Symptoms of illness began appx during the week of 10/18/21. She has family that is ill with Covid-19 as well. She is not vaccinated against the disease.. She has elevation of CRP to 5.86, Ferritin is within normal range at 224.4. Procalcitonin is undetectable, BNP within normal range at 204. -Maintain isolation precautions -Supplemental O2 as above -Encourage proning -Solumedrol as above -Lovenox 40 BID -Tylenol PRN (3) COPD (chronic obstructive pulmonary disease): Plan: As above - suspect that acute exacerbation of COPD is predominant mechanism for patient's SOB at this time -Albuterol and Combivent HFA as above -Solumedrol as above -Mucinex 1200 BID -Incentive spirometry and flutter valve -Supplemental O2 as needed (4) FLAKO (obstructive sleep apnea): Plan: Chronic -Continue CPAP qHS (5) (HFpEF) heart failure with preserved ejection fraction: Plan: Patient does not appear to be overtly volume overloaded. She has some pedal edema bilaterally. BNP is within normal range -Continue to monitor Plan: F/E/N - Heplock. Electrolytes WNL. Regular diet as tolerated once off BiPAP Ppx - Lovenox 40 BID Code - Full per discussion with patient Dispo - Admit to medical History of Present Illness Chief Complaint: SOB Primary Care Provider: Crystal Christina Poe is a 56yo female with history of chronic hypoxic respiratory failure secondary to COPD on 3L home O2, current smoker, FLAKO on CPAP qHS presenting with worsening shortness of breath. She reports feeling more short of breath with worsening cough during the week of 10/18/21. Patient was admitted to [facility] from 10/28 - 10/30 and found to be POSITIVE for Covid-19 infection. She was treated with Dexamethasone as well as two doses of Remdesivir and nebulizers. She was discharged home on 10/30/21 and instructed to complete her Dexamethasone course. Patient has been taking her medications as prescribed. Reports worsening SOB as well as cough, chest tightness and wheezing for the last week. She has been taking her nebulizers with some mild improvement in symptoms. She denies fever, purulent sputum, edema, orthopnea or chest pain. Upon arrival to the ER patient afebrile, HD stable. A VBG was obtained which showed 7.25/101/32. She was placed on BiPAP 10/6 to assist with ventilation. Her repeat gas showed 7.6/94. Her BiPAP was increased to 16/6. Patient does not tolerate BiPAP for prolonged periods of time, however is agreeable to wearing it at this time. Allergies Allergy/AdvReac Type Severity Reaction Status Date / Time azithromycin Allergy Severe respiratory Verified 09/10/21 23:40 distress cefaclor Allergy Severe RESPIRATORY Verified 09/10/21 23:40 DISTRESS erythromycin base Allergy Severe RESPIRATORY Verified 09/10/21 23:40 DISTRESS ibuprofen Allergy Severe RESPIRATORY Verified 09/10/21 23:40 DISTRESS Penicillins Allergy Severe RESPIRATORY Verified 09/10/21 23:40 DISTRESS Sulfa (Sulfonamide Allergy Severe RESPIRATORY Verified 09/10/21 23:40 Antibiotics) DISTRESS, RASH doxycycline AdvReac Severe Difficulty Verified 09/10/21 23:40 Breathing morphine AdvReac Intermediate N/V Verified 09/10/21 23:40 Home Medications Medication Instructions Recorded Confirmed Type albuterol sulfate 90 mcg/actuation 2 puff INHALATION Q6H PRN 10/09/18 11/02/21 History aerosol inhaler fluticasone propionate 230 1 puff INHALATION Q12H 10/09/18 11/02/21 History mcg-salmeterol 21 mcg/actuation HFA inhaler (Advair HFA) tiotropium bromide 2.5 2 puff INHALATION AMHS 10/09/18 11/02/21 History mcg/actuation mist for inhalation (Spiriva Respimat) acetaminophen 500 mg tablet 1,000 mg PO Q6H PRN 10/21/19 11/02/21 History (Tylenol Extra Strength) albuterol sulfate 2.5 mg INHALATION Q4H PRN 10/21/19 11/02/21 History fluticasone propionate 50 2 spray INTRANASAL BID 10/21/19 11/02/21 History mcg/actuation nasal spray,suspension (Flonase Allergy Relief) potassium chloride 20 mEq 20 meq PO QAM 11/09/20 11/02/21 History tablet,extended release(part/cryst) (Klor-Con M) Oxygen Home #1 ea 07/10/21 08/03/21 Rx diclofenac sodium 1 % topical gel 4 g EXT QID PRN 08/03/21 11/02/21 History (Voltaren Arthritis Pain) furosemide 40 mg tablet See Rx Instructions .ROUTE .COMPLEX 09/10/21 11/02/21 History dexamethasone 6 mg tablet 6 mg PO DAILY #8 tab 10/30/21 11/02/21 Rx Past Med/Surg History Medical History (Updated 11/02/21 @ 19:30 by Robbin Catalan DO) Chest pain COPD (chronic obstructive pulmonary disease) On 3 L of oxygen continuous Dyspnea Morbid obesity Orthopnea Status asthmaticus TIA (transient ischemic attack) Surgical History History of hysterectomy Hx of cholecystectomy Family History Other Heart disease Social History Smoking Status: Current every day smoker Tobacco Type: Cigarettes Cigarettes Per Day: 10; Second Hand Exposure: No; Hx Alcohol Use: No Hx Substance Use: No Preferred Language: [place] Communication Ability: Effective Uncrater Required: No Beliefs That Will Affect Care: None marital status: Current Living Situation: Spouse Current Living Situation Comment: lives in mobile home with son Feels Safe at Home: Yes Assistive Devices: Glasses Review of Systems Review of Systems: All systems reviewed & are unremarkable except as noted in HPI & below Physical Exam Physical Exam: General: patient resting comfortably, BiPAP in place, speaking in complete sentences Skin: warm, dry, intact, no rashes or lesions HEENT: NC/AT, PERRL, EOMI, anicteric sclera, conjunctiva without injection, external ear normal to inspection and nontender, nares patent, moist mucus membranes, dentition intact, no oropharyngeal lesions, neck supple, trachea midline, no LAD, no thyromegaly, no JVD Heart: +S1/S2, regular, no m/r/g Lungs: equal air entry bilaterally, +wheezing inspiratory/expiratory Abd: +BS, soft, NT/ND, no masses/organomegaly/ascites Ext: warm, 2+ pulses in UE/LE bilaterally, no clubbing/cyanosis, 1+ edema of bilateral feet Neuro: nonfocal, patient AA&O x 4, speech intact, no facial droop, moving all extremities on command with equal strength 5/5 Results & Data Results & Data ([facility]) Vital Signs (Past 12 Hours) Vital Signs Temp Pulse Pulse Resp BP BP Pulse Ox 11/02/21 19:22 74 16 93/52 L 97 11/02/21 19:00 76 19 97 11/02/21 18:50 78 15 95 11/02/21 18:43 101 H 22 90 11/02/21 18:40 84 20 87 L 11/02/21 18:31 83 17 109/64 91 11/02/21 18:30 80 24 91 11/02/21 18:20 80 24 92 11/02/21 18:10 77 25 H 93 11/02/21 18:00 83 20 81/59 L 96 11/02/21 17:54 36.9 C 87 26 H 92 11/02/21 17:50 36.9 C 86 86 20 101/83 92 11/02/21 17:40 87 18 90 11/02/21 17:30 91 H 24 101/83 95 11/02/21 17:20 86 16 90 11/02/21 17:14 86 18 103/68 97 11/02/21 17:10 85 22 96 11/02/21 17:03 86 21 139/68 94 11/02/21 17:02 89 20 95 Laboratory Results Laboratory Results WBC 6.52 K/uL (4.8-10.8) 11/02/21 17:09 RBC 5.30 M/uL (4.2-5.4) 11/02/21 17:09 Hgb 15.6 g/dL (12.0-16.0) 11/02/21 17:09 Hct 52.1 % (37-47) H 11/02/21 17:09 MCV 98.3 fL (80-100) 11/02/21 17:09 MCH 29.4 pg (25-34) 11/02/21 17:09 MCHC 29.9 g/dL (32-36) L 11/02/21 17:09 RDW Std Deviation 54.7 fL (36.4-46.3) H 11/02/21 17:09 RDW Coeff of Darius 15.0 % (11.5-14.5) H 11/02/21 17:09 Plt Count 113 K/uL (130-400) L 11/02/21 17:09 MPV 12.1 fL (7.4-10.4) H 11/02/21 17:09 Immature Gran % (Auto) 1.8 % 11/02/21 17:09 Neut % (Auto) 84.2 % 11/02/21 17:09 Lymph % (Auto) 7.7 % 11/02/21 17:09 [place] % (Auto) 5.8 % 11/02/21 17:09 Eos % (Auto) 0.0 % 11/02/21 17:09 Baso % (Auto) 0.5 % 11/02/21 17:09 Neut # (Auto) 5.49 K/uL (1.4-6.5) 11/02/21 17:09 Lymph # (Auto) 0.50 K/uL (1.2-3.4) L 11/02/21 17:09 [place] # (Auto) 0.38 K/uL (0.11-0.59) 11/02/21 17:09 Eos # (Auto) 0.00 K/uL (0-0.5) 11/02/21 17:09 Baso # (Auto) 0.03 K/uL (0-0.2) 11/02/21 17:09 Immature Gran # (Auto) 0.12 K/uL (0.00-0.02) H 11/02/21 17:09 Platelet Estimate Decreased (Normal) L 11/02/21 17:09 Giant Platelets 1+ 11/02/21 17:09 PT 9.7 Seconds (9.0-12.0) 11/02/21 17:09 INR 1.0 (0.9-1.1) 11/02/21 17:09 APTT 26.8 Seconds (21.0-31.0) 11/02/21 17:09 PTT Ratio 1.0 11/02/21 17:09 VBG pH 7.24 (7.36-7.41) L 11/02/21 17:11 VBG pCO2 101 mmHg (38-50) H 11/02/21 17:11 VBG pO2 32 mmHg 11/02/21 17:11 VBG HCO3 43 mmol/L 11/02/21 17:11 VBG O2 Saturation < 60.0 % 11/02/21 17:11 VBG Base Excess 10.3 mEq/L 11/02/21 17:11 Barometric Pressure 736.5 mm/Hg 11/02/21 17:11 Sodium 140 mmol/L (136-145) 11/02/21 17:09 Potassium 4.9 mmol/L (3.5-5.1) 11/02/21 17:09 Chloride 99 mmol/L (98-107) 11/02/21 17:09 Carbon Dioxide 39 mmol/L (21-32) H 11/02/21 17:09 Anion Gap 2.0 (3-11) L 11/02/21 17:09 BUN 7 mg/dl (7-18) 11/02/21 17:09 Creatinine 0.48 mg/dl (0.6-1.2) L 11/02/21 17:09 Est Cr Clr Drug Dosing 129.1 ml/min 11/02/21 17:09 Est GFR ( Amer) 125.3 ml/min 11/02/21 17:09 Est GFR (Non-Af Amer) 108.1 ml/min 11/02/21 17:09 BUN/Creatinine Ratio 13.7 (10-20) 11/02/21 17:09 Glucose 114 mg/dl (70-99) H 11/02/21 17:09 Calcium 9.0 mg/dl (8.5-10.1) 11/02/21 17:09 Ferritin 224.4 ng/ml (8-388) 11/02/21 17:09 Total Bilirubin 0.3 mg/dl (0.2-1) 11/02/21 17:09 AST 39 U/L (15-37) H 11/02/21 17:09 ALT 55 (12-78) 11/02/21 17:09 Alkaline Phosphatase 75 U/L (45-117) 11/02/21 17:09 Troponin I 0.019 ng/ml (0-0.045) 11/02/21 17:09 C-Reactive Protein 5.86 mg/dl (0-0.29) H 11/02/21 17:09 NT-Pro-B Natriuret Pep 204 pg/ml (0-900) 11/02/21 17:09 Total Protein 7.3 gm/dl (6.4-8.2) 11/02/21 17:09 Albumin 3.2 gm/dl (3.4-5.0) L 11/02/21 17:09 Globulin 4.1 gm/dl (2.5-4.0) H 11/02/21 17:09 Albumin/Globulin Ratio 0.8 (0.9-2) L 11/02/21 17:09 Procalcitonin < 0.05 ng/ml (0-0.5) 11/02/21 17:11 Specimen Hemolysis 11/02/21 17:09 Urine Color Yellow 11/02/21 19:00 Urine Appearance Clear (Clear) 11/02/21 19:00 Urine pH 5.0 (4.5-7.5) 11/02/21 19:00 Ur Specific [place] 1.014 (1.000-1.030) 11/02/21 19:00 Urine Protein Negative (Negative) 11/02/21 19:00 Urine Glucose (UA) Negative (Negative) 11/02/21 19:00 Urine Ketones Trace (Negative) H 11/02/21 19:00 Urine Blood Negative (Negative) 11/02/21 19:00 Urine Nitrite Negative (Negative) 11/02/21 19:00 Urine Bilirubin Negative (Negative) 11/02/21 19:00 Urine Urobilinogen Negative (Negative) 11/02/21 19:00 Ur Leukocyte Esterase Negative (Negative) 11/02/21 19:00 SARS-CoV-2 (PCR) POSITIVE (Negative) A* 11/02/21 17:44 Influenza Type A (PCR) Negative (Neg) 11/02/21 17:44 Influenza Type B (PCR) Negative (Neg) 11/02/21 17:44 RSV (RT-PCR) Negative (Neg) 11/02/21 17:44 Impressions Chest X-Ray 11/02/21 17:00 XR chest 1V portable HISTORY: Dyspnea COMPARISON: Chest 10/28/2021. FINDINGS: Mild interstitial pulmonary edema and small bilateral pleural effusions have slightly progressed. Patchy left basilar densities are also noted. The heart is mildly enlarged. No pneumothorax. Slightly rotated study. IMPRESSION: 1. Interval progression of the mild interstitial pulmonary edema and small bilateral pleural effusions. 2. Patchy left basilar densities are nonspecific but may represent atelectasis from the pleural effusion. ACT 112: Negative or not required by law. Electronically signed by: Siva Perez M.D. 11/02/2021 6:08 PM Code Status & VTE Plan VTE Prophylaxis Plan VTE Prophylaxis will be ordered: Yes PG Care Time/CCT Total # of Minutes Spent Total Time Spent with Patient: Total time spent is greater than 50% in coordination of care (as documented) at patient's floor/unit and/or counseling patient: Coding Level of Care Code 23960 Initial Inpt Care Lvl 3 Diagnoses COVID U07.1 COPD (chronic obstructive pulmonary disease) J44.9 COPD type: unspecified COPD FLAKO (obstructive sleep apnea) G47.33 Acute hypercapnic respiratory failure J96.02 (HFpEF) heart failure with preserved ejection fraction I50.30 (1) COPD (chronic obstructive pulmonary disease) COPD type: unspecified COPD Qualified Code(s): J44.9 - Chronic obstructive pulmonary disease, unspecified
[2021-11-02] MEDS ORDERED: IPRATROPIUM BROMIDE/ALBUTEROL respimat INH INH SCH (21:51)
[2021-11-02] MEDS ORDERED: ALBUTEROL HFA 8 GM INHALER INH PRN (21:51)
[2021-11-02] MEDS ORDERED: ONDANSETRON INJ 2 MG/ML 2 ML VIAL IV PRN (21:51)
[2021-11-02] MEDS ORDERED: Ipratropium HFA Inhaler (Combivent Respimat P&T Subs) INH ONE (22:30)
[2021-11-02] MEDS ORDERED: Albuterol HFA 8 GM Inhaler (Combivent Respimat P&T Subs) INH ONE (22:30)
[2021-11-02 22:46] LABS: C Reactive Protein 5.86 mg/dl (0-0.29); Ferritin 224.4 ng/ml (8-388)
[2021-11-02] MEDS: ENOXAPARIN INJ 40 MG/0.4 ML SYR SQ SCH (23:19)
[2021-11-02] MEDS: FLUTICASONE PROPIONATE NA SPR 16 GM BTL SCH (23:19)
[2021-11-03 06:23] LABS: Alanine Aminotransferase 38 (12-78); Albumin Level 2.3 gm/dl (3.4-5.0); Alkaline Phosphatase 54 U/L (45-117); Aspartate Aminotransferase 22 U/L (15-37); BUN Creatinine Ratio 29.5 (10-20); Bilirubin Direct < 0.1 mg/dl (0-0.2); Bilirubin,Total 0.2 mg/dl (0.2-1); Blood Urea Nitrogen 8 mg/dl (7-18); Calcium 8.5 mg/dl (8.5-10.1); Carbon Dioxide 39 mmol/L (21-32); Chloride 100 mmol/L (98-107); Creatinine Clr Calc Pharmacy 217.3 ml/min; Est GFR (African American) 147.9 ml/min; Est GFR (Non-African American) 127.6 ml/min; Glucose 102 mg/dl (70-99); Hematocrit (blood only) 42.5 % (37-47); Hemoglobin 12.7 g/dL (12.0-16.0); Mean Corpuscular Hemoglobin 29.4 pg (25-34); Mean Corpuscular Hgb Conc 29.9 g/dL (32-36); Mean Corpuscular Volume 98.4 fL (80-100); Mean Platelet Volume 12.4 fL (7.4-10.4); Platelet Count 100 K/uL (130-400); Potassium 4.9 mmol/L (3.5-5.1); RDW Coefficient of Variation 14.7 % (11.5-14.5); RDW Standard Deviation 53.4 fL (36.4-46.3); Red Blood Count 4.32 M/uL (4.2-5.4); Sodium 140 mmol/L (136-145); Total Protein 5.5 gm/dl (6.4-8.2); White Blood Count 3.26 K/uL (4.8-10.8)
[2021-11-03 06:44] LABS: Basophils # (auto) 0.04 K/uL (0-0.2); Basophils % (auto) 1.2 %; Giant Platelets 1+; Immature Granulocytes # (auto) 0.06 K/uL (0.00-0.02); Immature Granulocytes % (auto) 1.8 %; Lymphocytes % (auto) 27.6 %; Monocytes # (auto) 0.42 K/uL (0.11-0.59); Monocytes % (auto) 12.9 %; Neutrophils # (auto) 1.84 K/uL (1.4-6.5); Neutrophils % (auto) 56.5 %
[2021-11-03] MEDS ORDERED: IPRATROPIUM BROMIDE HFA INHALER INH SCH (07:00)
[2021-11-03] MEDS ORDERED: ALBUTEROL HFA 8 GM INHALER INH SCH (07:00)
[2021-11-03] MEDS: FLUTICASONE PROPIONATE NA SPR 16 GM BTL SCH ×2 (07:45→20:39)
[2021-11-03] MEDS: FLUTICASONE/VILANTEROL 100/25MCG 14 PUFFS/INHALER INH SCH (07:46)
[2021-11-03] MEDS: guaiFENesin 600 MG TABCR PO SCH ×2 (07:46→20:39)
[2021-11-03] MEDS: methylPREDNISolone 40 MG in SYRINGE 0 ML IV SCH ×2 (07:46→16:28)
[2021-11-03] MEDS: ACETAMINOPHEN 325 MG TAB PO PRN ×2 (08:32→13:37)
[2021-11-03] MEDS ORDERED: dexAMETHasone 6 MG in SYRINGE 0 ML IV SCH (09:00)
[2021-11-03] MEDS: ENOXAPARIN INJ 40 MG/0.4 ML SYR SQ SCH ×2 (09:04→22:24)
[2021-11-03] MEDS ORDERED: ALBUTEROL 0.083% NEBU SOLN 3 ML VIAL ONE (09:07)
[2021-11-03] MEDS: ALBUTEROL 0.083% NEBU SOLN 3 ML VIAL NEB PRN ×3 (09:14→20:04)
[2021-11-03] MEDS: Albuterol HFA 8 GM Inhaler (Combivent Respimat P&T Subs) INH SCH ×4 (09:18→20:05)
[2021-11-03] MEDS: Ipratropium HFA Inhaler (Combivent Respimat P&T Subs) INH SCH ×4 (09:19→20:05)
--- NOTE | 2021-11-03 11:43 | Electrocardiogram Report ---
Test Reason : Blood Pressure : / mmHG Vent. Rate : 089 BPM Atrial Rate : 089 BPM P-R Int : 142 ms QRS Dur : 082 ms QT Int : 334 ms P-R-T Axes : 054 057 046 degrees QTc Int : 406 ms Poor data quality, interpretation may be adversely affected Normal sinus rhythm Normal ECG When compared with ECG of 28-OCT-2021 08:53, Questionable change in QRS axis T wave inversion no longer evident in Inferior leads Confirmed by Robbin Zavala ([id number]) on 11/03/2021 11:42:57 AM Referred By: REFERRED SELF Confirmed By:Robbin Zavala
[2021-11-03 14:02] LABS: iSTAT Arterial Blood Gas pCO2 95 mmHg (35-46); iSTAT Arterial Blood Gas pH 7.27 (7.35-7.45); iSTAT Arterial Blood Gas pO2 50 mmHg (80-95); iSTAT Carbon Dioxide 46 mmol/L (24-31); iSTAT Hematocrit 42 % (37-47); iSTAT Hemoglobin 14.3 g/dl (12.0-16.0); iSTAT Potassium 4.8 mmol/L (3.3-5.0)
[2021-11-03 14:03] LABS: iSTAT Arterial Blood Gas HCO3 43 meg/L (19-24); iSTAT Sample Type Arterial
[2021-11-03 14:04] LABS: iSTAT Sodium 139 mmol/L (135-144)
--- NOTE | 2021-11-03 14:06 | Hospitalist Progress Note ---
Date of Service November 03, 2021 Assessment & Plan (1) Acute hypercapnic respiratory failure: Plan: 56yo female with history of O2 dependent COPD presenting with acute hypercapnic respiratory failure. Patient was recently hospitalized with covid-19 PNA from 10/28/21 - 10/30/21 and was treated with Dexamethasone and Remdesivir x 2 doses. She was discharged home and has had progression of SOB and wheeze over the last several days. VBG on arrival with acute on chronic respiratory acidosis with initial pH of 7.26, CO2 of 101. She is comfortable on BiPAP, repeat gas with mild improvement. Presently on 15/04. Suspect acute exacerbation of COPD in conjunction with Covid-19 PNA. -Admit to medical -Combivent q 4 hours -Albuterol HFA q 2 hours PRN -Will change to Solumedrol 30mg IV TID for management of suspected COPD exacerbation (90mg of Solumedrol roughly equivalent to 16.9mg of Dexamethasone per steroid converter) -Supplemental O2 as needed - Improved today. No wheezing noted on exam. Will plan to taper steroids. Given frequent re-admission, will get PT/OT. (2) COVID: Plan: Patient was recently hospitalized for Covid-19. Symptoms of illness began appx during the week of 10/18/21. She has family that is ill with Covid-19 as well. She is not vaccinated against the disease.. She has elevation of CRP to 5.86, Ferritin is within normal range at 224.4. Procalcitonin is undetectable, BNP within normal range at 204. -Maintain isolation precautions -Supplemental O2 as above -Encourage proning -Solumedrol as above -Lovenox 40 BID -Tylenol PRN (3) COPD (chronic obstructive pulmonary disease): Plan: As above - suspect that acute exacerbation of COPD is predominant mechanism for patient's SOB at this time -Albuterol and Combivent HFA as above -Solumedrol as above -Mucinex 1200 BID -Incentive spirometry and flutter valve -Supplemental O2 as needed (4) FLAKO (obstructive sleep apnea): Plan: Chronic -Continue CPAP qHS (5) (HFpEF) heart failure with preserved ejection fraction: Plan: Patient does not appear to be overtly volume overloaded. She has some pedal edema bilaterally which she states is at its baseline. BNP is within normal range. -Continue to monitor Plan: F/E/N - Heplock. Electrolytes WNL. Regular diet as tolerated once off BiPAP Ppx - Lovenox 40 BID Code - Full per discussion with patient Dispo - Admit to medical Admission and Anticipated Discharge Date Admission Date: November 02, 2021 Subjective Doing well today. Requests to be off BiPap and her O2 is 96% which she reports is "too high." Reports no fevers/chills, chest pain, shortness of breath, abdominal pain, nausea, or vomiting. Physical Exam Constitutional: WD/WN, vitals as above Eyes: EOM intact bilaterally; no conjunctival abnormality ENMT: external ear and nose normal, oropharynx normal Neck: trachea midline, no thyromegaly normal visual inspection Respiratory: normal respiratory effort, lungs clear to auscultation no respiratory distress Cardiovascular: RRR, no murmur, no edema Gastrointestinal (Abdomen): Inspection/Auscultation: abdomen normal to inspection; abdomen not distended Musculoskeletal: no cyanosis or clubbing, extremities motor strength 5/5 Skin: no rashes, warm and dry Neurologic: moves all extremities and awake Psychiatric: Orientation: alert, oriented to person and cooperative Results & Data Results & Data ([facility]) Vital Signs (Past 12 Hours) Vital Signs Temp Pulse Pulse Pulse Resp BP Pulse Ox 11/03/21 11:35 82 18 91 11/03/21 11:09 36.6 C 80 17 99/60 L 90 11/03/21 09:14 70 20 97 11/03/21 07:38 36.8 C 68 18 99/60 L 95 11/03/21 07:33 72 11/03/21 06:18 95/59 L 11/03/21 05:51 36.7 C 67 20 90/57 L 93 11/03/21 05:24 17 93 11/03/21 05:07 70 16 118/45 L 96 11/03/21 02:36 60 16 97/50 L 94 11/03/21 02:20 57 L 18 94 PG Care Time/CCT Total # of Minutes Spent Total Time Spent with Patient: Total time spent is greater than 50% in coordination of care (as documented) at patient's floor/unit and/or counseling patient: Coding Level of Care Code 89828 Subseq Hosp Care Lvl 2 Diagnoses Acute hypercapnic respiratory failure J96.02 COVID U07.1 COPD (chronic obstructive pulmonary disease) J44.9 COPD type: unspecified COPD FLAKO (obstructive sleep apnea) G47.33 (HFpEF) heart failure with preserved ejection fraction I50.30 (1) COPD (chronic obstructive pulmonary disease) COPD type: unspecified COPD Qualified Code(s): J44.9 - Chronic obstructive pulmonary disease, unspecified
[2021-11-04] MEDS: methylPREDNISolone 40 MG in SYRINGE 0 ML IV SCH ×3 (00:47→16:26)
[2021-11-04] MEDS: Albuterol HFA 8 GM Inhaler (Combivent Respimat P&T Subs) INH SCH (06:07)
[2021-11-04] MEDS: ALBUTEROL 0.083% NEBU SOLN 3 ML VIAL NEB PRN ×3 (06:07→10:58)
[2021-11-04] MEDS: Ipratropium HFA Inhaler (Combivent Respimat P&T Subs) INH SCH (06:07)
[2021-11-04] MEDS ORDERED: NITROGLYCERIN SL 0.4 MG/TAB TAB SL PRN (06:13)
[2021-11-04] MEDS: NITROGLYCERIN SL 0.4 MG/TAB TAB ONE ×2 (06:17→06:45)
[2021-11-04] MEDS ORDERED: NITROGLYCERIN 2% OINTMENT 30GM TUBE ONE (06:24)
[2021-11-04] MEDS ORDERED: NITROGLYCERIN 2% OINTMENT 30GM TUBE EXT SCH (06:45)
[2021-11-04] MEDS ORDERED: Nursing to Pharmacy Communication SCH (06:45)
[2021-11-04] MEDS ORDERED: ALBUT/IPRATROP 3MG/0.5MG NEB 3 ML VIAL NEB STA (06:45)
[2021-11-04 07:03] LABS: Hematocrit (blood only) 45.9 % (37-47); Hemoglobin 14.2 g/dL (12.0-16.0); Mean Corpuscular Hgb Conc 30.9 g/dL (32-36); Mean Platelet Volume 11.5 fL (7.4-10.4); Platelet Count 126 K/uL (130-400); RDW Coefficient of Variation 14.2 % (11.5-14.5); RDW Standard Deviation 50.9 fL (36.4-46.3); Red Blood Count 4.73 M/uL (4.2-5.4); White Blood Count 5.41 K/uL (4.8-10.8)
[2021-11-04 07:54] LABS: Anion Gap 0 (3-11); Blood Urea Nitrogen 14 mg/dl (7-18); Calcium 8.5 mg/dl (8.5-10.1); Carbon Dioxide 41 mmol/L (21-32); Chloride 98 mmol/L (98-107); Creatinine Clr Calc Pharmacy 182.6 ml/min; Glucose 105 mg/dl (70-99); Magnesium 2.5 mg/dl (1.8-2.4); Potassium 4.6 mmol/L (3.5-5.1); Sodium 138 mmol/L (136-145); Troponin I < 0.015 ng/ml (0-0.045)
--- NOTE | 2021-11-04 07:55 | XRay Report ---
XR chest 1V portable CLINICAL HISTORY: chest pain TECHNIQUE: Single frontal radiograph of the chest was obtained. Comparison: Comparison is made to chest one view 11/02/2021 FINDINGS: No lines and tubes are seen. The cardiomediastinal silhouette is stable. The lungs are clear. Small l eft pleural effusion. IMPRESSION: Small left pleural effusion. ACT 112: Negative or not required by law. Electronically signed by: Joss Hollins M.D. 11/04/2021 7:54 AM
[2021-11-04] MEDS: FLUTICASONE/VILANTEROL 100/25MCG 14 PUFFS/INHALER INH SCH (08:34)
[2021-11-04] MEDS: FLUTICASONE PROPIONATE NA SPR 16 GM BTL SCH ×2 (08:34→20:28)
[2021-11-04] MEDS: guaiFENesin 600 MG TABCR PO SCH ×2 (08:34→19:50)
[2021-11-04] MEDS: ENOXAPARIN INJ 40 MG/0.4 ML SYR SQ SCH (08:36)
[2021-11-04] MEDS: NICOTINE 7 MG/24 HR TDSY TD SCH (08:42)
[2021-11-04] MEDS ORDERED: FUROSEMIDE 40 MG/4 ML VIAL IV ONE (10:09)
[2021-11-04 10:47] LABS: Base Excess VBG 12.9 mEq/L; Oxygen Saturation VBG 66.4 %; pH VBG 7.29 (7.36-7.41)
[2021-11-04] MEDS: FORMOTEROL 20 MCG/2 ML VIAL NEB SCH ×2 (10:58→20:00)
--- NOTE | 2021-11-04 12:58 | Electrocardiogram Report ---
Test Reason : Blood Pressure : / mmHG Vent. Rate : 077 BPM Atrial Rate : 077 BPM P-R Int : 136 ms QRS Dur : 082 ms QT Int : 360 ms P-R-T Axes : 058 058 062 degrees QTc Int : 407 ms Poor data quality, interpretation may be adversely affected Normal sinus rhythm Low voltage QRS T wave abnormality, consider anterior ischemia Abnormal ECG When compared with ECG of 02-NOV-2021 17:02, T wave abnormality now present Confirmed by Robbin Zavala ([id number]) on 11/04/2021 12:57:53 PM Referred By: REFERRED SELF Confirmed By:Robbin Zavala
[2021-11-04] MEDS ORDERED: ASPIRIN 81 MG CHEW PO STA (13:18)
[2021-11-04 13:29] LABS: Base Excess ABG 14.7 mEq/L (-9-1.8); HCO3 ABG 45 mmol/L (19-24); Oxygen Saturation ABG 91.6 % (90-95); PCO2 ABG 82 mmHg (35-46); PO2 ABG 62 mmHg (80-95); pH ABG 7.36 (7.35-7.45)
[2021-11-04] MEDS ORDERED: Heparin IV Adult Wt-Based Standard WITH Bolus Protocol IV SCH (13:34)
[2021-11-04] MEDS ORDERED: CLOPIDOGREL BISULFATE 300 MG TAB PO STA (13:36)
[2021-11-04] MEDS ORDERED: HEPARIN SOD (PORCINE) 1000 UNIT/ML IV ONE (13:40)
--- NOTE | 2021-11-04 13:50 | Cardiology Consultation ---
Date of Consultation November 04, 2021 Assessment & Plan (1) Elevated troponin: -likely secondary to COVID-19 infection and acute respiratory failure at time of presentation. -she did have mild LVH on echocardiogram October 2020. -no symptoms of chest discomfort. -EKG with minor changes. -doubt an acute coronary syndrome. -continue to trend troponin levels. -not certain that heparin drip is necessary. (2) Respiratory failure: -likely secondary to COVID pneumonia and underlying COPD. -chest x-ray suggest the possibility mild pulmonary edema. -agree with daily IV furosemide until BUN/creatinine increase significantly. History of Present Illness Attending Physician: Tasia Marin MD History of Present Illness Mrs. Poe is a 56-year-old female admitted on November 02 with progressive shortness of breath related to her COVID pneumonia. Her troponin I level was elevated, therefore, this consultation was ordered. The patient's recent history began when she was admitted to our institution on October 28 with COVID pneumonia. She received standard treatment and was discharged home on October 30. Unfortunately, she presented on November 02 with progressive shortness of breath and was found to be in acute hypercapnic respiratory failure with a pH of 7.26 and a CO2 level 101. She was placed on BiPAP with some improvement. Her initial troponin was 0.019 with a follow-up value of less than 0.015. Troponin I level drawn today was elevated 2.49. At no time has the patient experienced chest discomfort. Her shortness of breath has improved and she is now requesting to be off the BiPAP mask. The patient carries no history of coronary artery disease. Past medical and surgical history 1. COPD 2. Morbid obesity 3. Hysterectomy 4. Cholecystectomy Social history and lives with her Smokes 1/2 pack of cigarettes daily No alcohol Family history Noncontributory Review of systems A 10 point review systems was undertaken and negative except that described above. Allergies Allergy/AdvReac Type Severity Reaction Status Date / Time azithromycin Allergy Severe respiratory Verified 09/10/21 23:40 distress cefaclor Allergy Severe RESPIRATORY Verified 09/10/21 23:40 DISTRESS erythromycin base Allergy Severe RESPIRATORY Verified 09/10/21 23:40 DISTRESS ibuprofen Allergy Severe RESPIRATORY Verified 09/10/21 23:40 DISTRESS Penicillins Allergy Severe RESPIRATORY Verified 09/10/21 23:40 DISTRESS Sulfa (Sulfonamide Allergy Severe RESPIRATORY Verified 09/10/21 23:40 Antibiotics) DISTRESS, RASH doxycycline AdvReac Severe Difficulty Verified 09/10/21 23:40 Breathing morphine AdvReac Intermediate N/V Verified 09/10/21 23:40 Home Medications Medication Instructions Recorded Confirmed Type albuterol sulfate 90 mcg/actuation 2 puff INHALATION Q6H PRN 10/09/18 11/02/21 History aerosol inhaler fluticasone propionate 230 1 puff INHALATION Q12H 10/09/18 11/02/21 History mcg-salmeterol 21 mcg/actuation HFA inhaler (Advair HFA) tiotropium bromide 2.5 2 puff INHALATION AMHS 10/09/18 11/02/21 History mcg/actuation mist for inhalation (Spiriva Respimat) acetaminophen 500 mg tablet 1,000 mg PO Q6H PRN 10/21/19 11/02/21 History (Tylenol Extra Strength) albuterol sulfate 2.5 mg INHALATION Q4H PRN 10/21/19 11/02/21 History fluticasone propionate 50 2 spray INTRANASAL BID 10/21/19 11/02/21 History mcg/actuation nasal spray,suspension (Flonase Allergy Relief) potassium chloride 20 mEq 20 meq PO QAM 11/09/20 11/02/21 History tablet,extended release(part/cryst) (Klor-Con M) Oxygen Home #1 ea 07/10/21 08/03/21 Rx diclofenac sodium 1 % topical gel 4 g EXT QID PRN 08/03/21 11/02/21 History (Voltaren Arthritis Pain) furosemide 40 mg tablet See Rx Instructions .ROUTE .COMPLEX 09/10/21 11/02/21 History dexamethasone 6 mg tablet 6 mg PO DAILY #8 tab 10/30/21 11/02/21 Rx Patient History Medical History (Updated 11/04/21 @ 13:54 by Robbin Zavala MD) Chest pain COPD (chronic obstructive pulmonary disease) On 3 L of oxygen continuous Dyspnea Morbid obesity Orthopnea Status asthmaticus TIA (transient ischemic attack) Surgical History History of hysterectomy Hx of cholecystectomy Family History Other Heart disease Social History Smoking Status: Current every day smoker Tobacco Type: Cigarettes Cigarettes Per Day: 10; Second Hand Exposure: No; Hx Alcohol Use: No Hx Substance Use: No Preferred Language: Bahamian Communication Ability: Effective Manager Market Intelligence Required: No Beliefs That Will Affect Care: None marital status: Current Living Situation: Spouse Current Living Situation Comment: lives in mobile home with son Feels Safe at Home: Yes Assistive Devices: BiPap and Oxygen - Continuous Results & Data ([facility]) Vital Signs (Past 12 Hours) Vital Signs Temp Pulse Pulse Resp BP Pulse Ox 11/04/21 11:13 36.5 C 75 18 106/69 92 11/04/21 11:01 84 20 90 11/04/21 09:30 75 11/04/21 09:03 75 20 90 11/04/21 07:55 36.8 C 74 18 111/71 90 11/04/21 06:25 80 110/71 11/04/21 06:17 36.7 C 70 26 H 113/72 92 11/04/21 02:53 36.5 C 59 L 20 103/56 L 91 11/04/21 02:48 54 L 18 91 Laboratory Results CBC notes hemoglobin 14.2, hematocrit 45.9, white count 5.4, platelet count [id number]. Electrolytes note a sodium of 138, potassium 4.6, chloride 98, bicarb 41, BUN 14, creatinine 0.35, glucose of 105. Initial troponin was 0.019 with follow-up values of less than 0.015 and 2.94 drawn today. Diagnostic Findings EKG notes significant baseline artifact but sinus rhythm with low voltage throughout. There are T-wave inversions in the anteroseptal leads. Chest x-ray notes borderline cardiomegaly with mild interstitial pulmonary edema and a small left pleural effusion. PG Care Time/CCT Total # of Minutes Spent Total Time Spent with Patient: Total time spent is greater than 50% in coordination of care (as documented) at patient's floor/unit and/or counseling patient: Coding Level of Care Code 04534 Inpt Consult Level 4 Diagnoses Elevated troponin R77.8 Respiratory failure J96.21; J96.22 Chronicity: acute on chronic Respiratory failure complication: hypoxia and hypercapnia (1) Respiratory failure Chronicity: acute on chronic Respiratory failure complication: hypoxia and hypercapnia Qualified Code(s): J96.21 - Acute and chronic respiratory failure with hypoxia; J96.22 - Acute and chronic respiratory failure with hypercapnia
[2021-11-04 13:57] LABS: Allen Test Pos (Pos)
[2021-11-04] MEDS: ALBUT/IPRATROP 3MG/0.5MG NEB 3 ML VIAL NEB SCH ×3 (14:11→19:42)
[2021-11-04] MEDS: NITROGLYCERIN 2% OINTMENT 30GM TUBE EXT SCH ×2 (14:18→19:40)
[2021-11-04 14:33] LABS: Basophils # (auto) 0.02 K/uL (0-0.2); Basophils % (auto) 0.2 %; Hematocrit (blood only) 47.4 % (37-47); Hemoglobin 14.5 g/dL (12.0-16.0); Immature Granulocytes # (auto) 0.07 K/uL (0.00-0.02); Immature Granulocytes % (auto) 0.6 %; Lymphocytes # (auto) 0.65 K/uL (1.2-3.4); Mean Corpuscular Hemoglobin 29.8 pg (25-34); Mean Corpuscular Volume 97.3 fL (80-100); Mean Platelet Volume 11.6 fL (7.4-10.4); Monocytes # (auto) 0.95 K/uL (0.11-0.59); Monocytes % (auto) 8.7 %; Neutrophils # (auto) 9.22 K/uL (1.4-6.5); Neutrophils % (auto) 84.5 %; Platelet Count 147 K/uL (130-400); RDW Coefficient of Variation 14.4 % (11.5-14.5); RDW Standard Deviation 51.7 fL (36.4-46.3); Red Blood Count 4.87 M/uL (4.2-5.4); White Blood Count 10.91 K/uL (4.8-10.8)
[2021-11-04 14:34] LABS: Mean Corpuscular Hgb Conc 30.6 g/dL (32-36)
[2021-11-04 14:43] LABS: Partial Thromboplastin Ratio 1.3; Partial Thromboplastin Time 33.3 Seconds (21.0-31.0); Prothrombin Time 9.9 Seconds (9.0-12.0)
--- NOTE | 2021-11-04 16:14 | XCELERA ---
[id number]
--- NOTE | 2021-11-04 16:18 | Electrocardiogram Report ---
Test Reason : Blood Pressure : / mmHG Vent. Rate : 069 BPM Atrial Rate : 069 BPM P-R Int : 128 ms QRS Dur : 078 ms QT Int : 368 ms P-R-T Axes : 082 037 075 degrees QTc Int : 394 ms Age and gender specific ECG analysis Normal sinus rhythm with sinus arrhythmia Low voltage QRS ST elevation, consider early repolarization, pericarditis, or injury Abnormal ECG When compared with ECG of 04-NOV-2021 06:23, Minimal criteria for Anterior infarct are no longer Present Non-specific change in ST segment in Anterior leads Confirmed by Robbin Zavala ([id number]) on 11/04/2021 4:18:38 PM Referred By: REFERRED SELF Confirmed By:Robbin Zavala
[2021-11-04] MEDS ORDERED: HEPARIN SOD (PORCINE) 1000 UNIT/ML ONE (16:38)
[2021-11-04] MEDS: HEPARIN SODIUM/DEXTROSE 25,000 UNITS/500 ML BAG IV SCH (16:45)
--- NOTE | 2021-11-04 18:22 | Hospitalist Progress Note ---
Date of Service November 04, 2021 Assessment & Plan (1) NSTEMI (non-ST elevated myocardial infarction): Plan: - troponin on admission negative - pt developed CP on 11/04 leading to cardiac W/U - troponin uptrending and now positive at 2.49 - EKG with anteroseptal t-wave and inferior lead t-wave inversion - start dual antiplatelet therapy/heparin gtt/topical nitropaste high intensity therapy - consult cardiology-- appreciate recommendations. D/W Dr. Zavala who does not plan to do cardiac cath at this time as patient currently CP free. Continue med mgmt. Appreciate recommendations - lipid panel in the am for risk stratification - trend troponin until it peaks - obtain echo - pt is HD stable but move to PCU (2) Acute hypercapnic respiratory failure: Plan: 56yo female with history of O2 dependent COPD presenting with acute hypercapnic respiratory failure. Patient was recently hospitalized with covid-19 PNA from 10/28/21 - 10/30/21 and was treated with Dexamethasone and Remdesivir x 2 doses. She was discharged home and has had progression of SOB and wheeze over the last several days. VBG on arrival with acute on chronic respiratory acidosis with initial pH of 7.26, CO2 of 101. She is comfortable on BiPAP, repeat gas with showing resolution of acute hypercapnia (as pH normalized)--> transition to bipap to sleep and O2 otherwise (with goal pulse ox 90-92) Suspect acute exacerbation of COPD in conjunction with Covid-19 PNA. -continue Solumedrol IV TID for management of suspected COPD exacerbation with plan to taper oral prednisone - change routine inhalers to pulmicort/perforomist and duoneb treatments -Supplemental O2 as needed (3) COVID: Plan: Patient was recently hospitalized for Covid-19. Symptoms of illness began appx during the week of 10/18/21. She has family that is ill with Covid-19 as well. She is not vaccinated against the disease.. She has elevation of CRP to 5.86, Ferritin is within normal range at 224.4. Procalcitonin is undetectable, BNP within normal range at 204. -Maintain isolation precautions for now. Symptoms onset ~10/19. Will talk with Infection control about removing this. -Supplemental O2 as above -Encourage proning -Solumedrol as above -Lovenox 40 BID -Tylenol PRN (4) COPD (chronic obstructive pulmonary disease): Plan: As above - suspect that acute exacerbation of COPD is predominant mechanism for patient's SOB at this time -pulmonary toilette as above -Solumedrol as above -Mucinex 1200 BID -Incentive spirometry and flutter valve -Supplemental O2 as needed (5) FLAKO (obstructive sleep apnea): Plan: Chronic -Continue CPAP/cipap qHS--> likely with obesity hypoventilation syndrome (6) (HFpEF) heart failure with preserved ejection fraction: Plan: - does seem to have PVC and pleural effusions on imaging with bibasilar crackles - 1 dose IV lasix now with reassessment for additional needs Admission and Anticipated Discharge Date Admission Date: November 02, 2021 Supervising Physician Co-Signing Physician Notes KHURRAM Supervision Note: I did not personally see or examine the patient today, but I verified all mar points of KHURRAM Rojas's assessment and plan with the following exceptions/ additions: None Subjective Patient seen on daily rounds today. Was c/o substernal CP that occurred at some point this morning. Was laying in bed. 4-510 and nonradiating. Denies associated dizziness/lightheadedness, increased SOB, N/V or diaphoresis. Review of Systems Review of Systems: All systems reviewed and are unremarkable except as noted in HPI and below Denies fevers, chills, headache, nasal congestion, sore throat, cough, palpitations, orthopnea, PND, abdominal pain, nausea, vomiting, diarrhea, constipation, dysuria, hematuria, frequency, back pain, joint pain or swelling, easy bruising or bleeding, skin lesions or rashes. Physical Exam Physical Exam: General: Resting comfortably in her bedside chair. She does not look acutely ill or toxic. NAD. HEENT: Head is AT/NC buccal mucosa is moist and pink Neck: No JVD. But + hepatojugular reflex Cardiac: Very distant heart sounds Lungs: Mild conversational dyspnea while wearing Johnny mask. Diminished breath sounds throughout. Poor air exchange. End expiratory wheezes with bibasilar crackles Abdomen: Normoactive X4. Soft and nontender in all quadrants. Extremities: Trace pitting edema Neuro: A&O X4 cranial nerves II through XII are grossly intact no focal neuro deficits Skin: No obvious skin lesions or rashes Psych: Appropriate affect pleasant and cooperative Results & Data Results & Data ([facility]) Vital Signs (Past 12 Hours) Vital Signs Temp Pulse Pulse Resp BP Pulse Ox 11/04/21 15:22 36.7 C 77 20 96/68 L 94 11/04/21 11:13 36.5 C 75 18 106/69 92 11/04/21 11:01 84 20 90 11/04/21 09:30 75 11/04/21 09:03 75 20 90 11/04/21 07:55 36.8 C 74 18 111/71 90 11/04/21 06:25 80 110/71 Laboratory Results 11/04/21 14:21 11/04/21 06:45 troponin: <0.015 --> 2.4 Diagnostic Findings EKG: t wave inversion in the anterior/septal and inferior leads PG Care Time/CCT Total # of Minutes Spent Total Time Spent with Patient: Total time spent is greater than 50% in coordination of care (as documented) at patient's floor/unit and/or counseling patient: Coding Level of Care Code 82215 Subseq Hosp Care Lvl 3 Diagnoses Acute hypercapnic respiratory failure J96.02 COVID U07.1 COPD (chronic obstructive pulmonary disease) J44.9 COPD type: unspecified COPD FLAKO (obstructive sleep apnea) G47.33 (HFpEF) heart failure with preserved ejection fraction I50.30 NSTEMI (non-ST elevated myocardial infarction) I21.4 (1) COPD (chronic obstructive pulmonary disease) COPD type: unspecified COPD Qualified Code(s): J44.9 - Chronic obstructive pulmonary disease, unspecified
[2021-11-04] MEDS: BUDESONIDE 0.5 MG/2 ML VIAL (PULMICORT) NEB SCH (19:42)
[2021-11-04] MEDS: ATORVASTATIN 40 MG TAB PO SCH (20:28)
[2021-11-04 23:44] LABS: Partial Thromboplastin Ratio 3.2
[2021-11-04 23:55] LABS: Partial Thromboplastin Time 82.9 Seconds (21.0-31.0)
[2021-11-05] MEDS: methylPREDNISolone 40 MG in SYRINGE 0 ML IV SCH ×3 (00:12→16:30)
[2021-11-05] MEDS: NITROGLYCERIN 2% OINTMENT 30GM TUBE EXT SCH ×4 (00:13→19:37)
[2021-11-05] MEDS: ALBUTEROL 0.083% NEBU SOLN 3 ML VIAL NEB PRN (05:18)
[2021-11-05 06:37] LABS: Basophils # (auto) 0.01 K/uL (0-0.2); Basophils % (auto) 0.1 %; Hemoglobin 13.5 g/dL (12.0-16.0); Immature Granulocytes # (auto) 0.09 K/uL (0.00-0.02); Immature Granulocytes % (auto) 1.3 %; Lymphocytes # (auto) 0.61 K/uL (1.2-3.4); Lymphocytes % (auto) 8.9 %; Mean Corpuscular Hemoglobin 29.5 pg (25-34); Mean Corpuscular Volume 98.5 fL (80-100); Mean Platelet Volume 11.3 fL (7.4-10.4); Monocytes # (auto) 0.56 K/uL (0.11-0.59); Monocytes % (auto) 8.2 %; Neutrophils # (auto) 5.57 K/uL (1.4-6.5); Neutrophils % (auto) 81.5 %; Platelet Count 144 K/uL (130-400); RDW Coefficient of Variation 14.5 % (11.5-14.5); RDW Standard Deviation 52.4 fL (36.4-46.3); Red Blood Count 4.57 M/uL (4.2-5.4); White Blood Count 6.84 K/uL (4.8-10.8)
[2021-11-05 06:53] LABS: Partial Thromboplastin Ratio 3.6
[2021-11-05 06:57] LABS: Partial Thromboplastin Time 95.7 Seconds (21.0-31.0)
[2021-11-05 07:34] LABS: Albumin Globulin Ratio 0.7 (0.9-2); Albumin Level 2.7 gm/dl (3.4-5.0); BUN Creatinine Ratio 43.9 (10-20); Bilirubin,Total 0.3 mg/dl (0.2-1); Calcium 8.6 mg/dl (8.5-10.1); Creatinine Clr Calc Pharmacy 129.8 ml/min; Est GFR (African American) 124.5 ml/min; Est GFR (Non-African American) 107.4 ml/min; Globulin 3.7 gm/dl (2.5-4.0); Magnesium 2.4 mg/dl (1.8-2.4); Potassium 4.3 mmol/L (3.5-5.1); Total Protein 6.4 gm/dl (6.4-8.2); Troponin I 8.21 ng/ml (0-0.045)
[2021-11-05] MEDS: ALBUT/IPRATROP 3MG/0.5MG NEB 3 ML VIAL NEB SCH ×4 (07:54→20:52)
[2021-11-05] MEDS: BUDESONIDE 0.5 MG/2 ML VIAL (PULMICORT) NEB SCH ×2 (07:54→20:52)
[2021-11-05] MEDS: FORMOTEROL 20 MCG/2 ML VIAL NEB SCH ×2 (07:56→20:52)
[2021-11-05] MEDS: NICOTINE 7 MG/24 HR TDSY TD SCH (08:19)
[2021-11-05] MEDS: FLUTICASONE PROPIONATE NA SPR 16 GM BTL SCH ×2 (08:21→19:39)
[2021-11-05] MEDS: guaiFENesin 600 MG TABCR PO SCH ×2 (08:21→19:38)
[2021-11-05] MEDS: ASPIRIN 81 MG ECTAB PO SCH (08:21)
[2021-11-05] MEDS: CLOPIDOGREL BISULFATE 75 MG TAB PO SCH (08:21)
--- NOTE | 2021-11-05 09:43 | Cardiology Progress Note ---
Date of Service November 05, 2021 Assessment & Plan (1) Elevated troponin: Plan: -likely secondary to COVID-19 infection and acute respiratory failure. -she does have mild LVH on her echocardiogram. -no chest discomfort in the last 24 hours. -EKG with minor changes. -doubt an acute coronary syndrome. -continue to trend troponin levels. -heparin drip until troponin starts to trend down. (2) Respiratory failure: Plan: -likely secondary to COVID pneumonia and underlying COPD. -chest x-ray suggest the possibility mild pulmonary edema. -agree with IV furosemide until BUN/creatinine increases. Admission and Anticipated Discharge Date Admission Date: November 02, 2021 Subjective Called into the patient's room this morning. She is without complaints of chest discomfort. She does note dyspnea, however, this is improving. We have discussed her increasing troponin level. Also discussed her essentially normal echocardiogram. Physical Exam Physical Exam: Exam per Micaela Rojas PA-C as patient is in COVID isolation. Results & Data ([facility] [place]) Vital Signs (Past 12 Hours) Vital Signs Temp Pulse Pulse Resp BP Pulse Ox 11/05/21 07:56 82 18 94 11/05/21 07:20 36.8 C 69 19 122/71 94 11/05/21 05:19 63 18 96 11/05/21 04:37 36.5 C 73 18 108/65 94 11/05/21 04:03 56 L 18 97 11/04/21 22:25 82 24 95 11/04/21 22:20 77 11/04/21 22:08 36.9 C 77 24 119/78 90 Laboratory Results Troponin level up to 8.21. Diagnostic Findings EKG notes normal sinus rhythm with an old inferior myocardial infarction pattern and nonspecific ST abnormality. Echocardiogram notes normal left ventricular systolic function without wall motion abnormalities. Left ventricular ejection fraction is 65-70%. There was mild LVH. This is unchanged from study performed in October 2020. PG Care Time/CCT Total # of Minutes Spent Total Time Spent with Patient: Total time spent is greater than 50% in coordination of care (as documented) at patient's floor/unit and/or counseling patient: Coding Level of Care Code 63431 Subseq Hosp Care Lvl 3 Diagnoses Elevated troponin R77.8 Respiratory failure J96.21; J96.22 Chronicity: acute on chronic Respiratory failure complication: hypoxia and hypercapnia (1) Respiratory failure Chronicity: acute on chronic Respiratory failure complication: hypoxia and hypercapnia Qualified Code(s): J96.21 - Acute and chronic respiratory failure with hypoxia; J96.22 - Acute and chronic respiratory failure with hypercapnia
[2021-11-05] MEDS: FUROSEMIDE 40 MG/4 ML VIAL IV SCH ×2 (10:54→19:46)
[2021-11-05 14:59] LABS: Partial Thromboplastin Ratio 2.1
[2021-11-05 15:35] LABS: Partial Thromboplastin Time 55.6 Seconds (21.0-31.0)
--- NOTE | 2021-11-05 16:08 | Hospitalist Progress Note ---
Date of Service November 05, 2021 Assessment & Plan (1) NSTEMI (non-ST elevated myocardial infarction): Plan: - troponin on admission negative - pt developed CP on 11/04 leading to cardiac W/U - troponin elevated at 2.49 with peak this morning of 8.210 (now 6.58) - EKG with anteroseptal t-wave and inferior lead t-wave inversion with episode of CP (that have since resolved) - continue dual antiplatelet therapy, heparin gtt and high intensity statin therapy - topical nitropaste ordered but patient refusing this - cardiology consulted. Patient discussed in great detail on 11/04 and 11/[address] Zavala. No plan for cardiac cath at this time given resolution of CP --cards not convinced that this isn't a latent myocarditis from covid/type II event from acute on chronic respiratory failure with higher troponin given the underlying LVH --patient reports a cardiac cath "years ago" that was "normal" per patient - lipid panel done for risk stratification: 10 year risk assessment for having an acute event is 39%--> will continue statin therapy long term - did not add BB as HR and BP marginal (108/65 and 63)--no room for addition of BB at this time - TTE: no RWMA. EF 60-70%. mild LVH (2) Acute hypercapnic respiratory failure: Plan: 56yo female with history of O2 dependent COPD presenting with acute hypercapnic respiratory failure. Patient was recently hospitalized with covid-19 PNA from 10/28/21 - 10/30/21 and was treated with Dexamethasone and Remdesivir x 2 doses. She was discharged home and has had progression of SOB and wheeze over the next several day. VBG on arrival with acute on chronic respiratory acidosis with initial pH of 7.26, CO2 of 101. BiPAP utilized with repeat gas with showing resolution of acute hypercapnia (as pH normalized)--> transitioned to bipap/CPAP to sleep and NC otherwise (with goal pulse ox 90-92) Suspect acute exacerbation of COPD in conjunction with Covid-19 PNA. - continue Solumedrol IV TID for management of suspected COPD exacerbation with plan to taper oral prednisone (although steroids not ideal in the setting of NSTEMI, it is likely her respiratory failure that has contributed to her cardiac injury) - continue pulmonary toilette: pulmicort/perforomist and duoneb treatments - Supplemental O2 as needed to maintain pulse ox of 90-92% (patient wears 3L chronically) - serum bicarb elevated likely from compensation-- will trend (3) COVID: Plan: Patient was recently hospitalized for Covid-19. Symptoms of illness began appx during the week of 10/18/21. She has family that is ill with Covid-19 as well. She is not vaccinated against the disease.. She has elevation of CRP to 5.86, Ferritin is within normal range at 224.4. Procalcitonin is undetectable, BNP within normal range at 204 (but could be falsy normal given her obesity). -Maintain isolation precautions for now. Symptoms onset ~10/19. Per infection control, symptom onset too subjective. Minimum of 10 days from date of test (10/28)--> longer pending symptoms persist -Supplemental O2 as above -Solumedrol as above for AECOPD -was on lovenox for DVT prophylaxis but now a heparin gtt -Tylenol PRN -continue supportive care. (4) COPD (chronic obstructive pulmonary disease): Plan: As above - suspect that acute exacerbation of COPD/volume overload is predominant mechanism for patient's SOB at this time -pulmonary toilette as above -Solumedrol as above -Mucinex 1200 BID -Incentive spirometry and flutter valve -Supplemental O2 as needed (5) FLAKO (obstructive sleep apnea): Plan: Chronic -Continue CPAP/cipap qHS--> likely with obesity hypoventilation syndrome (6) (HFpEF) heart failure with preserved ejection fraction: Plan: - does seem to have PVC and pleural effusions on imaging with bibasilar crackles - BNP normal (but patient obese so likely false normal) - continue IV lasix with fluid balace -1L/24 hours - monitior I&O's, daily weights and renal function closely Plan: plan of care D/W Dr. Zavala (cardiology) in great detail and will be D/W Dr. Marin (attending provider) Admission and Anticipated Discharge Date Admission Date: November 02, 2021 Supervising Physician Co-Signing Physician Notes KHURRAM Supervision Note: I did not personally see or examine the patient today, but I verified all mar points of KHURRAM Rojas's assessment and plan with the following exceptions/additions: None Subjective Patient seen on daily rounds today. Overall voices no significant complaints or concerns. Her only concern is her desire to smoke. She does have a nicotine patch in place. She denies any chest pain since initial episode yesterday morning. Breathing comfortably. Denies fevers or chills. Nursing voices no complaints or concerns Review of Systems Review of Systems: All systems reviewed and are unremarkable except as noted in HPI and below Denies fevers, chills, headache, nasal congestion, sore throat, cough, chest pain, shortness of breath, palpitations, orthopnea, PND, abdominal pain, nausea, vomiting, diarrhea, constipation, dysuria, hematuria, frequency, back pain, joint pain or swelling, easy bruising or bleeding, skin lesions or rashes. Physical Exam Physical Exam: General: Resting comfortably in her hospital bed. Does not appear ill or toxic NAD. HEENT: Head is AT/NC buccal mucosa is moist and pink Neck: Difficult to assess due to girth but no significant JVD or hepatojugular reflex Cardiac: Distant heart sounds without M/G/R Lungs: Speaking full sentences on supplemental oxygen. Breathing nonlabored. Improved air exchange throughout with mid to end expiratory wheezes and persistent bibasilar crackles Abdomen: Normoactive X4. Soft and nontender in all quadrants. Extremities: Trace pitting edema of the bilateral lower extremities Neuro: A&O X4 cranial nerves II through XII are grossly intact no focal neuro deficits Skin: No obvious skin lesions or rashes Psych: Appropriate affect pleasant and cooperative Results & Data Results & Data ([facility]) Vital Signs (Past 12 Hours) Vital Signs Temp Pulse Pulse Resp BP Pulse Ox 11/05/21 14:46 86 21 94 11/05/21 11:21 37 C 73 18 132/90 93 11/05/21 11:20 104 H 20 91 11/05/21 07:56 82 18 94 11/05/21 07:20 36.8 C 69 19 122/71 94 11/05/21 07:00 76 11/05/21 05:19 63 18 96 11/05/21 04:37 36.5 C 73 18 108/65 94 11/05/21 04:03 56 L 18 97 Laboratory Results 11/05/21 06:15 11/05/21 06:15 PG Care Time/CCT Total # of Minutes Spent Total Time Spent with Patient: Total time spent is greater than 50% in coordination of care (as documented) at patient's floor/unit and/or counseling patient: Coding Level of Care Code 39059 Subseq Hosp Care Lvl 3 Diagnoses NSTEMI (non-ST elevated myocardial infarction) I21.4 Acute hypercapnic respiratory failure J96.02 COVID U07.1 COPD (chronic obstructive pulmonary disease) J44.9 COPD type: unspecified COPD FLAKO (obstructive sleep apnea) G47.33 (HFpEF) heart failure with preserved ejection fraction I50.30 (1) COPD (chronic obstructive pulmonary disease) COPD type: unspecified COPD Qualified Code(s): J44.9 - Chronic obstructive pulmonary disease, unspecified
[2021-11-05] MEDS: HEPARIN SODIUM/DEXTROSE 25,000 UNITS/500 ML BAG IV SCH (16:18)
[2021-11-05] MEDS: ATORVASTATIN 40 MG TAB PO SCH (19:40)
[2021-11-05] MEDS: DICLOFENAC SOD 1% GEL 100 GM TUBE EXT PRN (20:46)
--- NOTE | 2021-11-05 22:14 | Electrocardiogram Report ---
Test Reason : Blood Pressure : / mmHG Vent. Rate : 062 BPM Atrial Rate : 062 BPM P-R Int : 126 ms QRS Dur : 084 ms QT Int : 394 ms P-R-T Axes : 072 -04 033 degrees QTc Int : 399 ms Normal sinus rhythm Inferior infarct , age undetermined Abnormal ECG When compared with ECG of 04-NOV-2021 14:59, Nonspecific T wave abnormality now evident in Inferior leads Confirmed by Max Block ([id number]) on 11/05/2021 10:13:38 PM Referred By: REFERRED SELF Confirmed By:Max Block
[2021-11-06] MEDS: methylPREDNISolone 40 MG in SYRINGE 0 ML IV SCH ×3 (02:15→17:17)
[2021-11-06] MEDS: NITROGLYCERIN 2% OINTMENT 30GM TUBE EXT SCH ×4 (02:48→20:19)
[2021-11-06] MEDS: guaiFENesin 600 MG TABCR PO SCH ×2 (07:24→20:19)
[2021-11-06 07:48] LABS: Basophils # (auto) 0.01 K/uL (0-0.2); Basophils % (auto) 0.1 %; Hematocrit (blood only) 40.3 % (37-47); Hemoglobin 12.2 g/dL (12.0-16.0); Immature Granulocytes # (auto) 0.12 K/uL (0.00-0.02); Immature Granulocytes % (auto) 1.1 %; Lymphocytes # (auto) 0.63 K/uL (1.2-3.4); Mean Corpuscular Hemoglobin 29.3 pg (25-34); Mean Corpuscular Hgb Conc 30.3 g/dL (32-36); Mean Corpuscular Volume 96.9 fL (80-100); Mean Platelet Volume 11.2 fL (7.4-10.4); Monocytes # (auto) 0.72 K/uL (0.11-0.59); Monocytes % (auto) 6.9 %; Neutrophils # (auto) 8.99 K/uL (1.4-6.5); Neutrophils % (auto) 85.9 %; Platelet Count 142 K/uL (130-400); RDW Coefficient of Variation 14.2 % (11.5-14.5); RDW Standard Deviation 50.5 fL (36.4-46.3); Red Blood Count 4.16 M/uL (4.2-5.4); White Blood Count 10.47 K/uL (4.8-10.8)
[2021-11-06] MEDS: ACETAMINOPHEN 325 MG TAB PO PRN ×2 (08:01→22:25)
[2021-11-06] MEDS: FLUTICASONE PROPIONATE NA SPR 16 GM BTL SCH ×2 (08:02→20:11)
[2021-11-06] MEDS: DICLOFENAC SOD 1% GEL 100 GM TUBE EXT PRN (08:02)
[2021-11-06] MEDS: NICOTINE 7 MG/24 HR TDSY TD SCH (08:03)
[2021-11-06] MEDS: ASPIRIN 81 MG ECTAB PO SCH (08:03)
[2021-11-06] MEDS: CLOPIDOGREL BISULFATE 75 MG TAB PO SCH (08:03)
[2021-11-06 08:06] LABS: Partial Thromboplastin Ratio 2.4
[2021-11-06 08:11] LABS: Partial Thromboplastin Time 62.2 Seconds (21.0-31.0)
[2021-11-06] MEDS: BUDESONIDE 0.5 MG/2 ML VIAL (PULMICORT) NEB SCH ×2 (08:15→20:56)
[2021-11-06] MEDS: ALBUT/IPRATROP 3MG/0.5MG NEB 3 ML VIAL NEB SCH ×4 (08:15→20:56)
[2021-11-06] MEDS: FORMOTEROL 20 MCG/2 ML VIAL NEB SCH ×2 (08:16→20:57)
[2021-11-06 08:38] LABS: Albumin Globulin Ratio 0.7 (0.9-2); Albumin Level 2.3 gm/dl (3.4-5.0); Calcium 8.2 mg/dl (8.5-10.1); Creatinine Clr Calc Pharmacy 148.4 ml/min; Est GFR (African American) 129.9 ml/min; Est GFR (Non-African American) 112.1 ml/min; Globulin 3.4 gm/dl (2.5-4.0); Magnesium 2.1 mg/dl (1.8-2.4); Potassium 3.9 mmol/L (3.5-5.1); Total Protein 5.7 gm/dl (6.4-8.2)
[2021-11-06 08:50] LABS: Bilirubin,Total 0.3 mg/dl (0.2-1)
[2021-11-06] MEDS: FUROSEMIDE 40 MG/4 ML VIAL IV SCH (10:06)
[2021-11-06] MEDS: FUROSEMIDE 20 MG TAB PO SCH (10:30)
--- NOTE | 2021-11-06 15:56 | Hospitalist Progress Note ---
Date of Service November 06, 2021 Assessment & Plan (1) NSTEMI (non-ST elevated myocardial infarction): Plan: - troponin on admission negative - pt developed CP on 11/04 leading to cardiac W/U - troponin elevated at 2.49 with peak of 8.210. Repeated troponin this morning given left shoulder pain and it continues to downtrend. Shoulder pain likely musculoskeletal - EKG with anteroseptal t-wave and inferior lead t-wave inversion with episode of CP (that have since resolved) - treated with dual antiplatelet therapy, heparin gttx48 hours and high intensity statin therapy --> d/C heparin gtt - topical nitropaste ordered but patient refusing this - cardiology consulted. Patient discussed in great detail on 11/04 and 11/[address] Zavala. No plan for cardiac cath at this time given resolution of CP --cards not convinced that this isn't a latent myocarditis from covid/type II event from acute on chronic respiratory failure with higher troponin given the underlying LVH --patient reports a cardiac cath "years ago" that was "normal" per patient - lipid panel done for risk stratification: 10 year risk assessment for having an acute event is 39%--> will continue statin therapy fpc - did not add BB as HR and BP marginal (108/65 and 63)--no room for addition of BB at this time - TTE: no RWMA. EF 60-70%. mild LVH (2) Acute hypercapnic respiratory failure: Plan: 56yo female with history of O2 dependent COPD presenting with acute hypercapnic respiratory failure. Patient was recently hospitalized with covid-19 PNA from 10/28/21 - 10/30/21 and was treated with Dexamethasone and Remdesivir x 2 doses. She was discharged home and has had progression of SOB and wheeze over the next several day. VBG on arrival with acute on chronic respiratory acidosis with ini tial pH of 7.26, CO2 of 101. BiPAP utilized with repeat gas with showing resolution of acute hypercapnia (as pH normalized)--> transitioned to bipap/CPAP to sleep and NC otherwise (with goal pulse ox 90-92) Suspect acute exacerbation of COPD in conjunction with Covid-19 PNA. - continue Solumedrol IV today for management of suspected COPD exacerbation with plan to taper oral prednisone in am(although steroids not ideal in the setting of NSTEMI, it is likely her respiratory failure that has contributed to her cardiac injury) - continue pulmonary toilette: pulmicort/perforomist and duoneb treatments - Supplemental O2 as needed to maintain pulse ox of 90-92% (patient wears 3L chronically)-- avoid pulse ox >92% given risk of hypercapnia - serum bicarb elevated likely from compensation-- will trend - not highly suspicious of PE at this time but will obtain CTA need for increased O2 (3-5Lcurrently) in the setting of recent Covid. She does not have right sided heart strain on her echo and is not tachycardic. (3) COVID: Plan: Patient was recently hospitalized for Covid-19. Symptoms of illness began appx during the week of 10/18/21. She has family that is ill with Covid-19 as well. She is not vaccinated against the disease.. She has elevation of CRP to 5.86, Ferritin is within normal range at 224.4. Procalcitonin is undetectable, BNP within normal range at 204 (but could be falsy normal given her obesity). -Maintain isolation precautions for now. Symptoms onset ~10/19. Per infection control, symptom onset too subjective. Minimum of 10 days from date of test (10/28)--> longer pending symptoms persist -Supplemental O2 as above -Solumedrol as above for AECOPD -lovenox for DVT prophylaxis -Tylenol PRN -continue supportive care. (4) COPD (chronic obstructive pulmonary disease): Plan: As above - suspect that acute exacerbation of COPD/volume overload is predominant mechanism for patient's SOB at this time -pulmonary toilette as above -Solumedrol as above with conversion to prednisone -Mucinex 1200 BID -Incentive spirometry and flutter valve -Supplemental O2 as needed (5) FLAKO (obstructive sleep apnea): Plan: Chronic -Continue CPAP/cipap qHS--> likely with obesity hypoventilation syndrome (6) (HFpEF) heart failure with preserved ejection fraction: Plan: - does seem to have PVC and pleural effusions on imaging with bibasilar crackles - BNP normal (but patient obese so likely false normal) - IV lasix given upfront. cumulative FB -2.5L with repeat CXR thats improved. now euvolmic--convert to PO lasix [id number] - monitior I&O's, daily weights and renal function closely Plan: plan of care D/W Dr. Aceves Admission and Anticipated Discharge Date Admission Date: November 02, 2021 Supervising Physician Co-Signing Physician Notes chart reviewed, case d/w Lani Crystal PAC. agree w above Subjective Patient seen on daily rounds today. Vocalizing some mild pain in her left shoulder. This is a chronic issue for which she uses Voltaren gel. Denies any chest pain, shortness of breath, diaphoresis, nausea or vomiting. Given her recent NSTEMI, a repeat troponin was drawn and it continues to downtrend. Nursing voices no complaints or concerns Review of Systems Review of Systems: All systems reviewed and are unremarkable except as noted in HPI and below Denies fevers, chills, headache, nasal congestion, sore throat, cough, chest pain, shortness of breath, palpitations, orthopnea, PND, abdominal pain, nausea, vomiting, diarrhea, constipation, dysuria, hematuria, frequency, back pain, swelling, easy bruising or bleeding, skin lesions or rashes. Physical Exam 2 Physical Exam: General: Resting comfortably in her hospital bed. NAD. HEENT: Head is AT/NC buccal mucosa is moist and pink. Patient endentulous Neck: No JVD. Negative hepatojugular reflex Cardiac: RRR but distant heart sounds Lungs: Breathing comfortably on supplemental oxygen. Normal respiratory effort. Improved air exchange throughout with mid to end expiratory wheezes. Rhonchi scattered that clears with coughing Abdomen: Normoactive X4. Soft and nontender in all quadrants. Extremities: + Adiposity without true pitting edema Neuro: A&O X4 cranial nerves II through XII are grossly intact no focal neuro deficits Skin: No obvious skin lesions or rashes Psych: Appropriate affect pleasant and cooperative Results & Data Results & Data ([facility]) Vital Signs (Past 12 Hours) Vital Signs Temp Pulse Pulse Resp BP Pulse Ox 11/06/21 11:40 85 20 90 11/06/21 11:34 36.6 C 87 22 106/70 90 11/06/21 08:15 80 20 91 11/06/21 07:33 36.7 C 81 20 100/58 L 91 11/06/21 07:00 77 Laboratory Results 11/06/21 07:01 11/06/21 07:01 PG Care Time/CCT Total # of Minutes Spent Total Time Spent with Patient: Total time spent is greater than 50% in coordination of care (as documented) at patient's floor/unit and/or counseling patient: Coding Level of Care Code 95511 Subseq Hosp Care Lvl 3 Diagnoses NSTEMI (non-ST elevated myocardial infarction) I21.4 Acute hypercapnic respiratory failure J96.02 COVID U07.1 COPD (chronic obstructive pulmonary disease) J44.9 COPD type: unspecified COPD FLAKO (obstructive sleep apnea) G47.33 (HFpEF) heart failure with preserved ejection fraction I50.30 (1) COPD (chronic obstructive pulmonary disease) COPD type: unspecified COPD Qualified Code(s): J44.9 - Chronic obstructive pulmonary disease, unspecified
[2021-11-06] MEDS ORDERED: OPTIRAY 320 125ml IV ONE (17:52)
--- NOTE | 2021-11-06 18:20 | CT Scan Report ---
CHEST CTA for PULMONARY ARTERIES CT DOSE: 563.53 mGy.cm HISTORY: Shortness of breath. Covid positive. TECHNIQUE: Multiaxial CT images of the chest were performed following the intravenous administration of contrast to evaluate the pulmonary arteries. Maximal intensity projection images were also obtaine d. A dose lowering technique was utilized adhering to the principles of ALARA. COMPARISON STUDY: Chest CT 08/03/2021. FINDINGS: Limited views of the upper abdomen demonstrate normal liver, spleen, and adrenal glands. No rmal esophagus. The thyroid gland enhances normally. Small fat-containing bilateral Bochdalek hernias . The heart is normal in size. No pleural or pericardial effusions. Mediastinal and hilar lymph nodes measure subcentimeter in short axis diameter and therefore do not meet CT criteria for pathologic in volvement. Mild fat stranding lateral to the left pectoralis muscles extends into the upper left [address]. This is of uncertain clinical significance and could be due to recent injury or postoperative grace nge. Consider follow-up mammogram in a dedicated breast cancer Center for further evaluation if there is no recent history of trauma. Mild calcified plaque within the normal caliber thoracic aorta. The main pulmonary artery is dilated up to 3.6 cm consistent with pulmonary hypertension. Focal area of h igh-grade stenosis within the proximal left subclavian artery on image 235 due to the dense calcified plaque. This demonstrates approximately 80% stenosis. Mild motion artifact results in suboptimal kedar luation of a few of the segmental and subsegmental pulmonary arteries. However, no suspicious filling defects within the pulmonary arteries to suggest a pulmonary embolus. No pneumothorax. The central a irways are patent. There is mild bronchial wall thickening and mild interstitial thickening which is likely chronic. There is mild emphysema. Linear focus of consolidation within the lingula. There are also small linear/patchy airspace consolidation within the base of the left lower lobe. Focal cystic areas within the right upper lobe on images 180 and 187 again noted. These measure 2.2 cm in size. Th elizabeth remain stable. There is an additional stable 1.8 cm cystic focus within the right lower lobe on i mage 142. Small faint peripheral groundglass densities within the right upper lobe anteriorly best se en on image 115. Small linear areas consolidation within the right middle lobe are also noted. IMPRESSION: 1. No evidence for pulmonary embolus. 2. Small linear areas consolidation within the lingula, right middle lobe, and base of the left lower lobe. This could represent a low-grade pneumonia or atelectasis. 3. Mild emphysema and chronic interstitial thickening. 4. Pulmonary hypertension again noted. 5. No significant change in the focal areas of cystic change within the right lung as described above . No nodular components identified. Continued one to [address] follow-up recommended to ensure stability and to exclude the less likely possibility of a low-grade neoplasm. 6. Mild fat stranding lateral to the left pectoralis muscles extends into the upper left breast. This is of uncertain clinical significance and could be due to recent injury or postoperative change. [employer] worker follow-up mammogram in a dedicated breast cancer Center for further evaluation if there is no r ecent history of trauma. ACT 112: Positive. There are findings on this exam that require communication between the performing entity and the patient following Patient Test Result Information Act ([place] Act 112) guidelines. Electronically signed by: Siva Perez M.D. 11/06/2021 6:18 PM
[2021-11-06] MEDS: ATORVASTATIN 40 MG TAB PO SCH (20:11)
[2021-11-07] MEDS: NITROGLYCERIN 2% OINTMENT 30GM TUBE EXT SCH ×4 (01:16→20:23)
[2021-11-07] MEDS: ALBUTEROL 0.083% NEBU SOLN 3 ML VIAL NEB PRN (04:22)
[2021-11-07 07:06] LABS: Basophils # (auto) 0.02 K/uL (0-0.2); Basophils % (auto) 0.2 %; Hematocrit (blood only) 37.8 % (37-47); Hemoglobin 11.7 g/dL (12.0-16.0); Immature Granulocytes # (auto) 0.18 K/uL (0.00-0.02); Immature Granulocytes % (auto) 1.9 %; Lymphocytes # (auto) 1.04 K/uL (1.2-3.4); Lymphocytes % (auto) 10.8 %; Mean Corpuscular Hemoglobin 29.6 pg (25-34); Mean Corpuscular Volume 95.7 fL (80-100); Mean Platelet Volume 11.5 fL (7.4-10.4); Monocytes % (auto) 9.4 %; Neutrophils # (auto) 7.48 K/uL (1.4-6.5); Neutrophils % (auto) 77.7 %; Platelet Count 145 K/uL (130-400); RDW Coefficient of Variation 13.9 % (11.5-14.5); RDW Standard Deviation 49.5 fL (36.4-46.3); Red Blood Count 3.95 M/uL (4.2-5.4); White Blood Count 9.62 K/uL (4.8-10.8)
[2021-11-07] MEDS: BUDESONIDE 0.5 MG/2 ML VIAL (PULMICORT) NEB SCH ×2 (07:36→19:54)
[2021-11-07] MEDS: FORMOTEROL 20 MCG/2 ML VIAL NEB SCH ×2 (07:36→19:54)
[2021-11-07] MEDS: ALBUT/IPRATROP 3MG/0.5MG NEB 3 ML VIAL NEB SCH ×4 (07:36→19:54)
[2021-11-07 07:40] LABS: BUN Creatinine Ratio 47.8 (10-20); Calcium 8.5 mg/dl (8.5-10.1); Creatinine Clr Calc Pharmacy 161.1 ml/min; Est GFR (African American) 134.2 ml/min; Est GFR (Non-African American) 115.8 ml/min; Potassium 3.6 mmol/L (3.5-5.1)
[2021-11-07] MEDS: guaiFENesin 600 MG TABCR PO SCH ×2 (08:22→21:33)
[2021-11-07] MEDS: FLUTICASONE PROPIONATE NA SPR 16 GM BTL SCH ×2 (08:22→21:33)
[2021-11-07] MEDS: ASPIRIN 81 MG ECTAB PO SCH (08:24)
[2021-11-07] MEDS: FUROSEMIDE 20 MG TAB PO SCH (08:24)
[2021-11-07] MEDS: CLOPIDOGREL BISULFATE 75 MG TAB PO SCH (08:24)
[2021-11-07] MEDS: predniSONE 20 MG TAB PO SCH (08:24)
[2021-11-07] MEDS: ENOXAPARIN INJ 40 MG/0.4 ML SYR SQ SCH (08:25)
[2021-11-07] MEDS: NICOTINE 7 MG/24 HR TDSY TD SCH (08:25)
--- NOTE | 2021-11-07 15:44 | Hospitalist Progress Note ---
Date of Service November 07, 2021 Assessment & Plan (1) NSTEMI (non-ST elevated myocardial infarction): Plan: - troponin on admission negative - pt developed CP on 11/04 leading to cardiac W/U - troponin elevated at 2.49 with peak of 8.210. Repeated troponin on morning of 11/06 given reports of left shoulder pain-->it continues to downtrend. Shoulder pain likely musculoskeletal (improved with Voltaren) - EKG with anteroseptal t-wave and inferior lead t-wave inversion with episode of CP (that have since resolved) - treated with dual antiplatelet therapy, heparin gttx48 hours and high intensity statin therapy - topical nitropaste ordered but patient refused - cardiology consulted. Patient discussed in great detail on 11/04 and 11/[address] Zavala. No plan for cardiac cath at this time given resolution of CP --cards not convinced that this isn't a latent myocarditis from covid/type II event from acute on chronic respiratory failure with higher troponin given the underlying LVH. No persistent CP or need for colchicine --patient reports a cardiac cath "years ago" that was "normal" per patient - lipid panel done for risk stratification: 10 year risk assessment for having an acute event is 39%--> will continue statin therapy retirement - did not add BB as HR and BP marginal (108/65 and 63)--no room for addition of BB at this time - TTE: no RWMA. EF 60-70%. mild LVH (2) Acute hypercapnic respiratory failure: Plan: 56yo female with history of O2 dependent COPD presenting with acute hypercapnic respiratory failure. Patient was recently hospitalized with covid-19 PNA from 10/28/21 - 10/30/21 and was treated with Dexamethasone and Remdesivir x 2 doses. She was discharged home and has had progression of SOB and wheeze over the next several day. VBG on arrival with acute on chronic respiratory acidosis with initial pH of 7.26, CO2 of 101. BiPAP utilized with repeat gas with showing resolution of acute hypercapnia (as pH normalized)--> transitioned to bipap/CPAP to sleep and NC otherwise (with goal pulse ox 90-92) Suspect acute exacerbation of COPD in conjunction with Covid-19 PNA. - Solumedrol IV transitioned to oral prednisone for suspected AECOPD-- will need taper (although steroids not ideal in the setting of NSTEMI, it is likely her respiratory failure that has contributed to her cardiac injury) - continue pulmonary toilette: pulmicort/perforomist and duoneb treatments - Supplemental O2 as needed to maintain pulse ox of 90-92% (patient wears 3L chronically)-- avoid pulse ox >92% given risk of hypercapnia - serum bicarb elevated likely from compensation-- will trend - CTA done given need for increased O2 (3-5Lcurrently) in the setting of recent Covid. --> no PE, small linear consolidation in the lingula, RML, LLL. (3) COVID: Plan: Patient was recently hospitalized for Covid-19. Symptoms of illness began appx during the week of 10/18/21. She has family that is ill with Covid-19 as well. She is not vaccinated against the disease.. She has elevation of CRP to 5.86, Ferritin is within normal range at 224.4. Procalcitonin is undetectable, BNP within normal range at 204 (but could be falsy normal given her obesity). -Maintain isolation precautions for now. Symptoms onset ~10/19. Per infection control, symptom onset too subjective. Minimum of 10 days from date of test (10/28)--> longer pending symptoms persist -Supplemental O2 as above -Solumedrol -- to oral prednisone as above for AECOPD -lovenox for DVT prophylaxis -Tylenol PRN -continue supportive care. -Recent Covid is likely cause for increased oxygen needs. CTA of the chest showing residual infiltrates as outlined above. Continue incentive spirometry (4) COPD (chronic obstructive pulmonary disease): Plan: As above - suspect that acute exacerbation of COPD/volume overload is predominant mechanism for patient's SOB at this time -pulmonary toilette as above -Solumedrol as above with conversion to prednisone -Mucinex 1200 BID -Incentive spirometry and flutter valve -Supplemental O2 as needed (5) FLAKO (obstructive sleep apnea): Plan: Chronic -Continue CPAP/cipap qHS--> likely with obesity hypoventilation syndrome (6) (HFpEF) heart failure with preserved ejection fraction: Plan: - initially did seem to have PVC and pleural effusions on imaging with bibasilar crackles - BNP normal (but patient obese so likely false normal) - IV lasix given upfront. cumulative FB -2.5L with repeat CXR thats improved. now euvolmic--converted to PO lasix - monitior I&O's, daily weights and renal function closely (7) Abnormal CT scan, chest: Plan: CTA done showing no evidence of PE. Cystic changes seen in the right lung for which follow-up study recommended in 2 years. In addition, mild fat stranding lateral to the left pectoralis muscle extends into the left upper breast for which outpatient mammogram recommended. Plan: plan of care D/W Dr. Aceves Admission and Anticipated Discharge Date Admission Date: November 02, 2021 Supervising Physician Co-Signing Physician Notes chart reviewed, case d/w J Crystal PAC. agree w above Subjective Patient seen on daily rounds today. Vocalizes no significant complaints or concerns. Has been requiring a slight increase level of oxygen supplementation. Typically wears 3 L at home but has been requiring 2 to 5 L intermittently. Despite this, she denies shortness of breath. Has not had any additional complaints of chest pain. Denies fevers, chills, orthopnea, PND, abdominal pain, nausea or vomiting. Nursing voices no complaints or concerns Review of Systems Review of Systems: All systems reviewed and are unremarkable except as noted in HPI and below Denies fevers, chills, headache, nasal congestion, sore throat, cough, chest pain, shortness of breath, palpitations, orthopnea, PND, abdominal pain, nausea, vomiting, diarrhea, constipation, dysuria, hematuria, frequency, back pain, joint pain or swelling, easy bruising or bleeding, skin lesions or rashes. Physical Exam Physical Exam: General: Resting comfortably in her hospital bed. NAD. HEENT: Head is AT/NC buccal mucosa is moist and pink Neck: No JVD. Negative hepatojugular reflex Cardiac: RRR Lungs: Breathing comfortably on supplemental oxygen. Normal respiratory effort. Diminished breath sounds throughout but overall improved air exchange. End expiratory wheezes that clears with coughing Abdomen: Normoactive X4. Soft and nontender in all quadrants. Extremities: No peripheral clubbing cyanosis or edema Neuro: A&O X4 cranial nerves II through XII are grossly intact no focal neuro deficits Skin: No obvious skin lesions or rashes Psych: Appropriate affect pleasant and cooperative Results & Data Results & Data ([facility]) Vital Signs (Past 12 Hours) Vital Signs Temp Pulse Pulse Resp BP Pulse Ox 11/07/21 14:33 90 18 90 11/07/21 11:54 36.8 C 85 20 98/59 L 92 11/07/21 10:49 92 H 18 90 11/07/21 08:00 36.7 C 74 20 105/68 92 11/07/21 07:38 90 18 90 11/07/21 07:30 89 22 90 11/07/21 07:00 83 11/07/21 04:22 84 20 91 Laboratory Results 11/07/21 06:12 11/07/21 06:12 PG Care Time/CCT Total # of Minutes Spent Total Time Spent with Patient: Total time spent is greater than 50% in coordination of care (as documented) at patient's floor/unit and/or counseling patient: Coding Level of Care Code 15016 Subseq Hosp Care Lvl 2 Diagnoses NSTEMI (non-ST elevated myocardial infarction) I21.4 Acute hypercapnic respiratory failure J96.02 COVID U07.1 COPD (chronic obstructive pulmonary disease) J44.9 COPD type: unspecified COPD FLAKO (obstructive sleep apnea) G47.33 (HFpEF) heart failure with preserved ejection fraction I50.[address] scan, chest R93.89 (1) COPD (chronic obstructive pulmonary disease) COPD type: unspecified COPD Qualified Code(s): J44.9 - Chronic obstructive pulmonary disease, unspecified
[2021-11-07] MEDS: ATORVASTATIN 40 MG TAB PO SCH (21:33)
[2021-11-08] MEDS: NITROGLYCERIN 2% OINTMENT 30GM TUBE EXT SCH ×2 (01:10→08:33)
[2021-11-08] MEDS: ALBUTEROL 0.083% NEBU SOLN 3 ML VIAL NEB PRN (05:02)
[2021-11-08] MEDS: BUDESONIDE 0.5 MG/2 ML VIAL (PULMICORT) NEB SCH (07:23)
[2021-11-08] MEDS: FORMOTEROL 20 MCG/2 ML VIAL NEB SCH (07:23)
[2021-11-08] MEDS: ALBUT/IPRATROP 3MG/0.5MG NEB 3 ML VIAL NEB SCH ×2 (07:24→11:40)
[2021-11-08 07:53] LABS: Basophils # (auto) 0.02 K/uL (0-0.2); Basophils % (auto) 0.2 %; Eosinophils # (auto) 0.08 K/uL (0-0.5); Eosinophils % (auto) 0.8 %; Hematocrit (blood only) 37.6 % (37-47); Hemoglobin 11.3 g/dL (12.0-16.0); Immature Granulocytes # (auto) 0.15 K/uL (0.00-0.02); Immature Granulocytes % (auto) 1.6 %; Lymphocytes % (auto) 19.7 %; Mean Corpuscular Hemoglobin 29.1 pg (25-34); Mean Corpuscular Hgb Conc 30.1 g/dL (32-36); Mean Corpuscular Volume 96.9 fL (80-100); Mean Platelet Volume 11.3 fL (7.4-10.4); Monocytes # (auto) 0.77 K/uL (0.11-0.59); Neutrophils # (auto) 6.73 K/uL (1.4-6.5); Neutrophils % (auto) 69.7 %; Platelet Count 144 K/uL (130-400); RDW Coefficient of Variation 14.3 % (11.5-14.5); RDW Standard Deviation 50.9 fL (36.4-46.3); Red Blood Count 3.88 M/uL (4.2-5.4); White Blood Count 9.65 K/uL (4.8-10.8)
[2021-11-08] MEDS: guaiFENesin 600 MG TABCR PO SCH (08:23)
[2021-11-08] MEDS: FLUTICASONE PROPIONATE NA SPR 16 GM BTL SCH (08:23)
[2021-11-08] MEDS: NICOTINE 7 MG/24 HR TDSY TD SCH (08:23)
[2021-11-08] MEDS: FUROSEMIDE 20 MG TAB PO SCH ×2 (08:24→09:16)
[2021-11-08] MEDS: predniSONE 20 MG TAB PO SCH (08:24)
[2021-11-08 08:41] LABS: BUN Creatinine Ratio 54.3 (10-20); Calcium 8.2 mg/dl (8.5-10.1); Creatinine Clr Calc Pharmacy 196.5 ml/min; Est GFR (African American) 143.2 ml/min; Est GFR (Non-African American) 123.6 ml/min; Potassium 3.5 mmol/L (3.5-5.1)
[2021-11-08] MEDS: ASPIRIN 81 MG ECTAB PO SCH (09:15)
[2021-11-08] MEDS: ENOXAPARIN INJ 40 MG/0.4 ML SYR SQ SCH (09:15)
[2021-11-08] MEDS: CLOPIDOGREL BISULFATE 75 MG TAB PO SCH (09:15)
[2021-11-08] MEDS ORDERED: ETOMIDATE 2 MG/ML 20 ML VIAL IV ONE (13:41)
[2021-11-08] MEDS ORDERED: MIDAZOLAM HCL 1 MG/ML 2ML VIAL IV ONE (13:41)
[2021-11-08] MEDS ORDERED: fentaNYL citrate 100 MCG/2 ML VIAL IV ONE (13:41)
[2021-11-08] MEDS ORDERED: SUCCINYLCHOLINE CHLORIDE 20 MG/ML 10 ML VIAL IV ONE (13:41)
--- NOTE | 2021-11-08 14:35 | Discharge Summary ---
Date of Service November 08, 2021 Admission HPI Per Admitting Provider Gabriela Poe is a 56yo female with history of chronic hypoxic respiratory failure secondary to COPD on 3L home O2, current smoker, FLAKO on CPAP qHS presenting with worsening shortness of breath. She reports feeling more short of breath with worsening cough during the week of 10/18/21. Patient was admitted to [facility] from 10/28 - 10/30 and found to be POSITIVE for Covid-19 infection. She was treated with Dexamethasone as well as two doses of Remdesivir and nebulizers. She was discharged home on 10/30/21 and instructed to complete her Dexamethasone course. Patient has been taking her medications as prescribed. Reports worsening SOB as well as cough, chest tightness and wheezing for the last week. She has been taking her nebulizers with some mild improvement in symptoms. She denies fever, purulent sputum, edema, orthopnea or chest pain. Upon arrival to the ER patient afebrile, HD stable. A VBG was obtained which showed 7.25/101/32. She was placed on BiPAP 10/6 to assist with ventilation. Her repeat gas showed 7.6/94. Her BiPAP was increased to 16/6. Patient does not tolerate BiPAP for prolonged periods of time, however is agreeable to wearing it at this time. Principal Diagnosis 1. NSTEMI 2. Acute Hypercapnic Respiratory Failure 3. Remote h/o Covid 4. COPD with acute exacerbation Discharge Exam General: Resting comfortably in her hospital bed. NAD. HEENT: Head is AT/NC buccal mucosa is moist and pink Neck: No JVD. Negative hepatojugular reflex Cardiac: RRR Lungs: Breathing comfortably on supplemental oxygen. Normal respiratory effort. Diminished breath sounds throughout but overall improved air exchange. End expiratory wheezes that clears with coughing Abdomen: Normoactive X4. Soft and nontender in all quadrants. Extremities: No peripheral clubbing cyanosis or edema Neuro: A&O X4 cranial nerves II through XII are grossly intact no focal neuro deficits Skin: No obvious skin lesions or rashes Psych: Appropriate affect pleasant and cooperative Discharge Data Allergies Allergy/AdvReac Type Severity Reaction Status Date / Time azithromycin Allergy Severe respiratory Verified 09/10/21 23:40 distress cefaclor Allergy Severe RESPIRATORY Verified 09/10/21 23:40 DISTRESS erythromycin base Allergy Severe RESPIRATORY Verified 09/10/21 23:40 DISTRESS ibuprofen Allergy Severe RESPIRATORY Verified 09/10/21 23:40 DISTRESS Penicillins Allergy Severe RESPIRATORY Verified 09/10/21 23:40 DISTRESS Sulfa (Sulfonamide Allergy Severe RESPIRATORY Verified 09/10/21 23:40 Antibiotics) DISTRESS, RASH doxycycline AdvReac Severe Difficulty Verified 09/10/21 23:40 Breathing morphine AdvReac Intermediate N/V Verified 09/10/21 23:40 Consultations 11/02/21 19:59 ED Decision to Admit Stat 11/04/21 13:23 Consult Cardiology Routine Assessment & Plan (1) Elevated troponin: Plan: -likely secondary to COVID-19 infection and acute respiratory failure. -she does have mild LVH on her echocardiogram. -no chest discomfort in the last 24 hours. -EKG with minor changes. -doubt an acute coronary syndrome. -continue to trend troponin levels. -heparin drip until troponin starts to trend down. (2) Respiratory failure: Plan: -likely secondary to COVID pneumonia and underlying COPD. -chest x-ray suggest the possibility mild pulmonary edema. -agree with IV furosemide until BUN/creatinine increases. Ordered Studies 11/06/21 15:52 CT angio chest PE protocol Urgent IMPRESSION: 1. No evidence for pulmonary embolus. 2. Small linear areas consolidation within the lingula, right middle lobe, and base of the left lower lobe. This could represent a low-grade pneumonia or atelectasis. 3. Mild emphysema and chronic interstitial thickening. 4. Pulmonary hypertension again noted. 5. No significant change in the focal areas of cystic change within the right lung as described above. No nodular components identified. Continued one to [address] follow-up recommended to ensure stability and to exclude the less likely possibility of a low-grade neoplasm. 6. Mild fat stranding lateral to the left pectoralis muscles extends into the upper left breast. This is of uncertain clinical significance and could be due to recent injury or postoperative change. Consider follow-up mammogram in a dedicated breast cancer Center for further evaluation if there is no recent history of trauma. Hospital Course (1) NSTEMI (non-ST elevated myocardial infarction): - troponin on admission negative - pt developed CP on 11/04 leading to cardiac W/U - troponin elevated at 2.49 with peak of 8.210. Repeated troponin on morning of 11/06 given reports of left shoulder pain-->it continued to downtrend. Shoulder pain likely musculoskeletal (improved with Voltaren) - EKG with anteroseptal t-wave and inferior lead t-wave inversion with episode of CP (that have since resolved) - treated with dual antiplatelet therapy, heparin [id number] hours and high intensity statin therapy - topical nitropaste ordered but patient refused - cardiology consulted. Patient discussed in great detail on 11/04 and 11/[address] Zavala. No plan for cardiac cath at this time given resolution of CP --cards not convinced that this isn't a latent myocarditis from covid/type II event from acute on chronic respiratory failure with higher troponin given the underlying LVH. No persistent CP so no need for colchicine --patient reports a cardiac cath "years ago" that was "normal" per patient - lipid panel done for risk stratification: 10 year risk assessment for having an acute event is 39%--> will continue statin therapy detention - did not add BB as HR and BP marginal (108/65 and 63)--no room for addition of BB at this time - TTE: no RWMA. EF 60-70%. mild LVH - follow up [facility] cardiology as an outpatient to determine need for further cardiac W/U (2) Acute hypercapnic respiratory failure: 56yo female with history of O2 dependent COPD presenting with acute hypercapnic respiratory failure. Patient was recently hospitalized with covid- 19 PNA from 10/28/21 - 10/30/21 and was treated with Dexamethasone and Remdesivir x 2 doses. She was discharged home and has had progression of SOB and wheeze over the next several day. VBG on arrival with acute on chronic respiratory acidosis with initial pH of 7.26, CO2 of 101. BiPAP utilized with repeat gas with showing resolution of acute hypercapnia (as pH normalized)--> transitioned to bipap/CPAP to sleep and NC otherwise (with goal pulse ox 90-92) Suspect acute exacerbation of COPD in conjunction with Covid-19 PNA. - Solumedrol given upfront & subsequently transitioned to oral prednisone for suspected AECOPD-- continue taper - treated with pulmonary toilette: pulmicort/perforomist and duoneb treatments - Supplemental O2 utilized to maintain pulse ox of 90-92% (patient wears 3L chronically)-- avoid pulse ox >92% given risk of hypercapnia - serum bicarb elevated likely from compensation - CTA done given need for increased O2 (3-5Lcurrently) in the setting of recent Covid. --> no PE, small linear consolidation in the lingula, RML, LLL. (3) COVID: Patient was recently hospitalized for Covid-19. Symptoms of illness began appx during the week of 10/18/21. She has family that is ill with Covid-19 as well. She is not vaccinated against the disease.. She had elevation of CRP to 5.86, Ferritin is within normal range at 224.4. Procalcitonin is undetectable, BNP within normal range at 204 (but could be falsely normal given her obesity). -Maintained isolation precautions while in house. Symptoms onset ~10/19. Per infection control, symptom onset too subjective. Minimum of 10 days from date of test (10/28)--> longer pending symptoms persist -Supplemental O2 as above -Solumedrol -- to oral prednisone as above for AECOPD -lovenox for DVT prophylaxis while in ouse after completed 48h or heparin gtt -Tylenol PRN along with continued supportive care. -Recent Covid is likely cause for increased oxygen needs (3-5L required at this time). CTA of the chest showing residual infiltrates as outlined above. Continue incentive spirometry (4) COPD (chronic obstructive pulmonary disease): As above - suspect that acute exacerbation of COPD/volume overload is predominant mechanism for patient's SOB at this time -pulmonary toilette as above -Solumedrol as above with conversion to prednisone -Mucinex 1200 BID -Incentive spirometry and flutter valve -Supplemental O2 as needed (5) FLAKO (obstructive sleep apnea): Chronic -Continue CPAP/cipap qHS--> likely with obesity hypoventilation syndrome (6) (HFpEF) heart failure with preserved ejection fraction: - initially did seem to have PVC and pleural effusions on imaging with bibasilar crackles - BNP normal (but patient obese so likely false normal) - IV lasix given upfront. cumulative FB -2.5L with repeat CXR thats improved. now euvolmic--continue PO lasix - (7) Abnormal CT scan, chest: CTA done showing no evidence of PE. Cystic changes seen in the right lung for which follow-up study recommended in 2 years. In addition, mild fat stranding lateral to the left pectoralis muscle extends into the left upper breast for which outpatient mammogram recommended.--> this can be facilitated at the discretion of patient's PCP plan of care D/W Dr. Aceves Total Time Total Time Spent Total Time Spent (In Minutes): 45 Discharge Plan Discharge Items Patient Disposition: Home - Self-Care Reason For Visit: COVID-19, HYPOXIA Discharge Diagnosis: 1. NSTEMI- cardiac injury 2. Acute on Chronic Respiratory Failure 3. Remote history of covid- still with slightly increased oxygen needs 4. Abnormal CT of the chest-- will need follow up CT and mammo Activity: As commented below Activity Comment: as tolerated Non-emergency contact: Primary Care Provider Call non-emergency contact if: you have any medication questions and your symptoms worsen Follow-up/Referrals: Crystal Vasquez PA-C [Primary Care Provider] - (PLEASE CALL AND MAKE A FOLLOW UP APT.) Diet: Heart Healthy Addtl Attending Provider Instructions: - you were hospitalized with Acute on Chronic Respiratory Failure (elevated carbon dioxide level) - you need to remain on oxygen to keep your pulse ox between 88-90% (NOT ABOVE 92% as too much oxygen can cause CO2 retention which is a toxin) - make sure to stay on your CPAP machine when sleeping (not just at night but when sleeping during the day) - you had a NSTEMI which in house (cardiac injury) and it's uncertain at this time if it from blockages in your heart vessels or is this was related to recent Covid and your acute on chronic respiratory failure. You need to follow up with Cardiology for determine need for further cardiac work-up - complete tapering course of prednisone (as outlined) - you have been started on Aspirin to help with blood flow to the heart. Take this until seen and told otherwise by cardiology - in addition, you have been started on Lipitor. This is for cardiac protection until you can be seen by cardiology. They will decide if you need to continue this medication prison. - return to the ED for new or worsening symptoms - I STRONGLY ADVISE THAT YOU STOP SMOKING!!!!! Pending Studies at Discharge: No Stand-Alone Forms: My [facility] [employer], Smoking Cessation Medications and DC Order Prescriptions: New atorvastatin 40 mg Tablet 40 mg PO HS Qty: 30 RF: 0 aspirin 81 mg Tablet,Delayed Release (Dr/Ec) 81 mg PO QAM Qty: 30 RF: 0 prednisone 10 mg tablets,dose pack 10 mg PO DIRECTED Qty: 21 RF: 0 Continued potassium chloride [Klor-Con M20] 20 mEq tablet,ER particles/crystals 20 meq PO QAM RF: 0 albuterol sulfate 90 mcg/actuation Hfa Aerosol Inhaler 2 puff INHALATION Q6H PRN (Reason: Shortness Of Breath Or Wheezing) RF: 0 Advair HFA 230-21 mcg/actuation Hfa Aerosol Inhaler 1 puff INHALATION Q12H RF: 0 Spiriva Respimat 2.5 mcg/actuation Mist 2 puff INHALATION AMHS RF: 0 albuterol sulfate 2.5 mg /3 mL (0.083 %) Solution For Nebulization 2.5 mg INHALATION Q4H PRN (Reason: Shortness Of Breath Or Wheezing) RF: 0 acetaminophen [Tylenol Extra Strength] 500 mg Tablet 1,000 mg PO Q6H PRN (Reason: Pain) RF: 0 (DME) Oxygen Home Liters Per Minute See Rx Instructions .ROUTE .MEDSUPPLY Qty: 1 RF: 0 furosemide 40 mg tablet See Rx Instructions .ROUTE .COMPLEX RF: 0 diclofenac sodium [Voltaren Arthritis Pain] 1 % gel 4 g EXT QID PRN (Reason: Pain) RF: 0 Discontinued fluticasone propionate [Flonase Allergy Relief] 50 mcg/actuation [place] spension 2 spray INTRANASAL BID RF: 0 dexamethasone 6 mg tablet 6 mg PO DAILY Qty: 8 RF: 0 Discharge Orders: Discharge Order (Routine); Ordered 11/08/21 Ordered By: Micaela Rojas Admission Data Admit Date/Time: 11/02/21 20:46 Attending Provider: Giancarlo Aceves Admit Provider: Hazel Burt Primary Care Provider: Crystal Vasquez Other Providers: Shin Vogel ; Hazel Burt ; Robbin Zavala Other Interventions: Discharge Summary Assessment (RN) Last Done: 11/08/21 10:15 Supervising Physician Co-Signing Physician Notes I personally examined the patient and verified all mar points of history and exam, discussed case, and agree with decision making with Lani Rojas PAC feeling better feels up to going home breathing close enough to baseline that she feels safe NSTEMI - safe/stable for home otherwise as above Coding Level of Care Code D/C DAY MANAGEMENT >30 MINS Diagnoses NSTEMI (non-ST elevated myocardial infarction) I21.4 Acute hypercapnic respiratory failure J96.02 COVID U07.1 COPD (chronic obstructive pulmonary disease) J44.9 COPD type: unspecified COPD FLAKO (obstructive sleep apnea) G47.33 (HFpEF) heart failure with preserved ejection fraction I50.[address] scan, chest R93.89
--- NOTE | 2021-11-25 09:16 | Coding Query ---
CODING QUERY To promote full compliance with coding requirements relating to patient care, provider participation is requested in all cases of meat processing center manager uncertainty. Please assist us with the question(s) below: Coding Question(s): There is documentation of Lab test postive for detection of COVID-09 virus, 2019 novel coronavirus-infected pneumonia on the ER H&P, and the H&P and Progress Notes document, " Suspect acute exacerbation of COPD in conjunction with Covid-19 PNA", and, " COVID: Plan: Patient was recently hospitalized for Covid-19. Symptoms of illness began appx during the week of 10/18/21. She has family that is ill with Covid-19 as well. She is not vaccinated against the disease", and this is also documented on the Discharge Summary under the Hospital Course, however, the Discharge Summary documents in the Principal Diagnosis area, "Remote h/o Covid". Please specify below, in your clinical opinion. ( ) COVID-19 with Pneumonia during this admission ( ) History only of COVID-19 with Pneumonia ( ) No active COVID-19 or Pneumonia but this is Sequela of the COVID -19 Pneumonia (x ) Other: Please Specify had covid mild pneumonia/COPD exacerbation the admission previous the the one in question. while she was still recovering from covid during the admission in question, this was a recovering/subacute issue during this admit. thanks Physician's Response(s): Thank you Yolande Marie Principal Diagnosis: "that condition established after study, to be chiefly responsible for occasioning the admission of the patient to the hospital for care." Co-Existing Principal Diagnosis: "when two or more diagnoses equally meet the criteria for principal diagnosis as determined by the circumstances of admission, diagnostic work up, and/or therapy provided, and the Alphabetic Index, Tabular List, or another coding guideline does not provide sequencing direction, any one of the diagnoses may be sequenced first." "When the physician has documented what appears to be a current diagnosis in the body of the record, but has not included the diagnosis in the final diagnostic statement, the physician should be asked whether the diagnosis should be added." (Source Coding Clinic 2 QTR90. p3-4) DANIELD
== END 2021-11-08 13:42 | disposition home or self-care (01) | DRG 177 ==
LOC: ED 16:53 → SUATTDRO 20:46 → EDINP 20:46 → 2W 21:55 → 2S 11-04 17:59

== ENCOUNTER 2021-11-25 16:21 | Inpatient (IN) ==
--- NOTE | 2021-11-25 16:29 | Emergency Department Note ---
Impression & Plan Acute respiratory failure with hypoxia and hypercapnia, COPD exacerbation, Hypervolemia, History of COVID-19 ED Provider Note NAME: HUMPHREY COLUNGA AGE: 56 SEX: F ARRIVES VIA: Ambulance INFORMANT: Patient ED PROVIDER(S): Eriberto Cunha MD CHIEF COMPLAINT: Shortness of breath. PLAN: Disposition: Admit MEDICAL DECISION MAKING: The patient is a pleasant 56-year-old woman with a past medical history of chronic hypoxic respiratory failure secondary to COPD on 3 L home oxygen, current smoker, FLAKO on CPAP at night with recent hospitalization for COVID-19 pneumonia from 10/28-10/30 but with repeat hospitalization from 11/02-11/08 for worsening hypoxia/acute on chronic respiratory failure in the setting of her recent COVID-19 pneumonia with associated NSTEMI who presents to the emergency department via EMS for worsening shortness of breath from her recent baseline. The patient denies any fevers, nausea, vomiting, diarrhea or urinary symptoms. She reports that her lower extremity edema was improved on her discharge but reaccumulated since then. Per EMS report they found the patient to be hypoxic in the 60s and it was noted that the patient's tubing for her concentrator had been kinked. However, the patient reports that she has been experiencing worsening shortness of breath and chest tightness for the past couple of days. On arrival the patient is acute on chronic ill-appearing, moderately dyspneic but no acute distress, afebrile with stable vital signs. Of note, the patient had documented O2 saturation in the 90s per EMS however when transitioning from her way in the hallway to her room it was noted that that her O2 saturation was 60% and so it was suspected that the patient's portable tank had become empty while waiting for her room. The patient was placed on 15 L Ventimask for 10 minutes and was progressively titrated down to nasal cannula with her O2 saturation in the low 90s. EKG without overt acute ischemia. Chest x-ray with question of worsening bibasilar opacities however better clarified on CT of the chest. WBC 11K, nonspecific. H/H and platelets to normal limits. VBG demonstrates respiratory acidosis with pH of 7.26 and PCO2 of 96. Chemistry with bicarb of 37 consistent with the patient's known chronic hypercapnia. Lactic acid 0.5, within normal limits. Electrolytes and LFTs without significant abnormality. Troponin negative/undetectable. BNP 100 however likely falsely low in the setting of the patient's obesity. Lipase is not elevated. Procalcitonin is undetectable. COVID-19 RNA, NAAT test was negative. CT of the chest was negative for PE. Groundglass opacities are seen however given reassuring blood work most likely atelectasis. Note is made of dilation of central pulmonary arteries as well as mild interlobular septal thickening. The patient's mediastinal lymphadenopathy persists. Patient did have some improvement after treatment with Solu-Medrol and continuous DuoNeb. However still becomes dyspneic with minimal exertion and even higher toxic to 86 on her home oxygen when attempting to use bedpan. Given CT findings and exam that is suggestive of hypervolemia she was ordered for 40mg Lasix. Her prior to administration RN did make me aware that the patient's blood pressure was hypotensive to 80s/50s however patient continued to mentate normally and denied feeling lightheaded. I did perform a limited bedside cardiac ultrasound and the patient's IVC was not plethoric and IVC variability was approximately 50% and so nonspecific. Thus we will proceed with Lasix however dose changed to 20 mg to assess response. Patient agrees with plan for admission. Pressure was subsequently improved/stable at 95/55. Case was discussed [place]. B[place] [facility] [place], who will evaluate the patient for admission. Triage Nursing notes reviewed and agree them. Prior medical records reviewed Vital Signs: reviewed and remarkable for hypoxia, hypotension. Differential diagnosis: Reactive airway disease, pneumonia, pneumothorax, COPD, CHF, infections, cardiac ischemia, pulmonary embolism, musculoskeletal, gastrointestinal, as well as other pathologies. ER treatment provided: See below. Diagnostics interpreted by me: ECG: Normal sinus rhythm, 91 bpm, no ectopy, nonspecific ST abnormality, no overt ST elevation or depression, QTC 388, QRS 84 per Cardiac Monitoring: An order for continuous cardiac monitoring was placed and demonstrated normal sinus rhythm, 91 bpm, no ectopy. Laboratory studies: See below Imaging studies: See below Consultation(s): Dr. Burt [facility] [place] HPI: The patient is a pleasant 56-year-old woman with a past medical history of chronic hypoxic respiratory failure secondary to COPD on 3 L home oxygen, current smoker, FLAKO on CPAP at night with recent hospitalization for COVID-19 pneumonia from 10/28-10/30 but with repeat hospitalization from 11/02-11/08 for worsening hypoxia/acute on chronic respiratory failure in the setting of her recent COVID-19 pneumonia with associated NSTEMI who presents to the emergency department via EMS for worsening shortness of breath from her recent baseline. The patient denies any fevers, nausea, vomiting, diarrhea or urinary symptoms. She reports that her lower extremity edema was improved on her discharge but reaccumulated since then. Per EMS report they found the patient to be hypoxic in the 60s and it was noted that the patient's tubing for her concentrator had been kinked. However, the patient reports that she has been experiencing worsening shortness of breath and chest tightness for the past couple of days. ROS: See above HPI for pertinent positives & negatives. A total of 10 systems reviewed and were otherwise negative. PAST MEDICAL HISTORY:See Below PAST SURGICAL HISTORY:See Below FAMILY HISTORY:See Below SOCIAL HISTORY:See Below HOME MEDICATIONS:See Below ALLERGIES:See Below VITALS:See Below PHYSICAL EXAMINATION: GENERAL: Awake, alert, acute on chronically ill-appearing, in no distress, 36.7 kg/M HENT: Normocephalic, atraumatic. Oropharynx unremarkable. EYES: Normal conjunctiva. Sclera non-icteric. NECK: Supple. No nuchal rigidity. FROM. No JVD. RESPIRATORY: Intermittent wheezes with prolonged expiratory phase, diminished breath sounds at the bases. CARDIAC: Regular rate, normal rhythm. Extremities warm and well perfused. Pulses equal. ABDOMEN: Soft, non-distended. No tenderness to palpation. No rebound or guarding. No masses. RECTAL: Deferred. MUSCULOSKELETAL: Chest examination reveals no tenderness. The back is symmetrical on inspection without obvious abnormality. There is no CVA tenderness to palpation. No joint edema. LOWER EXTREMITIES: Calves are equal size bilaterally and non-tender. 3+ bilateral lower extremity pitting edema. No discoloration. NEURO: Normal sensorium. No sensory or motor deficits noted. SKIN: No rash or jaundice noted. ED COURSE: Critical Care: I have personally spent greater than 45 minutes of critical care time in the direct management of this patient. This includes bedside care, interpretation of diagnostic studies, and testing, discussion with consultants, patient, and family members, and other required patient management activities. This 45 minutes is in excess of all separately billable procedures. Eriberto Cunha MD Past Med/Surg History Medical History (Updated 11/26/21 @ 00:30 by Eriberto Cunha MD) Chest pain COPD (chronic obstructive pulmonary disease) On 3 L of oxygen continuous Dyspnea Morbid obesity Orthopnea Status asthmaticus TIA (transient ischemic attack) Surgical History History of hysterectomy Hx of cholecystectomy Family History Other Heart disease Social History Smoking Status: Current every day smoker Tobacco Type: Cigarettes Cigarettes Per Day: 10; Second Hand Exposure: No; Hx Alcohol Use: No Hx Substance Use: No Preferred Language: Lithuanian Communication Ability: Effective Lumber Puller Required: No Beliefs That Will Affect Care: None marital status: Current Living Situation: Spouse Current Living Situation Comment: lives in mobile home with son Feels Safe at Home: Yes Assistive Devices: CPAP and Oxygen - Continuous Allergies Allergies Allergy/AdvReac Type Severity Reaction Status Date / Time azithromycin Allergy Severe respiratory Verified 11/25/21 17:58 distress cefaclor Allergy Severe RESPIRATORY Verified 11/25/21 17:58 DISTRESS erythromycin base Allergy Severe RESPIRATORY Verified 11/25/21 17:58 DISTRESS ibuprofen Allergy Severe RESPIRATORY Verified 11/25/21 17:58 DISTRESS Penicillins Allergy Severe RESPIRATORY Verified 11/25/21 17:58 DISTRESS Sulfa (Sulfonamide Allergy Severe RESPIRATORY Verified 11/25/21 17:58 Antibiotics) DISTRESS, RASH doxycycline AdvReac Severe Difficulty Verified 11/25/21 17:58 Breathing morphine AdvReac Intermediate N/V Verified 11/25/21 17:58 Home Meds Home Medications Medication Instructions Recorded Confirmed albuterol sulfate 90 mcg/actuation 2 puff INHALATION Q6H PRN 10/09/18 11/25/21 aerosol inhaler fluticasone propionate 230 1 puff INHALATION Q12H 10/09/18 11/25/21 mcg-salmeterol 21 mcg/actuation HFA inhaler (Advair HFA) tiotropium bromide 2.5 2 puff INHALATION AMHS 10/09/18 11/25/21 mcg/actuation mist for inhalation (Spiriva Respimat) acetaminophen 500 mg tablet 1,000 mg PO Q6H PRN 10/21/19 11/25/21 (Tylenol Extra Strength) albuterol sulfate 2.5 mg INHALATION Q4H PRN 10/21/19 11/25/21 potassium chloride 20 mEq 20 meq PO QAM 11/09/20 11/25/21 tablet,extended release(part/cryst) (Klor-Con M) diclofenac sodium 1 % topical gel 4 g EXT QID PRN 08/03/21 11/25/21 (Voltaren Arthritis Pain) furosemide 40 mg tablet See Rx Instructions .ROUTE .COMPLEX 09/10/21 11/25/21 Previous Rx's Medication Instructions Recorded Oxygen Home #1 ea 07/10/21 aspirin 81 mg tablet,delayed 81 mg PO QAM #30 tab 11/08/21 release atorvastatin 40 mg tablet 40 mg PO HS #30 tab 11/08/21 Results & Data (ED) Vital Signs Vital Signs - 24 hr 11/25/21 16:33 11/25/21 16:48 11/25/21 16:51 Temperature 37.0 C Temperature Source Oral Pulse Rate 98 H Pulse Rate [Apical] Pulse Rhythm [Apical] Pulse Strength [Apical] Respiratory Rate 22 Respiratory Effort / Characteristics Respiratory Depth Blood Pressure 131/63 Blood Pressure [Left Arm] Blood Pressure Mean 85 Blood Pressure Mean [Left Arm] Blood Pressure Position [Left Arm] Pulse Oximetry 60 L 91 Oxygen Delivery Method Room Air Nasal Cannula Nasal Cannula Oxygen Flow Rate 3 3 Sepsis Recent Fever Within 48 Hours No Sepsis New/Unexplained Change in Mental Status No Sepsis Action Taken by Nursing No Action Required 11/25/21 18:15 11/25/21 19:18 11/25/21 19:48 Temperature Temperature Source Pulse Rate Pulse Rate [Apical] 95 H 95 H Pulse Rhythm [Apical] Regular Regular Pulse Strength [Apical] Normal Normal Respiratory Rate 24 18 18 Respiratory Effort / Characteristics Non-Labored Spontaneous Non-Labored Spontaneous Respiratory Depth Shallow Normal Normal Blood Pressure Blood Pressure [Left Arm] 89/58 L 98/69 L 95/57 L Blood Pressure Mean Blood Pressure Mean [Left Arm] 68 78 69 Blood Pressure Position [Left Arm] Lying Pulse Oximetry 92 89 L 90 Oxygen Delivery Method Nasal Cannula Nasal Cannula Nasal Cannula Oxygen Flow Rate 3 3 4.5 Sepsis Recent Fever Within 48 Hours Sepsis New/Unexplained Change in Mental Status Sepsis Action Taken by Nursing Laboratory Data Attestation: I reviewed the patient's lab results. Result diagrams: 11/25/21 16:49 11/25/21 16:49 Lab Results 11/25/21 11/25/21 11/25/21 Range/Units 16:49 16:49 16:49 WBC 11.16 H (4.8-10.8) K/uL RBC 4.14 L (4.2-5.4) M/uL Hgb 12.7 (12.0-16.0) g/dL Hct 41.7 (37-47) % MCV 100.7 H (80-100) fL MCH 30.7 (25-34) pg MCHC 30.5 L (32-36) g/dL RDW Std Deviation 58.1 H (36.4-46.3) fL RDW Coeff of Darius 16.0 H (11.5-14.5) % Plt Count 207 (130-400) K/uL MPV 10.7 H (7.4-10.4) fL Immature Gran % (Auto) 0.3 % Neut % (Auto) 71.4 % Lymph % (Auto) 19.5 % [place] % (Auto) 5.5 % Eos % (Auto) 3.0 % Baso % (Auto) 0.3 % Neut # (Auto) 7.98 H (1.4-6.5) K/uL Lymph # (Auto) 2.18 (1.2-3.4) K/uL [place] # (Auto) 0.61 H (0.11-0.59) K/uL Eos # (Auto) 0.33 (0-0.5) K/uL Baso # (Auto) 0.03 (0-0.2) K/uL Immature Gran # (Auto) 0.03 H (0.00-0.02) K/uL VBG pH (7.36-7.41) VBG pCO2 (38-50) mmHg VBG pO2 mmHg VBG HCO3 mmol/L VBG O2 Saturation % VBG Base Excess mEq/L Barometric Pressure mm/Hg Sodium 141 (136-145) mmol/L Potassium 4.6 (3.5-5.1) mmol/L Chloride 98 (98-107) mmol/L Carbon Dioxide 37 H (21-32) mmol/L Anion Gap 6 (3-11) BUN 8 (6-23) mg/dl Creatinine 0.37 L (0.6-1.2) mg/dl Est Cr Clr Drug Dosing 167.3 ml/min Est GFR ( Amer) 136.5 ml/min Est GFR (Non-Af Amer) 117.8 ml/min BUN/Creatinine Ratio 21.6 H (10-20) Glucose 106 H (70-99(Fasting)) mg/dl Lactate (0.4-2.0) mmol/L Calcium 8.8 (8.5-10.1) mg/dl Phosphorus 3.7 (2.5-4.9) mg/dl Magnesium 2.0 (1.7-2.4) mg/dl Total Bilirubin 0.4 (0.2-1.0) mg/dl AST 14 (13-39) U/L ALT 9 (7-52) U/L Alkaline Phosphatase 80 (34-104) U/L Troponin I < 0.03 (0-0.04) ng/ml B-Natriuretic Peptide 101 H (0-100) pg/ml Total Protein 6.9 (6.0-8.3) gm/dl Albumin 3.6 (3.4-5.0) gm/dl Globulin 3.3 (2.5-4.0) gm/dl Albumin/Globulin Ratio 1.1 (0.9-2) Lipase 10 L (11-82) U/L Procalcitonin (0-0.5) ng/ml SARS-CoV-2, RNA, NAAT (NEGATIVE) 11/25/21 11/25/21 11/25/21 Range/Units 16:49 16:49 16:49 WBC (4.8-10.8) K/uL RBC (4.2-5.4) M/uL Hgb (12.0-16.0) g/dL Hct (37-47) % MCV (80-100) fL MCH (25-34) pg MCHC (32-36) g/dL RDW Std Deviation (36.4-46.3) fL RDW Coeff of Darius (11.5-14.5) % Plt Count (130-400) K/uL MPV (7.4-10.4) fL Immature Gran % (Auto) % Neut % (Auto) % Lymph % (Auto) % [place] % (Auto) % Eos % (Auto) % Baso % (Auto) % Neut # (Auto) (1.4-6.5) K/uL Lymph # (Auto) (1.2-3.4) K/uL [place] # (Auto) (0.11-0.59) K/uL Eos # (Auto) (0-0.5) K/uL Baso # (Auto) (0-0.2) K/uL Immature Gran # (Auto) (0.00-0.02) K/uL VBG pH 7.26 L (7.36-7.41) VBG pCO2 96 H (38-50) mmHg VBG pO2 44 mmHg VBG HCO3 42 mmol/L VBG O2 Saturation 76.9 % VBG Base Excess 11.0 mEq/L Barometric Pressure 740.3 mm/Hg Sodium (136-145) mmol/L Potassium (3.5-5.1) mmol/L Chloride (98-107) mmol/L Carbon Dioxide (21-32) mmol/L Anion Gap (3-11) BUN (6-23) mg/dl Creatinine (0.6-1.2) mg/dl Est Cr Clr Drug Dosing ml/min Est GFR ( Amer) ml/min Est GFR (Non-Af Amer) ml/min BUN/Creatinine Ratio (10-20) Glucose (70-99(Fasting)) mg/dl Lactate 0.5 (0.4-2.0) mmol/L Calcium (8.5-10.1) mg/dl Phosphorus (2.5-4.9) mg/dl Magnesium (1.7-2.4) mg/dl Total Bilirubin (0.2-1.0) mg/dl AST (13-39) U/L ALT (7-52) U/L Alkaline Phosphatase (34-104) U/L Troponin I (0-0.04) ng/ml B-Natriuretic Peptide (0-100) pg/ml Total Protein (6.0-8.3) gm/dl Albumin (3.4-5.0) gm/dl Globulin (2.5-4.0) gm/dl Albumin/Globulin Ratio (0.9-2) Lipase (11-82) U/L Procalcitonin < 0.05 (0-0.5) ng/ml SARS-CoV-2, RNA, NAAT (NEGATIVE) 11/25/21 Range/Units 17:00 WBC (4.8-10.8) K/uL RBC (4.2-5.4) M/uL Hgb (12.0-16.0) g/dL Hct (37-47) % MCV (80-100) fL MCH (25-34) pg MCHC (32-36) g/dL RDW Std Deviation (36.4-46.3) fL RDW Coeff of Darius (11.5-14.5) % Plt Count (130-400) K/uL MPV (7.4-10.4) fL Immature Gran % (Auto) % Neut % (Auto) % Lymph % (Auto) % [place] % (Auto) % Eos % (Auto) % Baso % (Auto) % Neut # (Auto) (1.4-6.5) K/uL Lymph # (Auto) (1.2-3.4) K/uL [place] # (Auto) (0.11-0.59) K/uL Eos # (Auto) (0-0.5) K/uL Baso # (Auto) (0-0.2) K/uL Immature Gran # (Auto) (0.00-0.02) K/uL VBG pH (7.36-7.41) VBG pCO2 (38-50) mmHg VBG pO2 mmHg VBG HCO3 mmol/L VBG O2 Saturation % VBG Base Excess mEq/L Barometric Pressure mm/Hg Sodium (136-145) mmol/L Potassium (3.5-5.1) mmol/L Chloride (98-107) mmol/L Carbon Dioxide (21-32) mmol/L Anion Gap (3-11) BUN (6-23) mg/dl Creatinine (0.6-1.2) mg/dl Est Cr Clr Drug Dosing ml/min Est GFR ( Amer) ml/min Est GFR (Non-Af Amer) ml/min BUN/Creatinine Ratio (10-20) Glucose (70-99(Fasting)) mg/dl Lactate (0.4-2.0) mmol/L Calcium (8.5-10.1) mg/dl Phosphorus (2.5-4.9) mg/dl Magnesium (1.7-2.4) mg/dl Total Bilirubin (0.2-1.0) mg/dl AST (13-39) U/L ALT (7-52) U/L Alkaline Phosphatase (34-104) U/L Troponin I (0-0.04) ng/ml B-Natriuretic Peptide (0-100) pg/ml Total Protein (6.0-8.3) gm/dl Albumin (3.4-5.0) gm/dl Globulin (2.5-4.0) gm/dl Albumin/Globulin Ratio (0.9-2) Lipase (11-82) U/L Procalcitonin (0-0.5) ng/ml SARS-CoV-2, RNA, NAAT NEGATIVE (NEGATIVE) Administered Medications Albuterol (Albuterol 0.083% Nebu Soln 3 Ml Vial) 2.5 mg NEB Q2H PRN; Protocol PRN Reason: SOB/Wheeze Stop: 12/25/21 23:33 Last Admin: 11/25/21 23:44 Dose: 2.5 mg Documented by: [id number] Atorvastatin Calcium (Atorvastatin 40 Mg Tab) 40 mg PO HS TIERA Stop: 12/25/21 23:16 Last Admin: 11/26/21 00:14 Dose: 40 mg Documented by: [id number] Enoxaparin Sodium (Enoxaparin Inj 40 Mg/0.4 Ml Syr) 40 mg SQ Q12H TIERA Stop: 12/25/21 23:16 Last Admin: 11/26/21 00:13 Dose: 40 mg Documented by: [id number] Doxycycline Hyclate 100 mg/ (Dextrose) 110 mls @ 50 mls/hr IV Q12H TIERA Stop: 12/02/21 23:16 Last Admin: 11/26/21 00:13 Dose: 50 mls/hr Documented by: [id number] Discontinued Medications Albuterol (Albut/Ipratrop 3mg/0.5mg Neb 3 Ml Vial) 12 ml NEB ONE ONE; Protocol Stop: 11/25/21 16:58 Last Admin: 11/25/21 17:38 Dose: 12 ml Documented by: [id number] Furosemide (Furosemide 40 Mg/4 Ml Vial) 40 mg IV ONE ONE Stop: 11/25/21 19:21 Last Admin: 11/25/21 19:49 Dose: 20 mg Documented by: [id number] Furosemide (Furosemide Inj 20 Mg/2 Ml Vial) 20 mg IV ONE ONE Stop: 11/25/21 19:53 Last Admin: 11/25/21 19:54 Dose: Not Given Documented by: [id number] Guaifenesin (Guaifenesin 600 Mg Tabcr) 600 mg PO NOW STA Stop: 11/25/21 16:58 Last Admin: 11/25/21 17:32 Dose: 600 mg Documented by: [id number] Ioversol (Optiray 320 125ml) 124 ml IV ONCE ONE Stop: 11/25/21 18:39 Last Admin: 11/25/21 18:39 Dose: 124 ml Documented by: [id number] Methylprednisolone (Methylprednisolone 125 Mg/2 Ml Vial) 125 mg IV NOW STA Stop: 11/25/21 16:58 Last Admin: 11/25/21 17:32 Dose: 125 mg Documented by: [id number] Imaging Data Radiologist's Impression: Chest X-Ray 11/25/21 16:23 XR chest 1V portable CLINICAL HISTORY: Atypical chest pain. COMPARISON STUDY: Chest radiograph November 04, 2021. Chest CT November 06, 2021. FINDINGS: There is no pneumothorax. Blunting of left costophrenic angle is unchanged. Bibasilar opacities have slightly increased. There is no radiographic evidence for pulmonary edema. Cardiomediastinal silhouette is stable. IMPRESSION: Bibasilar opacities, increased since prior exam. The findings favor an infecti ous process. ACT 112: Negative or not required by law. Electronically signed by: Sung Santana M.D. 11/25/2021 5:16 PM Chest CTA 11/25/21 16:59 CT ANGIOGRAPHY OF THE CHEST, PULMONARY EMBOLUS PROTOCOL CLINICAL HISTORY: sob, hypoxia, recent covid pna, h/o copd, r/o PE COMPARISON STUDY: Chest CT November 06, 2021. Chest radiograph performed earlier today. TECHNIQUE: Following IV administration of 124 mL of Optiray, helical axial im ages of the chest were obtained utilizing the pulmonary embolus protocol. Maximal intensity projections and sagittal and coronal reformats were viewed on an independent 3D workstation. IV contrast was administered without complication. Automated exposure control was utilized for the study. A dose lowering technique was utilized adhering to the principles of ALARA. CT DOSE: 728.42 mGy.cm FINDINGS: No pulmonary emboli are identified although the segmental and subsegmental pulmonary arteries are suboptimally assessed due to respiratory motion. There is no pericardial effusion. Dilatation of the central pulmonary arteries is again noted. Mildly enlarged mediastinal lymph nodes are unchanged. No pneumothorax or pleural effusion is noted. Multiple foci of cystic change within the lungs are again noted. These are similar to prior exam. Lingular opacity favors atelectasis. There are mild ground glass opacities within the lungs. Central airways are patent. There is no pneumothorax or pleural effusion. There is mild interlobular septal thickening. No acute fracture or suspicious lesion is identified within visualized portions of the bony thorax. Visualized portions of the upper abdomen are unremarkable. IMPRESSION: 1. No pulmonary emboli identified although segmental and subsegmental pulmonary arteries suboptimally assessed due to respiratory motion. 2. Mild ground glass opacities within the lungs. The findings favor atelectasis although an infectious process could appear similar. Lingular opacity consistent with atelectasis. 3. No change in focal areas of cystic change within the lungs. These remain nonspecific. Follow-up chest CT in one year to ensure stability is recommended. 4. Dilatation of the central pulmonary arteries suggestive of pulmonary arterial hypertension. 5. No change in mild mediastinal lymphadenopathy. ACT 112: Negative or not required by law. Electronically signed by: Sung Santana M.D. 11/25/2021 7:03 PM Discharge Plan Visit Data Chief Complaint: Shortness of Breath/Dyspnea Stated Complaint: HYPOXIA ED Provider: Eriberto Cunha Discharge Problem: Acute respiratory failure with hypoxia and hypercapnia, COPD exacerbation, Hypervolemia, History of COVID-19 Patient Disposition: Admitted As Inpatient Discharge Instructions Interventions: ED Discharge Assessment Last Done: 11/25/21 22:46
[2021-11-25] MEDS ORDERED: guaiFENesin 600 MG TABCR PO STA (16:57)
[2021-11-25] MEDS ORDERED: ALBUT/IPRATROP 3MG/0.5MG NEB 3 ML VIAL NEB ONE (16:57)
[2021-11-25] MEDS ORDERED: methylPREDNISolone 125 MG/2 ML VIAL IV STA (16:57)
[2021-11-25 17:03] LABS: Basophils # (auto) 0.03 K/uL (0-0.2); Basophils % (auto) 0.3 %; Eosinophils # (auto) 0.33 K/uL (0-0.5); Hematocrit (blood only) 41.7 % (37-47); Hemoglobin 12.7 g/dL (12.0-16.0); Immature Granulocytes # (auto) 0.03 K/uL (0.00-0.02); Immature Granulocytes % (auto) 0.3 %; Lymphocytes # (auto) 2.18 K/uL (1.2-3.4); Lymphocytes % (auto) 19.5 %; Mean Corpuscular Hemoglobin 30.7 pg (25-34); Mean Corpuscular Hgb Conc 30.5 g/dL (32-36); Mean Corpuscular Volume 100.7 fL (80-100); Mean Platelet Volume 10.7 fL (7.4-10.4); Monocytes # (auto) 0.61 K/uL (0.11-0.59); Monocytes % (auto) 5.5 %; Neutrophils # (auto) 7.98 K/uL (1.4-6.5); Neutrophils % (auto) 71.4 %; Platelet Count 207 K/uL (130-400); RDW Standard Deviation 58.1 fL (36.4-46.3); Red Blood Count 4.14 M/uL (4.2-5.4); White Blood Count 11.16 K/uL (4.8-10.8)
--- NOTE | 2021-11-25 17:18 | XRay Report ---
XR chest 1V portable CLINICAL HISTORY: Atypical chest pain. COMPARISON STUDY: Chest radiograph November 04, 2021. Chest CT November 06, 2021. FINDINGS: There is no pneumothorax. Blunting of left costophrenic angle is unchanged. Bibasilar opaci ties have slightly increased. There is no radiographic evidence for pulmonary edema. Cardiomediastina l silhouette is stable. IMPRESSION: Bibasilar opacities, increased since prior exam. The findings favor an infectious process. ACT 112: Negative or not required by law. Electronically signed by: Sung Santana M.D. 11/25/2021 5:16 PM
[2021-11-25 17:19] LABS: Oxygen Saturation VBG 76.9 %; pH VBG 7.26 (7.36-7.41)
[2021-11-25 17:25] LABS: Troponin I < 0.03 ng/ml (0-0.04)
[2021-11-25 17:30] LABS: Alanine Aminotransferase 9 U/L (7-52); Albumin Globulin Ratio 1.1 (0.9-2); Albumin Level 3.6 gm/dl (3.4-5.0); Alkaline Phosphatase 80 U/L (34-104); Anion Gap 6 (3-11); Aspartate Aminotransferase 14 U/L (13-39); BUN Creatinine Ratio 21.6 (10-20); Bilirubin,Total 0.4 mg/dl (0.2-1.0); Blood Urea Nitrogen 8 mg/dl (6-23); Calcium 8.8 mg/dl (8.5-10.1); Carbon Dioxide 37 mmol/L (21-32); Chloride 98 mmol/L (98-107); Creatinine Clr Calc Pharmacy 167.3 ml/min; Est GFR (African American) 136.5 ml/min; Est GFR (Non-African American) 117.8 ml/min; Globulin 3.3 gm/dl (2.5-4.0); Glucose 106 mg/dl (70-99(Fasting)); Lipase 10 U/L (11-82); Phosphorus 3.7 mg/dl (2.5-4.9); Potassium 4.6 mmol/L (3.5-5.1); Sodium 141 mmol/L (136-145); Total Protein 6.9 gm/dl (6.0-8.3)
[2021-11-25] MEDS ORDERED: OPTIRAY 320 125ml IV ONE (18:38)
--- NOTE | 2021-11-25 19:04 | CT Scan Report ---
CT ANGIOGRAPHY OF THE CHEST, PULMONARY EMBOLUS PROTOCOL CLINICAL HISTORY: sob, hypoxia, recent covid pna, h/o copd, r/o PE COMPARISON STUDY: Chest CT November 06, 2021. Chest radiograph performed earlier today. TECHNIQUE: Following IV administration of 124 mL of Optiray, helical axial images of the chest were o btained utilizing the pulmonary embolus protocol. Maximal intensity projections and sagittal and cor onal reformats were viewed on an independent 3D workstation. IV contrast was administered without co mplication. Automated exposure control was utilized for the study. A dose lowering technique was ut ilized adhering to the principles of ALARA. CT DOSE: 728.42 mGy.cm FINDINGS: No pulmonary emboli are identified although the segmental and subsegmental pulmonary arter ies are suboptimally assessed due to respiratory motion. There is no pericardial effusion. Dilatation of the central pulmonary arteries is again noted. Mildly enlarged mediastinal lymph nodes are unchan ged. No pneumothorax or pleural effusion is noted. Multiple foci of cystic change within the lungs ar e again noted. These are similar to prior exam. Lingular opacity favors atelectasis. There are mild g round glass opacities within the lungs. Central airways are patent. There is no pneumothorax or pleur al effusion. There is mild interlobular septal thickening. No acute fracture or suspicious lesion is identified within visualized portions of the bony thorax. Visualized portions of the upper abdomen ar e unremarkable. IMPRESSION: 1. No pulmonary emboli identified although segmental and subsegmental pulmonary arteries suboptimally assessed due to respiratory motion. 2. Mild ground glass opacities within the lungs. The findings favor atelectasis although an infectiou s process could appear similar. Lingular opacity consistent with atelectasis. 3. No change in focal areas of cystic change within the lungs. These remain nonspecific. Follow-up est CT in one year to ensure stability is recommended. 4. Dilatation of the central pulmonary arteries suggestive of pulmonary arterial hypertension. 5. No change in mild mediastinal lymphadenopathy. ACT 112: Negative or not required by law. Electronically signed by: Sung aSntana M.D. 11/25/2021 7:03 PM
[2021-11-25] MEDS ORDERED: FUROSEMIDE 40 MG/4 ML VIAL IV ONE (19:20)
[2021-11-25] MEDS ORDERED: FUROSEMIDE INJ 20 MG/2 ML VIAL IV ONE (19:52)
--- NOTE | 2021-11-25 20:23 | History & Physical Report ---
Date of Service November 25, 2021 Assessment & Plan (1) COPD exacerbation: Plan: 56yo female with history of chronic hypoxic respiratory failure, COPD, CHF, on home O2 3-4L at baseline presenting with several days of worsening shortness of breath, cough, chest tightness and wheeze. Cough is productive for light brown sputum. Patient also with LE edema. Hypoxic prior to arrival due to issue with O2 tubing Saturating well now on 4.5L - 90%, no respiratory distress Ddx to include COPD exacerbation, possibly CHF. Patient with elevated WBC count as well with elevated neutrophils and bands. Procalcitonin is unremarkable. No obvious infiltrate on imaging makes PNA unlikely. -Admit to medical with telemetry -Doxycycline 100mg IV BID -DuoNeb q 4 -Pulmicort BID -Albuterol neb q 2 hours PRN -Prednisone 40mg IV daily -Lasix 20mg IV given in ER - blood pressure is borderline at 95/57. Monitor UOP, weights and respiratory status -Trend troponin (2) FLAKO (obstructive sleep apnea): Plan: CPAP [id number] qHS Plan: F/E/N - Lasix given, monitor electrolytes, heart healthy diet as tolerated Ppx - Lovenox 40BID for BMI of 36.7 Code - Full per discussion with patient Dispo - Admit to medical with telemetry History of Present Illness Chief Complaint: shortness of breath Primary Care Provider: Crystal Poe is a 56yo female with history of chronic hypoxemic respiratory failure, COPD and CHF - she is on 3-4 L of O2 at baseline. Patient was admitted with Covid-19 PNA from 10/28/21 - 10/30/21 and treated with Dexamethasone and Remdesivir. She returned to [facility] on 11/02/21 and was admitted for acute hypercapnic respiratory failure requiring BiPAP therapy. Patient sustained an NSTEMI during her last hospital stay. Her troponin peaked at 8.21. Patient was discharged home in stable condition on 11/08/21. She returns today with progressive shortness of breath. She states she has been feeling short of breath for the last 3-4 days with acute worsening over the last 2 days. She has been having some chest heaviness, coughing and wheezing as well. She states that her cough is occasionally productive for clear to brown sputum. Patient uses her supplemental O2 continuously at home - typically 3 liters, 4 liters with ambulation. Her goal saturations are 88-92%. Patient denies fever, chills, abdominal pain, nausea, vomiting, diarrhea or constipation. No additional complaints at this time. EMS arrived at her home this evening and her saturations were in the 60's. Patient reportedly had a kink in her oxygen tubing and was not getting O2 deliv ered. Once this issue was fixed her saturations improved. ER Course: Lasix 20mg IV, Albuterol 12mL neb, Guaifenesin 600mg, Solumedrol 125mg Allergies Allergy/AdvReac Type Severity Reaction Status Date / Time azithromycin Allergy Severe respiratory Verified 11/25/21 17:58 distress cefaclor Allergy Severe RESPIRATORY Verified 11/25/21 17:58 DISTRESS erythromycin base Allergy Severe RESPIRATORY Verified 11/25/21 17:58 DISTRESS ibuprofen Allergy Severe RESPIRATORY Verified 11/25/21 17:58 DISTRESS Penicillins Allergy Severe RESPIRATORY Verified 11/25/21 17:58 DISTRESS Sulfa (Sulfonamide Allergy Severe RESPIRATORY Verified 11/25/21 17:58 Antibiotics) DISTRESS, RASH doxycycline AdvReac Severe Difficulty Verified 11/25/21 17:58 Breathing morphine AdvReac Intermediate N/V Verified 11/25/21 17:58 Home Medications Medication Instructions Recorded Confirmed Type albuterol sulfate 90 mcg/actuation 2 puff INHALATION Q6H PRN 10/09/18 11/25/21 History aerosol inhaler fluticasone propionate 230 1 puff INHALATION Q12H 10/09/18 11/25/21 History mcg-salmeterol 21 mcg/actuation HFA inhaler (Advair HFA) tiotropium bromide 2.5 2 puff INHALATION AMHS 10/09/18 11/25/21 History mcg/actuation mist for inhalation (Spiriva Respimat) acetaminophen 500 mg tablet 1,000 mg PO Q6H PRN 10/21/19 11/25/21 History (Tylenol Extra Strength) albuterol sulfate 2.5 mg INHALATION Q4H PRN 10/21/19 11/25/21 History potassium chloride 20 mEq 20 meq PO QAM 11/09/20 11/25/21 History tablet,extended release(part/cryst) (Klor-Con M) Oxygen Home #1 ea 07/10/21 08/03/21 Rx diclofenac sodium 1 % topical gel 4 g EXT QID PRN 08/03/21 11/25/21 History (Voltaren Arthritis Pain) furosemide 40 mg tablet See Rx Instructions .ROUTE .COMPLEX 09/10/21 11/25/21 History aspirin 81 mg tablet,delayed 81 mg PO QAM #30 tab 11/08/21 11/25/21 Rx release atorvastatin 40 mg tablet 40 mg PO HS #30 tab 11/08/21 11/25/21 Rx Past Med/Surg History Medical History Chest pain COPD (chronic obstructive pulmonary disease) On 3 L of oxygen continuous Dyspnea Morbid obesity Orthopnea Status asthmaticus TIA (transient ischemic attack) Surgical History History of hysterectomy Hx of cholecystectomy Family History Other Heart disease Social History Smoking Status: Current every day smoker Tobacco Type: Cigarettes Cigarettes Per Day: 10; Second Hand Exposure: No; Hx Alcohol Use: No Hx Substance Use: No Preferred Language: Singaporean Communication Ability: Effective Wood Chopper Required: No Beliefs That Will Affect Care: None marital status: Current Living Situation: Spouse Current Living Situation Comment: lives in mobile home with son Feels Safe at Home: Yes Assistive Devices: Oxygen - Continuous Review of Systems Review of Systems: All systems reviewed & are unremarkable except as noted in HPI & below Physical Exam Physical Exam: General: patient resting comfortably, NAD, non-toxic in appearance, AA&O x 4 Skin: warm, dry, intact, bruising present on bilateral forearms and hands HEENT: NC/AT, PERRL, EOMI, anicteric sclera, conjunctiva without injection, external ear normal to inspection and nontender, nares patent, moist mucus membranes, dentition intact, no oropharyngeal lesions, neck supple, trachea midline, no LAD, no thyromegaly, no JVD Heart: +S1/S2, regular, no m/r/g Lungs: diminished breath sounds, no rales/rhonchi/wheezes Abd: +BS, soft, NT/ND, no masses/organomegaly/ascites Ext: warm, 2+ pulses in UE/LE bilaterally, no clubbing/cyanosis, 3+ pitting edema of bilateral LE Neuro: nonfocal, patient AA&O x 4, speech intact, no facial droop, moving all extremities on command with equal strength 5/5 Results & Data Results & Data ([facility]) Vital Signs (Past 12 Hours) Vital Signs Temp Pulse Pulse Resp BP BP Pulse Ox 11/25/21 19:48 95 H 18 95/57 L 90 11/25/21 19:18 18 98/69 L 89 L 11/25/21 18:15 95 H 24 89/58 L 92 11/25/21 16:51 91 11/25/21 16:33 37.0 C 98 H 22 131/63 60 L Laboratory Results Laboratory Results WBC 11.16 K/uL (4.8-10.8) H 11/25/21 16:49 RBC 4.14 M/uL (4.2-5.4) L 11/25/21 16:49 Hgb 12.7 g/dL (12.0-16.0) 11/25/21 16:49 Hct 41.7 % (37-47) 11/25/21 16:49 MCV 100.7 fL (80-100) H 11/25/21 16:49 MCH 30.7 pg (25-34) 11/25/21 16:49 MCHC 30.5 g/dL (32-36) L 11/25/21 16:49 RDW Std Deviation 58.1 fL (36.4-46.3) H 11/25/21 16:49 RDW Coeff of Darius 16.0 % (11.5-14.5) H 11/25/21 16:49 Plt Count 207 K/uL (130-400) 11/25/21 16:49 MPV 10.7 fL (7.4-10.4) H 11/25/21 16:49 Immature Gran % (Auto) 0.3 % 11/25/21 16:49 Neut % (Auto) 71.4 % 11/25/21 16:49 Lymph % (Auto) 19.5 % 11/25/21 16:49 [place] % (Auto) 5.5 % 11/25/21 16:49 Eos % (Auto) 3.0 % 11/25/21 16:49 Baso % (Auto) 0.3 % 11/25/21 16:49 Neut # (Auto) 7.98 K/uL (1.4-6.5) H 11/25/21 16:49 Lymph # (Auto) 2.18 K/uL (1.2-3.4) 11/25/21 16:49 [place] # (Auto) 0.61 K/uL (0.11-0.59) H 11/25/21 16:49 Eos # (Auto) 0.33 K/uL (0-0.5) 11/25/21 16:49 Baso # (Auto) 0.03 K/uL (0-0.2) 11/25/21 16:49 Immature Gran # (Auto) 0.03 K/uL (0.00-0.02) H 11/25/21 16:49 VBG pH 7.26 (7.36-7.41) L 11/25/21 16:49 VBG pCO2 96 mmHg (38-50) H 11/25/21 16:49 VBG pO2 44 mmHg 11/25/21 16:49 VBG HCO3 42 mmol/L 11/25/21 16:49 VBG O2 Saturation 76.9 % 11/25/21 16:49 VBG Base Excess 11.0 mEq/L 11/25/21 16:49 Barometric Pressure 740.3 mm/Hg 11/25/21 16:49 Sodium 141 mmol/L (136-145) 11/25/21 16:49 Potassium 4.6 mmol/L (3.5-5.1) 11/25/21 16:49 Chloride 98 mmol/L (98-107) 11/25/21 16:49 Carbon Dioxide 37 mmol/L (21-32) H 11/25/21 16:49 Anion Gap 6 (3-11) 11/25/21 16:49 BUN 8 mg/dl (6-23) 11/25/21 16:49 Creatinine 0.37 mg/dl (0.6-1.2) L 11/25/21 16:49 Est Cr Clr Drug Dosing 167.3 ml/min 11/25/21 16:49 Est GFR ( Amer) 136.5 ml/min 11/25/21 16:49 Est GFR (Non-Af Amer) 117.8 ml/min 11/25/21 16:49 BUN/Creatinine Ratio 21.6 (10-20) H 11/25/21 16:49 Glucose 106 mg/dl (70-99(Fasting)) H 11/25/21 16:49 Lactate 0.5 mmol/L (0.4-2.0) 11/25/21 16:49 Calcium 8.8 mg/dl (8.5-10.1) 11/25/21 16:49 Phosphorus 3.7 mg/dl (2.5-4.9) 11/25/21 16:49 Magnesium 2.0 mg/dl (1.7-2.4) 11/25/21 16:49 Total Bilirubin 0.4 mg/dl (0.2-1.0) 11/25/21 16:49 AST 14 U/L (13-39) 11/25/21 16:49 ALT 9 U/L (7-52) 11/25/21 16:49 Alkaline Phosphatase 80 U/L (34-104) 11/25/21 16:49 Troponin I < 0.03 ng/ml (0-0.04) 11/25/21 16:49 B-Natriuretic Peptide 101 pg/ml (0-100) H 11/25/21 16:49 Total Protein 6.9 gm/dl (6.0-8.3) 11/25/21 16:49 Albumin 3.6 gm/dl (3.4-5.0) 11/25/21 16:49 Globulin 3.3 gm/dl (2.5-4.0) 11/25/21 16:49 Albumin/Globulin Ratio 1.1 (0.9-2) 11/25/21 16:49 Lipase 10 U/L (11-82) L 11/25/21 16:49 Procalcitonin < 0.05 ng/ml (0-0.5) 11/25/21 16:49 SARS-CoV-2, RNA, NAAT NEGATIVE (NEGATIVE) 11/25/21 17:00 Impressions Chest X-Ray 11/25/21 16:23 XR chest 1V portable CLINICAL HISTORY: Atypical chest pain. COMPARISON STUDY: Chest radiograph November 04, 2021. Chest CT November 06, 2021. FINDINGS: There is no pneumothorax. Blunting of left costophrenic angle is unchanged. Bibasilar opacities have slightly increased. There is no radiographic evidence for pulmonary edema. Cardiomediastinal silhouette is stable. IMPRESSION: Bibasilar opacities, increased since prior exam. The findings favor an infectious process. ACT 112: Negative or not required by law. Electronically signed by: Sung Santana M.D. 11/25/2021 5:16 PM Chest CTA 11/25/21 16:59 CT ANGIOGRAPHY OF THE CHEST, PULMONARY EMBOLUS PROTOCOL CLINICAL HISTORY: sob, hypoxia, recent covid pna, h/o copd, r/o PE COMPARISON STUDY: Chest CT November 06, 2021. Chest radiograph performed earlier today. TECHNIQUE: Following IV administration of 124 mL of Optiray, helical axial images of the chest were obtained utilizing the pulmonary embolus protocol. Max imal intensity projections and sagittal and coronal reformats were viewed on an independent 3D workstation. IV contrast was administered without complication. Automated exposure control was utilized for the study. A dose lowering technique was utilized adhering to the principles of ALARA. CT DOSE: 728.42 mGy.cm FINDINGS: No pulmonary emboli are identified although the segmental and sub segmental pulmonary arteries are suboptimally assessed due to respiratory motion. There is no pericardial effusion. Dilatation of the central pulmonary arteries is again noted. Mildly enlarged mediastinal lymph nodes are unchanged. No pneumothorax or pleural effusion is noted. Multiple foci of cystic change within the lungs are again noted. These are similar to prior exam. Lingular opacity favors atelectasis. There are mild ground glass opacities within the lungs. Central airways are patent. There is no pneumothorax or pleural effusion. There is mild interlobular septal thickening. No acute fracture or suspicious lesion is identified within visualized portions of the bony thorax. Visualized portions of the upper abdomen are unremarkable. IMPRESSION: 1. No pulmonary emboli identified although segmental and subsegmental pulmonary arteries suboptimally assessed due to respiratory motion. 2. Mild ground glass opacities within the lungs. The findings favor atelectasis although an infectious process could appear similar. Lingular opacity consistent with atelectasis. 3. No change in focal areas of cystic change within the lungs. These remain nonspecific. Follow-up chest CT in one year to ensure stability is recommended. 4. Dilatation of the central pulmonary arteries suggestive of pulmonary arterial hypertension. 5. No change in mild mediastinal lymphadenopathy. ACT 112: Negative or not required by law. Electronically signed by: Sung Santana M.D. 11/25/2021 7:03 PM ECG Additional Comments: EKG with NSR at 91, left axis deviation, CG=756, QRS=84, MCm=148, old inferior infarct present Code Status & VTE Plan VTE Prophylaxis Plan VTE Prophylaxis will be ordered: Yes PG Care Time/CCT Total # of Minutes Spent Total Time Spent with Patient: Total time spent is greater than 50% in coordination of care (as documented) at patient's floor/unit and/or counseling patient: Coding Level of Care Code 93029 Initial Inpt Care Lvl 2 Diagnoses COPD exacerbation J44.1 FLAKO (obstructive sleep apnea) G47.33
[2021-11-25] MEDS ORDERED: DICLOFENAC SOD 1% GEL 100 GM TUBE EXT PRN (23:17)
[2021-11-25] MEDS ORDERED: ACETAMINOPHEN HOME PACK 500 MG TABLET PO PRN (23:17)
[2021-11-25] MEDS ORDERED: ONDANSETRON INJ 2 MG/ML 2 ML VIAL IV PRN (23:17)
[2021-11-25] MEDS: ALBUTEROL 0.083% NEBU SOLN 3 ML VIAL NEB PRN (23:44)
[2021-11-26] MEDS: ENOXAPARIN INJ 40 MG/0.4 ML SYR SQ SCH ×2 (00:13→12:23)
[2021-11-26] MEDS: DOXYCYCLINE HYCLATE 100 MG in DEXTROSE 5% 100 ML IV SCH ×2 (00:13→12:23)
[2021-11-26] MEDS: ATORVASTATIN 40 MG TAB PO SCH ×2 (00:14→20:24)
[2021-11-26] MEDS: BUDESONIDE 0.5 MG/2 ML VIAL (PULMICORT) NEB SCH ×2 (07:05→19:12)
[2021-11-26] MEDS: ALBUT/IPRATROP 3MG/0.5MG NEB 3 ML VIAL NEB SCH ×4 (07:05→19:12)
[2021-11-26] MEDS: ACETAMINOPHEN 325 MG TAB PO PRN ×2 (07:49→16:54)
[2021-11-26] MEDS: predniSONE 20 MG TAB PO SCH (07:49)
[2021-11-26] MEDS: POTASSIUM CHLORIDE CRTAB 20 MEQ TABCR PO SCH (07:49)
[2021-11-26] MEDS: ASPIRIN 81 MG ECTAB PO SCH (07:50)
[2021-11-26 08:02] LABS: Hematocrit (blood only) 39.1 % (37-47); Hemoglobin 11.6 g/dL (12.0-16.0); Immature Granulocytes # (auto) 0.03 K/uL (0.00-0.02); Immature Granulocytes % (auto) 0.5 %; Lymphocytes # (auto) 0.88 K/uL (1.2-3.4); Lymphocytes % (auto) 14.4 %; Mean Corpuscular Hemoglobin 29.8 pg (25-34); Mean Corpuscular Hgb Conc 29.7 g/dL (32-36); Mean Corpuscular Volume 100.5 fL (80-100); Mean Platelet Volume 10.8 fL (7.4-10.4); Monocytes % (auto) 1.6 %; Neutrophils # (auto) 5.08 K/uL (1.4-6.5); Neutrophils % (auto) 83.5 %; Platelet Count 184 K/uL (130-400); RDW Coefficient of Variation 15.6 % (11.5-14.5); RDW Standard Deviation 56.6 fL (36.4-46.3); Red Blood Count 3.89 M/uL (4.2-5.4); White Blood Count 6.09 K/uL (4.8-10.8)
[2021-11-26 08:13] LABS: Troponin I < 0.03 ng/ml (0-0.04)
[2021-11-26 08:51] LABS: Alanine Aminotransferase 10 U/L (7-52); Albumin Level 3.2 gm/dl (3.4-5.0); Alkaline Phosphatase 69 U/L (34-104); Anion Gap 2 (3-11); Aspartate Aminotransferase 11 U/L (13-39); BUN Creatinine Ratio 28.6 (10-20); Bilirubin,Total 0.3 mg/dl (0.2-1.0); Blood Urea Nitrogen 10 mg/dl (6-23); Calcium 8.4 mg/dl (8.5-10.1); Carbon Dioxide 42 mmol/L (21-32); Chloride 96 mmol/L (98-107); Creatinine Clr Calc Pharmacy 177.8 ml/min; Glucose 115 mg/dl (70-99(Fasting)); Potassium 4.7 mmol/L (3.5-5.1); Sodium 140 mmol/L (136-145); Total Protein 6.1 gm/dl (6.0-8.3)
--- NOTE | 2021-11-26 11:25 | Hospitalist Progress Note ---
Date of Service November 26, 2021 Assessment & Plan (1) COPD exacerbation: Plan: Patient has a history of COPD, at home uses 2 to 3 L of oxygen at baseline. Presents to the hospital with worsening shortness of breath and wheeze. -Started on duo nebs, scheduled and as needed, supplemental oxygen and also antibiotics Shortness of breath much improved this morning We will continue with the above management. (2) FLAKO (obstructive sleep apnea): Plan: CPAP [id number] qHS (3) Tobacco abuse: Plan: Patient smokes about 7-15 sticks of tobacco every day Provide her with nicotine patch Patient was also counseled about quitting tobacco Plan: Continue hospitalization, likely discharge in the next 24 to 48 hours Admission and Anticipated Discharge Date Admission Date: November 25, 2021 Subjective Patient seen and examined today, states shortness of breath is much better Review of Systems Review of Systems: All systems reviewed are negative, apart from the ones contained in the history. Physical Exam 2 Physical Exam: The patient is awake, alert and oriented 3, well developed and well nourished, normocephalic and atraumatic, lying in bed and in no acute distr ess. HEENT--PERRL, EOMI, mucous membranes and oropharynx mildly dry Neck--supple. No JVD. No bruits. Thyroid normal, trachea midline, no adenopathy. Heart--normal S1 and S2. No murmurs, rubs or gallops. Lungs--reduced air entry on auscultation, minimal wheeze Abdomen--normal bowel sounds and soft. Mild epigastric and left sided abdominal pain Extremities--no cyanosis or clubbing. No edema. Dermatologic--normal skin turgor, normal color, no abnormal lymph nodes, no rash. Neurologic--cranial nerves II through XII grossly intact. Rheumatologic--normal range of motion. Psychiatric--normal affect. Results & Data Results & Data ([facility]) Vital Signs (Past 12 Hours) Vital Signs Temp Pulse Pulse Pulse Resp BP Pulse Ox 11/26/21 11:18 80 21 94 11/26/21 07:45 81 90/60 L 11/26/21 07:26 97.7 F 74 18 85/54 L 93 11/26/21 07:09 79 20 89 L 11/26/21 07:00 77 11/26/21 03:17 97.7 F 80 16 95/63 L 94 11/26/21 00:06 96 H 11/25/21 23:47 88 22 95 11/25/21 23:35 84 22 95 PG Care Time/CCT Total # of Minutes Spent Total Time Spent with Patient: Total time spent is greater than 50% in coordination of care (as documented) at patient's floor/unit and/or counseling patient: Coding Level of Care Code 49693 Subseq Hosp Care Lvl 2 Diagnoses COPD exacerbation J44.1 FLAKO (obstructive sleep apnea) G47.33 Tobacco abuse Z72.0 Time Spent (min) 35
[2021-11-26] MEDS: NICOTINE 14 MG/24 HR PATCH TD SCH (11:48)
--- NOTE | 2021-11-26 12:17 | Electrocardiogram Report ---
Test Reason : Blood Pressure : / mmHG Vent. Rate : 091 BPM Atrial Rate : 091 BPM P-R Int : 152 ms QRS Dur : 084 ms QT Int : 316 ms P-R-T Axes : 060 -60 039 degrees QTc Int : 388 ms Normal sinus rhythm Left axis deviation possible Inferior infarct (cited on or before 05-NOV-2021) Abnormal ECG When compared with ECG of 05-NOV-2021 05:16, Non-specific change in ST segment in Anterior leads Confirmed by Francisco Denise ([id number]) on 11/26/2021 12:17:03 PM Referred By: REFERRED SELF Confirmed By:Denis Denise
[2021-11-27] MEDS: DOXYCYCLINE HYCLATE 100 MG in DEXTROSE 5% 100 ML IV SCH ×2 (00:21→16:00)
[2021-11-27] MEDS: ENOXAPARIN INJ 40 MG/0.4 ML SYR SQ SCH ×3 (00:21→23:38)
[2021-11-27] MEDS: ALBUTEROL 0.083% NEBU SOLN 3 ML VIAL NEB PRN (02:00)
[2021-11-27] MEDS: ALBUT/IPRATROP 3MG/0.5MG NEB 3 ML VIAL NEB SCH ×4 (07:02→19:31)
[2021-11-27] MEDS: BUDESONIDE 0.5 MG/2 ML VIAL (PULMICORT) NEB SCH ×2 (07:02→19:31)
[2021-11-27] MEDS ORDERED: FUROSEMIDE 40 MG TAB PO SCH (08:15)
[2021-11-27] MEDS: predniSONE 20 MG TAB PO SCH (09:17)
[2021-11-27] MEDS: ASPIRIN 81 MG ECTAB PO SCH (09:17)
[2021-11-27] MEDS: POTASSIUM CHLORIDE CRTAB 20 MEQ TABCR PO SCH (09:18)
[2021-11-27] MEDS: NICOTINE 14 MG/24 HR PATCH TD SCH (09:18)
--- NOTE | 2021-11-27 12:42 | Hospitalist Progress Note ---
Date of Service November 27, 2021 Assessment & Plan (1) COPD exacerbation: Plan: Patient has a history of COPD, at home uses 3-4 L of oxygen at baseline. Still smokes daily Has had intubations/ICU stays previously Presents to the hospital with worsening shortness of breath and wheeze after recent COVID infection last month. Initially noted to have POx in 60s but reportedly O2 tubing kinked? POx now 88% on 4L, still some chest tightness, diminished breath sounds thr oughout -improving on on duo nebs, scheduled and as needed, supplemental oxygen and also antibiotics w/ doxy -change doxy to po and finish out course of 7 days -continue prednisone 40mg daily -continue to follow -does not feel ready for discharge yet but maybe in 1-2 days -encouraged smoking cessation at home -continue budesonide nebs bid (2) Hypoxia: Plan: acute on chronic respiratory failure with hypoxia-improving now as above (3) FLAKO (obstructive sleep apnea): Plan: CPAP [id number] qHS will see if RT can check out problem with CPAP machine here as she says her sats drop with it in place (4) Tobacco abuse: Plan: Patient smokes about 7 ciggs every day Provide her with nicotine patch Patient was also counseled about quitting tobacco (5) Chronic respiratory failure: Plan: typically on 3-4LNC at home continuously (6) NSTEMI (non-ST elevated myocardial infarction): Plan: last admission, secondary to COVID and demand ischemia ECHO no WMAs and normal EF on 11/04/21 continue ASA, statin restart home po lasix bid continue KCl (7) Obesity: Plan: BMI 35.2 needs weight loss Plan: DVT Proph- Lovenox Dispo- Continue hospitalization, likely discharge in the next 24 to 48 hours Admission and Anticipated Discharge Date Admission Date: November 25, 2021 Subjective Still feels tight in chest. Reports sats dropping while on the CPAP and something wrong with the machine. Wants doxy changed to po from IV as it is burning her vein. No other complaints. Is OOB to bedside commode At home typically walks 8 feet at the most at a time Tele with NSR and PVCs rates 80s Review of Systems Review of Systems: All systems reviewed & are unremarkable except as noted in HPI & below Physical Exam Constitutional: WD/WN, vitals as above + obese Eyes: + anicteric sclerae Neck: trachea midline, no thyromegaly Respiratory: normal respiratory effort; no cough and not tachypneic Auscultation: + diminished lung sounds (severely diminished throughout) and + wheezes Cardiovascular: RRR, no murmur, no edema Chest (Breasts): Chest: normal inspection of chest Gastrointestinal (Abdomen): normal bowel sounds, soft, nontender, no hepatosplenomegaly Musculoskeletal: Extremities: extremities normal to inspection; no cyanosis and no clubbing Skin: no rashes, warm and dry Neurologic: moves all extremities and awake; no focal motor deficits Psychiatric: A+Ox3, euthymic affect Lymphatic: no lymphedema Results & Data Results & Data ([facility]) Vital Signs (Past 12 Hours) Vital Signs Temp Pulse Pulse Resp BP Pulse Ox 11/27/21 11:00 36.6 C 80 20 99/54 L 88 L 11/27/21 10:08 90 18 95 11/27/21 07:44 79 11/27/21 07:04 78 18 93 11/27/21 07:00 36.6 C 76 20 111/67 98 11/27/21 03:12 36.5 C 75 18 102/62 93 11/27/21 02:02 80 16 90 PG Care Time/CCT Total # of Minutes Spent Total Time Spent with Patient: Total time spent is greater than 50% in coordination of care (as documented) at patient's floor/unit and/or counseling patient: Coding Level of Care Code 00341 Subseq Hosp Care Lvl 2 Diagnoses COPD exacerbation J44.1 FLAKO (obstructive sleep apnea) G47.33 Tobacco abuse Z72.0 Obesity E66.9 Obesity classification: unspecified obesity classification Obesity type: unspecified obesity type Serious obesity comorbidity presence: unspecified whether serious comorbidity present Chronic respiratory failure J96.10 Hypoxia R09.02 NSTEMI (non-ST elevated myocardial infarction) I21.4 (1) Obesity Obesity classification: unspecified obesity classification Obesity type: unspecified obesity type Serious obesity comorbidity presence: unspecified whether serious comorbidity present Qualified Code(s): E66.9 - Obesity, unspeci fied
[2021-11-27] MEDS: DOXYCYCLINE HYCLATE 100 MG CAP PO SCH ×2 (14:19→22:19)
[2021-11-27] MEDS: FUROSEMIDE 20 MG TAB PO SCH (22:19)
[2021-11-27] MEDS: ATORVASTATIN 40 MG TAB PO SCH (22:19)
[2021-11-28] MEDS: ACETAMINOPHEN 325 MG TAB PO PRN (07:25)
[2021-11-28] MEDS: ASPIRIN 81 MG ECTAB PO SCH (07:29)
[2021-11-28] MEDS: POTASSIUM CHLORIDE CRTAB 20 MEQ TABCR PO SCH (07:29)
[2021-11-28] MEDS: NICOTINE 14 MG/24 HR PATCH TD SCH (07:29)
[2021-11-28] MEDS: DOXYCYCLINE HYCLATE 100 MG CAP PO SCH ×2 (07:29→21:06)
[2021-11-28] MEDS: predniSONE 20 MG TAB PO SCH (07:29)
[2021-11-28] MEDS: BUDESONIDE 0.5 MG/2 ML VIAL (PULMICORT) NEB SCH ×2 (07:34→20:20)
[2021-11-28] MEDS: ALBUT/IPRATROP 3MG/0.5MG NEB 3 ML VIAL NEB SCH ×4 (07:34→20:20)
[2021-11-28] MEDS: ENOXAPARIN INJ 40 MG/0.4 ML SYR SQ SCH ×2 (12:33→21:07)
[2021-11-28] MEDS ORDERED: SODIUM CHLORIDE 0.65% NA SOLN 45 ML (OCEAN) ONE ×2 (15:54→15:56)
--- NOTE | 2021-11-28 17:44 | Hospitalist Progress Note ---
Date of Service November 28, 2021 Assessment & Plan (1) COPD exacerbation: Plan: Patient has a history of COPD, at home uses 3-4 L of oxygen at baseline. Still smokes daily Has had intubations/ICU stays previously Presents to the hospital with worsening shortness of breath and wheeze after recent COVID infection last month. Initially noted to have POx in 60s but reportedly O2 tubing kinked? Oxygen requirements improving, now nearing home oxygen requirements but with more rapid desaturations than normal Patient with some desats difficulty transferring, given history of readmission and intubation will monitor conservatively and follow on steroids and oxygen additionally overnight Continue doxycycline Continue prednisone, recommend taper over 5-7 days Encourage smoking cessation Nebs as needed (2) Hypoxia: Plan: acute on chronic respiratory failure with hypoxia-improving now as above (3) FLAKO (obstructive sleep apnea): Plan: CPAP [id number] qHS (4) Tobacco abuse: Plan: Patient smokes about 7 cigarettes every day nicotine patch Patient was also counseled about quitting tobacco (5) Chronic respiratory failure: Plan: typically on 3-4LNC at home continuously (6) NSTEMI (non-ST elevated myocardial infarction): Plan: last admission, secondary to COVID and demand ischemia ECHO no WMAs and normal EF on 11/04/21 continue ASA, statin Continue home po lasix bid continue KCl (7) Obesity: Plan: BMI 35.2 needs weight loss Plan: DVT Proph- Lovenox Dispo- Continue hospitalization, likely discharge in the next 24 to 48 hours Admission and Anticipated Discharge Date Admission Date: November 25, 2021 Subjective Seen at bedside. Improving, but continues to feel short of breath with exertion. Desats rapidly, more than her normal while ambulating between bed and the commode. Patient ambulated between bed and commode today, rapid desat to 70s. Improving, with mild persistent wheezing and slowly moving towards baseline. No nausea, vomiting, diarrhea, constipation, chest pain, chest pressure Review of Systems Review of Systems: All systems reviewed & are unremarkable except as noted in Subjective Physical Exam Physical Exam: General: A&Ox3. NAD. Cooperative. HEENT: Atraumatic, normocephalic. Visual acuity and hearing grossly intact Pulm: Trace end expiratory wheezes, otherwise clear with moderate air movement and no rales. Symmetrical chest rise. No increase in work of breathing. No respiratory distress. Cardiac: RRR, -mrg. Radial pulses intact and symmetrical. Abdominal: Nontender, nondistended, soft. BS present. Results & Data Results & Data ([facility]) Vital Signs (Past 12 Hours) Vital Signs Temp Pulse Pulse Resp BP Pulse Ox Pulse Ox 11/28/21 15:00 103 H 11/28/21 14:58 79 21 94 11/28/21 14:55 36.6 C 83 20 103/64 93 11/28/21 11:27 37.1 C 80 20 113/69 94 11/28/21 11:20 88 L 11/28/21 11:13 77 18 94 11/28/21 08:00 74 11/28/21 07:58 73 18 90 11/28/21 07:50 36.5 C 75 20 106/63 90 Pulse Ox Pulse Ox 11/28/21 15:00 11/28/21 14:58 11/28/21 14:55 11/28/21 11:27 11/28/21 11:20 91 80 L 11/28/21 11:13 11/28/21 08:00 11/28/21 07:58 11/28/21 07:50 PG Care Time/CCT Total # of Minutes Spent Total Time Spent with Patient: Total time spent is greater than 50% in coordination of care (as documented) at patient's floor/unit and/or counseling patient: Coding Level of Care Code 44692 Subseq Hosp Care Lvl 2 Diagnoses COPD exacerbation J44.1 Hypoxia R09.02 FLAKO (obstructive sleep apnea) G47.33 Tobacco abuse Z72.0 Chronic respiratory failure J96.10 NSTEMI (non-ST elevated myocardial infarction) I21.4 Obesity E66.9 Obesity classification: unspecified obesity classification Obesity type: unspecified obesity type Serious obesity comorbidity presence: unspecified whether serious comorbidity present (1) Obesity Obesity classification: unspecified obesity classification Obesity type: unspecified obesity type Serious obesity comorbidity presence: unspecified whether serious comorbidity present Qualified Code(s): E66.9 - Obesity, unsp ecified
[2021-11-28] MEDS: ATORVASTATIN 40 MG TAB PO SCH (21:05)
[2021-11-28] MEDS: FUROSEMIDE 20 MG TAB PO SCH (21:05)
[2021-11-29 06:28] LABS: Hematocrit (blood only) 38.3 % (37-47); Hemoglobin 11.4 g/dL (12.0-16.0); Mean Corpuscular Hemoglobin 29.9 pg (25-34); Mean Corpuscular Hgb Conc 29.8 g/dL (32-36); Mean Corpuscular Volume 100.5 fL (80-100); Mean Platelet Volume 10.7 fL (7.4-10.4); Platelet Count 160 K/uL (130-400); RDW Coefficient of Variation 15.9 % (11.5-14.5); RDW Standard Deviation 57.9 fL (36.4-46.3); Red Blood Count 3.81 M/uL (4.2-5.4); White Blood Count 7.54 K/uL (4.8-10.8)
[2021-11-29 06:42] VITALS: TEMP 98.6
[2021-11-29 06:44] LABS: Creatinine Clr Calc Pharmacy 168.5 ml/min; Est GFR (African American) 136.5 ml/min; Est GFR (Non-African American) 117.8 ml/min
[2021-11-29] MEDS: ALBUT/IPRATROP 3MG/0.5MG NEB 3 ML VIAL NEB SCH ×2 (07:34→10:54)
[2021-11-29] MEDS: BUDESONIDE 0.5 MG/2 ML VIAL (PULMICORT) NEB SCH (07:34)
[2021-11-29] MEDS: NICOTINE 14 MG/24 HR PATCH TD SCH (07:47)
[2021-11-29] MEDS: predniSONE 20 MG TAB PO SCH (07:47)
[2021-11-29] MEDS: POTASSIUM CHLORIDE CRTAB 20 MEQ TABCR PO SCH (07:47)
[2021-11-29] MEDS: DOXYCYCLINE HYCLATE 100 MG CAP PO SCH (07:47)
[2021-11-29] MEDS: ASPIRIN 81 MG ECTAB PO SCH (07:47)
[2021-11-29 10:41] VITALS: BP 90/60
[2021-11-29 10:58] VITALS: PULSE 87; O2SAT 92
[2021-11-29] MEDS: ENOXAPARIN INJ 40 MG/0.4 ML SYR SQ SCH (11:43)
--- NOTE | 2021-11-29 12:59 | Discharge Summary ---
Date of Service November 29, 2021 Admission HPI Per Admitting Provider Gabriela Poe is a 56yo female with history of chronic hypoxemic respiratory failure, COPD and CHF - she is on 3-4 L of O2 at baseline. Patient was admitted with Covid-19 PNA from 10/28/21 - 10/30/21 and treated with Dexamethasone and Remdesivir. She returned to [facility] on 11/02/21 and was admitted for acute hypercapnic respiratory failure requiring BiPAP therapy. Patient sustained an NSTEMI during her last hospital stay. Her troponin peaked at 8.21. Patient was discharged home in stable condition on 11/08/21. She returns today with progressive shortness of breath. She states she has been feeling short of breath for the last 3-4 days with acute worsening over the last 2 days. She has been having some chest heaviness, coughing and wheezing as well. She states that her cough is occasionally productive for clear to brown sputum. Patient uses her supplemental O2 continuously at home - typically 3 liters, 4 liters with ambulation. Her goal saturations are 88-92%. Patient denies fever, chills, abdominal pain, nausea, vomiting, diarrhea or constipation. No additional complaints at this time. EMS arrived at her home this evening and her saturations were in the 60's. Patient reportedly had a kink in her oxygen tubing and was not getting O2 delivered. Once this issue was fixed her saturations improved. ER Course: Lasix 20mg IV, Albuterol 12mL neb, Guaifenesin 600mg, Solumedrol 125mg Admission Exam Per Admitting Provider General: patient resting comfortably, NAD, non-toxic in appearance, AA&O x 4 Skin: warm, dry, intact, bruising present on bilateral forearms and hands HEENT: NC/AT, PERRL, EOMI, anicteric sclera, conjunctiva without injection, external ear normal to inspection and nontender, nares patent, moist mucus membranes, dentition intact, no oropharyngeal lesions, neck supple, trachea midline, no LAD, no thyromegaly, no JVD Heart: +S1/S2, regular, no m/r/g Lungs: diminished breath sounds, no rales/rhonchi/wheezes Abd: +BS, soft, NT/ND, no masses/organomegaly/ascites Ext: warm, 2+ pulses in UE/LE bilaterally, no clubbing/cyanosis, 3+ pitting edema of bilateral LE Neuro: nonfocal, patient AA&O x 4, speech intact, no facial droop, moving all extremities on command with equal strength 5/5 Principal Diagnosis Acute on chronic COPD Discharge Exam General: A&Ox3. NAD. Cooperative. HEENT: Atraumatic, normocephalic. Pulm: CTAB A&P. -wheezes, -rales, -rhonchi. Symmetrical chest rise. No increase in work of breathing. No respiratory distress. On the baseline nasal cannula oxygen. Cardiac: RRR, -mrg. Radial pulses intact and symmetrical. Abdominal: Nontender, nondistended, soft. BS present. Discharge Data Allergies Allergy/AdvReac Type Severity Reaction Status Date / Time azithromycin Allergy Severe respiratory Verified 11/25/21 17:58 distress cefaclor Allergy Severe RESPIRATORY Verified 11/25/21 17:58 DISTRESS erythromycin base Allergy Severe RESPIRATORY Verified 11/25/21 17:58 DISTRESS ibuprofen Allergy Severe RESPIRATORY Verified 11/25/21 17:58 DISTRESS Penicillins Allergy Severe RESPIRATORY Verified 11/25/21 17:58 DISTRESS Sulfa (Sulfonamide Allergy Severe RESPIRATORY Verified 11/25/21 17:58 Antibiotics) DISTRESS, RASH doxycycline AdvReac Intermediate Difficulty Verified 11/27/21 12:58 Breathing morphine AdvReac Intermediate N/V Verified 11/25/21 17:58 Consultations 11/25/21 19:26 ED Decision to Admit Stat Ordered Studies 11/25/21 16:59 CT angio chest PE protocol Stat Hospital Course (1) COPD exacerbation: Gabriela is a 56-year-old female who was admitted and treated for an acute on chronic COPD exacerbation. She has a baseline home oxygen requirement 3 to 4 L and required increased oxygen during admission, although there was some concern of her home tubing being kinked which may have exacerbated her symptoms. She had wheezing during her hospitalization, but clinically improved with steroids and doxycycline. She felt she was at her normal baseline breathing at [facility] at time of discharge. She is discharged to complete a short taper of prednisone and a 5-day course of doxycycline. To do as outpatient 1. Complete prednisone taper, 40 mg daily x2 days, 30 mg daily x2 days, 20 mg daily x2 days, 10 mg daily x2 days, 5 mg daily x2 days 2. Complete 5-day course of doxycycline twice daily 3. Routine follow-up to PCP 4. Continued to encourage smoking cessation and counseled patient on its effect on her COPD exacerbations during admission Patient has a history of COPD, at home uses 3-4 L of oxygen at baseline. Still smokes daily Has had intubations/ICU stays previously Presents to the hospital with worsening shortness of breath and wheeze after recent COVID infection last month. Initially noted to have POx in 60s but reportedly O2 tubing kinked? Oxygen requirements improving, now nearing home oxygen requirements but with more rapid desaturations than normal Patient with some desats difficulty transferring, given history of readmission and intubation will monitor conservatively and follow on steroids and oxygen additionally overnight Continue doxycycline Continue prednisone, recommend taper over 5-7 days Encourage smoking cessation Nebs as needed (2) Hypoxia: acute on chronic respiratory failure with hypoxia-improving now as above (3) FLAKO (obstructive sleep apnea): CPAP [id number] qHS (4) Tobacco abuse: Patient smokes about 7 cigarettes every day nicotine patch Patient was also counseled about quitting tobacco (5) Chronic respiratory failure: typically on 3-4LNC at home continuously (6) NSTEMI (non-ST elevated myocardial infarction): last admission, secondary to COVID and demand ischemia ECHO no WMAs and normal EF on 11/04/21 continue ASA, statin Continue home po lasix bid continue KCl (7) Obesity: BMI 35.2 needs weight loss DVT Proph- Lovenox Dispo- Continue hospitalization, likely discharge in the next 24 to 48 hours Total Time Total Time Spent Total Time Spent (In Minutes): Time spend day of discharge 35 minutes including direct patient care, documentation, review of labs and images, and coordination of care. Discharge Plan Discharge Items Patient Disposition: Home - Self-Care Reason For Visit: SOB Discharge Diagnosis: Acute on chronic COPD Activity: Resume your previous activity Non-emergency contact: Primary Care Provider Call non-emergency contact if: you have any medication questions, your symptoms worsen, your pain is not controlled and your pain is worsening Follow-up/Referrals: Crystal Vasquez PA-C [Primary Care Provider] - (PLEASE CALL YOUR PRIMARY CARE PROVIDER TO SCHEDULE A DISCHARGE FOLLOW-UP APPOINTMENT WITHIN 7-10 DAYS.) Diet: Regular Addtl Attending Provider Instructions: You are seen in the hospital for shortness of breath and low oxygen levels, and were treated for an acute on chronic COPD exacerbation. You are treated with antibiotics and steroids, and have been discharged on medications as below. Your oxygen levels had returned to you approximately her home oxygen levels at time of discharge. You did not have an elevated white blood cell count at time of discharge. You were treated with steroids during admission. You have been discharged to complete a taper of prednisone. Please take prednisone 40 mg daily for 2 days, then 30 mg daily for 2 days, then 20 mg daily for 2 days, then 10 mg daily for 2 days, then 5 mg daily for 2 days, and then stop taking prednisone. You have been prescribed an antibiotic, doxycycline. Please complete 3 additional days of doxycycline 100 mg by mouth twice daily. Please take this medication with a full glass of water and food as directed per pharmacy as it can be irritating to the throat/stomach. Please continue to use your home oxygen levels to maintain a oxygen saturation greater than 88%. A follow-up appointment is being scheduled for you with your primary care provider. You should be seen within 1 week. You should receive a call to confirm your appointment, if you do not receive a call within the next 48 hours to confirm an appointment please call your primary care provider's office at [phone] If you develop any new or worsening symptoms including fever, chills, sweats, chest pain, chest pressure, difficulty breathing, uncontrolled nausea/vomiting, rash, wheezing, passing out or nearly passing out, bleeding, black/bloody bowel movements, or other new or concerning symptoms please call your primary care physician at [phone], or call 911 for re-evaluation in the emergency department if you are very concerned. Pending Studies at Discharge: No Stand-Alone Forms: My [facility] [employer], Smoking Cessation Medications and DC Order Prescriptions: New doxycycline hyclate 100 mg Capsule 100 mg PO BID 3 Days Qty: 6 RF: 0 prednisone 20 mg tablet See Rx Instructions .ROUTE .COMPLEX Qty: 21 RF: 0 Continued potassium chloride [Klor-Con M20] 20 mEq tablet,ER particles/crystals 20 meq PO QAM RF: 0 albuterol sulfate 90 mcg/actuation Hfa Aerosol Inhaler 2 puff INHALATION Q6H PRN (Reason: Shortness Of Breath Or Wheezing) RF: 0 Advair HFA 230-21 mcg/actuation Hfa Aerosol Inhaler 1 puff INHALATION Q12H RF: 0 Spiriva Respimat 2.5 mcg/actuation Mist 2 puff INHALATION AMHS RF: 0 albuterol sulfate 2.5 mg /3 mL (0.083 %) Solution For Nebulization 2.5 mg INHALATION Q4H PRN (Reason: Shortness Of Breath Or Wheezing) RF: 0 acetaminophen [Tylenol Extra Strength] 500 mg Tablet 1,000 mg PO Q6H PRN (Reason: Pain) RF: 0 (DME) Oxygen Home Liters Per Minute See Rx Instructions .ROUTE .MEDSUPPLY Qty: 1 RF: 0 furosemide 40 mg tablet See Rx Instructions .ROUTE .COMPLEX RF: 0 diclofenac sodium [Voltaren Arthritis Pain] 1 % gel 4 g EXT QID PRN (Reason: Pain) RF: 0 atorvastatin 40 mg Tablet 40 mg PO HS Qty: 30 RF: 0 aspirin 81 mg Tablet,Delayed Release (Dr/Ec) 81 mg PO QAM Qty: 30 RF: 0 Discharge Orders: Discharge Order (Routine); Ordered 11/29/21 Ordered By: Shashank Zavala Admission Data Admit Date/Time: 11/25/21 20:20 Attending Provider: Shashank Zavala Admit Provider: Hazel Burt Primary Care Provider: Crystal Vasquez Other Providers: Hazel Burt ; Gurjit Pimentel [facility] Other Interventions: Discharge Summary Assessment (RN) Last Done: 11/29/21 10:40 Coding Level of Care Code D/C DAY MANAGEMENT >30 MINS Diagnoses COPD exacerbation J44.1 Hypoxia R09.02 FLAKO (obstructive sleep apnea) G47.33 Tobacco abuse Z72.0 Chronic respiratory failure J96.10 NSTEMI (non-ST elevated myocardial infarction) I21.4 Obesity E66.9 Obesity classification: unspecified obesity classification Obesity type: unspecified obesity type Serious obesity comorbidity presence: unspecified whether serious comorbidity present
--- NOTE | 2021-12-04 08:40 | Coding Query ---
CONGESTIVE HEART FAILURE To Promote full compliance with coding requirements relating to patient care, physician participation is requested in all cases of coding director uncertainty. Please assist us with the following questions. A diagnosis of Congestive Heart Failure is documented in the patient's medical record. HP : Echo 11/04/21 EF 65-70% and findings of diastolic dysfunction 3 Plus. Treated with chronic lasix and oxygen. Presents to ED IV lasix given, daily weights and I/O monitoring ordered. To accurately code this diagnosis and to compare patient severity, we ask that you specify the type of heart failure by placing an X within the parenthesis (x). Thanks for your help! Shar West, ANDREW [facility] SYSTOLIC HEART FAILURE ( ) Acute ( ) Chronic ( ) Acute on Chronic ( ) Rheumatic ( ) Unknown DIASTOLIC HEART FAILURE ( ) Acute ( ) Chronic (x ) Acute on Chronic ( ) Rheumatic ( ) Unknown COMBINED SYSTOLIC AND DIASTOLIC HEART FAILURE ( ) Acute ( ) Chronic ( ) Acute on Chronic ( ) Rheumatic ( ) Unknown Was the CHF Present On Admission? Please check the appropriate box: ( ) Present on Admission ( ) Not Present On Admission ( ) Clinically undetermined MTDD
== END 2021-11-29 13:46 | disposition home health service (06) | DRG 190 ==
LOC: ED 16:21 → 2N 20:20 → SUATTDRO 20:20 → 2N 22:46
DX: J96.21 Acute and chronic respiratory failure with hypoxia; Z88.2 Allergy status to sulfonamides; E86.1 Hypovolemia; Z68.35 Body mass index [BMI] 35.0-35.9, adult; G47.33 Obstructive sleep apnea (adult) (pediatric); F17.210 Nicotine dependence, cigarettes, uncomplicated; Z88.0 Allergy status to penicillin; Z88.8 Allergy status to other drugs, medicaments and biological substances; Z88.1 Allergy status to other antibiotic agents; Z88.5 Allergy status to narcotic agent; Z86.16 Personal history of COVID-19; J44.1 Chronic obstructive pulmonary disease with (acute) exacerbation; I50.33 Acute on chronic diastolic (congestive) heart failure; E66.9 Obesity, unspecified; Z99.81 Dependence on supplemental oxygen; I21.4 Non-ST elevation (NSTEMI) myocardial infarction

== ENCOUNTER 2022-02-10 01:27 | Inpatient (IN) ==
[2022-02-10] MEDS ORDERED: ALBUT/IPRATROP 3MG/0.5MG NEB 3 ML VIAL NEB STA ×2 (01:59→14:17)
[2022-02-10 02:17] LABS: Eosinophils # (auto) 0.01 K/uL (0-0.5); Eosinophils % (auto) 0.1 %; Hematocrit (blood only) 47.6 % (37-47); Hemoglobin 14.4 g/dL (12.0-16.0); Immature Granulocytes # (auto) 0.02 K/uL (0.00-0.02); Immature Granulocytes % (auto) 0.2 %; Lymphocytes # (auto) 1.33 K/uL (1.2-3.4); Lymphocytes % (auto) 14.2 %; Mean Corpuscular Hemoglobin 29.7 pg (25-34); Mean Corpuscular Hgb Conc 30.3 g/dL (32-36); Mean Corpuscular Volume 98.1 fL (80-100); Mean Platelet Volume 11.6 fL (7.4-10.4); Monocytes # (auto) 0.39 K/uL (0.11-0.59); Monocytes % (auto) 4.2 %; Neutrophils # (auto) 7.59 K/uL (1.4-6.5); Neutrophils % (auto) 81.3 %; Platelet Count 155 K/uL (130-400); RDW Coefficient of Variation 14.3 % (11.5-14.5); Red Blood Count 4.85 M/uL (4.2-5.4); White Blood Count 9.34 K/uL (4.8-10.8)
[2022-02-10 02:26] LABS: Base Excess VBG 18.9 mEq/L; HCO3 VBG 51 mmol/L; PCO2 VBG 110 mmHg (38-50); PO2 VBG 19 mmHg; pH VBG 7.29 (7.36-7.41)
[2022-02-10 02:28] LABS: Oxygen Saturation VBG < 60.0 %
[2022-02-10 02:44] LABS: Alanine Aminotransferase 13 U/L (7-52); Albumin Globulin Ratio 1.4 (0.9-2); Albumin Level 3.7 gm/dl (3.4-5.0); Alkaline Phosphatase 55 U/L (34-104); BUN Creatinine Ratio 27.7 (10-20); Bilirubin,Total 0.4 mg/dl (0.2-1.0); Blood Urea Nitrogen 13 mg/dl (6-23); Calcium 9.1 mg/dl (8.5-10.1); Carbon Dioxide > 45 mmol/L (21-32); Chloride 90 mmol/L (98-107); Creatinine Clr Calc Pharmacy 131.5 ml/min; Est GFR (African American) 126.2 ml/min; Est GFR (Non-African American) 108.9 ml/min; Globulin 2.7 gm/dl (2.5-4.0); Glucose 112 mg/dl (70-99(Fasting)); Lipase 7 U/L (11-82); Sodium 141 mmol/L (136-145); Total Protein 6.4 gm/dl (6.0-8.3)
[2022-02-10 03:25] LABS: Potassium 4.5 mmol/L (3.5-5.1)
--- NOTE | 2022-02-10 03:26 | Emergency Department Note ---
History of Present Illness General Chief complaint: Shortness of Breath/Dyspnea Stated complaint: SOB, Swelling Time Seen by Provider: 02/10/22 01:49 History of Present Illness This is a 56-year-old female presenting to the emergency department for evaluation of worsening shortness of breath over the past week. The patient has an extensive medical history including COPD, NSTEMI previous COVID-19 infection, acute respiratory failure, CHF, and tobacco use disorder. The patient feels like her feet and legs are swelling much more than normal tonight. She does wear oxygen at home, but elected to contact EMS because of her symptoms. She does not report having distinct fever. She is always short of breath and has some dyspnea on exertion which is not necessarily new. The patient not report any recent medication changes and rates her overall discomfort a 7/10. Home Medications Medication Instructions Recorded Confirmed Type albuterol sulfate 90 mcg/actuation 2 puff INHALATION Q6H PRN 10/09/18 02/10/22 History aerosol inhaler fluticasone propionate 230 1 puff INHALATION Q12H 10/09/18 02/10/22 History mcg-salmeterol 21 mcg/actuation HFA inhaler (Advair HFA) tiotropium bromide 2.5 2 puff INHALATION AMHS 10/09/18 02/10/22 History mcg/actuation mist for inhalation (Spiriva Respimat) acetaminophen 500 mg tablet 1,000 mg PO DIRECTED PRN 10/21/19 02/10/22 History (Tylenol Extra Strength) albuterol sulfate 2.5 mg INHALATION Q4H PRN 10/21/19 02/10/22 History potassium chloride 20 mEq 20 meq PO QAM 11/09/20 02/10/22 History tablet,extended release(part/cryst) (Klor-Con M) Oxygen Home #1 ea 07/10/21 08/03/21 Rx diclofenac sodium 1 % topical gel 4 g EXT QID PRN 08/03/21 02/10/22 History (Voltaren Arthritis Pain) furosemide 40 mg tablet See Rx Instructions .ROUTE .COMPLEX 09/10/21 02/10/22 History ibuprofen 200 mg tablet (Advil) 400 mg PO DIRECTED PRN 02/10/22 02/10/22 History ipratropium 0.5 mg-albuterol 3 mg 3 ml INHALATION TID 02/10/22 02/10/22 History (2.5 mg base)/3 mL nebulization soln prednisone 20 mg tablet 40 mg PO DAILY 02/10/22 02/10/22 History Allergies Allergy/AdvReac Type Severity Reaction Status Date / Time azithromycin Allergy Severe respiratory Verified 02/10/22 01:47 distress cefaclor Allergy Severe RESPIRATORY Verified 02/10/22 01:47 DISTRESS erythromycin base Allergy Severe RESPIRATORY Verified 02/10/22 01:47 DISTRESS ibuprofen Allergy Severe RESPIRATORY Verified 02/10/22 01:47 DISTRESS levofloxacin [From Levaquin] Allergy Severe RESPIRATORY Verified 02/10/22 01:47 DISTRESS, HIVES Penicillins Allergy Severe RESPIRATORY Verified 02/10/22 01:47 DISTRESS Sulfa (Sulfonamide Allergy Severe RESPIRATORY Verified 02/10/22 01:47 Antibiotics) DISTRESS, RASH doxycycline AdvReac Intermediate Difficulty Verified 02/10/22 01:47 Breathing morphine AdvReac Intermediate N/V Verified 02/10/22 01:47 Past Med/Surg History Medical History (Updated 02/10/22 @ 06:47 by Hamlet Rivas PA-C) COPD (chronic obstructive pulmonary disease) On 3 L of oxygen continuous Dyspnea Morbid obesity Orthopnea Status asthmaticus TIA (transient ischemic attack) Surgical History History of hysterectomy Hx of cholecystectomy Family History Other Heart disease Social History (Updated 02/10/22 @ 05:58 by Manolo Guardado MD) Smoking Status: Current every day smoker Tobacco Type: Cigarettes Cigarettes Per Day: 6; Second Hand Exposure: No; Hx Alcohol Use: No Hx Substance Use: No Preferred Language: Turkmen Supervisor Gate Services Required: No Beliefs That Will Affect Care: None marital status: Current Living Situation: Spouse Current Living Situation Comment: lives in mobile home with son Other Information That Helps Us Care for You: No Feels Safe at Home: Yes Safety Concerns: Feels Safe At This Time Assistive Devices: Glasses and Oxygen - Continuous Review of Systems A total of 10 systems reviewed and were otherwise negative Physical Exam Vital Signs Vital Signs - 24 hr 02/10/22 01:19 02/10/22 01:49 02/10/22 03:56 Temperature 36.7 C Temperature Source Oral Pulse Rate 93 H 89 Pulse Rate [Finger] 86 Pulse Rhythm Regular Respiratory Rate 18 18 24 Respiratory Effort / Characteristics Non-Labored Non-Labored Spontaneous Respiratory Depth Normal Normal Blood Pressure 104/64 Blood Pressure [Left Arm] Blood Pressure Mean 77 Blood Pressure Mean [Left Arm] Blood Pressure Position [Left Arm] Pulse Oximetry 92 92 94 Oxygen Delivery Method Nasal Cannula Nasal Cannula Nasal Cannula Oxygen Flow Rate 3 3 3 Sepsis Recent Fever Within 48 Hours No Sepsis New/Unexplained Change in Mental Status N/A Sepsis Action Taken by Nursing No Action Required 02/10/22 03:58 Temperature Temperature Source Pulse Rate Pulse Rate [Finger] 85 Pulse Rhythm Respiratory Rate 24 Respiratory Effort / Characteristics Non-Labored Spontaneous Respiratory Depth Normal Blood Pressure Blood Pressure [Left Arm] 92/43 L Blood Pressure Mean Blood Pressure Mean [Left Arm] 59 Blood Pressure Position [Left Arm] Sitting Pulse Oximetry 94 Oxygen Delivery Method Nasal Cannula Oxygen Flow Rate 3 Sepsis Recent Fever Within 48 Hours Sepsis New/Unexplained Change in Mental Status Sepsis Action Taken by Nursing VITALS: Vitals are noted on the nurse's note and reviewed by myself. Vital sign s stable. GENERAL: Chronically ill-appearing white female who is overall pleasant and cooperative with the examination. HEAD: Normocephalic atraumatic. MOUTH: Mucous membranes moist. Tonsils are not enlarged. Adentulous. Airway patent. NECK: Supple without nuchal rigidity. No lymphadenopathy. No thyromegaly. Cervical spine is nontender. HEART: Regular rate and rhythm without murmurs gallops or rubs. LUNGS: Coarse breath sounds heard throughout ABDOMEN: Positive normal bowel sounds x 4. MUSCULOSKELETAL: Notable bilateral lower extremity pitting edema. NEURO: Patient was alert and oriented to person place and time. CN II through XII grossly intact. Course Administered Medications Discontinued Medications Albuterol (Albut/Ipratrop 3mg/0.5mg Neb 3 Ml Vial) 3 ml NEB NOW STA; Protocol Stop: 02/10/22 02:00 Last Admin: 02/10/22 03:41 Dose: 3 ml Documented by: [id number] Medical Decision Making Differential Diagnosis Differential diagnosis: Etiologies such as infections, reactive airway disease, COPD, pneumonia, pleural effusion, pulmonary edema, ARDS, pneumothorax, CHF, cardiac ischemia, cardiac tamponade, dysrhythmia, anemia, pulmonary embolism, musculoskeletal, gastroi ntestinal process, as well as others were entertained. Laboratory Data Result diagrams: 02/10/22 02:03 02/10/22 Unknown Lab Results 02/10/22 02/10/22 02/10/22 Range/Units 02:03 02:03 02:03 WBC 9.34 (4.8-10.8) K/uL RBC 4.85 (4.2-5.4) M/uL Hgb 14.4 (12.0-16.0) g/dL Hct 47.6 H (37-47) % MCV 98.1 (80-100) fL MCH 29.7 (25-34) pg MCHC 30.3 L (32-36) g/dL RDW Std Deviation 51.0 H (36.4-46.3) fL RDW Coeff of Darius 14.3 (11.5-14.5) % Plt Count 155 (130-400) K/uL MPV 11.6 H (7.4-10.4) fL Immature Gran % (Auto) 0.2 % Neut % (Auto) 81.3 % Lymph % (Auto) 14.2 % [place] % (Auto) 4.2 % Eos % (Auto) 0.1 % Baso % (Auto) 0.0 % Neut # (Auto) 7.59 H (1.4-6.5) K/uL Lymph # (Auto) 1.33 (1.2-3.4) K/uL [place] # (Auto) 0.39 (0.11-0.59) K/uL Eos # (Auto) 0.01 (0-0.5) K/uL Baso # (Auto) 0.00 (0-0.2) K/uL Immature Gran # (Auto) 0.02 (0.00-0.02) K/uL VBG pH (7.36-7.41) VBG pCO2 (38-50) mmHg VBG pO2 mmHg VBG HCO3 mmol/L VBG O2 Saturation % VBG Base Excess mEq/L Barometric Pressure mm/Hg Sodium 141 (136-145) mmol/L Potassium (3.5-5.1) mmol/L Chloride 90 L (98-107) mmol/L Carbon Dioxide > 45 H* (21-32) mmol/L Anion Gap TNP BUN 13 (6-23) mg/dl Creatinine 0.47 L (0.6-1.2) mg/dl Est Cr Clr Drug Dosing 131.5 ml/min Est GFR ( Amer) 126.2 ml/min Est GFR (Non-Af Amer) 108.9 ml/min BUN/Creatinine Ratio 27.7 H (10-20) Glucose 112 H (70-99(Fasting)) mg/dl Calcium 9.1 (8.5-10.1) mg/dl Magnesium 2.0 (1.7-2.4) mg/dl Total Bilirubin 0.4 (0.2-1.0) mg/dl AST (13-39) U/L ALT 13 (7-52) U/L Alkaline Phosphatase 55 (34-104) U/L Troponin I High Sens 9.0 (0-14) pg/ml B-Natriuretic Peptide 39 (0-100) pg/ml Total Protein 6.4 (6.0-8.3) gm/dl Albumin 3.7 (3.4-5.0) gm/dl Globulin 2.7 (2.5-4.0) gm/dl Albumin/Globulin Ratio 1.4 (0.9-2) Lipase 7 L (11-82) U/L TSH (0.300-4.500) uIu/ml Urine Color Urine Appearance (Clear) Urine pH (4.5-7.5) Ur Specific Chris[place] (1.000-1.030) Urine Protein (Negative) Urine Glucose (UA) (Negative) Urine Ketones (Negative) Urine Blood (Negative) Urine Nitrite (Negative) Urine Bilirubin (Negative) Urine Urobilinogen (Negative) Ur Leukocyte Esterase (Negative) 02/10/22 02/10/22 02/10/22 Range/Units 02:03 02:16 04:04 WBC (4.8-10.8) K/uL RBC (4.2-5.4) M/uL Hgb (12.0-16.0) g/dL Hct (37-47) % MCV (80-100) fL MCH (25-34) pg MCHC (32-36) g/dL RDW Std Deviation (36.4-46.3) fL RDW Coeff of Darius (11.5-14.5) % Plt Count (130-400) K/uL MPV (7.4-10.4) fL Immature Gran % (Auto) % Neut % (Auto) % Lymph % (Auto) % [place] % (Auto) % Eos % (Auto) % Baso % (Auto) % Neut # (Auto) (1.4-6.5) K/uL Lymph # (Auto) (1.2-3.4) K/uL [place] # (Auto) (0.11-0.59) K/uL Eos # (Auto) (0-0.5) K/uL Baso # (Auto) (0-0.2) K/uL Immature Gran # (Auto) (0.00-0.02) K/uL VBG pH 7.29 L (7.36-7.41) VBG pCO2 110 H (38-50) mmHg VBG pO2 19 mmHg VBG HCO3 51 mmol/L VBG O2 Saturation < 60.0 % VBG Base Excess 18.9 mEq/L Barometric Pressure 732.5 mm/Hg Sodium (136-145) mmol/L Potassium (3.5-5.1) mmol/L Chloride (98-107) mmol/L Carbon Dioxide (21-32) mmol/L Anion Gap BUN (6-23) mg/dl Creatinine (0.6-1.2) mg/dl Est Cr Clr Drug Dosing ml/min Est GFR ( Amer) ml/min Est GFR (Non-Af Amer) ml/min BUN/Creatinine Ratio (10-20) Glucose (70-99(Fasting)) mg/dl Calcium (8.5-10.1) mg/dl Magnesium (1.7-2.4) mg/dl Total Bilirubin (0.2-1.0) mg/dl AST (13-39) U/L ALT (7-52) U/L Alkaline Phosphatase (34-104) U/L Troponin I High Sens (0-14) pg/ml B-Natriuretic Peptide (0-100) pg/ml Total Protein (6.0-8.3) gm/dl Albumin (3.4-5.0) gm/dl Globulin (2.5-4.0) gm/dl Albumin/Globulin Ratio (0.9-2) Lipase (11-82) U/L TSH 0.871 (0.300-4.500) uIu/ml Urine Color Yellow Urine Appearance Slightly Cloudy (Clear) Urine pH 6.0 (4.5-7.5) Ur Specific Chrisney >= 1.030 (1.000-1.030) Urine Protein Negative (Negative) Urine Glucose (UA) Negative (Negative) Urine Ketones Negative (Negative) Urine Blood Negative (Negative) Urine Nitrite Negative (Negative) Urine Bilirubin Negative (Negative) Urine Urobilinogen Negative (Negative) Ur Leukocyte Esterase Negative (Negative) ECG Data Attestation: I personally reviewed and interpreted this ECG as follows: Indication: + SOB/dyspnea Additional Comments: Normal sinus rhythm @[address] elevation When compared with ECG of 25-NOV-2021 16:32, QRS axis Shifted right MDM Narrative Physical exam and history were performed. Nursing notes, EMR, and Medication List were personally reviewed. Patient appears to have developing shortness of breath and lower extremity edema. The patient has several significant chronic medical issues and is felt to be at high risk for poor outcome. IV access was established and labs were obtained. She was given a DuoNeb here in the ER. An order was placed for continuous cardiac monitoring. The monitor shows a rate of 89 with normal sinus rhythm. Patient's blood work is as above and was reviewed. She does not have a significantly elevated white blood cell count, gross anemia, or significant electrolyte imbalance. Her chloride is 90 and carbon dioxide is greater than 45. VBG does show a PCO2 of 110. BNP is normal, as is troponin. Glucose is 112. Covid is negative. Chest x-ray was performed and reviewed without distinct pulmonary process with official radiology read pending. Overall the patient's presentation is concerning. I did discuss the case with the on-call hospitalist, who did evaluate the patient here in the ER. Patient was given additional Solu-Medrol and Lasix. Please see the hospitalist dictation for further patient course, plan, and disposition. The chart was completed utilizing [employer] Speech Voice Recognition Software. Grammatical errors, random word insertions, pronoun errors, and incomplete sentences are an occasional consequence of this system due to software limitations, ambient noise, and hardware issues. Any formal questions or concerns about the content, text, or information contained within the body of this dictation should be directly addressed to the provider for clarification. . Impression & Plan COPD (chronic obstructive pulmonary disease), Shortness of breath, Hypercapnia Discharge Plan Visit Data Chief Complaint: Shortness of Breath/Dyspnea Stated Complaint: SOB, Swelling ED Provider: bAbi Pacheco ED Midlevel Provider: Hamlet Rivas Discharge Problem: COPD (chronic obstructive pulmonary disease), Shortness of breath, Hypercapnia Patient Disposition: Admitted As Inpatient Discharge Instructions Interventions: ED Discharge Assessment Last Done: 02/10/22 05:45
--- NOTE | 2022-02-10 03:46 | History & Physical Report ---
Date of Service February 10, 2022 Assessment & Plan (1) Acute on chronic respiratory failure with hypoxia and hypercapnia: Plan: 56 y/o F w/ COPD on 3L home O2, FLAKO, covid 19, obesity, tobacco use disorder, HFpEF who presents w/ 1 wk of dyspnea and BLE swelling w/ concern for copd exac and/or chf exac. - Treating as copd exacerbaton - methylpred IV 125x1 followed by 40 q8. - very poor air movement on exam. providing pulmcort respules and scheduled duonebs in place of home regimen. mucinex. flutter valve - 3L O2 via nasal cannula. titrate to goal of 90% saturation - check bsg achs. if needed, add SSI - doxycycline PO because of medication allergies. She received doxycycline during her last copd exac - concern of broken furnace at home noted. Given the timeframe (2 wks ago), less likely contributing to her symptoms and lower suspicion for carbon monoxide pois oning. 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 Has not had vaccine. (4) Hypervolemia: Plan: - diurese as above (5) COPD (chronic obstructive pulmonary disease): Plan: - see above. end stage copd. (6) Chest pain: Plan: - see above (7) (HFpEF) heart failure with preserved ejection fraction: Plan: - TTE ordered (8) FLAKO (obstructive sleep apnea): Plan: - home cpap setting 10mmhg qhs Plan: FEN/GI: Low Na diet ppx: sq heparin code: full dispo: med tele History of Present Illness Chief Complaint: dyspnea and leg swelling Primary Care Provider: Crystal Vasquez 56 y/o F w/ COPD on 3-4L home O2, FLAKO, covid 19 (09/2021), obesity, tobacco use disorder, and HFpEF who presents w/ 1 wk of dyspnea and BLE swelling. She has some numbness in her legs. She states her sxs feel dissimilar from 10/2021 admission (COPD exac) and that she feels more fluid overloaded. She endorses increased dyspnea even at rest. She denies fever, chills, or changes in cough/sputum. She has had 1 day on intermittent midsternal chest pressure that she notices when walking or changing position while sitting. She does not believe it is exertional, but is positional. Patient had NSTEMI during 09/2021 admission. She has not measured her weight. Her weights this admission appear similar to her 10/2021 visit. She is adherent w/ her home meds and took them yesterday. No changes to her diet. Smokes quarter pack a day. She has not had covid vaccination. Patient states that her furnace in her trailer home malfunctioned 2 weeks ago and it did set off the smoke alarm at home and she stopped using as soon as this happened. She is unsure of how long it had been malfunctioning. Allergies Allergy/AdvReac Type Severity Reaction Status Date / Time azithromycin Allergy Severe respiratory Verified 02/10/22 01:47 distress cefaclor Allergy Severe RESPIRATORY Verified 02/10/22 01:47 DISTRESS erythromycin base Allergy Severe RESPIRATORY Verified 02/10/22 01:47 DISTRESS ibuprofen Allergy Severe RESPIRATORY Verified 02/10/22 01:47 DISTRESS levofloxacin [From Levaquin] Allergy Severe RESPIRATORY Verified 02/10/22 01:47 DISTRESS, HIVES Penicillins Allergy Severe RESPIRATORY Verified 02/10/22 01:47 DISTRESS Sulfa (Sulfonamide Allergy Severe RESPIRATORY Verified 02/10/22 01:47 Antibiotics) DISTRESS, RASH doxycycline AdvReac Intermediate Difficulty Verified 02/10/22 01:47 Breathing morphine AdvReac Intermediate N/V Verified 02/10/22 01:47 Home Medications Medication Instructions Recorded Confirmed Type albuterol sulfate 90 mcg/actuation 2 puff INHALATION Q6H PRN 10/09/18 02/10/22 History aerosol inhaler fluticasone propionate 230 1 puff INHALATION Q12H 10/09/18 02/10/22 History mcg-salmeterol 21 mcg/actuation HFA inhaler (Advair HFA) tiotropium bromide 2.5 2 puff INHALATION AMHS 10/09/18 02/10/22 History mcg/actuation mist for inhalation (Spiriva Respimat) acetaminophen 500 mg tablet 1,000 mg PO DIRECTED PRN 10/21/19 02/10/22 History (Tylenol Extra Strength) albuterol sulfate 2.5 mg INHALATION Q4H PRN 10/21/19 02/10/22 History potassium chloride 20 mEq 20 meq PO QAM 11/09/20 02/10/22 History tablet,extended release(part/cryst) (Klor-Con M) Oxygen Home #1 ea 07/10/21 08/03/21 Rx diclofenac sodium 1 % topical gel 4 g EXT QID PRN 08/03/21 02/10/22 History (Voltaren Arthritis Pain) furosemide 40 mg tablet See Rx Instructions .ROUTE .COMPLEX 09/10/21 02/10/22 History ibuprofen 200 mg tablet (Advil) 400 mg PO DIRECTED PRN 02/10/22 02/10/22 History ipratropium 0.5 mg-albuterol 3 mg 3 ml INHALATION TID 02/10/22 02/10/22 History (2.5 mg base)/3 mL nebulization soln prednisone 20 mg tablet 40 mg PO DAILY 02/10/22 02/10/22 History Past Med/Surg History Medical History (Updated 02/10/22 @ 06:47 by Hamlet Rivas PA-C) COPD (chronic obstructive pulmonary disease) On 3 L of oxygen continuous Dyspnea Morbid obesity Orthopnea Status asthmaticus TIA (transient ischemic attack) Surgical History History of hysterectomy Hx of cholecystectomy Family History Other Heart disease Social History (Updated 02/10/22 @ 05:58 by Manolo Guardado MD) Smoking Status: Current every day smoker Tobacco Type: Cigarettes Cigarettes Per Day: 6; Second Hand Exposure: No; Hx Alcohol Use: No Hx Substance Use: No Preferred Language: Spanish Transit Survey Worker Required: No Beliefs That Will Affect Care: None marital status: Current Living Situation: Spouse Current Living Situation Comment: lives in mobile home with son Other Information That Helps Us Care for You: No Feels Safe at Home: Yes Safety Concerns: Feels Safe At This Time Assistive Devices: Glasses and Oxygen - Continuous Review of Systems Review of Systems: All systems reviewed & are unremarkable except as noted in HPI & below + intermittent midsternal chest pressure x 1 day. +positional and pleuritic. does not believe to believe to be exertional. poor historian Physical Exam Physical Exam: General: Grossly A&O. NAD. Cooperative. Obese habitus. HEENT: Atraumatic, normocephalic. EOMI. + JVD on right. Pulm: Lungs very diminshed diffusely. Ashley inspiratory wheezes on right. No crackles audible. Mild accessory muscle use. Cardiac: RRR, -mrg. Radial pulses intact and symmetrical. 3+ BLE. No reproducible chest pain. Abdominal: Nontender, nondistended, soft. Integ: R navarrete w/ area of erythema and glossy appearance. Results & Data Results & Data ([facility]) Vital Signs (Past 12 Hours) Vital Signs Temp Pulse Resp BP Pulse Ox 02/10/22 01:49 89 18 92 02/10/22 01:19 36.7 C 93 H 18 104/64 92 Laboratory Results wbc 9.34. vbg 7.29pH 110 pco2. 02/10/22 02:03 02/10/22 Unknown Cardiac Enzymes 02/10/22 02/10/22 02/10/22 Range/Units 02:03 02:03 Unknown AST 16 (13-39) U/L B-Natriuretic Peptide 39 (0-100) pg/ml Coagulation 02/10/22 Range/Units 02:03 B-Natriuretic Peptide 39 (0-100) pg/ml CBC 02/10/22 Range/Units 02:03 WBC 9.34 (4.8-10.8) K/uL RBC 4.85 (4.2-5.4) M/uL Hgb 14.4 (12.0-16.0) g/dL Hct 47.6 H (37-47) % Plt Count 155 (130-400) K/uL Neut # (Auto) 7.59 H (1.4-6.5) K/uL Lymph # (Auto) 1.33 (1.2-3.4) K/uL [place] # (Auto) 0.39 (0.11-0.59) K/uL Eos # (Auto) 0.01 (0-0.5) K/uL Baso # (Auto) 0.00 (0-0.2) K/uL Comprehensive Metabolic Panel 02/10/22 02/10/22 Range/Units 02:03 Unknown Sodium 141 (136-145) mmol/L Potassium 4.5 (3.5-5.1) mmol/L Chloride 90 L (98-107) mmol/L Carbon Dioxide > 45 H* (21-32) mmol/L BUN 13 (6-23) mg/dl Creatinine 0.47 L (0.6-1.2) mg/dl Glucose 112 H (70-99(Fasting)) mg/dl Calcium 9.1 (8.5-10.1) mg/dl AST 16 (13-39) U/L ALT 13 (7-52) U/L Alkaline Phosphatase 55 (34-104) U/L Total Protein 6.4 (6.0-8.3) gm/dl Albumin 3.7 (3.4-5.0) gm/dl Intake and Output 02/09/22 02/09/22 02/10/22 14:59 22:59 06:59 Other: Weight 87.9 kg Weight Measurement Method Built in [facility] Patient Weight 02/10/22 06:59 Weight 87.9 kg Diagnostic Findings per my interpretation: cxr w/ mild bibasilar opacities. L pleural effusion has decreased vs 11/25/21 cxr. Code Status & VTE Plan Code Status full VTE Prophylaxis Plan VTE Prophylaxis will be ordered: Yes Supervising Physician Co-Signing Physician Notes Attending addendum: I have physically seen this patient, have supervised the medical residents activities, and agree with the H&P unless as otherwise noted. Assessment and Plan: Acute on chronic respiratory failure with hypoxia and hypercapnia/COPD exacerbation/FLAKO Acute methylprednisolone high 25 mg IV x1 now, then 40 mg IV every 8 hours Duonebs every 4 hours while awake and every 2 hours when necessary. Doxycycline 100 mg p.o. twice daily Nasal cannula oxygen, titrate to keep pulse ox 90-92% Tobacco cessation counseling, as she is a continued tobacco abuser Continue CPAP at home settings 10 mmHg HFpEF/lower extremity edema- Order 2D echocardiogram with Dopplers to assess ejection fraction Serial troponins Received Lasix 40 mg IV x1 in ED with diuresis Follow serial BMP magnesium levels Remaining orders and notations as noted Resident Activity Tracking Resident Involvement: Resident Care Provided Care Provided: Adult Hospital Medicine (1) COPD (chronic obstructive pulmonary disease) COPD type: unspecified COPD Qualified Code(s): J44.9 - Chronic obstructive pulmonary disease, unspecified (2) Chest pain Chest pain type: unspecified Qualified Code(s): R07.9 - Chest pain, unspecified (3) Hypervolemia Hypervolemia type: unspecified Qualified Code(s): E87.70 - Fluid overload, unspecified
[2022-02-10 04:32] LABS: Appearance Urine Slightly Cloudy (Clear); Bilirubin Urine Negative (Negative); Blood Urine Negative (Negative); Color Urine Yellow; Glucose Urine UA Negative (Negative); Ketones Urine Negative (Negative); Leukocyte Esterase Urine Negative (Negative); Nitrite Urine Negative (Negative); Protein Urine Negative (Negative); Specific Gravity Urine >= 1.030 (1.000-1.030); Urobilinogen Urine Negative (Negative)
[2022-02-10] MEDS ORDERED: methylPREDNISolone 125 MG/2 ML VIAL IV STA (05:22)
[2022-02-10] MEDS ORDERED: FUROSEMIDE 40 MG/4 ML VIAL IV STA (05:22)
[2022-02-10] MEDS ORDERED: ACETAMINOPHEN 325 MG TAB PO PRN (06:33)
[2022-02-10] MEDS ORDERED: POLYETHYLENE (MIRALAX) 17 GM PACK PO PRN (06:33)
[2022-02-10] MEDS ORDERED: ALBUT/IPRATROP 3MG/0.5MG NEB 3 ML VIAL NEB PRN (06:33)
[2022-02-10] MEDS ORDERED: ONDANSETRON INJ 2 MG/ML 2 ML VIAL IV PRN (06:33)
[2022-02-10] MEDS ORDERED: NITROGLYCERIN SL 0.4 MG/TAB TAB SL PRN (06:33)
[2022-02-10] MEDS: ALBUT/IPRATROP 3MG/0.5MG NEB 3 ML VIAL NEB SCH ×2 (07:07→19:39)
[2022-02-10] MEDS: BUDESONIDE 0.5 MG/2 ML VIAL (PULMICORT) NEB SCH ×2 (07:07→19:39)
--- NOTE | 2022-02-10 07:17 | XRay Report ---
XR chest 1V portable CLINICAL HISTORY: sob. COMPARISON STUDY: 11/25/2021 TECHNIQUE: 1 view of the chest FINDINGS: Single frontal view of the chest demonstrates the cardiomediastinal silhouette to be within normal li mits. Prominence of the central hilar vessels is again seen. There is a decreased inspiratory effort with elevation of the hemidiaphragms and crowding of the bronchovascular markings at the lung bases a nd centrally. The lungs are clear of alveolar opacities. There is chronic blunting of the left costop hrenic angle. There is no evidence for pleural effusion. There is no evidence for vascular congestion . There is no acute osseous pathology. IMPRESSION: 1. There is a decreased inspiratory effort with otherwise no acute chest disease. ACT 112: Negative or not required by law. Electronically signed by: Demetri Lorenzo M.D. 02/10/2022 7:16 AM
[2022-02-10] MEDS: DOXYCYCLINE HYCLATE 100 MG CAP PO SCH ×2 (08:22→20:35)
[2022-02-10] MEDS: guaiFENesin 600 MG TABCR PO SCH ×2 (08:22→20:35)
[2022-02-10] MEDS: HEPARIN SOD 5,000 UNIT/0.5 ML VIAL SQ SCH ×3 (08:22→20:35)
[2022-02-10] MEDS: NICOTINE 14 MG/24 HR PATCH TD SCH (13:04)
[2022-02-10] MEDS ORDERED: methylPREDNISolone 40 MG in SYRINGE 0 ML IV SCH (14:00)
[2022-02-10] MEDS ORDERED: methylPREDNISolone 40 MG in SYRINGE 0 ML IV ONE (14:30)
[2022-02-10 14:51] LABS: Base Excess ABG 18.3 mEq/L (-9-1.8); HCO3 ABG 51 mmol/L (19-24); Oxygen Saturation ABG 92.6 % (90-95); PCO2 ABG 123 mmHg (35-46); PO2 ABG 72 mmHg (80-95); pH ABG 7.24 (7.35-7.45)
[2022-02-10 15:05] LABS: Allen Test POS (Pos)
--- NOTE | 2022-02-10 18:06 | Communication Note ---
Date of Service: February 10, 2022 Seen during morning bedside rounds. Patient feeling overall the same as at time of admission, but no worse. Feels dyspneic, and her legs are swollen/tingling. Exam shows diminished air entry as well as wheezes bilaterally. Her BLE have 4+ edema to the mid calf. Initial plan to continue COPD exacerbation tx as per HPI. However, later in the afternoon patient became progressively dyspneic and hypoxic. ABG check showed significant hypercapnea of 123. Started on BiPAP and increased SoluMedrol to 80mg q8h. Will repeat ABG and adjust BiPAP accordingly. I personally examined the patient and verified all mar points of history and exam, discussed case, and agree with decision making with Dr Crowder COPD exacerbation - escalated to bipap, increased steroids. edema - concern on R CHF due to pulmonary HTN otherwise as above Resident Activity Tracking Resident Involvement: Resident Care Provided Care Provided: Adult Hospital Medicine
[2022-02-10 18:58] LABS: Base Excess ABG 16.8 mEq/L (-9-1.8); HCO3 ABG 50 mmol/L (19-24); Oxygen Saturation ABG 93.7 % (90-95); PCO2 ABG 123 mmHg (35-46); PO2 ABG 81 mmHg (80-95); pH ABG 7.23 (7.35-7.45)
[2022-02-10 19:12] LABS: Allen Test POS (Pos)
--- NOTE | 2022-02-10 19:36 | Billing Data ---
Date of Service February 10, 2022 Coding Level of Care Code 21923 Initial Inpt Care Lvl 3
--- NOTE | 2022-02-10 20:11 | Communication Note ---
Date of Service: February 10, 2022 Patient mentions concern of broken furnace exposure. CarboxyHb and methemoglobin levels wnl. Per nursing, patient more fatigued this evening. Fatigue worsened when off bipap which she has difficulty tolerating for prolonged periods. Oxymask while off bipap.
[2022-02-10] MEDS: methylPREDNISolone 80 MG in SYRINGE 0 ML IV SCH (20:35)
--- NOTE | 2022-02-10 21:10 | XCELERA ---
[id number] \\[email or web address]\[id number]
[2022-02-10 21:31] LABS: Hematocrit (blood only) 47.4 % (37-47); Hemoglobin 13.8 g/dL (12.0-16.0); Immature Granulocytes # (auto) 0.02 K/uL (0.00-0.02); Immature Granulocytes % (auto) 0.2 %; Lymphocytes # (auto) 0.34 K/uL (1.2-3.4); Lymphocytes % (auto) 3.6 %; Mean Corpuscular Hemoglobin 29.8 pg (25-34); Mean Corpuscular Hgb Conc 29.1 g/dL (32-36); Mean Corpuscular Volume 102.4 fL (80-100); Mean Platelet Volume 11.5 fL (7.4-10.4); Monocytes # (auto) 0.03 K/uL (0.11-0.59); Monocytes % (auto) 0.3 %; Neutrophils # (auto) 9.02 K/uL (1.4-6.5); Neutrophils % (auto) 95.9 %; Platelet Count 167 K/uL (130-400); RDW Coefficient of Variation 14.4 % (11.5-14.5); RDW Standard Deviation 53.7 fL (36.4-46.3); Red Blood Count 4.63 M/uL (4.2-5.4); White Blood Count 9.41 K/uL (4.8-10.8)
[2022-02-10] MEDS ORDERED: methylPREDNISolone 80 MG in SYRINGE 0 ML IV SCH (22:00)
[2022-02-11] MEDS: HEPARIN SOD 5,000 UNIT/0.5 ML VIAL SQ SCH ×3 (05:26→22:13)
--- NOTE | 2022-02-11 06:01 | Electrocardiogram Report ---
Test Reason : Blood Pressure : / mmHG Vent. Rate : 087 BPM Atrial Rate : 087 BPM P-R Int : 132 ms QRS Dur : 084 ms QT Int : 332 ms P-R-T Axes : 085 015 040 degrees QTc Int : 399 ms Normal sinus rhythm Possible Left atrial enlargement Low voltage QRS Possible Inferior infarct , age undetermined Abnormal ECG When compared with ECG of 10-FEB-2022 01:33, T wave inversion more evident in Anterior leads Confirmed by Max Block ([id number]) on 02/11/2022 6:01:44 AM Referred By: REFERRED SELF Confirmed By:Max Block
--- NOTE | 2022-02-11 06:01 | Electrocardiogram Report ---
Test Reason : Blood Pressure : / mmHG Vent. Rate : 090 BPM Atrial Rate : 090 BPM P-R Int : 126 ms QRS Dur : 080 ms QT Int : 350 ms P-R-T Axes : 090 055 056 degrees QTc Int : 428 ms Normal sinus rhythm Low voltage QRS Possible Inferior infarct When compared with ECG of 25-NOV-2021 16:32, QRS axis Shifted right Confirmed by Max Block ([id number]) on 02/11/2022 6:00:57 AM Referred By: REFERRED SELF Confirmed By:Max Block
--- NOTE | 2022-02-11 06:32 | Electrocardiogram Report ---
Test Reason : Blood Pressure : / mmHG Vent. Rate : 091 BPM Atrial Rate : 091 BPM P-R Int : 136 ms QRS Dur : 076 ms QT Int : 346 ms P-R-T Axes : 079 083 071 degrees QTc Int : 425 ms Normal sinus rhythm Right atrial enlargement Possible Inferior infarct Abnormal ECG When compared with ECG of 10-FEB-2022 01:52, ST no longer depressed in Anterolateral leads T wave inversion no longer evident in Anterolateral leads Confirmed by Max Block ([id number]) on 02/11/2022 6:32:31 AM Referred By: REFERRED SELF Confirmed By:Max Block
[2022-02-11 06:42] LABS: Hematocrit (blood only) 47.6 % (37-47); Hemoglobin 13.9 g/dL (12.0-16.0); Immature Granulocytes # (auto) 0.03 K/uL (0.00-0.02); Immature Granulocytes % (auto) 0.7 %; Lymphocytes # (auto) 0.55 K/uL (1.2-3.4); Lymphocytes % (auto) 13.5 %; Mean Corpuscular Hemoglobin 29.7 pg (25-34); Mean Corpuscular Hgb Conc 29.2 g/dL (32-36); Mean Corpuscular Volume 101.7 fL (80-100); Mean Platelet Volume 11.5 fL (7.4-10.4); Monocytes # (auto) 0.09 K/uL (0.11-0.59); Monocytes % (auto) 2.2 %; Neutrophils % (auto) 83.6 %; Platelet Count 142 K/uL (130-400); RDW Coefficient of Variation 13.8 % (11.5-14.5); RDW Standard Deviation 51.6 fL (36.4-46.3); Red Blood Count 4.68 M/uL (4.2-5.4); White Blood Count 4.07 K/uL (4.8-10.8)
[2022-02-11 06:45] LABS: Base Excess VBG 17.3 mEq/L; Oxygen Saturation VBG 64.5 %; pH VBG 7.19 (7.36-7.41)
[2022-02-11] MEDS: ALBUT/IPRATROP 3MG/0.5MG NEB 3 ML VIAL NEB SCH ×2 (06:57→19:21)
[2022-02-11] MEDS: BUDESONIDE 0.5 MG/2 ML VIAL (PULMICORT) NEB SCH ×2 (06:57→19:21)
[2022-02-11 07:07] LABS: BUN Creatinine Ratio 35.3 (10-20); Blood Urea Nitrogen 18 mg/dl (6-23); Calcium 8.7 mg/dl (8.5-10.1); Carbon Dioxide > 45 mmol/L (21-32); Chloride 92 mmol/L (98-107); Creatinine Clr Calc Pharmacy 118.5 ml/min; Est GFR (African American) 122.8 ml/min; Glucose 119 mg/dl (70-99(Fasting)); Potassium 5.4 mmol/L (3.5-5.1); Sodium 141 mmol/L (136-145)
--- NOTE | 2022-02-11 07:44 | Critical Care Consultation ---
Date of Consultation February 11, 2022 Assessment & Plan (1) Acute on chronic respiratory failure with hypoxia and hypercapnia: (2) COPD exacerbation: (3) Tobacco abuse: (4) FLAKO (obstructive sleep apnea): (5) Encephalopathy: Chest x-ray 11/12/21 personally reviewed: Portable film, rotated to the left, good inspiratory effort, bilateral costophrenic and cardiophrenic angles are clean. Retrocardiac opacity cannot be ruled out CT chest 11/25/2021 personally reviewed: Centrilobular emphysema appreciated bilaterally Minimal bronchiectasis appreciated in the right middle lobe as well as right lower lobe, atelectasis of the inferior lobe of the lingula No mediastinal lymphadenopathy 2D echo 02/10/2022: EF 70%, mild concentric LVH, moderately dilated RV with normal systolic function. Diastolic dysfunction ABG 02/10/2022: 7.23/123/81 on 7 L --> 7.27/112/53 on 35% FiO2 -- Acute on chronic hypoxic Hypercapnic respiratory failure Likely sec to COPD exacerbation with component of HFpEF Procalcitonin negative COVID-19 PCR negative BNP 39 Avoid respiratory suppressant medication Continue with inhaled bronchodilators, steroids, antibiotics Maintain SPO2 between 88 to 92% BiPAP nightly and as needed shortness of breath --Retrosternal chest pain EKG does not show any ST-T wave changes, P pulmonale. Negative troponin --Hyperkalemia We will give a dose of patiromer --COPD with emphysema On Advair and Spiriva at home Continue with steroids and Anoro while in the hospital --Metabolic alkalosis Likely secondary to chronic respiratory acidosis compensation Will consider giving acetazolamide was pH is > 7.4 --FLKAO On CPAP of 10 at home --History of Covid-18 October 2021 --Prophylaxis VTE: Heparin GI: Pantoprazole Lines: Peripheral Diet: Cardiac low potassium Plan: Repeat ABG shows decreasing PCO2 Patient is more alert. I will decrease the Solu-Medrol to 40 mg twice daily. Given the persistent hypercapnia on multiple ABGs even the patient was using BiPAP, she will be a good candidate for AVAPS machine. We will get social work involved Due to chronic respiratory failure consequent to COPD, patient now requires a noninvasive home ventilator. Bilevel therapy with and without a rate would be ineffective as patient requires a volume targeted mode. Ventilation is required to decrease work of breathing and improve pulmonary status. Interruption of ventilator support would lead to decline of health status. NIMV settings should be AVAPS-AE; Breath rate: auto; Inspiratory time:auto; Sigh: off; Tidal Volume: 350-450, PS min: 4-10 PS max: 12-20; EPAP min: 6-10; EPAP max: 10-16; AVAPS rate: 14 during sleep and as needed For hyperkalemia, patient was given [place], repeat BMP 3 PM I have personally spent 65 minutes of critical care time in the direct management of this patient. This is a life/limb threatening event. This includes time spent evaluating patient, direct bedside care, chart review, placing orders, interpretation of diagnostic studies, discussion with consultants, patient, and family members, as well as other required patient management activities. This time is exclusive of all separately billable procedures, and teaching time and separate from and in addition to any other critical care service time. Please note the above document was generated using voice recognition software. It may contain grammatical, syntax or spelling errors. History of Present Illness Attending Physician: Giancarlo Aceves DO History of Present Illness 56-year-old female present to the hospital with complaints of bilateral lower extremity swelling shortness of breath Past medical history: COPD on 3 L oxygen at home HFpEF, FLAKO She also complained of midsternal chest pain nonradiating, retrosternal. Patient says she is compliant with her inhalers as well as CPAP machine at home Patient was transferred to the ICU as she was hypercapnic and getting more obtunded Patient was initially on BiPAP 14/8 on the floor. When I see was consulted I increased the BiPAP to 18/8 At the time of examination patient was on BiPAP 18/8 getting tidal volumes around 375. She was alert answering all the questions appropriately Asking for food. She was saturating 95% on 40%. I went down on FiO2 to 35%. She said her shortness of breath is a bit better compared to before Denies any headache, no nausea, no vomiting No dysuria, diarrhea No fever or chills. Social history: 20-ciun-fcko active smoker Allergies Allergy/AdvReac Type Severity Reaction Status Date / Time azithromycin Allergy Severe respiratory Verified 02/10/22 01:47 distress cefaclor Allergy Severe RESPIRATORY Verified 02/10/22 01:47 DISTRESS erythromycin base Allergy Severe RESPIRATORY Verified 02/10/22 01:47 DISTRESS ibuprofen Allergy Severe RESPIRATORY Verified 02/10/22 01:47 DISTRESS levofloxacin [From Levaquin] Allergy Severe RESPIRATORY Verified 02/10/22 01:47 DISTRESS, HIVES Penicillins Allergy Severe RESPIRATORY Verified 02/10/22 01:47 DISTRESS Sulfa (Sulfonamide Allergy Severe RESPIRATORY Verified 02/10/22 01:47 Antibiotics) DISTRESS, RASH doxycycline AdvReac Intermediate Difficulty Verified 02/10/22 01:47 Breathing morphine AdvReac Intermediate N/V Verified 02/10/22 01:47 Home Medications Medication Instructions Recorded Confirmed Type albuterol sulfate 90 mcg/actuation 2 puff INHALATION Q6H PRN 10/09/18 02/10/22 History aerosol inhaler fluticasone propionate 230 1 puff INHALATION Q12H 10/09/18 02/10/22 History mcg-salmeterol 21 mcg/actuation HFA inhaler (Advair HFA) tiotropium bromide 2.5 2 puff INHALATION AMHS 10/09/18 02/10/22 History mcg/actuation mist for inhalation (Spiriva Respimat) acetaminophen 500 mg tablet 1,000 mg PO DIRECTED PRN 10/21/19 02/10/22 History (Tylenol Extra Strength) albuterol sulfate 2.5 mg INHALATION Q4H PRN 10/21/19 02/10/22 History potassium chloride 20 mEq 20 meq PO QAM 11/09/20 02/10/22 History tablet,extended release(part/cryst) (Klor-Con M) Oxygen Home #1 ea 07/10/21 08/03/21 Rx diclofenac sodium 1 % topical gel 4 g EXT QID PRN 08/03/21 02/10/22 History (Voltaren Arthritis Pain) furosemide 40 mg tablet See Rx Instructions .ROUTE .COMPLEX 09/10/21 02/10/22 History ibuprofen 200 mg tablet (Advil) 400 mg PO DIRECTED PRN 02/10/22 02/10/22 History ipratropium 0.5 mg-albuterol 3 mg 3 ml INHALATION TID 02/10/22 02/10/22 History (2.5 mg base)/3 mL nebulization soln prednisone 20 mg tablet 40 mg PO DAILY 02/10/22 02/10/22 History Patient History Medical History (Updated 02/11/22 @ 07:34 by Jesse Pat MD) COPD (chronic obstructive pulmonary disease) On 3 L of oxygen continuous Dyspnea Morbid obesity Orthopnea Status asthmaticus TIA (transient ischemic attack) Surgical History History of hysterectomy Hx of cholecystectomy Family History Other Heart disease Social History (Updated 02/10/22 @ 05:58 by Manolo Guardado MD) Smoking Status: Current every day smoker Tobacco Type: Cigarettes Cigarettes Per Day: 6; Second Hand Exposure: No; Hx Alcohol Use: No Hx Substance Use: No Preferred Language: Hebrew 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 Required: No Beliefs That Will Affect Care: None marital status: Current Living Situation: Spouse Current Living Situation Comment: lives in mobile home with son Other Information That Helps Us Care for You: No Feels Safe at Home: Yes Safety Concerns: Feels Safe At This Time Assistive Devices: Glasses and Oxygen - Continuous Review of Systems Review of Systems: All systems reviewed & are unremarkable except as noted in HPI & below Physical Exam Physical Exam: Constitutional: No acute distress HEENT: EOMI, PERRLA Respiratory system: Decreased air entry bilaterally, no wheeze, no rhonchi, mild crackles bilateral lower lobe CVS: S1-S2 positive, no murmurs or gallops, distant heart sounds Abdomen: Soft, nontender, nondistended, positive bowel sounds x4 Extremities: +2 pulses bilaterally radialis/ dorsalis pedis, no cyanosis, +2 pitting edema bilateral lower extremity Neuro: Awake alert oriented x3 Psych: Normal mood and affect G/U: Positive Chan Skin: no rashes, warm and dry Lymphatic: no cervical or axillary lymphadenopathy Results & Data Results & Data ([facility]) Vital Signs (Past 12 Hours) Vital Signs Temp Pulse Pulse Resp BP Pulse Ox 02/11/22 06:58 79 79 18 95 02/11/22 02:55 36.6 C 94 H 27 H 88/68 L 97 02/11/22 02:05 24 93 02/10/22 23:27 99 H 02/10/22 22:53 36.8 C 91 H 25 H 89/60 L 95 02/10/22 22:35 17 98 02/10/22 22:19 94 H 17 90 02/10/22 19:41 90 18 95 02/10/22 19:40 90 18 95 Laboratory Results 02/11/22 06:14 02/11/22 06:14 Coding Level of Care Code Critical Care 1st 30-74 mins Diagnoses Acute on chronic respiratory failure with hypoxia and hypercapnia J96.21; J96.22 COPD exacerbation J44.1 Tobacco abuse Z72.0 FLAKO (obstructive sleep apnea) G47.33 Encephalopathy G93.40 Time Spent (min) 65
--- NOTE | 2022-02-11 09:03 | Medical Student Progress Note ---
Date of Service February 11, 2022 Assessment & Plan (1) Acute on chronic respiratory failure with hypoxia and hypercapnia: Plan: Worsening pCO2 and decreased b/t air movement, improved by the afternoon Component of right sided heart failure, Lasix 40 On BiPAP setting 3 L nasal canula when eating, Goal sat 88-92% when on oxygen (2) COPD exacerbation: Plan: Current tobacco user (6 cigarettes a day, currently using nicotine patch) Possible bacterial vs viral URI causing bronchitis Doxycycline for atypical coverage Methylprednisone 40mg q8 Maintenance inhalers: spiriva, ipratropium-albuterol Plan: Chest pain - nl troponin, consider GERD as etiology (related to eating), protonix PRN FLAKO - CPAP at 10mmhg qhs Heart failure - echo unchanged from previous, EF greater than 70 FEN/GI: Low Na diet ppx: sq heparin code: full dispo: ICU Admission and Anticipated Discharge Date Admission Date: February 10, 2022 Supervising Attestation I personally examined the patient and verified all mar points of history and exam, discussed case, and agree with decision making with Chantal Santiago MS4 breathing better by the time i see her - was more somnolent and markedly reduced air entry this AM now doing better again vitals noted nad breathing unlabored no accesory muscles slightly better air entry than last night although still quite dminished now faint wheeze good effort much less conversational dyspnea hypercapnic respiratory failure necessitating bipap due to COPD exacerbation - continue steroids, supportive care, bipap, nebs, doxy. R heart failure -edema and lower BP likely from acute (on likely chronic) R sided CHF - acute due to air trapping/COPD exac, chronic due to long standing severe COPD and likley secondary pulmonary HTN DVT proph - heparin SQ otherwise as above, appreciate ICU assistance as well Subjective Gabriela is a 56 year old female with a pertinent past medical history of COPD. She is on hospital day 2 presenting initially with shortness of breath and numbness and tingling in the feet. Yesterday she experienced some substernal chest pain after lunch but her EKG was normal. Following she had increased shortness of breath and we initiated the BIPAP. She did remove the BIPAP throughout the evening and night for visitors and meals. Overnight her O2 sat was in the mid- 90s. Overnight her pCO2 increased and she was moved to the ICU. Subjectively her breathing feels about the same today. Her leg swelling feels about the same. Today at lunch she noticed similar chest pain after eating and was given a protonix. Review of Systems Review of Systems: All systems reviewed & are unremarkable except as noted in HPI & below Physical Exam Physical Exam: General: Alert and oriented x 3. No acute distress Pulm: b/t decreased air entry, +wheezes, no rales/rhonchi, no clubbing Cardiac: regular rate/rhythm, no murmurs/rubs/gallops, pulses strong and equal, 3+ lower extremity edema b/t Abdominal: Nontender, nondistended, soft. Results & Data ([facility]) Vital Signs (Past 12 Hours) Vital Signs Temp Pulse Pulse Resp BP Pulse Ox 02/11/22 06:58 79 79 18 95 02/11/22 02:55 36.6 C 94 H 27 H 88/68 L 97 02/11/22 02:05 24 93 02/10/22 23:27 99 H 02/10/22 22:53 36.8 C 91 H 25 H 89/60 L 95 02/10/22 22:35 17 98 02/10/22 22:19 94 H 17 90
[2022-02-11] MEDS: NICOTINE 14 MG/24 HR PATCH TD SCH (09:17)
[2022-02-11] MEDS: methylPREDNISolone 80 MG in SYRINGE 0 ML IV SCH (09:17)
[2022-02-11] MEDS ORDERED: PATIROMER CALCIUM SORBITEX 8.4 GM PACK PO ONE (09:45)
[2022-02-11] MEDS: DOXYCYCLINE HYCLATE 100 MG CAP PO SCH ×2 (10:30→20:30)
[2022-02-11] MEDS: guaiFENesin 600 MG TABCR PO SCH ×2 (10:30→20:30)
[2022-02-11] MEDS: UMECLIDINIUM/VILANTEROL 62.5/25MCG 7 PUFFS/INHALER INH SCH (10:30)
[2022-02-11] MEDS: PANTOprazole 40 MG TAB PO SCH (11:31)
[2022-02-11 15:35] LABS: iSTAT Allen Test Pass; iSTAT Art Bld Gas pCO2 Correct 111 mmHg (35-46); iSTAT Art Bld Gas pH Corrected 7.278 (7.35-7.45); iSTAT Arterial Blood Gas HCO3 52 meg/L (19-24); iSTAT Arterial Blood Gas pCO2 112 mmHg (35-46); iSTAT Arterial Blood Gas pH 7.28 (7.35-7.45); iSTAT Arterial Blood Gas pO2 53 mmHg (80-95); iSTAT Arterial Blood Gas pO2 C 52; iSTAT Carbon Dioxide > 50 mmol/L (24-31); iSTAT FiO2 50 %; iSTAT Hematocrit 44 % (37-47); iSTAT Potassium 4.6 mmol/L (3.3-5.0); iSTAT Site R Radial; iSTAT Sodium 138 mmol/L (135-144)
[2022-02-11 16:13] LABS: Blood Urea Nitrogen 21 mg/dl (6-23); Carbon Dioxide > 45 mmol/L (21-32); Chloride 91 mmol/L (98-107); Creatinine Clr Calc Pharmacy 144.3 ml/min; Est GFR (African American) 130.9 ml/min; Glucose 106 mg/dl (70-99(Fasting)); Potassium 4.9 mmol/L (3.5-5.1); Sodium 140 mmol/L (136-145)
--- NOTE | 2022-02-11 17:36 | Billing Data ---
Date of Service February 11, 2022 Coding Level of Care Code 49100 Subseq Hosp Care Lvl 3
[2022-02-11] MEDS: methylPREDNISolone 40 MG in SYRINGE 0 ML IV SCH (20:31)
[2022-02-12 05:30] LABS: iSTAT Allen Test Pass; iSTAT Arterial Blood Gas HCO3 53 meg/L (19-24); iSTAT Arterial Blood Gas pCO2 94 mmHg (35-46); iSTAT Arterial Blood Gas pH 7.36 (7.35-7.45); iSTAT Arterial Blood Gas pO2 69 mmHg (80-95); iSTAT Carbon Dioxide > 50 mmol/L (24-31); iSTAT FiO2 40 %; iSTAT Site L Radial
[2022-02-12 05:37] LABS: Hematocrit (blood only) 42.2 % (37-47); Hemoglobin 12.5 g/dL (12.0-16.0); Lymphocytes # (auto) 0.76 K/uL (1.2-3.4); Lymphocytes % (auto) 14.2 %; Mean Corpuscular Hemoglobin 29.3 pg (25-34); Mean Corpuscular Hgb Conc 29.6 g/dL (32-36); Mean Corpuscular Volume 98.8 fL (80-100); Mean Platelet Volume 11.5 fL (7.4-10.4); Monocytes # (auto) 0.32 K/uL (0.11-0.59); Neutrophils # (auto) 4.27 K/uL (1.4-6.5); Neutrophils % (auto) 79.8 %; Platelet Count 150 K/uL (130-400); RDW Coefficient of Variation 13.6 % (11.5-14.5); RDW Standard Deviation 48.9 fL (36.4-46.3); Red Blood Count 4.27 M/uL (4.2-5.4); White Blood Count 5.35 K/uL (4.8-10.8)
[2022-02-12] MEDS: HEPARIN SOD 5,000 UNIT/0.5 ML VIAL SQ SCH ×3 (05:56→21:12)
[2022-02-12 06:18] LABS: BUN Creatinine Ratio 48.8 (10-20); Blood Urea Nitrogen 21 mg/dl (6-23); Calcium 8.7 mg/dl (8.5-10.1); Carbon Dioxide > 45 mmol/L (21-32); Chloride 90 mmol/L (98-107); Creatinine Clr Calc Pharmacy 140.9 ml/min; Est GFR (African American) 129.9 ml/min; Est GFR (Non-African American) 112.1 ml/min; Glucose 106 mg/dl (70-99(Fasting)); Magnesium 1.9 mg/dl (1.7-2.4); Phosphorus 2.8 mg/dl (2.5-4.9); Potassium 4.7 mmol/L (3.5-5.1); Sodium 138 mmol/L (136-145)
[2022-02-12] MEDS: ALBUT/IPRATROP 3MG/0.5MG NEB 3 ML VIAL NEB SCH ×2 (07:03→19:12)
[2022-02-12] MEDS: BUDESONIDE 0.5 MG/2 ML VIAL (PULMICORT) NEB SCH ×2 (07:03→19:12)
[2022-02-12] MEDS: NICOTINE 14 MG/24 HR PATCH TD SCH (08:49)
[2022-02-12] MEDS: DOXYCYCLINE HYCLATE 100 MG CAP PO SCH ×2 (08:49→21:12)
[2022-02-12] MEDS: acetaZOLAMIDE 250 MG in DEXTROSE 5% 100 ML IV SCH ×2 (08:49→21:13)
[2022-02-12] MEDS: methylPREDNISolone 40 MG in SYRINGE 0 ML IV SCH ×2 (08:49→21:12)
[2022-02-12] MEDS: UMECLIDINIUM/VILANTEROL 62.5/25MCG 7 PUFFS/INHALER INH SCH (08:49)
[2022-02-12] MEDS: guaiFENesin 600 MG TABCR PO SCH ×2 (08:49→21:12)
[2022-02-12] MEDS: PANTOprazole 40 MG TAB PO SCH (08:49)
--- NOTE | 2022-02-12 09:23 | Critical Care Progress Note ---
Date of Service February 12, 2022 Assessment & Plan (1) Acute on chronic respiratory failure with hypoxia and hypercapnia: (2) COPD exacerbation: (3) Tobacco abuse: (4) FLAKO (obstructive sleep apnea): (5) Encephalopathy: Plan: Chest x-ray 11/12/21 personally reviewed: Portable film, rotated to the left, good inspiratory effort, bilateral costophrenic and cardiophrenic angles are clean. Retrocardiac opacity cannot be ruled out CT chest 11/25/2021 personally reviewed: Centrilobular emphysema appreciated bilaterally Minimal bronchiectasis appreciated in the right middle lobe as well as right lower lobe, atelectasis of the inferior lobe of the lingula No mediastinal lymphadenopathy 2D echo 02/10/2022: EF 70%, mild concentric LVH, moderately dilated RV with normal systolic function. Diastolic dysfunction ABG 02/10/2022: 7.23/123/81 on 7 L --> 7.27/112/53 on 35% FiO2 -- Acute on chronic hypoxic Hypercapnic respiratory failure Likely sec to COPD exacerbation with component of HFpEF Procalcitonin negative COVID-19 PCR negative BNP 39 Avoid respiratory suppressant medication Continue with inhaled bronchodilators, steroids, antibiotics Maintain SPO2 between 88 to 92% BiPAP nightly and as needed shortness of breath Due to chronic respiratory failure consequent to COPD, patient now requires a noninvasive home ventilator. Bilevel therapy with and without a rate would be ineffective as patient requires a volume targeted mode. Ventilation is required to decrease work of breathing and improve pulmonary status. Interruption of ventilator support would lead to decline of health status. NIMV settings should be AVAPS-AE; Breath rate: auto; Inspiratory time:auto; Sigh: off; Tidal Volume: 350-450, PS min: 4-10 PS max: 12-20; EPAP min: 6-10; EP AP max: 10-16; AVAPS rate: 14 during sleep --Retrosternal chest pain EKG does not show any ST-T wave changes, P pulmonale. Negative troponin --COPD with emphysema On Advair and Spiriva at home Continue with steroids and Anoro while in the hospital --Metabolic alkalosis Likely secondary to chronic respiratory acidosis compensation Will consider giving acetazolamide was pH is > 7.35 --FLAKO On CPAP of 10 at home --History of Covid-18 October 2021 --Prophylaxis VTE: Heparin GI: Pantoprazole Lines: Peripheral Diet: Cardiac low potassium Plan: In/out: -96, urine output 726 AB.36/93/69 on 40%, BiPAP 20/8 Given the pH is greater than 7.5 I will give the patient acetazolamide 250 mg twice daily for 3 days. Repeat ABG in the morning The patient is getting acidotic which is pH less than 7.3, stop acetazolamide Start titrating steroids off starting tomorrow. Recommend prednisone 40 mg for 3 days followed by 20 mg for 3 and then stop Patient complaining of burning in bilateral lower feet. I will order HbA1c Continue with BiPAP nightly and whenever the patient is asleep. Hemodynamically stable to be downgraded to medical floor Please note the above document was generated using voice recognition software. It may contain grammatical, syntax or spelling errors.Any formal questions or concerns about the content, text or information contained within the body of this dictation should be directly addressed to the provider for clarification. Please note the above document was generated using voice recognition software. It may contain grammatical, syntax or spelling errors. Admission and Anticipated Discharge Date Admission Date: February 10, 2022 Subjective Patient seen and examined at bedside. No acute distress, no adverse events overnight She was compliant with her BiPAP PCO2 is trending down She is feeling better Denied any headache, no nausea, no vomiting Does complain of epigastric/retrosternal pain when she is eating History goes more with GERD-like symptoms. Good appetite. Review of Systems Review of Systems: All systems reviewed & are unremarkable except as noted in Subjective Physical Exam Physical Exam: Constitutional: No acute distress HEENT: EOMI, PERRLA Respiratory system: Decreased air entry bilaterally, no wheeze, no rhonchi, mild crackles bilateral lower lobe CVS: S1-S2 positive, no murmurs or gallops, distant heart sounds Abdomen: Soft, nontender, nondistended, positive bowel sounds x4 Extremities: +2 pulses bilaterally radialis/ dorsalis pedis, no cyanosis, +2 pitting edema bilateral lower extremity Neuro: Awake alert oriented x3 Psych: Normal mood and affect G/U: Positive Chan Skin: no rashes, warm and dry Lymphatic: no cervical or axillary lymphadenopathy Results & Data Results & Data ([facility]) Vital Signs (Past 12 Hours) Vital Signs Temp Pulse Pulse Resp BP BP Pulse Ox 02/12/22 07:17 85 18 97 02/12/22 06:00 74 13 102/72 91 02/12/22 05:00 36.7 C 62 18 107/64 95 02/12/22 04:00 36.7 C 66 20 102/64 92 02/12/22 03:47 75 18 90 02/12/22 03:00 36.8 C 63 18 109/65 91 02/12/22 02:00 36.8 C 68 21 113/47 L 89 L 02/12/22 01:00 36.9 C 66 18 99/68 L 90 02/12/22 00:00 37.1 C 66 18 108/66 94 02/11/22 23:00 37.2 C 76 18 95/62 L 91 02/11/22 22:44 87 26 H 94 02/11/22 22:00 37.2 C 80 18 93/61 L 93 Laboratory Results 02/12/22 04:52 02/12/22 04:52 Coding Level of Care Code 90600 Subseq Hosp Care Lvl 3 Diagnoses Acute on chronic respiratory failure with hypoxia and hypercapnia J96.21; J96.22 COPD exacerbation J44.1 Tobacco abuse Z72.0 FLAKO (obstructive sleep apnea) G47.33 Encephalopathy G93.40
[2022-02-12 10:54] LABS: Estimated Average Glucose 114 mg/dl; Hemoglobin A1C 5.6 % (4.5-5.6)
--- NOTE | 2022-02-12 14:08 | Medical Student Progress Note ---
Date of Service February 12, 2022 Assessment & Plan (1) Acute on chronic respiratory failure with hypoxia and hypercapnia: Plan: Improved pCO2 and decreased b/t air movement, Component of right sided heart failure, Lasix 40 On BiPAP, encourage compliance 4 L nasal canula when eating, Goal sat 88-92% when on oxygen Started on Acetazolamide . Repeat ABG 4/16 AM and stop acetozolamide if pH drops Orders for AVAP for home (2) COPD exacerbation: Plan: Current tobacco user (6 cigarettes a day, currently using nicotine patch) Possible bacterial vs viral URI causing bronchitis Doxycycline for atypical coverage Methylprednisone 40mg, begining titrating off prednisone tomorrow Maintenance inhalers: spiriva, ipratropium-albuterol Plan: Chest pain - nl troponin, most likely GERD as etiology (related to eating), protonix PRN FLAKO - CPAP at 10mmhg qhs Heart failure - echo unchanged from previous, EF greater than 70 FEN/GI: Low Na diet ppx: sq heparin code: full dispo: Med/tele Admission and Anticipated Discharge Date Admission Date: February 10, 2022 Supervising Attestation I personally examined the patient and verified all mar points of history and exam, discussed case, and agree with decision making with Chantal Santiago MS4 Continues to feel better. Discussed overall plan of continuing to manage current COPD exacerbation, increase activity, get noninvasive ventilation set up for home, and then home once it is set up. She is currently amenable to thiseven though we discussed that we may not be able to set up the noninvasive home ventilation until next week. vitals noted nad breathing unlabored no no accessory muscle use, still markedly diminished, but upper lungs with faint air entry that is better than yesterday, and improved wheezing hypercapnic respiratory failure necessitating bipap due to COPD exacerbation - continue steroids, supportive care, bipap, nebs, doxy. Stable for medical. Her lung condition due to severe COPD/chronic hypoventilation appears to have almost certainly deteriorated to a point where she requires noninvasive home ventilator. A bilevel therapy with and without rate would be ineffective as patient requires a volume targeted mode. Ventilation is required to decrease the work of breathing and improve her pulmonary status, and interruption of this pulmonary support would clearly lead to a decline of health status. R heart failure -edema and lower BP likely from acute (on likely chronic) R sided CHF - acute due to air trapping/COPD exac, chronic due to long standing severe COPD and likley secondary pulmonary HTN DVT proph - heparin SQ otherwise as above Lui Ochoa is a 56 year old female on hospital day 3 with a COPD exacerbation. She feels her breathing has improved and feels better today. She has had some substernal chest pain associated with eating large bites of food and improved with drinking water. This occurred once this morning but quickly resolved. Review of Systems Review of Systems: All systems reviewed & are unremarkable except as noted in HPI & below Physical Exam Physical Exam: General: Alert and oriented x 3. No acute distress Pulm: b/t decreased air entry, +wheezes, no rales/rhonchi, no clubbing Cardiac: regular rate/rhythm, no murmurs/rubs/gallops, pulses strong and equal, 2+ lower extremity edema b/t Abdominal: Nontender, nondistended, soft. Results & Data ([facility]) Vital Signs (Past 12 Hours) Vital Signs Temp Pulse Pulse Resp BP BP Pulse Ox 02/12/22 13:00 37.1 C 86 19 89 L 02/12/22 12:00 37.0 C 92 H 17 114/84 84 L 02/12/22 11:01 36.9 C 80 16 100/77 92 02/12/22 11:00 36.9 C 80 16 89 L 02/12/22 10:00 89 17 108/72 87 L 02/12/22 09:01 36.6 C 84 25 H 99/67 L 82 L 02/12/22 09:00 36.7 C 82 17 88 L 02/12/22 08:00 36.7 C 88 17 89/69 L 84 L 02/12/22 07:17 85 18 97 02/12/22 07:00 36.9 C 83 22 107/72 97 02/12/22 06:00 74 13 102/72 91 02/12/22 05:00 36.7 C 62 18 107/64 95 02/12/22 04:00 36.7 C 66 20 102/64 92 02/12/22 03:47 75 18 90 02/12/22 03:00 36.8 C 63 18 109/65 91 Pulse Ox 02/12/22 13:00 02/12/22 12:00 02/12/22 11:01 02/12/22 11:00 02/12/22 10:00 02/12/22 09:01 02/12/22 09:00 02/12/22 08:00 90 02/12/22 07:17 02/12/22 07:00 02/12/22 06:00 02/12/22 05:00 02/12/22 04:00 02/12/22 03:47 02/12/22 03:00
--- NOTE | 2022-02-12 16:24 | Billing Data ---
Date of Service February 12, 2022 Coding Level of Care Code 01298 Subseq Hosp Care Lvl 3
[2022-02-12] MEDS ORDERED: Nursing to Pharmacy Communication SCH (22:00)
[2022-02-12] MEDS ORDERED: acetaZOLAMIDE 250 MG in DEXTROSE 5% 100 ML IV ONE (23:00)
[2022-02-13] MEDS ORDERED: acetaZOLAMIDE 250 MG in DEXTROSE 5% 100 ML IV SCH (06:00)
[2022-02-13] MEDS: HEPARIN SOD 5,000 UNIT/0.5 ML VIAL SQ SCH ×3 (06:19→21:26)
[2022-02-13 07:01] LABS: Hematocrit (blood only) 40.8 % (37-47); Hemoglobin 12.4 g/dL (12.0-16.0); Immature Granulocytes # (auto) 0.01 K/uL (0.00-0.02); Immature Granulocytes % (auto) 0.2 %; Lymphocytes # (auto) 0.73 K/uL (1.2-3.4); Lymphocytes % (auto) 12.9 %; Mean Corpuscular Hgb Conc 30.4 g/dL (32-36); Mean Corpuscular Volume 95.6 fL (80-100); Mean Platelet Volume 11.6 fL (7.4-10.4); Monocytes % (auto) 5.3 %; Neutrophils # (auto) 4.62 K/uL (1.4-6.5); Neutrophils % (auto) 81.6 %; Platelet Count 130 K/uL (130-400); RDW Coefficient of Variation 13.6 % (11.5-14.5); RDW Standard Deviation 47.4 fL (36.4-46.3); Red Blood Count 4.27 M/uL (4.2-5.4); White Blood Count 5.66 K/uL (4.8-10.8)
[2022-02-13] MEDS: BUDESONIDE 0.5 MG/2 ML VIAL (PULMICORT) NEB SCH ×2 (07:03→19:05)
[2022-02-13] MEDS: ALBUT/IPRATROP 3MG/0.5MG NEB 3 ML VIAL NEB SCH ×2 (07:03→19:05)
[2022-02-13 07:29] LABS: Base Excess ABG 12.9 mEq/L (-9-1.8); HCO3 ABG 42 mmol/L (19-24); Oxygen Saturation ABG 89.2 % (90-95); PCO2 ABG 80 mmHg (35-46); PO2 ABG 59 mmHg (80-95); pH ABG 7.34 (7.35-7.45)
[2022-02-13 07:35] LABS: Allen Test Pos (Pos)
[2022-02-13 07:36] LABS: BUN Creatinine Ratio 48.8 (10-20); Calcium 8.4 mg/dl (8.5-10.1); Creatinine Clr Calc Pharmacy 144.3 ml/min; Est GFR (African American) 129.9 ml/min; Est GFR (Non-African American) 112.1 ml/min; Potassium 4.1 mmol/L (3.5-5.1)
--- NOTE | 2022-02-13 08:07 | Hospitalist Progress Note ---
Date of Service February 13, 2022 Assessment & Plan (1) Acute on chronic respiratory failure with hypoxia and hypercapnia: Plan: 56 yo F w/ hx of COPD on 3L O2, FLAKO, OHS, COVID19, Active Tobacco use, HFpEF (EF >70%), admitted for dyspnea concerning for COPD exacerbation vs CHF exacerbation Acute on Chronic Respiratory failure with hypoxia and hypercapnia due to COPD exacerbation - most likely COPD exacerbation gives significant hypercapnia without fluid overload - Tapering now Prednisone 40 mg daily - Home regimen advair + tiotropium with PRN duoneb and albuterol treatments --> pulicort respules + anoro ellipta while inpatient with PRN duonebs Q6h - 3L O2 via nasal cannula. titrate to goal of 88-90% saturation - will complete doxycyline atypical treatment on 02/13 - patient concerned regarding broken furnace at home contributing to symptoms -- Given the timeframe (2 wks ago), less likely contributing to her symptoms and lower suspicion for carbon monoxide poisoning. - proBNP 204 on admission, unlikely CHF exacerbation Chronic Respiratory acidosis with Metabolic alkalosis, due to FLAKO and OHS, worsened by COPD Exacerbation - initial VBG of 7.29/110/19/51 on 02/10 at 02:16 AM - ABG 7.34/80/59/42 this AM - required ICU stay with bipap for management of hypercarbia, now downgraded to PCU - acetazolamide treatment to assist offloading CO2 with metabolic derangement - pulmonary recommendation for home noninvasive ventilator settings: NIMV settings should be AVAPS-AE; Breath rate: auto; Inspiratory time:auto; Sigh: off; Tidal Volume: 350-450, PS min: 4-10 PS max: 12-20; EPAP min: 6-10; EPAP max: 10-16; AVAPS rate: 14 during sleep - case management coordinating delivery of machine to patient's home Tobacco Dependence - hx of 40-44 pack year history, max 3 packs a day. Currently smoking 6 cigarettes a day while on home oxygen therapy. - discussed options and benefits of quitting tobacco given severe, possibly end stage COPD. Patient currently not open to discussing active planning for quitting, but states she's already working on it. - nicotine patches daily while admitted. offered options of nicotine gum/chews/medications to help with management of tobacco dependence Hx of COVID19 - in September 2021, unvaccinated. HFpEF - diastolic dysfunction, EF > 70% - hx of PFO, unable to assess on most recent TTE FEN/GI: Low Na diet ppx: sq heparin code: full dispo: med tele, likely d/c home after ventilator set up (2) Tobacco abuse: (3) History of COVID-19: (4) Hypervolemia: (5) COPD (chronic obstructive pulmonary disease): (6) Chest pain: (7) (HFpEF) heart failure with preserved ejection fraction: (8) FLAKO (obstructive sleep apnea): Admission and Anticipated Discharge Date Admission Date: February 10, 2022 Supervising Physician Co-Signing Physician Notes I personally examined the patient and verified all mar points of history and exam, discussed case, and agree with decision making with Dr Thacker Breathing feels more or less at baseline. Understanding of the need to wait for home equipment to be set up for a safe discharge. vitals noted nad breathing unlabored no no accessory muscle use, no conversational dyspnea. No focal neuro deficits. hypercapnic respiratory failure necessitating bipap due to COPD exacerbation - continue steroids, supportive care, bipap, nebs, doxy. Showing improvement. Her lung condition due to severe COPD/chronic hypoventilation appears to have almost certainly deteriorated to a point where she requires noninvasive home ventilator. A bilevel therapy with and without rate would be ineffective as patient requires a volume targeted mode. Ventilation is required to decrease the work of breathing and improve her pulmonary status, and interruption of this pulmonary support would clearly lead to a decline of health status. R heart failure -edema and lower BP likely from acute (on likely chronic) R sided CHF - acute due to air trapping/COPD exac, chronic due to long standing severe COPD and likley secondary pulmonary HTN DVT proph - heparin SQ otherwise as above, appreciate pulmonary input Subjective tolerated new bipap settings well overnight. no complaints of cough, sob, trouble breathing at this time. currently on 3L NC which is her home requirement. States she came to the hospital due to numbness in her leg/foot which has improved with correction of acidosis. Review of Systems Review of Systems: All systems reviewed & are unremarkable except as noted in Subjective Physical Exam Physical Exam: Constitutional: obese, in no apparent distress, sitting comfortably in bed. Eyes: EOMI, pupils equal and reactive bilaterally, no scleral icterus Cardiac: RRR, no murmurs, gallops or rubs. Normal S1, S2 Pulm: poor aeration throughout both lungs, no focal crackles, wheezing, rhonchi Abd: soft, nontender, nondistended, normal bowel sounds, no rebound or guarding Extremities: poor peripheral pulses, 1+ nonpitting edema to ankle bilaterally Results & Data Results & Data ([facility]) Vital Signs (Past 12 Hours) Vital Signs Temp Pulse Pulse Pulse Resp BP Pulse Ox 02/13/22 07:39 36.5 C 77 19 95/66 L 96 02/13/22 07:03 86 18 94 02/13/22 03:31 74 18 90 02/13/22 02:59 36.5 C 74 18 104/64 91 02/12/22 23:12 36.8 C 97 H 19 107/76 97 02/12/22 22:30 88 02/12/22 22:06 84 26 H 91 02/12/22 20:30 36.7 C 95 H 20 109/68 96 Laboratory Results Laboratory Results WBC 5.66 K/uL (4.8-10.8) 02/13/22 06:52 RBC 4.27 M/uL (4.2-5.4) 02/13/22 06:52 Hgb 12.4 g/dL (12.0-16.0) 02/13/22 06:52 POC Hgb 15.0 g/dl (12.0-16.0) 02/11/22 09:31 Hct 40.8 % (37-47) 02/13/22 06:52 POC Hct 44 % (37-47) 02/11/22 09:31 MCV 95.6 fL (80-100) 02/13/22 06:52 MCH 29.0 pg (25-34) 02/13/22 06:52 MCHC 30.4 g/dL (32-36) L 02/13/22 06:52 RDW Std Deviation 47.4 fL (36.4-46.3) H 02/13/22 06:52 RDW Coeff of Darius 13.6 % (11.5-14.5) 02/13/22 06:52 Plt Count 130 K/uL (130-400) 02/13/22 06:52 MPV 11.6 fL (7.4-10.4) H 02/13/22 06:52 Immature Gran % (Auto) 0.2 % 02/13/22 06:52 Neut % (Auto) 81.6 % 02/13/22 06:52 Lymph % (Auto) 12.9 % 02/13/22 06:52 Carver % (Auto) 5.3 % 02/13/22 06:52 Eos % (Auto) 0.0 % 02/13/22 06:52 Baso % (Auto) 0.0 % 02/13/22 06:52 Neut # (Auto) 4.62 K/uL (1.4-6.5) 02/13/22 06:52 Lymph # (Auto) 0.73 K/uL (1.2-3.4) L 02/13/22 06:52 Carver # (Auto) 0.30 K/uL (0.11-0.59) 02/13/22 06:52 Eos # (Auto) 0.00 K/uL (0-0.5) 02/13/22 06:52 Baso # (Auto) 0.00 K/uL (0-0.2) 02/13/22 06:52 Immature Gran # (Auto) 0.01 K/uL (0.00-0.02) 02/13/22 06:52 Sample Site L Radial 02/12/22 05:16 POC pH 7.36 (7.35-7.45) 02/12/22 05:16 POC pCO2 94 mmHg (35-46) H 02/12/22 05:16 POC pO2 69 mmHg (80-95) L 02/12/22 05:16 POC HCO3 53 marc/L (19-24) H 02/12/22 05:16 POC Total CO2 > 50 mmol/L (24-31) H* 02/12/22 05:16 POC Base Excess 27.0 marc/L (-9-1.8) H 02/12/22 05:16 ABG pH 7.34 (7.35-7.45) L 02/13/22 06:52 ABG pH (Temp Correct) 7.278 (7.35-7.45) L 02/11/22 09:31 ABG pCO2 80 mmHg (35-46) H 02/13/22 06:52 ABG pCO2 (Temp Corrct 111 mmHg (35-46) H 02/11/22 09:31 ABG pO2 59 mmHg (80-95) L 02/13/22 06:52 POC ABG pO2 at Pt Temp 52 02/11/22 09:31 ABG HCO3 42 mmol/L (19-24) H 02/13/22 06:52 POC ABG O2 Sat 91.0 % (90-95) 02/12/22 05:16 ABG O2 Saturation 89.2 % (90-95) L 02/13/22 06:52 ABG Base Excess 12.9 mEq/L (-9-1.8) H 02/13/22 06:52 Ranjit Test Pos (Pos) 02/13/22 06:52 VBG pH 7.19 (7.36-7.41) L 02/11/22 06:24 VBG pCO2 139 mmHg (38-50) H 02/11/22 06:24 VBG pO2 37 mmHg 02/11/22 06:24 VBG HCO3 52 mmol/L 02/11/22 06:24 VBG O2 Saturation 64.5 % 02/11/22 06:24 VBG Base Excess 17.3 mEq/L 02/11/22 06:24 Carboxyhemoglobin 1.5 % THgb 02/10/22 20:25 Methemoglobin 1.0 % (0.0-1.5) 02/10/22 20:25 Barometric Pressure 730.7 mm/Hg 02/13/22 06:52 Oxygen Given 4L 02/13/22 06:52 O2 Delivery Device BIPAP 02/12/22 05:16 POC O2 Rate 18 02/12/22 05:16 POC FiO2 40 % 02/12/22 05:16 IPAP 20 02/12/22 05:16 POC Sodium 138 mmol/L (135-144) 02/11/22 09:31 Sodium 138 mmol/L (136-145) 02/13/22 06:52 POC Potassium 4.6 mmol/L (3.3-5.0) 02/11/22 09:31 Potassium 4.1 mmol/L (3.5-5.1) 02/13/22 06:52 Chloride 95 mmol/L (98-107) L 02/13/22 06:52 Carbon Dioxide 42 mmol/L (21-32) H* 02/13/22 06:52 Anion Gap 1 (3-11) L 02/13/22 06:52 BUN 21 mg/dl (6-23) 02/13/22 06:52 Creatinine 0.43 mg/dl (0.6-1.2) L 02/13/22 06:52 Est Cr Clr Drug Dosing 144.3 ml/min 02/13/22 06:52 Est GFR ( Amer) 129.9 ml/min 02/13/22 06:52 Est GFR (Non-Af Amer) 112.1 ml/min 02/13/22 06:52 BUN/Creatinine Ratio 48.8 (10-20) H 02/13/22 06:52 Glucose 119 mg/dl (70-99(Fasting)) H 02/13/22 06:52 POC Glucose 96 mg/dl (70-99) 02/13/22 11:19 Estimat Average Glucose 114 mg/dl 02/12/22 04:52 Hemoglobin A1c 5.6 % (4.5-5.6) 02/12/22 04:52 Lactate 0.5 mmol/L (0.4-2.0) 02/10/22 20:25 Calcium 8.4 mg/dl (8.5-10.1) L 02/13/22 06:52 Phosphorus 2.8 mg/dl (2.5-4.9) 02/12/22 04:52 Magnesium 1.9 mg/dl (1.7-2.4) 02/12/22 04:52 Total Bilirubin 0.4 mg/dl (0.2-1.0) 02/10/22 02:03 AST 16 U/L (13-39) 02/10/22 Unknown ALT 13 U/L (7-52) 02/10/22 02:03 Alkaline Phosphatase 55 U/L (34-104) 02/10/22 02:03 Troponin I High Sens 9.8 pg/ml (0-14) 02/10/22 14:36 B-Natriuretic Peptide 39 pg/ml (0-100) 02/10/22 02:03 Total Protein 6.4 gm/dl (6.0-8.3) 02/10/22 02:03 Albumin 3.7 gm/dl (3.4-5.0) 02/10/22 02:03 Globulin 2.7 gm/dl (2.5-4.0) 02/10/22 02:03 Albumin/Globulin Ratio 1.4 (0.9-2) 02/10/22 02:03 Lipase 7 U/L (11-82) L 02/10/22 02:03 Procalcitonin < 0.05 ng/ml (0-0.5) 02/10/22 20:25 TSH 0.871 uIu/ml (0.300-4.500) 02/10/22 02:03 Urine Color Yellow 02/10/22 04:04 Urine Appearance Slightly Cloudy (Clear) 02/10/22 04:04 Urine pH 6.0 (4.5-7.5) 02/10/22 04:04 Ur Specific [place] >= 1.030 (1.000-1.030) 02/10/22 04:04 Urine Protein Negative (Negative) 02/10/22 04:04 Urine Glucose (UA) Negative (Negative) 02/10/22 04:04 Urine Ketones Negative (Negative) 02/10/22 04:04 Urine Blood Negative (Negative) 02/10/22 04:04 Urine Nitrite Negative (Negative) 02/10/22 04:04 Urine Bilirubin Negative (Negative) 02/10/22 04:04 Urine Urobilinogen Negative (Negative) 02/10/22 04:04 Ur Leukocyte Esterase Negative (Negative) 02/10/22 04:04 Nasal Screen MRSA (PCR) Negative (Negative) 02/11/22 08:35 Hepatitis C Ab (EIA) NON-REACTIVE (NON-REACTIVE) 02/10/22 09:13 Hep C Ab Signal/Cutoff 0.01 (<1.00) 02/10/22 09:13 SARS-CoV-2, RNA, NAAT NEGATIVE (NEGATIVE) 02/10/22 Unknown Impressions Chest X-Ray 02/10/22 01:49 XR chest 1V portable CLINICAL HISTORY: sob. COMPARISON STUDY: 11/25/2021 TECHNIQUE: 1 view of the chest FINDINGS: Single frontal view of the chest demonstrates the cardiomediastinal silhouette to be within normal limits. Prominence of the central hilar vessels is again seen. There is a decreased inspiratory effort with elevation of the hemidiaphragms and crowding of the bronchovascular markings at the lung bases and centrally. The lungs are clear of alveolar opacities. There is chronic blunting of the left costophrenic angle. There is no evidence for pleural effusion. There is no evidence for vascular congestion. There is no acute osseous pathology. IMPRESSION: 1. There is a decreased inspiratory effort with otherwise no acute chest disease. ACT 112: Negative or not required by law. Electronically signed by: Demetri Lorenzo M.D. 02/10/2022 7:16 AM Resident Activity Tracking Resident Involvement: Resident Care Provided Care Provided: Adult Hospital Medicine (1) Chest pain Chest pain type: unspecified Qualified Code(s): R07.9 - Chest pain, unspecified (2) Hypervolemia Hypervolemia type: unspecified Qualified Code(s): E87.70 - Fluid overload, unspecified
[2022-02-13] MEDS: NICOTINE 14 MG/24 HR PATCH TD SCH (09:05)
[2022-02-13] MEDS: DOXYCYCLINE HYCLATE 100 MG CAP PO SCH ×2 (09:06→21:26)
[2022-02-13] MEDS: guaiFENesin 600 MG TABCR PO SCH ×2 (09:06→21:26)
[2022-02-13] MEDS: PANTOprazole 40 MG TAB PO SCH (09:06)
[2022-02-13] MEDS: methylPREDNISolone 40 MG in SYRINGE 0 ML IV SCH (09:06)
[2022-02-13] MEDS: UMECLIDINIUM/VILANTEROL 62.5/25MCG 7 PUFFS/INHALER INH SCH (09:06)
--- NOTE | 2022-02-13 09:50 | Pulmonology Progress Note ---
Date of Service February 13, 2022 Assessment & Plan (1) Acute on chronic respiratory failure with hypoxia and hypercapnia: (2) COPD exacerbation: (3) Tobacco abuse: (4) FLAKO (obstructive sleep apnea): (5) Encephalopathy: Plan: Chest x-ray 11/12/21 personally reviewed: Portable film, rotated to the left, good inspiratory effort, bilateral costophrenic and cardiophrenic angles are clean. Retrocardiac opacity cannot be ruled out CT chest 11/25/2021 personally reviewed: Centrilobular emphysema appreciated bilaterally Minimal bronchiectasis appreciated in the right middle lobe as well as right lower lobe, atelectasis of the inferior lobe of the lingula No mediastinal lymphadenopathy 2D echo 02/10/2022: EF 70%, mild concentric LVH, moderately dilated RV with normal systolic function. Diastolic dysfunction ABG 02/10/2022: 7.23/123/81 on 7 L --> 7.27/112/53 on 35% FiO2 -- Acute on chronic hypoxic Hypercapnic respiratory failure Likely sec to COPD exacerbation with component of HFpEF Procalcitonin negative COVID-19 PCR negative BNP 39 Avoid respiratory suppressant medication Continue with inhaled bronchodilators, steroids, antibiotics Maintain SPO2 between 88 to 92% BiPAP nightly and as needed shortness of breath Due to chronic respiratory failure consequent to COPD, patient now requires a noninvasive home ventilator. Bilevel therapy with and without a rate would be ineffective as patient requires a volume targeted mode. Ventilation is required to decrease work of breathing and improve pulmonary status. Interruption of ventilator support would lead to decline of health status. NIMV settings should be AVAPS-AE; Breath rate: auto; Inspiratory time:auto; Sigh: off; Tidal Volume: 350-450, PS min: 4-10 PS max: 12-20; EPAP min: 6-10; EP AP max: 10-16; AVAPS rate: 14 during sleep --COPD with emphysema On Advair and Spiriva at home Continue with steroids and Anoro while in the hospital --Metabolic alkalosis Likely secondary to chronic respiratory acidosis compensation Will consider giving acetazolamide was pH is > 7.35 --FLAKO On CPAP of 10 at home --History of Covid-18 October 2021 Plan: ABG 7.34/80/59 on 4 L pH is still acceptable. Okay to continue with acetazolamide. Recommend repeating an ABG tomorrow in the morning. The pH stays around the same complete the course of acetazolamide. If it is getting acidotic then would stop acetazolamide Start prednisone taper tomorrow. 40 mg for 3 days followed by 20 mg for 3 days and then stop No further recommendation from pulmonary perspective. Call directly with any questions Please note the above document was generated using voice recognition software. It may contain grammatical, syntax or spelling errors.Any formal questions or concerns about the content, text or information contained within the body of this dictation should be directly addressed to the provider for clarification. Please note the above document was generated using voice recognition software. It may contain grammatical, syntax or spelling errors. Admission and Anticipated Discharge Date Admission Date: February 10, 2022 Subjective Patient seen and examined at bedside. No acute distress, no episodes overnight. Patient says she is doing much better when it comes to her breathing She is urinating well. Denies any headache, no nausea, no vomiting. Therapeutic. Review of Systems Review of Systems: All systems reviewed & are unremarkable except as noted in Subjective Physical Exam Physical Exam: Constitutional: No acute distress HEENT: EOMI, PERRLA Respiratory system: Decreased air entry bilaterally, no wheeze, no rhonchi, mild crackles bilateral lower lobe CVS: S1-S2 positive, no murmurs or gallops, distant heart sounds Abdomen: Soft, nontender, nondistended, positive bowel sounds x4 Extremities: +2 pulses bilaterally radialis/ dorsalis pedis, no cyanosis, +1 pitting edema bilateral lower extremity Neuro: Awake alert oriented x3 Psych: Normal mood and affect G/U: Positive Chan Skin: no rashes, warm and dry Lymphatic: no cervical or axillary lymphadenopathy Results & Data Results & Data ([facility]) Vital Signs (Past 12 Hours) Vital Signs Temp Pulse Pulse Pulse Resp BP Pulse Ox 02/13/22 09:43 76 02/13/22 08:00 02/13/22 07:39 36.5 C 77 19 95/66 L 96 02/13/22 07:03 86 18 94 02/13/22 03:31 74 18 90 02/13/22 02:59 36.5 C 74 18 104/64 91 02/12/22 23:12 36.8 C 97 H 19 107/76 97 02/12/22 22:30 88 02/12/22 22:06 84 26 H 91 Pulse Ox 02/13/22 09:43 02/13/22 08:00 90 02/13/22 07:39 02/13/22 07:03 02/13/22 03:31 02/13/22 02:59 02/12/22 23:12 02/12/22 22:30 02/12/22 22:06 Laboratory Results 02/13/22 06:52 02/13/22 06:52 PG Care Time/CCT Total # of Minutes Spent Total Time Spent with Patient: Total time spent is greater than 50% in coordination of care (as documented) at patient's floor/unit and/or counseling patient: Coding Level of Care Code 21555 Subseq Hosp Care Lvl 2 Diagnoses Acute on chronic respiratory failure with hypoxia and hypercapnia J96.21; J96.22 COPD exacerbation J44.1 Tobacco abuse Z72.0 FLAKO (obstructive sleep apnea) G47.33 Encephalopathy G93.40
--- NOTE | 2022-02-13 16:07 | Billing Data ---
Date of Service February 13, 2022 Coding Level of Care Code 88995 Subseq Hosp Care Lvl 3
[2022-02-13] MEDS ORDERED: acetaZOLAMIDE 250 MG in SYRINGE 0 ML IV SCH (21:00)
[2022-02-13] MEDS: acetaZOLAMIDE 250 MG in SYRINGE 0 ML IV SCH (21:24)
[2022-02-14] MEDS: acetaZOLAMIDE 250 MG in SYRINGE 0 ML IV SCH ×2 (06:01→17:08)
[2022-02-14] MEDS: HEPARIN SOD 5,000 UNIT/0.5 ML VIAL SQ SCH ×3 (06:01→21:59)
[2022-02-14] MEDS: BUDESONIDE 0.5 MG/2 ML VIAL (PULMICORT) NEB SCH ×2 (07:27→19:21)
[2022-02-14] MEDS: ALBUT/IPRATROP 3MG/0.5MG NEB 3 ML VIAL NEB SCH ×2 (07:27→19:21)
--- NOTE | 2022-02-14 07:44 | Hospitalist Progress Note ---
Date of Service February 14, 2022 Assessment & Plan (1) Acute on chronic respiratory failure with hypoxia and hypercapnia: Plan: 56 yo F w/ hx of COPD on 3L O2, FLAKO, OHS, COVID19, Active Tobacco use, HFpEF (EF >70%), admitted for dyspnea concerning for COPD exacerbation vs CHF exacerbation Acute on Chronic Respiratory failure with hypoxia and hypercapnia due to COPD exacerbation - most likely COPD exacerbation gives significant hypercapnia without fluid overload - Tapering now Prednisone 40 mg daily - Home regimen advair + tiotropium with PRN duoneb and albuterol treatments --> pulicort respules + anoro ellipta while inpatient with PRN duonebs Q6h - 3L O2 via nasal cannula. titrate to goal of 88-90% saturation - completed doxycycline treatment - patient concerned regarding broken furnace at home contributing to symptoms -- Given the timeframe (2 wks ago), less likely contributing to her symptoms and lower suspicion for carbon monoxide poisoning. - proBNP 204 on admission, unlikely CHF exacerbation Chronic Respiratory acidosis with Metabolic alkalosis, due to FLAKO and OHS, worsened by COPD Exacerbation - initial VBG of 7.29/110/19/51 on 02/10 at 02:16 AM - ABG 7.28/86/61/39. Bicarb improving, pH worsened today in context of missing yesterday's PM dose of acetazolamide. Received 02/14 AM dose, will repeat will repeat ABG later today - required ICU stay with bipap for management of hypercarbia, now downgraded to med/tele - acetazolamide treatment to assist offloading CO2 with metabolic derangement - pulmonary recommendation for home noninvasive ventilator settings: NIMV settings should be AVAPS-AE; Breath rate: auto; Inspiratory time:auto; Sigh: off; Tidal Volume: 350-450, PS min: 4-10 PS max: 12-20; EPAP min: 6-10; EPAP max: 10-16; AVAPS rate: 14 during sleep - case management coordinating delivery of machine to patient's home Tobacco Dependence - hx of 40-44 pack year history, max 3 packs a day. Currently smoking 6 cigarettes a day while on home oxygen therapy. - discussed options and benefits of quitting tobacco given severe, possibly end stage COPD. Patient currently not open to discussing active planning for quitting, but states she's already working on it. - nicotine patches daily while admitted. offered options of nicotine gum/chews/medications to help with management of tobacco dependence Hx of COVID19 - in September 2021, unvaccinated. HFpEF - diastolic dysfunction, EF > 70% - hx of PFO, unable to assess on most recent TTE FEN/GI: Low Na diet ppx: sq heparin code: full dispo: med tele, likely d/c home after ventilator set up (2) Tobacco abuse: (3) History of COVID-19: (4) Hypervolemia: (5) COPD (chronic obstructive pulmonary disease): (6) Chest pain: (7) (HFpEF) heart failure with preserved ejection fraction: (8) FLAKO (obstructive sleep apnea): Admission and Anticipated Discharge Date Admission Date: February 10, 2022 Supervising Physician Co-Signing Physician Notes I personally examined the patient and verified all mar points of history and exam, discussed case, and agree with decision making with Dr Thacker Feeling better breathing better. vitals noted nad breathing unlabored no no accessory muscle use, no conversational dyspnea. No focal neuro deficits. hypercapnic respiratory failure necessitating bipap due to COPD exacerbation - continue steroids, supportive care, bipap, nebs, doxy. Showing improvement. Her lung condition due to severe COPD/chronic hypoventilation appears to have almost certainly deteriorated to a point where she requires noninvasive home ventilator. A bilevel therapy with and without rate would be ineffective as patient requires a volume targeted mode. Ventilation is required to decrease the work of breathing and improve her pulmonary status, and interruption of this pulmonary support would clearly lead to a decline of health status. Continue current careonce home ventilator has been set up, probably will be stable for home. R heart failure -edema and lower BP likely from acute (on likely chronic) R sided CHF - acute due to air trapping/COPD exac, chronic due to long standing severe COPD and likley secondary pulmonary HTN. She wonders about increasing her home diureticwe discussed the risk/benefit of thisthat diuresing right-sided CHF sometimes can be helpful, but is often rocked with a more precipitous rise in creatinine or drop in blood pressure once the patient is a bit drynecessitating really close follow-up. She understood this and noted that with home nursing she felt like she could get labs as often as required. DVT proph - heparin SQ otherwise as above, appreciate pulmonary input Subjective Overnight events: Patient refused last night's dose of acetazolamide after mixup with timing of dosing stating that she did not want to be woken up multiple times overnight for needing to urinate. She she is having internal or external catheter attached to aid with this. This morning states that she slept well however is requiring more oxygen this morning and has worsened acidosis. No complaints of nausea, vomiting, pain. 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 Review of Systems Review of Systems: All systems reviewed & are unremarkable except as noted in Subjective Physical Exam Physical Exam: Constitutional: obese, in no apparent distress, sitting comfortably in bed. Eyes: EOMI, pupils equal and reactive bilaterally, no scleral icterus Cardiac: RRR, no murmurs, gallops or rubs. Normal S1, S2 Pulm: poor aeration throughout both lungs,inspiratory and expiratory wheezing heard in BL middle Abd: soft, nontender, nondistended, normal bowel sounds, no rebound or guarding Extremities: poor peripheral pulses, 1+ nonpitting edema to ankle bilaterally Results & Data Results & Data ([facility]) Vital Signs (Past 12 Hours) Vital Signs Temp Pulse Pulse Pulse Resp BP Pulse Ox 02/14/22 07:28 73 18 93 02/14/22 07:25 36.6 C 78 18 99/62 L 90 02/14/22 07:24 73 02/14/22 03:40 80 18 95 02/14/22 03:29 36.8 C 80 18 102/59 L 94 02/13/22 23:32 36.8 C 84 16 102/63 96 02/13/22 23:27 86 18 91 02/13/22 22:20 90 Resident Activity Tracking Resident Involvement: Resident Care Provided Care Provided: Adult Hospital Medicine (1) Chest pain Chest pain type: unspecified Qualified Code(s): R07.9 - Chest pain, unspecified (2) Hypervolemia Hypervolemia type: unspecified Qualified Code(s): E87.70 - Fluid overload, unspecified
[2022-02-14] MEDS: UMECLIDINIUM/VILANTEROL 62.5/25MCG 7 PUFFS/INHALER INH SCH (07:59)
[2022-02-14] MEDS: PANTOprazole 40 MG TAB PO SCH (07:59)
[2022-02-14] MEDS: predniSONE 20 MG TAB PO SCH (07:59)
[2022-02-14] MEDS: DOXYCYCLINE HYCLATE 100 MG CAP PO SCH (07:59)
[2022-02-14] MEDS: NICOTINE 14 MG/24 HR PATCH TD SCH (08:00)
[2022-02-14] MEDS: guaiFENesin 600 MG TABCR PO SCH ×2 (08:00→21:59)
[2022-02-14 08:59] LABS: Base Excess ABG 9.2 mEq/L (-9-1.8); HCO3 ABG 39 mmol/L (19-24); PCO2 ABG 86 mmHg (35-46); PO2 ABG 61 mmHg (80-95); pH ABG 7.28 (7.35-7.45)
[2022-02-14 09:06] LABS: Allen Test Pos (Pos)
[2022-02-14 09:16] LABS: Calcium 8.6 mg/dl (8.5-10.1); Est GFR (Non-African American) 110.4 ml/min; Potassium 3.3 mmol/L (3.5-5.1)
[2022-02-14] MEDS ORDERED: POTASSIUM CHLORIDE CRTAB 20 MEQ TABCR PO STA (09:57)
--- NOTE | 2022-02-14 17:00 | Billing Data ---
Date of Service February 14, 2022 Coding Level of Care Code 87646 Subseq Hosp Care Lvl 3
[2022-02-14 18:35] LABS: Allen Test Pos (Pos); Base Excess ABG 7.9 mEq/L (-9-1.8); HCO3 ABG 39 mmol/L (19-24); Oxygen Saturation ABG 93.3 % (90-95); PCO2 ABG 88 mmHg (35-46); PO2 ABG 72 mmHg (80-95); pH ABG 7.26 (7.35-7.45)
[2022-02-15] MEDS: HEPARIN SOD 5,000 UNIT/0.5 ML VIAL SQ SCH ×3 (05:58→22:03)
--- NOTE | 2022-02-15 06:48 | Hospitalist Progress Note ---
Date of Service February 15, 2022 Assessment & Plan (1) Acute on chronic respiratory failure with hypoxia and hypercapnia: Plan: 56 yo F w/ hx of COPD on 3L O2, FLAKO, OHS, COVID19, Active Tobacco use, HFpEF (EF >70%), admitted for dyspnea concerning for COPD exacerbation vs CHF exacerbation Acute on Chronic Respiratory failure with hypoxia and hypercapnia due to COPD exacerbation - most likely COPD exacerbation gives significant hypercapnia without fluid overload - Tapering now Prednisone 40 mg daily - Home regimen advair + tiotropium with PRN duoneb and albuterol treatments --> pulicort respules + anoro ellipta while inpatient with PRN duonebs Q6h - 3L O2 via nasal cannula. titrate to goal of 88-90% saturation - completed doxycycline treatment - patient concerned regarding broken furnace at home contributing to symptoms -- Given the timeframe (2 wks ago), less likely contributing to her symptoms and lower suspicion for carbon monoxide poisoning. - proBNP 204 on admission, unlikely CHF exacerbation Chronic Respiratory acidosis with Metabolic alkalosis, due to FLAKO and OHS, worsened by COPD Exacerbation - initial VBG of 7.29/110/19/51 on 02/10 at 02:16 AM - ABG 7.28/86/61/39. Bicarb improving, pH worsened today in context of missing yesterday's PM dose of acetazolamide. Received 02/14 AM dose, will repeat will repeat ABG later today - required ICU stay with bipap for management of hypercarbia, now downgraded to med/tele - acetazolamide treatment to assist offloading CO2 with metabolic derangement - pulmonary recommendation for home noninvasive ventilator settings: NIMV settings should be AVAPS-AE; Breath rate: auto; Inspiratory time:auto; Sigh: off; Tidal Volume: 350-450, PS min: 4-10 PS max: 12-20; EPAP min: 6-10; EPAP max: 10-16; AVAPS rate: 14 during sleep - case management coordinating delivery of machine to patient's home Tobacco Dependence - hx of 40-44 pack year history, max 3 packs a day. Currently smoking 6 cigarettes a day while on home oxygen therapy. - discussed options and benefits of quitting tobacco given severe, possibly end stage COPD. Patient currently not open to discussing active planning for quitting, but states she's already working on it. - nicotine patches daily while admitted. offered options of nicotine gum/chews/medications to help with management of tobacco dependence Hx of COVID19 - in September 2021, unvaccinated. HFpEF - diastolic dysfunction, EF > 70% - hx of PFO, unable to assess on most recent TTE FEN/GI: Low Na diet ppx: sq heparin code: full dispo: med tele, likely d/c home after ventilator set up (2) Tobacco abuse: (3) History of COVID-19: (4) Hypervolemia: (5) COPD (chronic obstructive pulmonary disease): (6) Chest pain: (7) (HFpEF) heart failure with preserved ejection fraction: (8) FLAKO (obstructive sleep apnea): Admission and Anticipated Discharge Date Admission Date: February 10, 2022 Results & Data Results & Data ([facility]) Vital Signs (Past 12 Hours) Vital Signs Temp Pulse Pulse Pulse Resp BP BP 02/15/22 03:15 78 20 02/15/22 03:14 36.4 C L 82 18 99/48 L 02/15/22 00:45 65 18 02/14/22 23:35 36.5 C 81 18 93/52 L 02/14/22 22:20 86 02/14/22 19:31 36.5 C 86 18 112/71 02/14/22 19:23 90 18 Pulse Ox 02/15/22 03:15 93 02/15/22 03:14 92 02/15/22 00:45 97 02/14/22 23:35 95 02/14/22 22:20 02/14/22 19:31 98 02/14/22 19:23 92 (1) Hypervolemia Hypervolemia type: unspecified Qualified Code(s): E87.70 - Fluid overload, unspecified (2) Chest pain Chest pain type: unspecified Qualified Code(s): R07.9 - Chest pain, unspecified
[2022-02-15] MEDS: ALBUT/IPRATROP 3MG/0.5MG NEB 3 ML VIAL NEB SCH ×2 (07:08→19:27)
[2022-02-15] MEDS: BUDESONIDE 0.5 MG/2 ML VIAL (PULMICORT) NEB SCH ×2 (07:08→19:27)
[2022-02-15] MEDS: UMECLIDINIUM/VILANTEROL 62.5/25MCG 7 PUFFS/INHALER INH SCH (08:29)
[2022-02-15] MEDS: NICOTINE 14 MG/24 HR PATCH TD SCH (08:30)
[2022-02-15] MEDS: guaiFENesin 600 MG TABCR PO SCH ×2 (08:30→22:03)
[2022-02-15] MEDS: predniSONE 20 MG TAB PO SCH (08:30)
[2022-02-15] MEDS: PANTOprazole 40 MG TAB PO SCH (08:30)
[2022-02-15 08:53] LABS: Calcium 8.6 mg/dl (8.5-10.1); Creatinine Clr Calc Pharmacy 122.7 ml/min; Est GFR (African American) 123.7 ml/min; Est GFR (Non-African American) 106.7 ml/min; Potassium 3.6 mmol/L (3.5-5.1)
--- NOTE | 2022-02-15 13:20 | Medical Student Progress Note ---
Date of Service February 15, 2022 Assessment & Plan (1) Acute on chronic respiratory failure with hypoxia and hypercapnia: Plan: Acute on chronic respiratory failure with hypoxia and hypercapnia Improved pCO2 and decreased b/t air movement, Component of right sided heart failure, Lasix 40 improved edema On BiPAP for sleep, encourage compliance 3 L nasal canula when eating, Goal sat 88-92% when on oxygen Waiting for AVAP to be set-up for home COPD exacerbation Current tobacco user (6 cigarettes a day, currently using nicotine patch) Possible bacterial vs viral URI causing bronchitis Doxycycline for atypical coverage Methylprednisone taper 40mg x 3 days, 20 x 3 days, on day 2 Maintenance inhalers: spiriva, ipratropium-albuterol, advair Chest pain nl troponin, most likely GERD as etiology (related to eating), protonix PRN, recommend PCP to consider non-urgent GI referral FLAKO CPAP at 10mmhg qhs Heart failure echo unchanged from previous, EF greater than 70 Plan: FEN/GI: Low Na diet ppx: sq heparin code: full dispo: Med/tele Admission and Anticipated Discharge Date Admission Date: February 10, 2022 Supervising Attestation Patient seen and examined with medical student Gemini Santiago and PGY-2 Dr. Elizalde. Agree with history, exam findings, assessment and plan of care as outlined. In brief, Gabriela is a 56 year old female with hx of CODP (3L chronically), FLAKO, tobacco use, HFpEF admitted with dyspnea. Overall, feels that breathing is better. She is motivated to stop smoking cigarettes. Currently down to 6 per day. Golden that the 14mg nicotine patch has been helpful while here. She has used the nicotine patch in the past as well when she has quit smoking. Anxious to get home, but understands that she needs the non-invasive ventilator for home to keep her breathing status stable. VS and nursing notes reviewed. Well appearing. No increased work of breathing on nasal cannula. Heart with regular rate and rhythm. Trace bilateral lower extremity edema. Diminished air movement throughout. Prolonged expiratory phase with mild end expiratory wheezing in all lung dash. 1. Acute on chronic respiratory failure with hypoxia and hypercapnia. Most consistent with COPD exacerbation. Tapering prednisone. Switched to pulicort and anoro while here, PRN duonebs. Completed doxycycline. Requires noninvasive ventilatory measures for home to prevent declining health statuswaiting for equipment to be approved by insurance and delivered to her home. 2. Tobacco dependence. 6 cigarettes per day. Nicotine patch while admitted. Motivated to quit. Will send rx for nicotine patch on discharge. 3. Dysphagia. Continue protonix. She can see GI as an outpatient, but she is a poor candidate for elective EGD given her tenuous pulmonary status. Dispo: medically stable for discharge, but at this point awaiting AVAP approval and delivery. Subjective 56 year old female on hospital day 5 admitted for COPD exacerbation and developed acute respiratory failrue with hypoxia and hypercapnia. Improved and feels breathing is back at baseline. BiPap is only required during sleep and she has improved compliance with her mask from home. Chest pain when eating large bites of food and feels it gets "stuck." Tingling in the feet has resolved since admission. Counseled on smoking cessation and feels she requested nicotine patches for discharge. Review of Systems Review of Systems: All systems reviewed & are unremarkable except as noted in HPI & below Physical Exam Physical Exam: General: Alert and oriented x 3. No acute distress Pulm: b/t decreased air entry, +wheezes, no rales/rhonchi, no clubbing Cardiac: regular rate/rhythm, no murmurs/rubs/gallops, pulses strong and equal, no edema Abdominal: Nontender, nondistended, soft. Results & Data ([facility]) Vital Signs (Past 12 Hours) Vital Signs Temp Pulse Pulse Pulse Resp BP Pulse Ox 02/15/22 08:00 02/15/22 07:26 36.7 C 77 18 104/63 90 02/15/22 07:10 76 16 90 02/15/22 07:06 77 02/15/22 03:15 78 20 93 02/15/22 03:14 36.4 C L 82 18 99/48 L 92 Pulse Ox 02/15/22 08:00 90 02/15/22 07:26 02/15/22 07:10 02/15/22 07:06 02/15/22 03:15 02/15/22 03:14
[2022-02-16] MEDS: HEPARIN SOD 5,000 UNIT/0.5 ML VIAL SQ SCH (06:10)
[2022-02-16 07:04] LABS: Eosinophils # (auto) 0.14 K/uL (0-0.5); Eosinophils % (auto) 1.8 %; Hematocrit (blood only) 40.4 % (37-47); Hemoglobin 12.2 g/dL (12.0-16.0); Immature Granulocytes # (auto) 0.03 K/uL (0.00-0.02); Immature Granulocytes % (auto) 0.4 %; Lymphocytes # (auto) 2.46 K/uL (1.2-3.4); Lymphocytes % (auto) 32.2 %; Mean Corpuscular Hemoglobin 29.3 pg (25-34); Mean Corpuscular Hgb Conc 30.2 g/dL (32-36); Mean Corpuscular Volume 96.9 fL (80-100); Mean Platelet Volume 11.5 fL (7.4-10.4); Monocytes % (auto) 9.2 %; Neutrophils % (auto) 56.4 %; Platelet Count 125 K/uL (130-400); RDW Coefficient of Variation 14.3 % (11.5-14.5); RDW Standard Deviation 50.2 fL (36.4-46.3); Red Blood Count 4.17 M/uL (4.2-5.4); White Blood Count 7.63 K/uL (4.8-10.8)
[2022-02-16] MEDS: BUDESONIDE 0.5 MG/2 ML VIAL (PULMICORT) NEB SCH (07:17)
[2022-02-16] MEDS: ALBUT/IPRATROP 3MG/0.5MG NEB 3 ML VIAL NEB SCH (07:18)
[2022-02-16 07:43] LABS: BUN Creatinine Ratio 39.5 (10-20); Calcium 8.4 mg/dl (8.5-10.1); Creatinine Clr Calc Pharmacy 142.8 ml/min; Est GFR (African American) 129.9 ml/min; Est GFR (Non-African American) 112.1 ml/min; Potassium 3.9 mmol/L (3.5-5.1)
[2022-02-16] MEDS: NICOTINE 14 MG/24 HR PATCH TD SCH (08:45)
[2022-02-16] MEDS: guaiFENesin 600 MG TABCR PO SCH (08:45)
[2022-02-16] MEDS: PANTOprazole 40 MG TAB PO SCH (08:45)
[2022-02-16] MEDS: predniSONE 20 MG TAB PO SCH (08:45)
[2022-02-16] MEDS: UMECLIDINIUM/VILANTEROL 62.5/25MCG 7 PUFFS/INHALER INH SCH (08:45)
--- NOTE | 2022-02-16 09:54 | Med Student Discharge Summary ---
Date of Service February 16, 2022 Admission HPI Per Admitting Provider 56 y/o F w/ COPD on 3-4L home O2, FLAKO, covid 19 (09/2021), obesity, tobacco use disorder, and HFpEF who presents w/ 1 wk of dyspnea and BLE swelling. She has some numbness in her legs. She states her sxs feel dissimilar from 10/2021 admission (COPD exac) and that she feels more fluid overloaded. She endorses increased dyspnea even at rest. She denies fever, chills, or changes in cough/sputum. She has had 1 day on intermittent midsternal chest pressure that she notices when walking or changing position while sitting. She does not believe it is exertional, but is positional. Patient had NSTEMI during 09/2021 admission. She has not measured her weight. Her weights this admission appear similar to her 10/2021 visit. She is adherent w/ her home meds and took them yesterday. No changes to her diet. Smokes quarter pack a day. She has not had covid vaccination. Patient states that her furnace in her trailer home malfunctioned 2 weeks ago and it did set off the smoke alarm at home and she stopped using as soon as this happened. She is unsure of how long it had been malfunctioning. Discharge Exam General: Alert and oriented x 3. No acute distress Pulm: b/t decreased air entry, +wheezes, no rales/rhonchi, no clubbing Cardiac: regular rate/rhythm, no murmurs/rubs/gallops, pulses strong and equal, no edema Abdominal: Nontender, nondistended, soft. Discharge Data Consultations 02/10/22 03:48 ED Decision to Admit Stat 02/11/22 09:34 Consult Ophthalmic Technologist Routine Hospital Course (1) Acute on chronic respiratory failure with hypoxia and hypercapnia: Acute on chronic respiratory failure with hypoxia and hypercapnia Improved pCO2 and decreased b/t air movement, Component of right sided heart failure, Lasix 40 improved edema On BiPAP for sleep, encourage compliance 3 L nasal canula when eating, Goal sat 88-92% when on oxygen 02/16: AVAP to be set-up for home this afternoon, to use for sleeping COPD exacerbation Current tobacco user (6 cigarettes a day, currently using nicotine patch), counseled on smoking cessation Possible bacterial vs viral URI causing bronchitis Doxycycline for atypical coverage, completed 02/14 Methylprednisone taper 40mg x 3 days, 20 x 3 days, on day 3 Maintenance inhalers: spiriva, ipratropium-albuterol, advair Chest pain nl troponin, most likely GERD as etiology (related to eating), protonix PRN, recommend PCP to consider non-urgent GI referral FLAKO CPAP at 10mmhg qhs Heart failure echo unchanged from previous, EF greater than 70 Can restart home diuretic 20 mg methylprednisone for 3 days, starting 02/17 Pantoprazole once daily Nicotine patch 14mg for cravings Follow-up with PCP in 1 week, discuss non-urgent GI referral Discharge Plan Discharge Items Patient Disposition: Home - Self-Care Reason For Visit: DYSPNEA ABD LEG SWELLING Discharge Diagnosis: COPD exacerbation Activity: Resume your previous activity Non-emergency contact: Primary Care Provider Call non-emergency contact if: you have any medication questions and your symptoms worsen Follow-up/Referrals: Crystal Vasquez PA-C [Primary Care Provider] - Diet: Low Sodium (2gm) Addtl Attending Provider Instructions: You were admitted to the hospital for shortness of breath, which was due to a COPD exacerbation. You were treated with steroids, antibiotics, and other medicines to support your breathing. You have recovered well, and we think it is safe for you to return home. You were given a machine called an AVAPS. This is to be used anytime you are going to sleep, at night and naptimes. A discharge summary will be sent to your primary care physician to ensure continuity of care. Please bring this discharge summary with you to your next office appointment so that your provider can review it at that time. Follow-up appointments: Make a follow-up appointment with your PCP within the next week. It is very important that you follow up with them shortly after discharge from the hospital. Keep all your follow-up appointments as already scheduled. If you cannot make an appointment, notify your provider. Medications: Your medication list has been reviewed and reconciled upon discharge to ensure accuracy and continuity of care. An updated list of all your medications is included with your hospital discharge paperwork. Please review this list closely, and make note of any changes. * We sent a new medication called prednisone to your pharmacy. Take prednisone (20mg) one tablets daily for the next three days (02/17-02/19). * We sent a new medication called pantoprazole to your pharmacy. Take pantoprazole (20mg) one tablet daily. * We sent nicotine patches to your pharmacy. Use a nicotine patch (14mg) once daily as needed for nicotine cravings. If you have any issues filling these prescriptions, please call [phone] and ask to leave a message for Dr. Howard Elizalde. Take your medications as instructed; do not skip a dose of your medicines. Make sure all of your doctors know every medicine you are taking (including jalr-ldx-xdntkho medicines, vitamins, and supplements). Call your primary care provider before taking any new medicines (including zuee-ucj-phnqajx medicines, vitamins, and supplements), because some of these may interact with your current medications, or may make your symptoms worse. Tell your primary care provider if you cannot afford your medications. CONTACT YOUR PRIMARY CARE PROVIDER if you experience any of the following: Worsening shortness of breath or cough Worsening swelling in your legs Difficulty following your treatment plan, or difficulty taking medications CALL 911 OR GO TO THE EMERGENCY DEPARTMENT if you experience any of the following: Sudden, severe abdominal pain or nausea/vomiting Severe chest pain, or chest pain that radiates (moves) to your jaw or arm Sudden, severe shortness of breath or difficulty breathing Thank you for allowing us to participate in your care. Pending Studies at Discharge: No Stand-Alone Forms: My [facility], Smoking Cessation Medications and DC Order Prescriptions: New prednisone 20 mg Tablet 20 mg PO DAILY 3 Days Qty: 3 RF: 0 pantoprazole 40 mg Tablet,Delayed Release (Dr/Ec) 20 mg PO QAM 30 Days Qty: 30 RF: 0 nicotine 7 mg/24 hr Patch 24 Hour 14 mg transdermal QAM Qty: 30 RF: 0 Continued potassium chloride [Klor-Con M20] 20 mEq tablet,ER particles/crystals 20 meq PO QAM RF: 0 albuterol sulfate 90 mcg/actuation Hfa Aerosol Inhaler 2 puff INHALATION Q6H PRN (Reason: Shortness Of Breath Or Wheezing) RF: 0 Advair HFA 230-21 mcg/actuation Hfa Aerosol Inhaler 1 puff INHALATION Q12H RF: 0 Spiriva Respimat 2.5 mcg/actuation Mist 2 puff INHALATION AMHS RF: 0 albuterol sulfate 2.5 mg /3 mL (0.083 %) Solution For Nebulization 2.5 mg INHALATION Q4H PRN (Reason: Shortness Of Breath Or Wheezing) RF: 0 acetaminophen [Tylenol Extra Strength] 500 mg Tablet 1,000 mg PO DIRECTED PRN (Reason: Pain) RF: 0 (DME) Oxygen Home Liters Per Minute See Rx Instructions .ROUTE .MEDSUPPLY Qty: 1 RF: 0 furosemide 40 mg tablet See Rx Instructions .ROUTE .COMPLEX RF: 0 diclofenac sodium [Voltaren Arthritis Pain] 1 % gel 4 g EXT QID PRN (Reason: Pain) RF: 0 ipratropium-albuterol 0.5 mg-3 mg(2.5 mg base)/3 mL solution for nebulization 3 ml INHALATION TID RF: 0 ibuprofen [Advil] 200 mg Tablet 400 mg PO DIRECTED PRN (Reason: Pain) RF: 0 prednisone 20 mg tablet 40 mg PO DAILY RF: 0 Discharge Orders: Discharge Order (Routine); Ordered 02/16/22 Ordered By: Howard Elizalde Admission Data Admit Date/Time: 02/10/22 05:22 Attending Provider: Khoi Peacock Admit Provider: Manolo Guardado Primary Care Provider: Crystal Vasquez Other Providers: Hood Rodney ; Jesse Pat ; Gurjit Pimentel [facility] Other Interventions: Discharge Summary Assessment (RN) Last Done: 02/16/22 12:47 Supervising Attestation Patient seen and examined with medical student Gemini Santiago and PGY-2 Dr. Elizalde. Agree with history, exam findings, assessment and plan of care as outlined. In brief, Gabriela is a 56 year old female with hx of CODP (3L chronically), FLAKO, tobacco use, HFpEF admitted with dyspnea. Overall, feels that breathing is better. She is motivated to stop smoking cigarettes. Currently down to 6 per day. Feels ready to go home. VS and nursing notes reviewed. Well appearing. No increased work of breathing on nasal cannula. Heart with regular rate and rhythm. Trace bilateral lower extremity edema. Diminished air movement throughout. 1. Acute on chronic respiratory failure with hypoxia and hypercapnia. Most consistent with COPD exacerbation. Tapering prednisone. Switched to pulicort and anoro while here, PRN duonebs. Completed doxycycline. Requires noninvasive ventilatory measures for home to prevent declining health status. Equipment has been approved and will be delivered and set up at her home this afternoon. 2. Tobacco dependence. 6 cigarettes per day. Nicotine patch while admitted. Motivated to quit. Will send rx for nicotine patch on discharge. 3. Dysphagia. Continue protonix. She can see GI as an outpatient, but she is a poor candidate for elective EGD given her tenuous pulmonary status. Dispo: medically stable for discharge. I personally spent 25 minutes discharge planning for this patient.
== END 2022-02-16 13:57 | disposition home or self-care (01) | DRG 190 ==
LOC: ED 01:27 → SUATTDRO 05:22 → 2N 05:22 → 2S 18:07 → 1E 02-11 08:27 → 2S 02-12 15:12
DX: J98.11 Atelectasis; Z88.1 Allergy status to other antibiotic agents; Z99.81 Dependence on supplemental oxygen; Z68.36 Body mass index [BMI] 36.0-36.9, adult; J96.21 Acute and chronic respiratory failure with hypoxia; G47.33 Obstructive sleep apnea (adult) (pediatric); E66.01 Morbid (severe) obesity due to excess calories; F17.210 Nicotine dependence, cigarettes, uncomplicated; Z88.0 Allergy status to penicillin; G93.40 Encephalopathy, unspecified; Z88.8 Allergy status to other drugs, medicaments and biological substances; I25.2 Old myocardial infarction; J43.9 Emphysema, unspecified; J44.1 Chronic obstructive pulmonary disease with (acute) exacerbation; I50.33 Acute on chronic diastolic (congestive) heart failure; Z88.5 Allergy status to narcotic agent; J96.22 Acute and chronic respiratory failure with hypercapnia; E87.5 Hyperkalemia; Z86.16 Personal history of COVID-19; Z90.49 Acquired absence of other specified parts of digestive tract; Z86.73 Personal history of transient ischemic attack (TIA), and cerebral infarction without residual deficits; E87.4 Mixed disorder of acid-base balance; K21.9 Gastro-esophageal reflux disease without esophagitis; Z88.2 Allergy status to sulfonamides